=== PATIENT | male | born 1945 | race Caucasian/White ===

== ENCOUNTER 2016-11-10 06:39 | Inpatient (IN) | payer OTHER, MEDICARE ==
[~2016-11-10] VITALS: Ht 171.4 cm; Wt 60.2 kg
[2016-11-10] VITALS (27 sets, daily range): BP systolic 121–148; BP diastolic 72–89; PULSE 54–111; RESP 13–26; TEMP 97.8–98.3; O2SAT 88–99
[2016-11-10] MEDS ORDERED: methylPREDNISolone SOD SUCC 125 MG/2 ML VIAL IVP ONE (07:00)
[2016-11-10] MEDS ORDERED: SODIUM CHLORIDE 0.9% FLUSH 10 ML FLUSH IVF PRN ×2 (07:00→08:15)
--- NOTE | 2016-11-10 07:10 | PD ---
HPI Chief Complaint: Respiratory Distress Time Seen by Provider: 06:46 Travel History International Travel<30 days: No Contact w/Intl Traveler<30days: No Traveled to known affect area: No History of Present Illness HPI 71-year-old male came to the emergency room with history of shortness of breath that started yesterday. [facility] He has history of severe COPD and had a tracheostomy placed 2 weeks ago. Patient is unable to give significant history given his voice issue as well as respiratory distress and the history is mostly obtained from the paramedics. When they listened to his lungs upon arrival he sounded very diminished air entry. The give him 1 albuterol and IV Lasix. His oxygen saturation is in the 80s. He was attached to the EMS ventilator. Oxygen saturation upon arrival was 79%. Patient appeared to be in significant distress and pale in color. PFSH Past Medical History Narrative Medical List of his past medical, surgical, social and family history as reviewed from the nursing note. Social History Tobacco Use: No Allergies-Medications (Allergen,Severity, Reaction): Coded Allergies: No Known Allergies (Unverified , 11/10/16) Comments Unobtainable currently Reported Meds & Prescriptions Reported Meds & Active Scripts Active Reported Aplisol (Tuberculin Ppd) 5 Unit/0.1 Ml Inj Xanax (Alprazolam) 0.25 Mg Tab 0.25 Mg G-TUBE Q8H PRN Vancomycin HCl 500 Mg Vial.port IV DAILY Thera M Plus (Multivitamins/Minerals Therapeutic) 1 Tab 1 Tab G-TUBE DAILY Sodium Chloride Inj (Sodium Chloride) 0.9 % Inj 100 Ml IV Q12HR Probiotic (Lactobacillus Combo No.10) 1 Each Capsule G-TUBE BID Omeprazole 20 Mg Cap G-TUBE BID Olanzapine 5 Mg Tab 5 Mg G-TUBE DAILY Nitro-Bid Topical (Nitroglycerin) 2 % Oint 1 Inch CHEST Q6H PRN Metronidazole 250 Mg Tab 250 Mg G-TUBE QID Metoprolol Tartrate 25 Mg Tab 25 Mg PO BID Loperamide (Loperamide HCl) 2 Mg Tablet 2 Mg G-TUBE Q4HR PRN Duoneb (Ipratropium-Albuterol Neb) 0.5-2.5 Mg/3 Ml Neb 1 Nebule INH Q4HR NEB Hyoscyamine (Hyoscyamine Sulfate) 0.125 Mg Tab 0.125 Mg G-TUBE Q4H Hydralazine Inj (Hydralazine HCl) 20 Mg/Ml Inj 10 Mg IV EVERY HOUR PRN Heparin Inj (Heparin Sodium (Porcine)) 10,000 Units/10 Ml Inj 5,000 Units SQ Q12HR Guaifenesin DM Liq (Guaifenesin-Dextromethorphan Liq) 10-100 Mg/5 Ml Liq 10 Ml G -TUBE Q4H PRN Dextrose 10%-NaCl 0.45% Inj (Dextrose-Sodium Chloride Inj) 10-0.45% 1,000 Ml Bagp Glucagen Hypokit Inj Kit (Glucagon (Rdna) Inj Kit) 1 Mg Kit 1 Mg IM ONCE PRN Doxazosin (Doxazosin Mesylate) 2 Mg Tab 2 Mg G-TUBE DAILY Dextrose 50% (Dextrose) 50 % Inj PRN Cholestyramine 4 Gm/Dose Powd 4 Gm PO BID 1 level scoopful of powder contains 4 grams of cholestyramine. Chlorhexidine Gluconate (Mouth) Liq (Chlorhexidine Gluconate) 0.12% Soln 15 Ml SWISH-SPIT BID Cefepime Inj (Cefepime HCl) 2 Gm/100 Ml Bagp 2 Gm IV Q12H Budesonide Neb 0.5 Mg/2 Ml Neb 0.5 Mg NEB Q12HR NEB Amiodarone (Amiodarone HCl) 200 Mg Tab 200 Mg G-TUBE DAILY Tylenol (Acetaminophen) 325 Mg Tab 325 Mg G-TUBE Q4H PRN Narrative Medication Awaiting for the new nurse to the mental consideration. Review of Systems Except as stated in HPI: all other systems reviewed are Neg Physical Exam Narrative GENERAL: Awake, alert, severe respiratory distress SKIN: Pale and diaphoretic HEAD: Atraumatic. Normocephalic. EYES: Pupils equal and round. No scleral icterus. No injection or drainage. ENT: No nasal bleeding or discharge. Mucous membranes pink and moist. NECK: Trachea midline. No JVD. CARDIOVASCULAR: Regular rate and rhythm. No murmur appreciated. RESPIRATORY: Accessory muscles use for respiration. Absent air entry on the right side. Diminished air entry with coarse breath sounds on the left side. GASTROINTESTINAL: Abdomen soft, non-tender, nondistended. Hepatic and splenic margins not palpable. MUSCULOSKELETAL: No obvious deformities. No clubbing. No cyanosis. No edema. NEUROLOGICAL: Awake and alert. No obvious cranial nerve deficits. Motor grossly within normal limits. Normal speech. PSYCHIATRIC: Appropriate mood and affect; insight and judgment normal. Data Data Last Documented VS Vital Signs Date Time Temp Pulse Resp B/P Pulse Ox O2 Delivery O2 Flow Rate FiO2 11/10/16 08:49 94 13 125/76 98 CPAP 50 11/10/16 07:07 98.3 Orders Complete Blood Count With Diff (11/10/16 06:46) Basic Metabolic Panel (Bmp) (11/10/16 06:46) B-Type Natriuretic Peptide (11/10/16 06:46) Magnesium (Mg) (11/10/16 06:46) Troponin I (11/10/16 06:46) Iv Access Insert/Monitor (11/10/16 06:46) Electrocardiogram (11/10/16 06:46) Ecg Monitoring (11/10/16 06:46) Oximetry (11/10/16 06:46) Oxygen Administration (11/10/16 06:46) Chest, Single Ap (11/10/16 06:46) Sodium Chloride 0.9% Flush (Ns Flush) (11/10/16 07:00) Methylprednisolone So Succ Inj (Solumedr (11/10/16 07:00) Albuterol-Ipratropium Neb (Duoneb Neb) (11/10/16 07:00) Sodium Chlorid 0.9% 500 Ml Inj (Ns 500 M (11/10/16 08:00) Blood Culture (11/10/16 08:09) Sputum Culture And Gram Stain (11/10/16 08:09) Sodium Chloride 0.9% Flush (Ns Flush) (11/10/16 08:15) Piperacil-Tazo 4.5 Gm Premix (Zosyn 4.5 (11/10/16 08:15) Admit Order (Ed Use Only) (11/10/16 08:44) Labs Laboratory Tests Test 11/10/16 06:50 White Blood Count 13.9 TH/MM3 Red Blood Count 3.51 MIL/MM3 Hemoglobin 11.1 GM/DL Hematocrit 32.6 % Mean Corpuscular Volume 92.9 FL Mean Corpuscular Hemoglobin 31.7 PG Mean Corpuscular Hemoglobin 34.1 % Concent Red Cell Distribution Width 16.4 % Platelet Count 267 TH/MM3 Mean Platelet Volume 9.0 FL Neutrophils (%) (Auto) 76.2 % Lymphocytes (%) (Auto) 14.1 % Monocytes (%) (Auto) 8.3 % Eosinophils (%) (Auto) 0.9 % Basophils (%) (Auto) 0.5 % Neutrophils # (Auto) 10.6 TH/MM3 Lymphocytes # (Auto) 2.0 TH/MM3 Monocytes # (Auto) 1.2 TH/MM3 Eosinophils # (Auto) 0.1 TH/MM3 Basophils # (Auto) 0.1 TH/MM3 CBC Comment AUTO DIFF Differential Total Cells 100 Counted Neutrophils % (Manual) 73 % Band Neutrophils % 1 % Lymphocytes % 17 % Monocytes % 7 % Eosinophils % 1 % Neutrophils # (Manual) 10.4 TH/MM3 Metamyelocytes 1 % Differential Comment FINAL DIFF MANUAL Platelet Estimate NORMAL Platelet Morphology Comment NORMAL Sodium Level 138 MEQ/L Potassium Level 3.7 MEQ/L Chloride Level 102 MEQ/L Carbon Dioxide Level 29.6 MEQ/L Anion Gap 6 MEQ/L Blood Urea Nitrogen 24 MG/DL Creatinine 0.52 MG/DL Estimat Glomerular Filtration 157 ML/MIN Rate Random Glucose 134 MG/DL Calcium Level 9.7 MG/DL Magnesium Level 1.8 MG/DL Troponin I LESS THAN 0.02 NG/ML B-Type Natriuretic Peptide 146 PG/ML MDM Medical Decision Making Medical Screen Exam Complete: Yes Emergency Medical Condition: Yes Medical Record Reviewed: Yes Differential Diagnosis Acute COPD exacerbation, pneumonia, pleural effusion, CHF exacerbation Narrative Course 7:09 AM the respiratory therapist suctioned copious amount of thick secretion from the trach. This improved the oxygen saturation. Patient is currently attached to the ventilator. I have ordered 3 duo nebs and IV Solu-Medrol for him as well. Case has been signed over to the oncoming ER physician. Critical Care Narrative Aggregate critical care time was 30 minutes. Time to perform other separately billable procedures was not included in the critical care time. My time did not include minutes spent treating any other patients simultaneously or on activities that did not directly contribute to the patient's treatment. The services I provided to this patient were to treat and/or prevent clinically significant deterioration that could result in: respiratory distress, trach, vent management. I provided critical care services requiring my management, as noted below: Chart data review, documentation time, medication orders and management, vital sign assessments/reviewing monitor data, ordering and reviewing lab tests, ordering and interpreting/reviewing x-rays and diagnostic studies, care of the patient and discussion of the patient with the admitting physicians. Procedures EKG Prior to Arrival: Yes Scripts Oxycodone 10 Mg Tab10 Mg G-TUBE Q6H PRN (PAIN) #10 TAB Ref 0 Prov:Cassy Arora MD 11/13/16 Jon Pryor MD November 10, 2016 07:10
[2016-11-10 07:16] LABS: AUTOMATED NEUTROPHIL # 10.6 TH/MM3 (1.8-7.7); BASOPHIL # 0.1 TH/MM3 (0-0.2); BASOPHIL % 0.5 % (0.0-2.0); EOSINOPHIL # 0.1 TH/MM3 (0-0.4); EOSINOPHIL % 0.9 % (0.0-4.0); HEMATOCRIT 32.6 % (39.0-51.0); HEMO FLAGS AUTO DIFF; LYMPH % 14.1 % (9.0-44.0); MEAN CELL VOLUME 92.9 FL (80.0-100.0); MEAN CORPUSCULAR HEMOGLOBIN 31.7 PG (27.0-34.0); MEAN CORPUSCULAR HGB CONC 34.1 % (32.0-36.0); MONO % 8.3 % (0.0-8.0); NEUT % 76.2 % (16.0-70.0); PLATELET COUNT 267 TH/MM3 (150-450); RED BLOOD COUNT 3.51 MIL/MM3 (4.50-5.90); RED CELL DISTRIBUTION WIDTH 16.4 % (11.6-17.2); WHITE BLOOD COUNT 13.9 TH/MM3 (4.0-11.0)
--- NOTE | 2016-11-10 07:26 | PD ---
Physical Exam Date Seen by Provider: November 10, 2016 Time Seen by Provider: 07:00 Narrative The patient was signed out to me by Dr. Pryor. This is a 71-year-old gentleman who presents from the subsequent and nursing facility with shortness of breath. The patient has a fairly recent trach placed. He apparently had shortness of breath and decreased oxygen saturations. When he arrived he he had diminished breath sounds on the right which was concerning for a mucous plug. He was suctioned multiple times and bagged through his tracheostomy site. His saturations did improve. There was no reported fevers, chills. There are no other reported complaints. He has a sacral decubitus that is the size of a "dessert plate". Per Dr. Urbano Quinteros, it looks much improved from previous. Data Data Last Documented VS Vital Signs Date Time Temp Pulse Resp B/P Pulse Ox O2 Delivery O2 Flow Rate FiO2 11/10/16 08:49 94 13 125/76 98 CPAP 50 11/10/16 07:07 98.3 11/10/16 06:40 15.00 Orders Complete Blood Count With Diff (11/10/16 06:46) Basic Metabolic Panel (Bmp) (11/10/16 06:46) B-Type Natriuretic Peptide (11/10/16 06:46) Magnesium (Mg) (11/10/16 06:46) Troponin I (11/10/16 06:46) Iv Access Insert/Monitor (11/10/16 06:46) Electrocardiogram (11/10/16 06:46) Ecg Monitoring (11/10/16 06:46) Oximetry (11/10/16 06:46) Oxygen Administration (11/10/16 06:46) Chest, Single Ap (11/10/16 06:46) Sodium Chloride 0.9% Flush (Ns Flush) (11/10/16 07:00) Methylprednisolone So Succ Inj (Solumedr (11/10/16 07:00) Albuterol-Ipratropium Neb (Duoneb Neb) (11/10/16 07:00) Sodium Chlorid 0.9% 500 Ml Inj (Ns 500 M (11/10/16 08:00) Blood Culture (11/10/16 08:09) Sputum Culture And Gram Stain (11/10/16 08:09) Sodium Chloride 0.9% Flush (Ns Flush) (11/10/16 08:15) Piperacil-Tazo 4.5 Gm Premix (Zosyn 4.5 (11/10/16 08:15) Admit Order (Ed Use Only) (11/10/16 08:44) Labs Laboratory Tests Test 11/10/16 06:50 White Blood Count 13.9 TH/MM3 Red Blood Count 3.51 MIL/MM3 Hemoglobin 11.1 GM/DL Hematocrit 32.6 % Mean Corpuscular Volume 92.9 FL Mean Corpuscular Hemoglobin 31.7 PG Mean Corpuscular Hemoglobin 34.1 % Concent Red Cell Distribution Width 16.4 % Platelet Count 267 TH/MM3 Mean Platelet Volume 9.0 FL Neutrophils (%) (Auto) 76.2 % Lymphocytes (%) (Auto) 14.1 % Monocytes (%) (Auto) 8.3 % Eosinophils (%) (Auto) 0.9 % Basophils (%) (Auto) 0.5 % Neutrophils # (Auto) 10.6 TH/MM3 Lymphocytes # (Auto) 2.0 TH/MM3 Monocytes # (Auto) 1.2 TH/MM3 Eosinophils # (Auto) 0.1 TH/MM3 Basophils # (Auto) 0.1 TH/MM3 CBC Comment AUTO DIFF Differential Total Cells 100 Counted Neutrophils % (Manual) 73 % Band Neutrophils % 1 % Lymphocytes % 17 % Monocytes % 7 % Eosinophils % 1 % Neutrophils # (Manual) 10.4 TH/MM3 Metamyelocytes 1 % Differential Comment FINAL DIFF MANUAL Platelet Estimate NORMAL Platelet Morphology Comment NORMAL Sodium Level 138 MEQ/L Potassium Level 3.7 MEQ/L Chloride Level 102 MEQ/L Carbon Dioxide Level 29.6 MEQ/L Anion Gap 6 MEQ/L Blood Urea Nitrogen 24 MG/DL Creatinine 0.52 MG/DL Estimat Glomerular Filtration 157 ML/MIN Rate Random Glucose 134 MG/DL Calcium Level 9.7 MG/DL Magnesium Level 1.8 MG/DL Troponin I LESS THAN 0.02 NG/ML B-Type Natriuretic Peptide 146 PG/ML [facility] Medical Record Reviewed: Yes Supervised Visit with MELCHOR: No Interpretation(s) Last 24 hours Impressions Chest X-Ray 11/10/16 0646 Signed Impressions: Service Date/Time: Thursday, November 10, 2016 07:44 - CONCLUSION: Bibasilar airspace opacity, right greater than left, likely representing some combination of atelectasis/volume loss with possible effusion and consolidation at the right lung base. Asif Dawson MD Differential Diagnosis Mucous plug versus pneumonia versus reactive airway disease Narrative Course This is a 71-year-old male who was sent from [facility] with respiratory distress. The patient had low oxygen saturations when paramedics arrived. He has a reported 2-week-old trach in place. When he arrived here there was aggressive suctioning done which increase his oxygen saturations. The patient appears to have a lower lobe pneumonia. We have no old x-rays to compare with. The patient does have an elevated white blood cell count of 13,900. She'll be started on Zosyn. Cultures have been obtained. Case was discussed with Dr. Urbano Quinteros, call or contact centre operator, who well.The patient is off the ventilator and satting well. Given his condition, we'll admit him under observation. He's been started on Zosyn. He'll be admitted to the medicine floor under Dr. Cassy Arora' s service. Diagnosis Primary Impression: Right lower lobe pneumonia Additional Impressions: Respiratory distress tracheostomy patient Admitting Information Admitting Physician Requests: Observation Gilles Forte MD November 10, 2016 07:26
[2016-11-10] MEDS: RESP: ALBUTEROL 2.5 MG/IPRATROPIUM 0.5 MG NEB (SCH) INH ×2 (07:28→07:29)
[2016-11-10 07:34] LABS: ANION GAP 6 MEQ/L (5-15); BICARBONATE 29.6 MEQ/L (21.0-32.0); CHLORIDE 102 MEQ/L (98-107); GLOMERULAR FILTRATION RATE 157 ML/MIN (>89); MAGNESIUM 1.8 MG/DL (1.5-2.5); POTASSIUM 3.7 MEQ/L (3.5-5.1); SODIUM (NA) 138 MEQ/L (136-145)
[2016-11-10 07:38] LABS: BLOOD UREA NITROGEN 24 MG/DL (7-18)
[2016-11-10 07:43] LABS: BANDS 1 % (0-6); EOSINOPHILS 1 % (0-4); METAMYELOCYTES 1 % (0-1); NEUTROPHIL # MANUAL DIFF 10.4 TH/MM3 (1.8-7.7); PLATELET ESTIMATE SMEAR NORMAL (NORMAL); PLATELET MORPHOLOGY NORMAL (NORMAL); POLYS (SEG NEUTROPHILS) 73 % (16-70); SCAN/DIFF FINAL DIFF MANUAL; WBC DIFF SAMPLE 100
--- NOTE | 2016-11-10 07:59 | RADRPT ---
EXAM DATE/TIME: 11/10/2016 07:44 [facility] COMPARISON: No previous studies available for comparison. INDICATIONS : Short of Breath MEDICAL HISTORY : Congestive heart failure. Chronic obstructive pulmonary disease. Anxiety SURGICAL HISTORY : Tracheostomy ENCOUNTER: Initial ACUITY: 1 day PAIN SCORE: 0/10 LOCATION: Bilateral chest FINDINGS: Portable AP view of the chest demonstrates a normal-sized cardiac silhouette. Tracheostomy overlies t he tracheal air shadow. Left upper extremity PICC distal tip is in the SVC. Lungs are underinflated a nd and there is bibasilar airspace opacity, right greater than left. No pneumothorax is visualized. B ones and soft tissues demonstrate no acute finding. CONCLUSION: Bibasilar airspace opacity, right greater than left, likely representing some combination of atelecta sis/volume loss with possible effusion and consolidation at the right lung base. Asif Dawson MD on November 10, 2016 at 7:56 Board Certified Radiologist. This report was verified electronically.
[2016-11-10] MEDS ORDERED: SODIUM CHLORID 0.9% 500 ML INJ 500 ML IV ONE (08:00)
[2016-11-10] MEDS ORDERED: PIPERACIL-TAZO 4.5 GM PREMIX 100 ML IV ONE (08:15)
[2016-11-10] MEDS ORDERED: SODIUM CHLORIDE 0.9% FLUSH 10 ML FLUSH IV FLUSH PRN (10:00)
[2016-11-10] MEDS ORDERED: SENNOSIDES 8.6 MG TAB PO PRN (10:00)
[2016-11-10] MEDS ORDERED: NALOXONE HCL 0.4 MG/ML AMP IV PRN (10:00)
[2016-11-10] MEDS ORDERED: MAGNESIUM HYDROXIDE SUSP 30 ML CUP PO PRN (10:00)
[2016-11-10] MEDS ORDERED: LACTULOSE SYRUP 20 GM/30 ML CUP PO PRN (10:00)
[2016-11-10] MEDS ORDERED: BISACODYL 10 MG SUPP RECTAL PRN (10:00)
[2016-11-10] MEDS ORDERED: OLAN5TAB G-TUBE (10:16)
[2016-11-10] MEDS ORDERED: HEPAR10KP SQ (10:16)
[2016-11-10] MEDS ORDERED: OXYC-395 G-TUBE (10:16)
[2016-11-10] MEDS ORDERED: IPRASOL INH (10:16)
[2016-11-10] MEDS ORDERED: METO25TA3 PO (10:16)
[2016-11-10] MEDS ORDERED: CHOL4POW3 PO (10:16)
[2016-11-10] MEDS ORDERED: DEXTR50%P (10:16)
[2016-11-10] MEDS ORDERED: CHLO.12%30 SWISH-SPIT (10:16)
[2016-11-10] MEDS ORDERED: AMIO200T G-TUBE (10:16)
[2016-11-10] MEDS ORDERED: SODI0.9I IV (10:16)
[2016-11-10] MEDS ORDERED: OMEP20CA2 G-TUBE (10:16)
[2016-11-10] MEDS ORDERED: GUAISYP7 G-TUBE (10:16)
[2016-11-10] MEDS ORDERED: NITR2OIN CHEST (10:16)
[2016-11-10] MEDS ORDERED: LOPE2TAB21 G-TUBE (10:16)
[2016-11-10] MEDS ORDERED: HYDR20IN4 IV (10:16)
[2016-11-10] MEDS ORDERED: [UNRECOGNIZED DRUG - CODE] (10:16)
[2016-11-10] MEDS ORDERED: TYLE325T G-TUBE (10:16)
[2016-11-10] MEDS ORDERED: ALPR.25 G-TUBE (10:16)
[2016-11-10] MEDS ORDERED: [UNRECOGNIZED DRUG - CODE] IV (10:16)
[2016-11-10] MEDS ORDERED: THERM G-TUBE (10:16)
[2016-11-10] MEDS ORDERED: APLI5INJ2 (10:16)
[2016-11-10] MEDS ORDERED: DOXA1TAB35 G-TUBE (10:16)
[2016-11-10] MEDS ORDERED: METR250T15 G-TUBE (10:16)
[2016-11-10] MEDS ORDERED: LACT1CAP18 G-TUBE (10:16)
[2016-11-10] MEDS ORDERED: GLUCINJ IM (10:16)
[2016-11-10] MEDS ORDERED: BUDE0.5S NEB (10:16)
[2016-11-10] MEDS ORDERED: HYOS0.128 G-TUBE (10:16)
[2016-11-10] MEDS ORDERED: CEFE2INJ2 IV (10:16)
[2016-11-10] MEDS: HYOSCYAMINE 0.125 MG TAB G-TUBE SCH ×4 (10:30→21:46)
[2016-11-10] MEDS ORDERED: ACETAMINOPHEN 325 MG TAB G-TUBE PRN (10:30)
[2016-11-10] MEDS ORDERED: guaiFENesin/DEXTROMETHORPHAN 200 MG/20 MG/10 ML CUP G-TUBE PRN (10:30)
[2016-11-10] MEDS ORDERED: LOPERAMIDE HCL SOLN 2 MG/10 ML UDC G-TUBE PRN (10:30)
[2016-11-10] MEDS ORDERED: NITROGLYCERIN 2% OINT 1 GM PACKET TOPICAL SCH (10:30)
[2016-11-10] MEDS ORDERED: GLUCAGON 1 MG/ML VIAL IM PRN (11:00)
--- NOTE | 2016-11-10 11:57 | HHI.HP ---
HPI Service [facility] Hospitalists Primary Care Physician No Primary Care Physician Admission Diagnosis pneumonia, respiratory distress, trach dependent Diagnoses: Chief Complaint: Shortness of breathing Travel History International Travel<30 Days: No Contact w/Intl Traveler <30 Da: No Traveled to Known Affected Are: No History of Present Illness This is a 71-year-old male with past medical history of recent hospitalization secondary to cardiac arrest in which require patient to have chronic tracheostomy who presented with shortness of breathing. Patient was at [facility] and had increased shortness of breathing so was transferred to [place]. Patient was examined by building performance specialist Dr. Cabrera in which his symptoms improved quickly. Symptoms thought to be due to a mucous plug. Patient is fully alert and is able to follow commands. He shook his head when I ask him if breathing has improved. Patient remains afebrile. Denied any pain. I called [facility] regards to his medication in terms of his vancomycin and cefepime. Nurse stated that he was on medication for Pseudomonas infection but she could not give me further details. She stated that she would call me back to give further information, but she never called back. Review of Systems Constitutional: DENIES: Diaphoretic episodes, Fatigue, Fever, Weight gain, Weight loss, Chills, Dizziness, Change in appetite, Night Sweats Endocrine: DENIES: Heat/cold intolerance, Polydipsia, Polyuria, Polyphagia Eyes: DENIES: Blurred vision, Diplopia, Eye inflammation, Eye pain, Vision loss , Photosensitivity, Double Vision Ears, nose, mouth, throat: DENIES: Tinnitus, Hearing loss, Vertigo, Nasal discharge, Oral lesions, Throat pain, Hoarseness, Ear Pain, Running Nose, Epistaxis, Sinus Pain, Toothache, Odynophagia Respiratory: COMPLAINS OF: Shortness of breath, DENIES: Apneas, Cough, Snoring , Wheezing, Hemoptysis, Sputum production Cardiovascular: DENIES: Chest pain, Palpitations, Syncope, Dyspnea on Exertion , PND, Lower Extremity Edema, Orthopnea, Claudication Gastrointestinal: DENIES: Abdominal pain, Black stools, Bloody stools, Constipation, Diarrhea, Nausea, Vomiting, Difficulty Swallowing, Anorexia Genitourinary: DENIES: Sexual dysfunction, Urinary frequency, Urinary incontinence, Urgency, Hematuria, Dysuria, Nocturia, Penile Discharge, Testicular Pain, Testicular Swelling Musculoskeletal: DENIES: Joint pain, Muscle aches, Stiffness, Joint Swelling, Back pain, Neck pain Hematologic/lymphatic: DENIES: Bruising, Lymphadenopathy Immunologic/allergic: DENIES: Eczema, Urticaria Psychiatric: DENIES: Anxiety, Confusion, Mood changes, Depression, Hallucinations, Agitation, Suicidal Ideation, Homicidal Ideation, Delusions + sacral wound Past Family Social History Past Medical History cardiac arrest CAD Hypertension COPD O2 dependent prostate cancer Bladder outlet obstruction Hyperlipidemia trach dependent chronic respiratory failure Past Surgical History Tracheostomy Appendectomy perforated gastric ulcer surgery Cataract PEG placement Reported Medications Reported Meds & Active Scripts Active Reported Aplisol (Tuberculin Ppd) 5 Unit/0.1 Ml Inj Xanax (Alprazolam) 0.25 Mg Tab 0.25 Mg G-TUBE Q8H PRN Vancomycin HCl 500 Mg Vial.port IV DAILY Thera M Plus (Multivitamins/Minerals Therapeutic) 1 Tab 1 Tab G-TUBE DAILY Sodium Chloride Inj (Sodium Chloride) 0.9 % Inj 100 Ml IV Q12HR Probiotic (Lactobacillus Combo No.10) 1 Each Capsule G-TUBE BID Oxycodone (Oxycodone HCl) 10 Mg Tab 10 Mg G-TUBE Q6H PRN Omeprazole 20 Mg Cap G-TUBE BID Olanzapine 5 Mg Tab 5 Mg G-TUBE DAILY Nitro-Bid Topical (Nitroglycerin) 2 % Oint 1 Inch CHEST Q6H PRN Metronidazole 250 Mg Tab 250 Mg G-TUBE QID Metoprolol Tartrate 25 Mg Tab 25 Mg PO BID Loperamide (Loperamide HCl) 2 Mg Tablet 2 Mg G-TUBE Q4HR PRN Duoneb (Ipratropium-Albuterol Neb) 0.5-2.5 Mg/3 Ml Neb 1 Nebule INH Q4HR NEB Hyoscyamine (Hyoscyamine Sulfate) 0.125 Mg Tab 0.125 Mg G-TUBE Q4H Hydralazine Inj (Hydralazine HCl) 20 Mg/Ml Inj 10 Mg IV EVERY HOUR PRN Heparin Inj (Heparin Sodium (Porcine)) 10,000 Units/10 Ml Inj 5,000 Units SQ Q12HR Guaifenesin DM Liq (Guaifenesin-Dextromethorphan Liq) 10-100 Mg/5 Ml Liq 10 Ml G -TUBE Q4H PRN Dextrose 10%-NaCl 0.45% Inj (Dextrose-Sodium Chloride Inj) 10-0.45% 1,000 Ml Bagp Glucagen Hypokit Inj Kit (Glucagon (Rdna) Inj Kit) 1 Mg Kit 1 Mg IM ONCE PRN Doxazosin (Doxazosin Mesylate) 2 Mg Tab 2 Mg G-TUBE DAILY Dextrose 50% (Dextrose) 50 % Inj PRN Cholestyramine 4 Gm/Dose Powd 4 Gm PO BID 1 level scoopful of powder contains 4 grams of cholestyramine. Chlorhexidine Gluconate (Mouth) Liq (Chlorhexidine Gluconate) 0.12% Soln 15 Ml SWISH-SPIT BID Cefepime Inj (Cefepime HCl) 2 Gm/100 Ml Bagp 2 Gm IV Q12H Budesonide Neb 0.5 Mg/2 Ml Neb 0.5 Mg NEB Q12HR NEB Amiodarone (Amiodarone HCl) 200 Mg Tab 200 Mg G-TUBE DAILY Tylenol (Acetaminophen) 325 Mg Tab 325 Mg G-TUBE Q4H PRN Allergies: Coded Allergies: No Known Allergies (Unverified , 11/10/16) Active Ordered Medications Current Medications Sodium Chloride (NS Flush) 2 ml UNSCH PRN IVF FLUSH AFTER USING IV ACCESS; Start 11/10/16 at 07:00; Stop 11/10/16 at 10:00; Status DC Methylprednisolone Sodium Succinate (SoluMEDROL INJ) 125 mg ONCE ONCE IVP Last administered on 11/10/16 08:47; Start 11/10/16 at 07:00; Stop 11/10/16 at 07:01; Status DC Albuterol/ Ipratropium 1 ampule 1 ampule Q15M INH Last administered on 07:29; Start 11/10/16 at 07:00; Stop 11/10/16 at 07:31; Status DC Sodium Chloride (NS 500 ml Inj) 500 ml @ 500 mls/hr BOLUS ONCE IV Last administered on 11/10/16 08:48; Start 11/10/16 at 08:00; Stop 11/10/16 at 08:59 ; Status DC Sodium Chloride 2 ml 2 ml UNSCH PRN IVF FLUSH AFTER USING IV ACCESS; Start at 08:15; Stop 11/10/16 at 10:00; Status DC Piperacillin Sod/ Tazobactam Sod (Zosyn 4.5 Gm Premix) 100 ml @ 200 mls/hr ONCE ONCE IV Last administered on 11/10/16t 08:49; Start 11/10/16 at 08:15; Stop 11/10/16 at 08:44; Status DC Sodium Chloride (NS Flush) 2 ml UNSCH PRN IV FLUSH FLUSH AFTER USING IV ACCESS ; Start 11/10/16 at 10:00 Sodium Chloride (NS Flush) 2 ml BID IV FLUSH ; Start 11/10/16 at 21:00 Naloxone HCl (Narcan Inj) 0.4 mg UNSCH PRN IV SEE LABEL COMMENTS; Start at 10:00 Senna/Docusate Sodium (Sharita-Colace) 1 tab BID PO ; Start 11/10/16 at 21:00 Magnesium Hydroxide (Milk Of Magnesia Liq) 30 ml Q12H PRN PO MILD - MODERATE CONSTIPATION; Start 11/10/16 at 10:00 Sennosides (Senokot) 17.2 mg Q12H PRN PO MODERATE - SEVERE CONSTIPATION; Start 11/10/16 at 10:00 Bisacodyl (Dulcolax Supp) 10 mg DAILY PRN RECTAL SEVERE CONSITIPATION; Start at 10:00 Lactulose (Lactulose Liq) 30 ml DAILY PRN PO SEVERE CONSITIPATION; Start at 10:00 Acetaminophen (Tylenol) 325 mg Q4H PRN G-TUBE PAIN SCALE 1 TO 10; Start at 10:30 Alprazolam (Xanax) 0.25 mg Q8H PRN G-TUBE ANXIETY; Start 11/10/16 at 10:30 Amiodarone HCl (Cordarone) 200 mg DAILY G-TUBE ; Start 11/11/16 at 09:00 Chlorhexidine Gluconate (Peridex 0.12% Liq) 15 ml BID SWISH-SPIT ; Start at 21:00 Cholestyramine Resin (Questran 4 Gm Pkt) 4 gm BID PO ; Start 11/10/16 at 21:00 Doxazosin Mesylate (Cardura) 2 mg DAILY G-TUBE ; Start 11/11/16 at 09:00 Guaifenesin/ Dextromethorphan (Robitussin Dm 200-20 Mg/10 ml Liq) 10 ml Q4H PRN G-TUBE COUGH; Start 11/10/16 at 10:30 Hyoscyamine Sulfate (Levsin) 0.125 mg Q4H G-TUBE ; Start 11/10/16 at 10:30 Metoprolol Tartrate (Lopressor) 25 mg BID PO ; Start 11/10/16 at 21:00 Metronidazole (Flagyl) 250 mg QID G-TUBE Last administered on 11/10/16t 14:00; Start 11/10/16 at 13:00 Multivitamins/ Minerals Therapeutic (Theragran M Tab) 1 tab DAILY G-TUBE ; Start 11/11/16 at 09:00 Nitroglycerin (Nitroglycerin 2% Oint) 1 inch Q6H TOPICAL ; Start 11/10/16 at 10: 30; Stop 11/10/16 at 11:54; Status DC Olanzapine (ZyPREXA) 5 mg DAILY G-TUBE ; Start 11/11/16 at 09:00 Oxycodone HCl (Roxicodone) 10 mg Q6H PRN G-TUBE PAIN; Start 11/10/16 at 10:30 Glucagon (Glucagon Inj) 1 mg ONCE PRN IM BLOOD SUGAR MANAGEMENT; Start at 11:00; Stop 11/13/16 at 10:59 Loperamide HCl (Imodium Liq) 2 mg Q4HR PRN G-TUBE DIARRHEA; Start 11/10/16 at 10:30 Heparin Sodium (Porcine) (Heparin Inj) 5,000 units Q12HR SQ ; Start 11/10/16 at 21:00 Famotidine 20 mg 20 mg BID PO ; Start 11/10/16 at 21:00 Cefepime HCl 2000 mg/Sodium Chloride 100 ml @ 200 mls/hr Q12H IV ; Start at 16:15; Status UNV Vancomycin HCl 500 mg/Sodium Chloride 100 ml @ 200 mls/hr DAILY IV ; Start at 16:15; Status UNV Pharmacy Profile Note (Vancomycin Consult Pharmacy) 0 ml @ 0 mls/hr UNSCH OTHER ; Start 11/10/16 at 16:15; Status UNV Family History father history of dementia and alcohol abuse. Social History patient is at [facility] Physical Exam Vital Signs Vital Signs Date Time Temp Pulse Resp B/P Pulse Ox O2 Delivery O2 Flow Rate FiO2 11/10/16 09:15 95 T-piece 50 11/10/16 08:50 50 11/10/16 08:49 94 13 125/76 98 CPAP 50 11/10/16 08:21 60 11/10/16 08:21 99 60 11/10/16 08:03 94 18 131/81 99 Ventilator 100 11/10/16 07:10 92 100 11/10/16 07:07 96 Ventilator 100 11/10/16 07:07 98.3 109 21 121/82 96 Ventilator 100 11/10/16 07:00 100 11/10/16 06:55 111 26 122/83 88 11/10/16 06:40 95 15.00 100 Physical Exam GENERAL: This is a well-nourished, well-developed patient, in no apparent distress. SKIN: posterior sacral wound + musculature tissue expose no drainage noted HEAD: Atraumatic. Normocephalic. No temporal or scalp tenderness. EYES: Pupils equal round and reactive. Extraocular motions intact. No scleral icterus. No injection or drainage. ENT: Nose without bleeding, purulent drainage or septal hematoma. Throat without erythema, tonsillar hypertrophy or exudate. Uvula midline. Airway patent. Trach is in place NECK: Trachea midline. No JVD or lymphadenopathy. Supple, nontender, no meningeal signs. CARDIOVASCULAR: Regular rate and rhythm without murmurs, gallops, or rubs. RESPIRATORY: Clear to auscultation. Breath sounds equal bilaterally. No wheezes , rales, or rhonchi. GASTROINTESTINAL: Abdomen soft, non-tender, nondistended. No hepato-splenomegaly , or palpable masses. No guarding. MUSCULOSKELETAL: Extremities without clubbing, cyanosis, or edema. No joint tenderness, effusion, or edema noted. No calf tenderness. Negative Homans sign bilaterally. NEUROLOGICAL: Awake and alert. Cranial nerves II through XII intact. Laboratory Laboratory Tests Test 11/10/16 06:50 White Blood Count 13.9 Red Blood Count 3.51 Hemoglobin 11.1 Hematocrit 32.6 Mean Corpuscular Volume 92.9 Mean Corpuscular Hemoglobin 31.7 Mean Corpuscular Hemoglobin 34.1 Concent Red Cell Distribution Width 16.4 Platelet Count 267 Mean Platelet Volume 9.0 Neutrophils (%) (Auto) 76.2 Lymphocytes (%) (Auto) 14.1 Monocytes (%) (Auto) 8.3 Eosinophils (%) (Auto) 0.9 Basophils (%) (Auto) 0.5 Neutrophils # (Auto) 10.6 Lymphocytes # (Auto) 2.0 Monocytes # (Auto) 1.2 Eosinophils # (Auto) 0.1 Basophils # (Auto) 0.1 CBC Comment AUTO DIFF Differential Total Cells 100 Counted Neutrophils % (Manual) 73 Band Neutrophils % 1 Lymphocytes % 17 Monocytes % 7 Eosinophils % 1 Neutrophils # (Manual) 10.4 Metamyelocytes 1 Differential Comment FINAL DIFF MANUAL Platelet Estimate NORMAL Platelet Morphology Comment NORMAL Sodium Level 138 Potassium Level 3.7 Chloride Level 102 Carbon Dioxide Level 29.6 Anion Gap 6 Blood Urea Nitrogen 24 Creatinine 0.52 Estimat Glomerular Filtration 157 Rate Random Glucose 134 Calcium Level 9.7 Magnesium Level 1.8 Troponin I LESS THAN 0.02 B-Type Natriuretic Peptide 146 Date/Time Procedure Status Source Growth 11/10/16 08:45 Aerobic Blood Culture Received Blood Peripheral Pending 11/10/16 08:45 Anaerobic Blood Culture Received Blood Peripheral Pending 11/10/16 08:40 Gram Stain Received Sputum Endotracheal Pending 11/10/16 08:40 Sputum Culture Received Sputum Endotracheal Pending Result Diagram: 11/10/16 0650 11/10/16 0650 Imaging Last Impressions Chest X-Ray 11/10/16 0646 Signed Impressions: Service Date/Time: Thursday, November 10, 2016 07:44 - CONCLUSION: Bibasilar airspace opacity, right greater than left, likely representing some combination of atelectasis/volume loss with possible effusion and consolidation at the right lung base. Asif Dawson MD Assessment and Plan Assessment and Plan 71-year-old male with recent discharge due to long hospitalization from cardiac arrest who presented with shortness of breathing Acute on chronic respiratory failure s/p trach on 09/04 -Director Of Technology Dr. Cabrera evaluated patient stated most likely mucous plug since patient is improving quickly. -Patient stated that he is almost back to baseline. -cxr Bibasilar airspace opacity, right greater than left, likely representing some combination of atelectasis/volume loss with possible effusion and consolidation at the right lung base. -We'll continue to monitor closely. Will get sputum cultures as recommended. -patient already on cefepime and vancomycin. ? Infection -Patient is on vancomycin and cefepime. I spoke to the nurse at [facility] and they stated that he was on for a Pseudomonas infection. I asked for more information and they stated they will call me back. I have not received a phone call back yet. We will restart medication and try to call again. Unsure why he is on vancomycin if treatment is against Pseudomonas. hx Cardiac arrest status post CPR 15 minutes -stable History of hypertension/PVD -Resume home medication End-stage COPD/history of tension pneumothorax/history of aspiration pneumonia -Continue with home medication. History of bladder outlet obstruction/urinary retention -Robison in place. 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 -No signs of infection. Per Dr. Cabrera wound had improved actually has improved. History of prostate cancer -stable -f/u as outpatient DVT prophylaxis -heparin Code Status full Discussed Condition With Dr. Cabrera and patient Physician Certification 2 Midnight Certification Type: Admission for Inpatient Services Order for Inpatient Services The services are ordered in accordance with Medicare regulations or non- Medicare payer requirements, as applicable. In the case of services not specified as inpatient-only, they are appropriately provided as inpatient services in accordance with the 2-midnight benchmark. Estimated LOS (days): 2 2 days is the estimated time the patient will need to remain in the hospital, assuming treatment plan goals are met and no additional complications. Post-Hospital Plan: Other acute care hospital Cassy Arora MD November 10, 2016 11:57
[2016-11-10] MEDS: metroNIDAZOLE 250 MG TAB G-TUBE SCH ×3 (14:00→21:49)
--- NOTE | 2016-11-10 15:35 | EKG ---
Date Performed: 11/10/2016 Time Performed: 06:55:51 PTAGE: 71 years EKG: Sinus tachycardia Right Bundle Branch Block NO PREVIOUS TRACING DOCTOR: Bert Rowland Interpretating Date/Time 11/10/2016 15:34:09
--- NOTE | 2016-11-10 15:59 | HHI.PR ---
Subjective Remarks Called to evaluate patient by Dr. Forte in the emergency department. Mr. 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 He has a history of end-stage o2 dependent COPD and most recently has spent a [facility], requiring tracheostomy for chronic respiratory failure. He presented to the emergency department with acute dyspnea from his SNF. the emergency department suctioned a large amount of mucous out of his airways and placed him on a ventilator. I went and evaluated the patient, and he was comfortable. I took him off the ventilator and replaced his [place] valve so we could have a conversation. The patient's spo2 was 91 % on room air. He states he has had an increase in his secretions over the last few days. He reports that these are think and clear secretions, non-foul- smelling. denies shortness of breath, fever, chills. Says he feels he is having more trouble coughing them up. When asked whether or not he wants to go back to his SNF or be admitted, he states "Can I just stay here a while to make sure everything is okay?" In the emergency department, he had a leukocytosis of 13 which is stable from his prior admission. He has a chest xray which is also essentially unchanged from prior. Objective Vital Signs Date Time Temp Pulse Resp B/P Pulse Ox O2 Delivery O2 Flow Rate FiO2 11/10/16 13:30 81 18 148/81 98 T-piece 6 11/10/16 12:00 81 16 127/78 97 Trach Collar 7 11/10/16 11:00 81 15 138/76 96 Trach Collar 7 11/10/16 10:00 88 16 127/72 94 Trach Collar 7 11/10/16 09:15 95 T-piece 50 11/10/16 08:50 50 11/10/16 08:49 94 13 125/76 98 CPAP 50 11/10/16 08:21 60 11/10/16 08:21 99 60 11/10/16 08:03 94 18 131/81 99 Ventilator 100 11/10/16 07:10 92 100 11/10/16 07:07 96 Ventilator 100 11/10/16 07:07 98.3 109 21 121/82 96 Ventilator 100 11/10/16 07:00 100 11/10/16 06:55 111 26 122/83 88 11/10/16 06:40 95 15.00 100 I/O 11/09/16 11/09/16 11/09/16 11/10/16 11/10/16 11/10/16 07:00 15:00 23:00 07:00 15:00 23:00 Intake Total 600 ml Output Total 750 ml Balance -150 ml Intake IV Total 600 ml Output Urine Total 750 ml Result Diagram: 11/10/16 0650 11/10/16 0650 Imaging Last Impressions Chest X-Ray 11/10/16 0646 Signed Impressions: Service Date/Time: Thursday, November 10, 2016 07:44 - CONCLUSION: Bibasilar airspace opacity, right greater than left, likely representing some combination of atelectasis/volume loss with possible effusion and consolidation at the right lung base. Asif Dawson MD Objective Remarks briefly, elderly male, no acute distress. alert, oriented. clear lungs, mildly tachypneic when coughing, but otherwise calm. mild amount of clear secretions. no peripheral edema. distal pulses 2+. The patient has a unstageable decubitus ulcer on his sacrum that I have seen previously. Compared to prior, it has significantly improved. to my exam today , there is healthy granulation tissue and no evidence of infection or purulent drainage. I am very happy with his wound compared to my last evaluation of it. Assessment and Plan Assessment and Plan Assessment: 71yM with chronic respiratory failure and what appears to be acute hypoxemia secondary to mucous plugging. I discussed his case with Dr. Arora as well as Dr. Forte and the patient. I think it is reasonable to admit him in an observation status to watch his pulmonary toileting and respiratory mechanics. I do not think he requires ICU level care. His pulmonary complaints do not sound infectious, given a lack of purulent sputum, increasing shortness of breath or oxygen requirement, fever,chills. however, I don't think it is unreasonable to cover him with antibiotics until culture data can be resulted. Active Problems: Mucous plugging Poor pulmonary toilet Acute hypoxemia- resolved. Recommendations: -- admit under obs status to floor for close observation -- sputum cultures -- if remains stable overnight, would send back to SNF. The critical care medicine team will remain peripherally aware of the patient, and will be happy to make ongoing recommendations at the request of the primary hospitalist service. Saurav Cabrera MD November 10, 2016 15:58
[2016-11-10] MEDS ORDERED: VANCOMYCIN INJ 500 MG in SODIUM CHLORIDE 0.9% INJ 100 ML IV SCH (16:15)
[2016-11-10] MEDS ORDERED: Vancomycin Consult Pharmacy 1 EA OTHER SCH (16:15)
[2016-11-10] MEDS: CEFEPIME INJ 2,000 MG in SODIUM CHLORIDE 0.9% INJ 100 ML IV SCH (18:28)
[2016-11-10] MEDS: SODIUM CHLOR 0.9% 1000 ML INJ 1,000 ML IV SCH (20:15)
[2016-11-10] MEDS: CHOLESTYRAMINE 4 GM PACKET PO SCH (21:00)
[2016-11-10] MEDS: CHLORHEXIDINE 0.12% (ORAL KIT) 15 ML CUP SWISH-SPIT SCH (21:00)
[2016-11-10] MEDS: SODIUM CHLORIDE 0.9% FLUSH 10 ML FLUSH IV FLUSH SCH (21:00)
[2016-11-10] MEDS: RESP: ALBUTEROL 2.5 MG/IPRATROPIUM 0.5 MG NEB (PRN) NEB (21:02)
[2016-11-10] MEDS: DOCUSATE SODIUM 50 MG/SENNA 8.6 MG TAB PO SCH (21:46)
[2016-11-10] MEDS: METOPROLOL TARTRATE 25 MG TAB PO SCH (21:47)
[2016-11-10] MEDS: HEPARIN SODIUM - SQ 10,000 UNITS/ML VIAL SQ SCH (21:49)
[2016-11-10] MEDS: FAMOTIDINE 20 MG TAB PO SCH (21:49)
[2016-11-10] MEDS: ALPRAZolam 0.25 MG TAB G-TUBE PRN (21:49)
[2016-11-10] MEDS: VANCOMYCIN INJ 1,200 MG in SODIUM CHLOR 0.9% 250 ML INJ 250 ML IV SCH (22:39)
[2016-11-11] VITALS (19 sets, daily range): BP systolic 119–138; BP diastolic 66–80; PULSE 46–72; RESP 16–18; TEMP 97.4–98; O2SAT 92–98
[2016-11-11] MEDS: HYOSCYAMINE 0.125 MG TAB G-TUBE SCH ×6 (02:22→21:14)
[2016-11-11] MEDS: CEFEPIME INJ 2,000 MG in SODIUM CHLORIDE 0.9% INJ 100 ML IV SCH ×2 (07:09→18:29)
[2016-11-11] MEDS: VANCOMYCIN INJ 1,200 MG in SODIUM CHLOR 0.9% 250 ML INJ 250 ML IV SCH ×3 (07:09→23:30)
[2016-11-11] MEDS: CHLORHEXIDINE 0.12% (ORAL KIT) 15 ML CUP SWISH-SPIT SCH (09:00)
[2016-11-11] MEDS: FAMOTIDINE 20 MG TAB PO SCH ×2 (09:42→21:14)
[2016-11-11] MEDS: DOXAZOSIN MESYLATE 2 MG TAB G-TUBE SCH (09:42)
[2016-11-11] MEDS: metroNIDAZOLE 250 MG TAB G-TUBE SCH ×4 (09:42→21:14)
[2016-11-11] MEDS: OLANZapine 5 MG TAB G-TUBE SCH (09:42)
[2016-11-11] MEDS: METOPROLOL TARTRATE 25 MG TAB PO SCH ×2 (09:42→21:14)
[2016-11-11] MEDS: HEPARIN SODIUM - SQ 10,000 UNITS/ML VIAL SQ SCH ×2 (09:43→21:14)
[2016-11-11] MEDS: AMIODARONE 200 MG TAB G-TUBE SCH (09:43)
[2016-11-11] MEDS: DOCUSATE SODIUM 50 MG/SENNA 8.6 MG TAB PO SCH ×2 (09:43→21:14)
[2016-11-11] MEDS: MULTIVITAMINS/MINERALS THERAPEUTIC TAB G-TUBE SCH (09:43)
[2016-11-11] MEDS: CHOLESTYRAMINE 4 GM PACKET PO SCH ×2 (09:43→21:14)
[2016-11-11] MEDS: SODIUM CHLORIDE 0.9% FLUSH 10 ML FLUSH IV FLUSH SCH ×2 (09:44→21:00)
--- NOTE | 2016-11-11 11:27 | HHI.PR ---
Subjective Remarks Follow-up for SOB secondary to mucous plug Patient stated that his breathing has improved drastically. He is back to her baseline. Denies any cough. Patient remains afebrile. Patient has no complaints. Patient stated that he will not go back to [facility]. Objective Vitals Vital Signs Date Time Temp Pulse Resp B/P Pulse Ox O2 Delivery O2 Flow Rate FiO2 11/11/16 05:00 46 11/11/16 05:00 97.8 63 18 137/70 97 11/11/16 04:00 46 11/11/16 03:00 48 11/11/16 02:00 50 11/11/16 01:20 95 Trach Collar 50 11/11/16 01:00 52 11/11/16 00:11 97 40 11/11/16 00:00 66 11/10/16 23:13 97.8 57 18 134/82 98 11/10/16 23:00 54 11/10/16 22:12 91 40 11/10/16 22:00 70 11/10/16 21:00 76 11/10/16 20:35 18 11/10/16 20:00 62 11/10/16 19:05 97.8 80 18 146/89 94 11/10/16 19:00 58 11/10/16 18:00 66 11/10/16 17:43 98 Trach Collar 6.00 50 11/10/16 17:00 78 11/10/16 16:00 74 11/10/16 15:13 77 11/10/16 15:00 98.3 85 18 136/89 97 11/10/16 14:30 98.3 85 20 136/89 97 11/10/16 13:30 81 18 148/81 98 T-piece 6 11/10/16 12:00 81 16 127/78 97 Trach Collar 7 I/O 11/10/16 11/10/16 11/10/16 11/11/16 11/11/16 11/11/16 07:00 15:00 23:00 07:00 15:00 23:00 Intake Total 600 ml Output Total 750 ml 450 ml Balance -150 ml -450 ml Intake IV Total 600 ml Output Urine Total 750 ml 450 ml Result Diagram: 11/10/16 0650 11/10/16 0650 Objective Remarks GENERAL: In no acute distress. NECK: Supple, trachea midline. No JVD or lymphadenopathy. Trach in place CARDIOVASCULAR: Regular rate and rhythm without murmurs, gallops, or rubs. RESPIRATORY: Breath sounds equal bilaterally. No accessory muscle use. Transmitted upper respiratory sounds. GASTROINTESTINAL: Abdomen soft, non-tender, nondistended. MUSCULOSKELETAL: No cyanosis, or edema. BACK: Nontender without obvious deformity. No CVA tenderness. Medications and IVs Current Medications Sodium Chloride (NS Flush) 2 ml UNSCH PRN IVF FLUSH AFTER USING IV ACCESS; Start 11/10/16 at 07:00; Stop 11/10/16 at 10:00; Status DC Methylprednisolone Sodium Succinate (SoluMEDROL INJ) 125 mg ONCE ONCE IVP Last administered on 11/10/16 08:47; Start 11/10/16 at 07:00; Stop 11/10/16 at 07:01; Status DC Albuterol/ Ipratropium 1 ampule 1 ampule Q15M INH Last administered on 07:29; Start 11/10/16 at 07:00; Stop 11/10/16 at 07:31; Status DC Sodium Chloride (NS 500 ml Inj) 500 ml @ 500 mls/hr BOLUS ONCE IV Last administered on 11/10/16 08:48; Start 11/10/16 at 08:00; Stop 11/10/16 at 08:59 ; Status DC Sodium Chloride 2 ml 2 ml UNSCH PRN IVF FLUSH AFTER USING IV ACCESS; Start at 08:15; Stop 11/10/16 at 10:00; Status DC Piperacillin Sod/ Tazobactam Sod (Zosyn 4.5 Gm Premix) 100 ml @ 200 mls/hr ONCE ONCE IV Last administered on 11/10/16 08:49; Start 11/10/16 at 08:15; Stop 11/10/16 at 08:44; Status DC Sodium Chloride (NS Flush) 2 ml UNSCH PRN IV FLUSH FLUSH AFTER USING IV ACCESS ; Start 11/10/16 at 10:00 Sodium Chloride (NS Flush) 2 ml BID IV FLUSH Last administered on 11/11/16 09: 44; Start 11/10/16 at 21:00 Naloxone HCl (Narcan Inj) 0.4 mg UNSCH PRN IV SEE LABEL COMMENTS; Start at 10:00 Senna/Docusate Sodium (Sharita-Colace) 1 tab BID PO Last administered on 09:43; Start 11/10/16 at 21:00 Magnesium Hydroxide (Milk Of Magnesia Liq) 30 ml Q12H PRN PO MILD - MODERATE CONSTIPATION; Start 11/10/16 at 10:00 Sennosides (Senokot) 17.2 mg Q12H PRN PO MODERATE - SEVERE CONSTIPATION; Start 11/10/16 at 10:00 Bisacodyl (Dulcolax Supp) 10 mg DAILY PRN RECTAL SEVERE CONSITIPATION; Start at 10:00 Lactulose (Lactulose Liq) 30 ml DAILY PRN PO SEVERE CONSITIPATION; Start at 10:00 Acetaminophen (Tylenol) 325 mg Q4H PRN G-TUBE PAIN SCALE 1 TO 10; Start at 10:30 Alprazolam (Xanax) 0.25 mg Q8H PRN G-TUBE ANXIETY Last administered on 21:49; Start 11/10/16 at 10:30 Amiodarone HCl (Cordarone) 200 mg DAILY G-TUBE Last administered on 11/11/16 09:43; Start 11/11/16 at 09:00 Chlorhexidine Gluconate (Peridex 0.12% Liq) 15 ml BID SWISH-SPIT ; Start at 21:00 Cholestyramine Resin (Questran 4 Gm Pkt) 4 gm BID PO Last administered on 09:43; Start 11/10/16 at 21:00 Doxazosin Mesylate (Cardura) 2 mg DAILY G-TUBE Last administered on 11/11/16 09:42; Start 11/11/16 at 09:00 Guaifenesin/ Dextromethorphan (Robitussin Dm 200-20 Mg/10 ml Liq) 10 ml Q4H PRN G-TUBE COUGH; Start 11/10/16 at 10:30 Hyoscyamine Sulfate (Levsin) 0.125 mg Q4H G-TUBE Last administered on 09:44; Start 11/10/16 at 10:30 Metoprolol Tartrate (Lopressor) 25 mg BID PO Last administered on 11/11/16 09: 42; Start 11/10/16 at 21:00 Metronidazole (Flagyl) 250 mg QID G-TUBE Last administered on 11/11/16 09:42; Start 11/10/16 at 13:00 Multivitamins/ Minerals Therapeutic (Theragran M Tab) 1 tab DAILY G-TUBE Last administered on 11/11/16 09:43; Start 11/11/16 at 09:00 Nitroglycerin (Nitroglycerin 2% Oint) 1 inch Q6H TOPICAL ; Start 11/10/16 at 10: 30; Stop 11/10/16 at 11:54; Status DC Olanzapine (ZyPREXA) 5 mg DAILY G-TUBE Last administered on 11/11/16 09:42; Start 11/11/16 at 09:00 Oxycodone HCl (Roxicodone) 10 mg Q6H PRN G-TUBE PAIN Last administered on 19:32; Start 11/10/16 at 10:30 Glucagon (Glucagon Inj) 1 mg ONCE PRN IM BLOOD SUGAR MANAGEMENT; Start at 11:00; Stop 11/13/16 at 10:59 Loperamide HCl (Imodium Liq) 2 mg Q4HR PRN G-TUBE DIARRHEA; Start 11/10/16 at 10:30 Heparin Sodium (Porcine) (Heparin Inj) 5,000 units Q12HR SQ Last administered on 11/11/16 09:43; Start 11/10/16 at 21:00 Famotidine 20 mg 20 mg BID PO Last administered on 11/11/16 09:42; Start 11/10 at 21:00 Cefepime HCl 2000 mg/Sodium Chloride 100 ml @ 200 mls/hr Q12H IV Last administered on 11/11/16 07:09; Start 11/10/16 at 18:00 Vancomycin HCl 500 mg/Sodium Chloride 100 ml @ 200 mls/hr DAILY IV ; Start at 16:15; Status UNV Pharmacy Profile Note 0 ml @ 0 mls/hr UNSCH OTHER ; Start 11/10/16 at 16:15 Vancomycin HCl/ Sodium Chloride (Vancomycin Inj/ NS 250 ml Inj) 262 ml @ 250 mls/hr Q8HR IV Last administered on 11/11/16 07:09; Start 11/10/16 at 22:00 Miscellaneous Information SPECIFIC LAB TO BE . ONCE ONCE .XX ; Start 11/11 at 21:45; Stop 11/11/16 at 21:46 Albuterol/ Ipratropium 1 ampule 1 ampule Q2HR NEB PRN NEB SOB/WHEEZING Last administered on 11/10/16 21:02; Start 11/10/16 at 20:15 Sodium Chloride (NS 1000 ml Inj) 1,000 ml @ 42 mls/hr [id number] IV Last administered on 11/10/16 20:15; Start 11/10/16 at 20:15 A/P Assessment and Plan 71-year-old male with recent discharge due to long hospitalization from cardiac arrest who presented with shortness of breathing Acute on chronic respiratory failure s/p trach on 09/04 -Most likely secondary to mucous plug. Symptomatically patient was back to baseline. -cxr Bibasilar airspace opacity, right greater than left, likely representing some combination of atelectasis/volume loss with possible effusion and consolidation at the right lung base. -We'll continue to monitor closely. Pending sputum cultures. -patient already on cefepime and vancomycin. ? Infection -Patient is on vancomycin and cefepime. Per nurse from [facility] patient is on due to Pseudomonas infection. Unsure why he is on vancomycin. Have not received a call back from nurse. Will need to obtain medical records. Will place order for nurse obtain medical records. hx Cardiac arrest status post CPR 15 minutes -stable History of hypertension/PVD -Continue home medication End-stage COPD/history of tension pneumothorax/history of aspiration pneumonia -Continue with home medication. History of bladder outlet obstruction/urinary retention -Robison in place. 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 -No signs of infection. Per Dr. Cabrera wound had improved actually has improved. History of prostate cancer -stable -f/u as outpatient DVT prophylaxis -heparin Discharge Planning Patient refused to back to [facility]. Will have case management address this. Cassy Arora MD November 11, 2016 11:27
[2016-11-11 11:50] LABS: AUTOMATED NEUTROPHIL # 8.1 TH/MM3 (1.8-7.7); BASOPHIL % 0.1 % (0.0-2.0); EOSINOPHIL % 0.1 % (0.0-4.0); HEMATOCRIT 27.3 % (39.0-51.0); HEMO FLAGS DIFF FINAL; LYMPH % 10.4 % (9.0-44.0); MEAN CELL VOLUME 94.5 FL (80.0-100.0); MEAN CORPUSCULAR HEMOGLOBIN 32.1 PG (27.0-34.0); MONO % 7.2 % (0.0-8.0); NEUT % 82.2 % (16.0-70.0); PLATELET COUNT 203 TH/MM3 (150-450); RED BLOOD COUNT 2.89 MIL/MM3 (4.50-5.90); RED CELL DISTRIBUTION WIDTH 16.8 % (11.6-17.2); WHITE BLOOD COUNT 9.9 TH/MM3 (4.0-11.0)
[2016-11-11] MEDS: RESP: ALBUTEROL 2.5 MG/IPRATROPIUM 0.5 MG NEB (PRN) NEB ×2 (11:50→22:19)
[2016-11-11 12:14] LABS: BICARBONATE 31.1 MEQ/L (21.0-32.0); POTASSIUM 3.8 MEQ/L (3.5-5.1)
[2016-11-11] MEDS: ALPRAZolam 0.25 MG TAB G-TUBE PRN (15:22)
[2016-11-11] MEDS: SODIUM CHLOR 0.9% 1000 ML INJ 1,000 ML IV SCH (21:15)
[2016-11-11] MEDS ORDERED: PHARMACY ORDERED LAB ONE (21:45)
[2016-11-12] VITALS (25 sets, daily range): BP systolic 122–135; BP diastolic 67–86; PULSE 46–92; RESP 18–20; TEMP 97.7–98.7; O2SAT 94–98
[2016-11-12] MEDS: HYOSCYAMINE 0.125 MG TAB G-TUBE SCH ×6 (02:56→20:04)
[2016-11-12 05:03] LABS: HEMATOCRIT 27.6 % (39.0-51.0); MEAN CELL VOLUME 94.4 FL (80.0-100.0); MEAN CORPUSCULAR HEMOGLOBIN 32.6 PG (27.0-34.0); MEAN CORPUSCULAR HGB CONC 34.5 % (32.0-36.0); PLATELET COUNT 227 TH/MM3 (150-450); RED BLOOD COUNT 2.93 MIL/MM3 (4.50-5.90); RED CELL DISTRIBUTION WIDTH 16.8 % (11.6-17.2); REVIEW FLAG FINAL; WHITE BLOOD COUNT 9.1 TH/MM3 (4.0-11.0)
[2016-11-12 05:25] LABS: BICARBONATE 31.7 MEQ/L (21.0-32.0); POTASSIUM 3.3 MEQ/L (3.5-5.1)
[2016-11-12] MEDS: CEFEPIME INJ 2,000 MG in SODIUM CHLORIDE 0.9% INJ 100 ML IV SCH ×2 (06:04→18:23)
[2016-11-12] MEDS: DOCUSATE SODIUM 50 MG/SENNA 8.6 MG TAB PO SCH ×2 (09:00→19:56)
[2016-11-12] MEDS: CHLORHEXIDINE 0.12% (ORAL KIT) 15 ML CUP SWISH-SPIT SCH ×2 (09:00→20:02)
--- NOTE | 2016-11-12 09:32 | HHI.PR ---
Subjective Remarks f/u respiratory failure Patient stated breathing has improved drastically. Denies any cough. Denies shortness of breathing. Patient asking for physical therapy. Patient's nurse at the bedside. Patient remains afebrile. Toe which case management in which she said the patient was at [facility]. Objective Vitals Vital Signs Date Time Temp Pulse Resp B/P Pulse Ox O2 Delivery O2 Flow Rate FiO2 11/12/16 08:31 95 Trach Collar 40 11/12/16 07:00 69 11/12/16 06:00 66 11/12/16 05:00 72 11/12/16 04:00 64 11/12/16 04:00 97.7 72 18 132/83 98 11/12/16 04:00 94 Blow By 40 Trach Collar 11/12/16 03:00 72 11/12/16 02:00 70 11/12/16 01:00 60 11/12/16 00:00 63 11/12/16 00:00 98 Blow By 40 Trach Collar 11/12/16 00:00 97.7 63 18 127/70 98 11/11/16 23:00 62 11/11/16 22:00 66 11/11/16 21:42 11/11/16 21:00 70 11/11/16 20:00 72 11/11/16 20:00 96 Blow By 40 Trach Collar 11/11/16 20:00 97.4 69 18 119/68 98 11/11/16 19:00 69 11/11/16 17:43 94 Trach Collar 6.00 40 11/11/16 16:00 98.0 53 16 120/70 96 11/11/16 13:20 16 11/11/16 11:54 94 Trach Collar 28.00 11/11/16 11:37 98.0 60 18 128/72 94 I/O 11/11/16 11/11/16 11/11/16 11/12/16 11/12/16 11/12/16 07:00 15:00 23:00 07:00 15:00 23:00 Intake Total 1136 ml Output Total 450 ml 975 ml Balance -450 ml 161 ml Intake Oral 0 ml IV Total 954 ml Tube Feeding 62 ml Tube Irrigant 120 ml Output Urine Total 450 ml 975 ml Gastric Drainage Total 0 ml # Bowel Movements 0 Result Diagram: 11/12/16 0445 11/12/16 0445 Objective Remarks GENERAL: In no acute distress. NECK: Supple, trachea midline. No JVD or lymphadenopathy. Trach in place CARDIOVASCULAR: Regular rate and rhythm without murmurs, gallops, or rubs. RESPIRATORY: Breath sounds equal bilaterally. No accessory muscle use. Transmitted upper respiratory sounds. GASTROINTESTINAL: Abdomen soft, non-tender, nondistended. MUSCULOSKELETAL: No cyanosis, or edema. BACK: Nontender without obvious deformity. No CVA tenderness. Medications and IVs Current Medications Sodium Chloride (NS Flush) 2 ml UNSCH PRN IVF FLUSH AFTER USING IV ACCESS; Start 11/10/16 at 07:00; Stop 11/10/16 at 10:00; Status DC Methylprednisolone Sodium Succinate (SoluMEDROL INJ) 125 mg ONCE ONCE IVP Last administered on 11/10/16 08:47; Start 11/10/16 at 07:00; Stop 11/10/16 at 07:01; Status DC Albuterol/ Ipratropium 1 ampule 1 ampule Q15M INH Last administered on 07:29; Start 11/10/16 at 07:00; Stop 11/10/16 at 07:31; Status DC Sodium Chloride (NS 500 ml Inj) 500 ml @ 500 mls/hr BOLUS ONCE IV Last administered on 11/10/16 08:48; Start 11/10/16 at 08:00; Stop 11/10/16 at 08:59 ; Status DC Sodium Chloride 2 ml 2 ml UNSCH PRN IVF FLUSH AFTER USING IV ACCESS; Start at 08:15; Stop 11/10/16 at 10:00; Status DC Piperacillin Sod/ Tazobactam Sod (Zosyn 4.5 Gm Premix) 100 ml @ 200 mls/hr ONCE ONCE IV Last administered on 11/10/16 08:49; Start 11/10/16 at 08:15; Stop 11/10/16 at 08:44; Status DC Sodium Chloride (NS Flush) 2 ml UNSCH PRN IV FLUSH FLUSH AFTER USING IV ACCESS ; Start 11/10/16 at 10:00 Sodium Chloride (NS Flush) 2 ml BID IV FLUSH Last administered on 11/12/16 09: 50; Start 11/10/16 at 21:00 Naloxone HCl (Narcan Inj) 0.4 mg UNSCH PRN IV SEE LABEL COMMENTS; Start at 10:00 Senna/Docusate Sodium (Sharita-Colace) 1 tab BID PO Last administered on 21:14; Start 11/10/16 at 21:00 Magnesium Hydroxide (Milk Of Magnesia Liq) 30 ml Q12H PRN PO MILD - MODERATE CONSTIPATION; Start 11/10/16 at 10:00 Sennosides (Senokot) 17.2 mg Q12H PRN PO MODERATE - SEVERE CONSTIPATION; Start 11/10/16 at 10:00 Bisacodyl (Dulcolax Supp) 10 mg DAILY PRN RECTAL SEVERE CONSITIPATION; Start at 10:00 Lactulose (Lactulose Liq) 30 ml DAILY PRN PO SEVERE CONSITIPATION; Start at 10:00 Acetaminophen (Tylenol) 325 mg Q4H PRN G-TUBE PAIN SCALE 1 TO 10; Start at 10:30 Alprazolam (Xanax) 0.25 mg Q8H PRN G-TUBE ANXIETY Last administered on 15:22; Start 11/10/16 at 10:30 Amiodarone HCl (Cordarone) 200 mg DAILY G-TUBE Last administered on 11/12/16 09:48; Start 11/11/16 at 09:00 Chlorhexidine Gluconate (Peridex 0.12% Liq) 15 ml BID SWISH-SPIT ; Start at 21:00 Cholestyramine Resin (Questran 4 Gm Pkt) 4 gm BID PO Last administered on 09:48; Start 11/10/16 at 21:00 Doxazosin Mesylate (Cardura) 2 mg DAILY G-TUBE Last administered on 11/12/16 09:49; Start 11/11/16 at 09:00 Guaifenesin/ Dextromethorphan (Robitussin Dm 200-20 Mg/10 ml Liq) 10 ml Q4H PRN G-TUBE COUGH; Start 11/10/16 at 10:30 Hyoscyamine Sulfate (Levsin) 0.125 mg Q4H G-TUBE Last administered on 09:53; Start 11/10/16 at 10:30 Metoprolol Tartrate (Lopressor) 25 mg BID PO Last administered on 11/12/16 09: 50; Start 11/10/16 at 21:00 Metronidazole (Flagyl) 250 mg QID G-TUBE Last administered on 11/12/16 09:50; Start 11/10/16 at 13:00 Multivitamins/ Minerals Therapeutic (Theragran M Tab) 1 tab DAILY G-TUBE Last administered on 11/12/16 09:48; Start 11/11/16 at 09:00 Nitroglycerin (Nitroglycerin 2% Oint) 1 inch Q6H TOPICAL ; Start 11/10/16 at 10: 30; Stop 11/10/16 at 11:54; Status DC Olanzapine (ZyPREXA) 5 mg DAILY G-TUBE Last administered on 11/12/16 09:49; Start 11/11/16 at 09:00 Oxycodone HCl (Roxicodone) 10 mg Q6H PRN G-TUBE PAIN Last administered on 09:53; Start 11/10/16 at 10:30 Glucagon (Glucagon Inj) 1 mg ONCE PRN IM BLOOD SUGAR MANAGEMENT; Start at 11:00; Stop 11/13/16 at 10:59 Loperamide HCl (Imodium Liq) 2 mg Q4HR PRN G-TUBE DIARRHEA; Start 11/10/16 at 10:30 Heparin Sodium (Porcine) (Heparin Inj) 5,000 units Q12HR SQ Last administered on 11/12/16 09:50; Start 11/10/16 at 21:00 Famotidine 20 mg 20 mg BID PO Last administered on 11/12/16 09:49; Start 11/10 at 21:00 Cefepime HCl 2000 mg/Sodium Chloride 100 ml @ 200 mls/hr Q12H IV Last administered on 11/12/16 06:04; Start 11/10/16 at 18:00 Vancomycin HCl 500 mg/Sodium Chloride 100 ml @ 200 mls/hr DAILY IV ; Start at 16:15; Status UNV Pharmacy Profile Note 0 ml @ 0 mls/hr UNSCH OTHER ; Start 11/10/16 at 16:15 Vancomycin HCl/ Sodium Chloride (Vancomycin Inj/ NS 250 ml Inj) 262 ml @ 250 mls/hr Q8HR IV Last administered on 11/11/16 23:30; Start 11/10/16 at 22:00; Stop 11/12/16 at 09:59; Status DC Miscellaneous Information SPECIFIC LAB TO BE [place]... ONCE ONCE .XX ; Start 11/11 at 21:45; Stop 11/11/16 at 21:46; Status DC Albuterol/ Ipratropium 1 ampule 1 ampule Q2HR NEB PRN NEB SOB/WHEEZING Last administered on 11/11/16 22:19; Start 11/10/16 at 20:15 Sodium Chloride 1,000 ml @ 42 mls/hr [id number] IV Last administered on 21:15; Start 11/10/16 at 20:15 Vancomycin HCl/ Sodium Chloride (Vancomycin Inj/ NS 250 ml Inj) 262.5 ml @ 250 mls/hr Q12H IV ; Start 11/12/16 at 15:00 Miscellaneous Information SPECIFIC LAB TO BE DRAWN:VANCOMYCIN TROUGH DATE TO... ONCE ONCE .XX ; Start 11/14/16 at 02:45; Stop 11/14/16 at 02:46 A/P Assessment and Plan 71-year-old male with recent discharge due to long hospitalization from cardiac arrest who presented with shortness of breathing Acute on chronic respiratory failure s/p trach on 09/04 -Most likely secondary to mucous plug. Symptomatically patient was back to baseline. -cxr Bibasilar airspace opacity, right greater than left, likely representing some combination of atelectasis/volume loss with possible effusion and consolidation at the right lung base. -Sputum culture is growing gram negative rods. We'll continue with cefepime pending results. Will discontinue vancomycin. ? Infection -Patient was actually at [facility]. Per order she was on vancomycin due to decubitus ulcer and cefepime due to pneumonia. -Decubitus ulcer shows no sign of infection is actually feeling well we'll discontinue vancomycin. hx Cardiac arrest status post CPR 15 minutes -stable History of hypertension/PVD -Continue home medication End-stage COPD/history of tension pneumothorax/history of aspiration pneumonia -Continue with home medication. History of bladder outlet obstruction/urinary retention -Robison in place. 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 -No signs of infection. Per Dr. Cabrera wound had improved actually has improved. History of prostate cancer -stable -f/u as outpatient DVT prophylaxis -heparin Discharge Planning Pending sputum cultures for discharge to [facility]. Cassy Arora MD November 12, 2016 09:32
[2016-11-12] MEDS: CHOLESTYRAMINE 4 GM PACKET PO SCH ×2 (09:48→19:56)
[2016-11-12] MEDS: MULTIVITAMINS/MINERALS THERAPEUTIC TAB G-TUBE SCH (09:48)
[2016-11-12] MEDS: AMIODARONE 200 MG TAB G-TUBE SCH (09:48)
[2016-11-12] MEDS: FAMOTIDINE 20 MG TAB PO SCH ×2 (09:49→19:57)
[2016-11-12] MEDS: DOXAZOSIN MESYLATE 2 MG TAB G-TUBE SCH (09:49)
[2016-11-12] MEDS: OLANZapine 5 MG TAB G-TUBE SCH (09:49)
[2016-11-12] MEDS: METOPROLOL TARTRATE 25 MG TAB PO SCH ×2 (09:50→19:57)
[2016-11-12] MEDS: SODIUM CHLORIDE 0.9% FLUSH 10 ML FLUSH IV FLUSH SCH ×2 (09:50→20:00)
[2016-11-12] MEDS: HEPARIN SODIUM - SQ 10,000 UNITS/ML VIAL SQ SCH ×2 (09:50→19:57)
[2016-11-12] MEDS: metroNIDAZOLE 250 MG TAB G-TUBE SCH ×4 (09:50→20:01)
[2016-11-12] MEDS ORDERED: VANCOMYCIN INJ 1,250 MG in SODIUM CHLOR 0.9% 250 ML INJ 250 ML IV SCH (15:00)
[2016-11-12] MEDS: RESP: ALBUTEROL 2.5 MG/IPRATROPIUM 0.5 MG NEB (PRN) NEB ×2 (18:07→21:23)
[2016-11-12] MEDS: ALPRAZolam 0.25 MG TAB G-TUBE PRN (18:23)
[2016-11-12] MEDS: SODIUM CHLOR 0.9% 1000 ML INJ 1,000 ML IV SCH (20:01)
[2016-11-13] VITALS (23 sets, daily range): BP systolic 109–168; BP diastolic 68–84; PULSE 57–80; RESP 16–22; TEMP 97.4–98.1; O2SAT 91–99
[2016-11-13] MEDS: HYOSCYAMINE 0.125 MG TAB G-TUBE SCH ×6 (02:45→22:32)
[2016-11-13] MEDS: ALPRAZolam 0.25 MG TAB G-TUBE PRN ×2 (03:32→22:28)
[2016-11-13] MEDS: CEFEPIME INJ 2,000 MG in SODIUM CHLORIDE 0.9% INJ 100 ML IV SCH (05:50)
[2016-11-13] MEDS: CHOLESTYRAMINE 4 GM PACKET PO SCH ×2 (09:51→22:26)
[2016-11-13] MEDS: DOXAZOSIN MESYLATE 2 MG TAB G-TUBE SCH (09:52)
[2016-11-13] MEDS: FAMOTIDINE 20 MG TAB PO SCH ×2 (09:52→22:28)
[2016-11-13] MEDS: OLANZapine 5 MG TAB G-TUBE SCH (09:53)
[2016-11-13] MEDS: AMIODARONE 200 MG TAB G-TUBE SCH (09:53)
[2016-11-13] MEDS: metroNIDAZOLE 250 MG TAB G-TUBE SCH ×4 (09:53→22:28)
[2016-11-13] MEDS: METOPROLOL TARTRATE 25 MG TAB PO SCH ×2 (09:53→21:00)
[2016-11-13] MEDS: DOCUSATE SODIUM 50 MG/SENNA 8.6 MG TAB PO SCH ×2 (09:53→21:00)
[2016-11-13] MEDS: MULTIVITAMINS/MINERALS THERAPEUTIC TAB G-TUBE SCH (09:53)
[2016-11-13] MEDS: HEPARIN SODIUM - SQ 10,000 UNITS/ML VIAL SQ SCH ×2 (09:54→22:27)
[2016-11-13] MEDS: SODIUM CHLORIDE 0.9% FLUSH 10 ML FLUSH IV FLUSH SCH ×2 (09:54→21:00)
[2016-11-13] MEDS: CHLORHEXIDINE 0.12% (ORAL KIT) 15 ML CUP SWISH-SPIT SCH ×2 (09:55→21:00)
[2016-11-13] MEDS ORDERED: LEVO750T3 PO (11:54)
[2016-11-13] MEDS ORDERED: OXYC-395 G-TUBE (11:54)
--- NOTE | 2016-11-13 11:57 | HHI.DS ---
Discharge Summary Admission Date November 13, 2016 at 08:46 Admitting Diagnosis pneumonia, respiratory distress, trach dependent Brief History - From Admission This is a 71-year-old male with past medical history of recent hospitalization secondary to cardiac arrest in which require patient to have chronic tracheostomy who presented with shortness of breathing. Patient was at [facility] and had increased shortness of breathing so was transferred to [facility]. Patient was examined by retail product demo specialist Dr. Cabrera in which his symptoms improved quickly. Symptoms thought to be due to a mucous plug. Patient is fully alert and is able to follow commands. He shook his head when I ask him if breathing has improved. Patient remains afebrile. Denied any pain. I called [facility] regards to his medication in terms of his vancomycin and cefepime. Nurse stated that he was on medication for Pseudomonas infection but she could not give me further details. She stated that she would call me back to give further information, but she never called back. CBC/BMP: 11/12/16 0445 11/12/16 0445 Significant Findings Laboratory Tests Test 11/11/16 11/11/16 11/12/16 11:34 23:10 04:45 Red Blood Count 2.89 MIL/MM3 2.93 MIL/MM3 (4.50-5.90) (4.50-5.90) Hemoglobin 9.3 GM/DL 9.5 GM/DL (13.0-17.0) (13.0-17.0) Hematocrit 27.3 % 27.6 % (39.0-51.0) (39.0-51.0) Neutrophils (%) (Auto) 82.2 % (16.0-70.0) Neutrophils # (Auto) 8.1 TH/MM3 (1.8-7.7) Blood Urea Nitrogen 28 MG/DL (7-18) 29 MG/DL (7-18) Creatinine 0.50 MG/DL 0.50 MG/DL (0.60-1.30) (0.60-1.30) Vancomycin Level Trough 27.9 MCG/ML (5.0-10.0) Potassium Level 3.3 MEQ/L (3.5-5.1) Anion Gap 4 MEQ/L (5-15) PE at Discharge GENERAL: In no acute distress. NECK: Supple, trachea midline. No JVD or lymphadenopathy. Trach in place CARDIOVASCULAR: Regular rate and rhythm without murmurs, gallops, or rubs. RESPIRATORY: Breath sounds equal bilaterally. No accessory muscle use. Transmitted upper respiratory sounds. GASTROINTESTINAL: Abdomen soft, non-tender, nondistended. MUSCULOSKELETAL: No cyanosis, or edema. BACK: Nontender without obvious deformity. No CVA tenderness. Pt Condition on Discharge: Good Discharge Disposition: Discharge to SNF Discharge Instructions DIET: Follow Instructions for: On Tube Feeding Additional Diet Instructions: nepho at 55 cc/hr Activities you can perform: Regular-No Restrictions Cassy Arora MD November 13, 2016 11:57
[2016-11-13] MEDS ORDERED: POTASSIUM CHLORIDE 10 MEQ CONTROLLED RELEASE TAB PO ONE (12:00)
[2016-11-13] MEDS ORDERED: POTASSIUM CHLORIDE 25 MEQ EFFERVESCENT TAB PO ONE (13:00)
[2016-11-13] MEDS: LEVOFLOXACIN 750 MG TAB PO SCH (13:14)
--- NOTE | 2016-11-13 14:29 | HHI.PR ---
Subjective Remarks shortness of breathing and pneumonia. Patient stated that Shwetha of breathing has resolved and patient feeling a lot better. He denies any cough. Patient is very anxious to do rehabilitation. He stated that he just needs to get stronger. Objective Vitals Vital Signs Date Time Temp Pulse Resp B/P Pulse Ox O2 Delivery O2 Flow Rate FiO2 11/13/16 13:00 62 11/13/16 12:00 74 11/13/16 11:30 97.8 67 16 134/84 99 11/13/16 11:00 64 11/13/16 10:00 70 11/13/16 09:00 74 11/13/16 09:00 91 Nasal Cannula 4.00 11/13/16 08:00 70 11/13/16 08:00 79 16 109/68 91 11/13/16 07:42 99 Trach Collar 5.00 35 11/13/16 07:00 80 11/13/16 06:00 69 11/13/16 05:00 65 11/13/16 04:00 98.0 66 20 135/77 99 11/13/16 04:00 66 11/13/16 04:00 Blow By 40 Trach Collar 11/13/16 03:00 62 11/13/16 02:00 70 11/13/16 01:00 74 11/13/16 00:00 98.1 68 22 136/77 99 11/13/16 00:00 Blow By 40 Trach Collar 11/13/16 00:00 68 11/12/16 23:00 68 11/12/16 22:00 85 11/12/16 21:00 82 11/12/16 20:38 96 Trach Collar 6.00 40 11/12/16 20:00 88 11/12/16 20:00 Blow By 40 Trach Collar 11/12/16 20:00 98.4 88 20 122/70 95 11/12/16 18:00 82 11/12/16 17:39 18 11/12/16 17:00 68 11/12/16 16:00 98.2 64 20 135/72 94 11/12/16 16:00 70 11/12/16 15:00 63 I/O 11/12/16 11/12/16 11/12/16 11/13/16 11/13/16 11/13/16 07:00 15:00 23:00 07:00 15:00 23:00 Intake Total 1136 ml 1428 ml 920 ml Output Total 975 ml 850 ml 1000 ml Balance 161 ml 578 ml -80 ml Intake Oral 0 ml 0 ml IV Total 954 ml 634 ml 420 ml Tube Feeding 62 ml 794 ml 500 ml Tube Irrigant 120 ml Output Urine Total 975 ml 850 ml 1000 ml Gastric Drainage Total 0 ml # Bowel Movements 0 5 2 Result Diagram: 11/12/1644411/12/16444 Objective Remarks GENERAL: In no acute distress. NECK: Supple, trachea midline. No JVD or lymphadenopathy. Trach in place CARDIOVASCULAR: Regular rate and rhythm without murmurs, gallops, or rubs. RESPIRATORY: Breath sounds equal bilaterally. No accessory muscle use. Transmitted upper respiratory sounds. GASTROINTESTINAL: Abdomen soft, non-tender, nondistended. MUSCULOSKELETAL: No cyanosis, or edema. BACK: Nontender without obvious deformity. No CVA tenderness. Medications and IVs Current Medications Sodium Chloride (NS Flush) 2 ml UNSCH PRN IVF FLUSH AFTER USING IV ACCESS; Start 11/10/16 at 07:00; Stop 11/10/16 at 10:00; Status DC Methylprednisolone Sodium Succinate (SoluMEDROL INJ) 125 mg ONCE ONCE IVP Last administered on 11/10/16 08:47; Start 11/10/16 at 07:00; Stop 11/10/16 at 07:01; Status DC Albuterol/ Ipratropium 1 ampule 1 ampule Q15M INH Last administered on 07:29; Start 11/10/16 at 07:00; Stop 11/10/16 at 07:31; Status DC Sodium Chloride (NS 500 ml Inj) 500 ml @ 500 mls/hr BOLUS ONCE IV Last administered on 11/10/16 08:48; Start 11/10/16 at 08:00; Stop 11/10/16 at 08:59 ; Status DC Sodium Chloride 2 ml 2 ml UNSCH PRN IVF FLUSH AFTER USING IV ACCESS; Start at 08:15; Stop 11/10/16 at 10:00; Status DC Piperacillin Sod/ Tazobactam Sod (Zosyn 4.5 Gm Premix) 100 ml @ 200 mls/hr ONCE ONCE IV Last administered on 11/10/16 08:49; Start 11/10/16 at 08:15; Stop 11/10/16 at 08:44; Status DC Sodium Chloride (NS Flush) 2 ml UNSCH PRN IV FLUSH FLUSH AFTER USING IV ACCESS ; Start 11/10/16 at 10:00 Sodium Chloride (NS Flush) 2 ml BID IV FLUSH Last administered on 11/13/16 09: 54; Start 11/10/16 at 21:00 Naloxone HCl (Narcan Inj) 0.4 mg UNSCH PRN IV SEE LABEL COMMENTS; Start at 10:00 Senna/Docusate Sodium (Sharita-Colace) 1 tab BID PO Last administered on 21:14; Start 11/10/16 at 21:00 Magnesium Hydroxide (Milk Of Magnesia Liq) 30 ml Q12H PRN PO MILD - MODERATE CONSTIPATION; Start 11/10/16 at 10:00 Sennosides (Senokot) 17.2 mg Q12H PRN PO MODERATE - SEVERE CONSTIPATION; Start 11/10/16 at 10:00 Bisacodyl (Dulcolax Supp) 10 mg DAILY PRN RECTAL SEVERE CONSITIPATION; Start at 10:00 Lactulose (Lactulose Liq) 30 ml DAILY PRN PO SEVERE CONSITIPATION; Start at 10:00 Acetaminophen (Tylenol) 325 mg Q4H PRN G-TUBE PAIN SCALE 1 TO 10; Start at 10:30 Alprazolam (Xanax) 0.25 mg Q8H PRN G-TUBE ANXIETY Last administered on 03:32; Start 11/10/16 at 10:30 Amiodarone HCl (Cordarone) 200 mg DAILY G-TUBE Last administered on 11/13/16 09:53; Start 11/11/16 at 09:00 Chlorhexidine Gluconate (Peridex 0.12% Liq) 15 ml BID SWISH-SPIT Last administered on 11/12/16 20:02; Start 11/10/16 at 21:00 Cholestyramine Resin (Questran 4 Gm Pkt) 4 gm BID PO Last administered on 09:51; Start 11/10/16 at 21:00 Doxazosin Mesylate (Cardura) 2 mg DAILY G-TUBE Last administered on 11/13/16 09:52; Start 11/11/16 at 09:00 Guaifenesin/ Dextromethorphan (Robitussin Dm 200-20 Mg/10 ml Liq) 10 ml Q4H PRN G-TUBE COUGH; Start 11/10/16 at 10:30 Hyoscyamine Sulfate (Levsin) 0.125 mg Q4H G-TUBE Last administered on 13:14; Start 11/10/16 at 10:30 Metoprolol Tartrate (Lopressor) 25 mg BID PO Last administered on 11/13/16 09: 53; Start 11/10/16 at 21:00 Metronidazole (Flagyl) 250 mg QID G-TUBE Last administered on 11/13/16 13:14; Start 11/10/16 at 13:00 Multivitamins/ Minerals Therapeutic (Theragran M Tab) 1 tab DAILY G-TUBE Last administered on 11/13/16 09:53; Start 11/11/16 at 09:00 Nitroglycerin (Nitroglycerin 2% Oint) 1 inch Q6H TOPICAL ; Start 11/10/16 at 10: 30; Stop 11/10/16 at 11:54; Status DC Olanzapine (ZyPREXA) 5 mg DAILY G-TUBE Last administered on 11/13/16 09:53; Start 11/11/16 at 09:00 Oxycodone HCl (Roxicodone) 10 mg Q6H PRN G-TUBE PAIN Last administered on 09:52; Start 11/10/16 at 10:30 Glucagon (Glucagon Inj) 1 mg ONCE PRN IM BLOOD SUGAR MANAGEMENT; Start at 11:00; Stop 11/13/16 at 10:59; Status DC Loperamide HCl (Imodium Liq) 2 mg Q4HR PRN G-TUBE DIARRHEA; Start 11/10/16 at 10:30 Heparin Sodium (Porcine) (Heparin Inj) 5,000 units Q12HR SQ Last administered on 11/13/16 09:54; Start 11/10/16 at 21:00 Famotidine 20 mg 20 mg BID PO Last administered on 11/13/16 09:52; Start 11/10 at 21:00 Cefepime HCl 2000 mg/Sodium Chloride 100 ml @ 200 mls/hr Q12H IV Last administered on 11/13/16 05:50; Start 11/10/16 at 18:00; Stop 11/13/16 at 14:13 ; Status DC Vancomycin HCl 500 mg/Sodium Chloride 100 ml @ 200 mls/hr DAILY IV ; Start at 16:15; Status UNV Pharmacy Profile Note 0 ml @ 0 mls/hr UNSCH OTHER ; Start 11/10/16 at 16:15; Stop 11/12/16 at 10:55; Status DC Vancomycin HCl/ Sodium Chloride (Vancomycin Inj/ NS 250 ml Inj) 262 ml @ 250 mls/hr Q8HR IV Last administered on 11/11/16 23:30; Start 11/10/16 at 22:00; Stop 11/12/16 at 09:59; Status DC Miscellaneous Information SPECIFIC LAB TO BE [place]... ONCE ONCE .XX ; Start 11/11 at 21:45; Stop 11/11/16 at 21:46; Status DC Albuterol/ Ipratropium 1 ampule 1 ampule Q2HR NEB PRN NEB SOB/WHEEZING Last administered on 11/12/16 21:23; Start 11/10/16 at 20:15 Sodium Chloride 1,000 ml @ 42 mls/hr [id number] IV Last administered on 20:01; Start 11/10/16 at 20:15 Vancomycin HCl/ Sodium Chloride (Vancomycin Inj/ NS 250 ml Inj) 262.5 ml @ 250 mls/hr Q12H IV ; Start 11/12/16 at 15:00; Stop 11/12/16 at 15:00; Status DC Miscellaneous Information SPECIFIC LAB TO BE DRAWN:VANCOMYCIN TROUGH DATE TO... ONCE ONCE .XX ; Start 11/14/16 at 02:45; Stop 11/14/16 at 02:45; Status DC Potassium Chloride (KCl) 30 meq ONCE ONCE PO ; Start 11/13/16 at 12:00; Stop at 12:05; Status DC Levofloxacin (Levaquin) 750 mg DAILY PO Last administered on 11/13/16 13:14; Start 11/13/16 at 12:00 Potassium Bicarb/ Potassium Chloride (K-Lyte Cl Eff) 25 meq ONCE ONCE PO Last administered on 11/13/16t 13:14; Start 11/13/16 at 13:00; Stop 11/13/16 at 13:01; Status DC A/P Assessment and Plan 71-year-old male with recent discharge due to long hospitalization from cardiac arrest who presented with shortness of breathing Acute on chronic respiratory failure s/p trach on 09/04 -Most likely secondary to mucous plug. Symptomatically patient was back to baseline. -cxr Bibasilar airspace opacity, right greater than left, likely representing some combination of atelectasis/volume loss with possible effusion and consolidation at the right lung base. -Sputum culture grew STENOTROPHOMONAS MALTOPHILIA . DC cefepime and start Levaquin by mouth. Clinically patient is doing well. Pneumonia -See treatment as above. hx Cardiac arrest status post CPR 15 minutes -stable History of hypertension/PVD -Continue home medication End-stage COPD/history of tension pneumothorax/history of aspiration pneumonia -Continue with home medication. History of bladder outlet obstruction/urinary retention -Robison in place. 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 -No signs of infection. Per Dr. Cabrera wound had improved actually has improved. -Appreciate wound care consult. History of prostate cancer -stable -f/u as outpatient DVT prophylaxis -heparin Discharge Planning Patient is stable for discharge to SNF. Orders placed. Cassy Arora MD November 13, 2016 14:29
[2016-11-13] MEDS: SODIUM CHLOR 0.9% 1000 ML INJ 1,000 ML IV SCH (19:42)
[2016-11-14] VITALS (10 sets, daily range): BP systolic 146–169; BP diastolic 73–84; PULSE 63–79; RESP 18–20; TEMP 96.7–98.1; O2SAT 86–97
[2016-11-14] MEDS ORDERED: PHARMACY ORDERED LAB ONE (02:45)
[2016-11-14] MEDS: HYOSCYAMINE 0.125 MG TAB G-TUBE SCH ×6 (03:17→22:22)
[2016-11-14] MEDS: RESP: ALBUTEROL 2.5 MG/IPRATROPIUM 0.5 MG NEB (PRN) NEB ×2 (08:43→17:00)
[2016-11-14] MEDS: CHLORHEXIDINE 0.12% (ORAL KIT) 15 ML CUP SWISH-SPIT SCH ×2 (09:00→21:00)
[2016-11-14] MEDS: METOPROLOL TARTRATE 25 MG TAB PO SCH ×2 (10:21→21:11)
[2016-11-14] MEDS: MULTIVITAMINS/MINERALS THERAPEUTIC TAB G-TUBE SCH (10:22)
[2016-11-14] MEDS: FAMOTIDINE 20 MG TAB PO SCH ×2 (10:22→21:11)
[2016-11-14] MEDS: OLANZapine 5 MG TAB G-TUBE SCH (10:22)
[2016-11-14] MEDS: CHOLESTYRAMINE 4 GM PACKET PO SCH ×2 (10:22→21:11)
[2016-11-14] MEDS: DOCUSATE SODIUM 50 MG/SENNA 8.6 MG TAB PO SCH ×2 (10:22→21:10)
[2016-11-14] MEDS: AMIODARONE 200 MG TAB G-TUBE SCH (10:22)
[2016-11-14] MEDS: metroNIDAZOLE 250 MG TAB G-TUBE SCH ×4 (10:22→21:11)
[2016-11-14] MEDS: DOXAZOSIN MESYLATE 2 MG TAB G-TUBE SCH (10:23)
[2016-11-14] MEDS: LEVOFLOXACIN 750 MG TAB PO SCH (10:23)
[2016-11-14] MEDS: SODIUM CHLORIDE 0.9% FLUSH 10 ML FLUSH IV FLUSH SCH ×2 (10:23→21:11)
[2016-11-14] MEDS: HEPARIN SODIUM - SQ 10,000 UNITS/ML VIAL SQ SCH ×2 (10:23→21:12)
--- NOTE | 2016-11-14 12:54 | HHI.PR ---
Subjective Remarks Follow-up first respiratory failure most likely secondary to mucous plug Patient denied any shortness of breathing or cough. Patient's very anxious to go to a rehabilitation facility. He stated that he just needs to get stronger in order to get better. He stated that he wants to eat real food. Objective Vitals Vital Signs Date Time Temp Pulse Resp B/P Pulse Ox O2 Delivery O2 Flow Rate FiO2 11/14/16 12:00 98.1 68 20 146/78 96 11/14/16 08:52 92 Trach Collar 31 11/14/16 08:48 86 21 11/14/16 08:00 97.4 77 20 150/73 97 11/14/16 06:11 97.7 79 18 162/80 96 11/14/16 00:00 96.7 67 18 153/74 97 11/13/16 21:40 Nasal Cannula 6.00 Trach Collar 11/13/16 20:17 63 11/13/16 20:00 97.4 65 20 168/81 98 11/13/16 17:09 60 11/13/16 16:00 57 11/13/16 15:35 97.4 70 20 136/83 97 11/13/16 15:00 70 11/13/16 14:00 60 11/13/16 13:00 62 I/O 11/13/16 11/13/16 11/13/16 11/14/16 11/14/16 11/14/16 07:00 15:00 23:00 07:00 15:00 23:00 Intake Total 920 ml 2140 ml 820 ml Output Total 1000 ml 875 ml 800 ml Balance -80 ml 1265 ml 20 ml Intake Oral 0 ml IV Total 420 ml 888 ml 359 ml Tube Feeding 500 ml 992 ml 401 ml Tube Irrigant 260 ml 60 ml Output Urine Total 1000 ml 875 ml 800 ml # Bowel Movements 2 3 Result Diagram: 11/12/16 0445 11/14/16 0435 Objective Remarks GENERAL: In no acute distress. NECK: Supple, trachea midline. No JVD or lymphadenopathy. Trach in place CARDIOVASCULAR: Regular rate and rhythm without murmurs, gallops, or rubs. RESPIRATORY: Breath sounds equal bilaterally. No accessory muscle use. Transmitted upper respiratory sounds. GASTROINTESTINAL: Abdomen soft, non-tender, nondistended. MUSCULOSKELETAL: No cyanosis, or edema. BACK: Nontender without obvious deformity. No CVA tenderness. Medications and IVs Current Medications Sodium Chloride (NS Flush) 2 ml UNSCH PRN IVF FLUSH AFTER USING IV ACCESS; Start 11/10/16 at 07:00; Stop 11/10/16 at 10:00; Status DC Methylprednisolone Sodium Succinate (SoluMEDROL INJ) 125 mg ONCE ONCE IVP Last administered on 11/10/16 08:47; Start 11/10/16 at 07:00; Stop 11/10/16 at 07:01; Status DC Albuterol/ Ipratropium 1 ampule 1 ampule Q15M INH Last administered on 07:29; Start 11/10/16 at 07:00; Stop 11/10/16 at 07:31; Status DC Sodium Chloride (NS 500 ml Inj) 500 ml @ 500 mls/hr BOLUS ONCE IV Last administered on 11/10/16 08:48; Start 11/10/16 at 08:00; Stop 11/10/16 at 08:59 ; Status DC Sodium Chloride 2 ml 2 ml UNSCH PRN IVF FLUSH AFTER USING IV ACCESS; Start at 08:15; Stop 11/10/16 at 10:00; Status DC Piperacillin Sod/ Tazobactam Sod (Zosyn 4.5 Gm Premix) 100 ml @ 200 mls/hr ONCE ONCE IV Last administered on 11/10/16 08:49; Start 11/10/16 at 08:15; Stop 11/10/16 at 08:44; Status DC Sodium Chloride (NS Flush) 2 ml UNSCH PRN IV FLUSH FLUSH AFTER USING IV ACCESS ; Start 11/10/16 at 10:00 Sodium Chloride (NS Flush) 2 ml BID IV FLUSH Last administered on 11/14/16 10: 23; Start 11/10/16 at 21:00 Naloxone HCl (Narcan Inj) 0.4 mg UNSCH PRN IV SEE LABEL COMMENTS; Start at 10:00 Senna/Docusate Sodium (Sharita-Colace) 1 tab BID PO Last administered on 10:22; Start 11/10/16 at 21:00 Magnesium Hydroxide (Milk Of Magnesia Liq) 30 ml Q12H PRN PO MILD - MODERATE CONSTIPATION; Start 11/10/16 at 10:00 Sennosides (Senokot) 17.2 mg Q12H PRN PO MODERATE - SEVERE CONSTIPATION; Start 11/10/16 at 10:00 Bisacodyl (Dulcolax Supp) 10 mg DAILY PRN RECTAL SEVERE CONSITIPATION; Start at 10:00 Lactulose (Lactulose Liq) 30 ml DAILY PRN PO SEVERE CONSITIPATION; Start at 10:00 Acetaminophen (Tylenol) 325 mg Q4H PRN G-TUBE PAIN SCALE 1 TO 10; Start at 10:30 Alprazolam (Xanax) 0.25 mg Q8H PRN G-TUBE ANXIETY Last administered on 22:28; Start 11/10/16 at 10:30 Amiodarone HCl (Cordarone) 200 mg DAILY G-TUBE Last administered on 11/14/16 10:22; Start 11/11/16 at 09:00 Chlorhexidine Gluconate (Peridex 0.12% Liq) 15 ml BID SWISH-SPIT Last administered on 11/14/16 09:00; Start 11/10/16 at 21:00 Cholestyramine Resin (Questran 4 Gm Pkt) 4 gm BID PO Last administered on 10:22; Start 11/10/16 at 21:00 Doxazosin Mesylate (Cardura) 2 mg DAILY G-TUBE Last administered on 11/14/16 10:23; Start 11/11/16 at 09:00 Guaifenesin/ Dextromethorphan (Robitussin Dm 200-20 Mg/10 ml Liq) 10 ml Q4H PRN G-TUBE COUGH; Start 11/10/16 at 10:30 Hyoscyamine Sulfate (Levsin) 0.125 mg Q4H G-TUBE Last administered on 05:34; Start 11/10/16 at 10:30 Metoprolol Tartrate (Lopressor) 25 mg BID PO Last administered on 11/14/16 10: 21; Start 11/10/16 at 21:00 Metronidazole (Flagyl) 250 mg QID G-TUBE Last administered on 11/14/16 10:22; Start 11/10/16 at 13:00 Multivitamins/ Minerals Therapeutic (Theragran M Tab) 1 tab DAILY G-TUBE Last administered on 11/14/16 10:22; Start 11/11/16 at 09:00 Nitroglycerin (Nitroglycerin 2% Oint) 1 inch Q6H TOPICAL ; Start 11/10/16 at 10: 30; Stop 11/10/16 at 11:54; Status DC Olanzapine (ZyPREXA) 5 mg DAILY G-TUBE Last administered on 11/14/16 10:22; Start 11/11/16 at 09:00 Oxycodone HCl (Roxicodone) 10 mg Q6H PRN G-TUBE PAIN Last administered on 10:22; Start 11/10/16 at 10:30 Glucagon (Glucagon Inj) 1 mg ONCE PRN IM BLOOD SUGAR MANAGEMENT; Start at 11:00; Stop 11/13/16 at 10:59; Status DC Loperamide HCl (Imodium Liq) 2 mg Q4HR PRN G-TUBE DIARRHEA; Start 11/10/16 at 10:30 Heparin Sodium (Porcine) (Heparin Inj) 5,000 units Q12HR SQ Last administered on 11/14/16 10:23; Start 11/10/16 at 21:00 Famotidine 20 mg 20 mg BID PO Last administered on 11/14/16 10:22; Start 11/10 at 21:00 Cefepime HCl 2000 mg/Sodium Chloride 100 ml @ 200 mls/hr Q12H IV Last administered on 11/13/16 05:50; Start 11/10/16 at 18:00; Stop 11/13/16 at 14:13 ; Status DC Vancomycin HCl 500 mg/Sodium Chloride 100 ml @ 200 mls/hr DAILY IV ; Start at 16:15; Status UNV Pharmacy Profile Note 0 ml @ 0 mls/hr UNSCH OTHER ; Start 11/10/16 at 16:15; Stop 11/12/16 at 10:55; Status DC Vancomycin HCl/ Sodium Chloride (Vancomycin Inj/ NS 250 ml Inj) 262 ml @ 250 mls/hr Q8HR IV Last administered on 11/11/16 23:30; Start 11/10/16 at 22:00; Stop 11/12/16 at 09:59; Status DC Miscellaneous Information SPECIFIC LAB TO BE [place]... ONCE ONCE .XX ; Start 11/11 at 21:45; Stop 11/11/16 at 21:46; Status DC Albuterol/ Ipratropium 1 ampule 1 ampule Q2HR NEB PRN NEB SOB/WHEEZING Last administered on 11/14/16 08:43; Start 11/10/16 at 20:15 Sodium Chloride 1,000 ml @ 42 mls/hr [id number] IV Last administered on 19:42; Start 11/10/16 at 20:15 Vancomycin HCl/ Sodium Chloride (Vancomycin Inj/ NS 250 ml Inj) 262.5 ml @ 250 mls/hr Q12H IV ; Start 11/12/16 at 15:00; Stop 11/12/16 at 15:00; Status DC Miscellaneous Information SPECIFIC LAB TO BE DRAWN:VANCOMYCIN TROUGH DATE TO... ONCE ONCE .XX ; Start 11/14/16 at 02:45; Stop 11/14/16 at 02:45; Status DC Potassium Chloride (KCl) 30 meq ONCE ONCE PO ; Start 11/13/16 at 12:00; Stop at 12:05; Status DC Levofloxacin (Levaquin) 750 mg DAILY PO Last administered on 11/14/16 10:23; Start 11/13/16 at 12:00 Potassium Bicarb/ Potassium Chloride (K-Lyte Cl Eff) 25 meq ONCE ONCE PO Last administered on 11/13/16 13:14; Start 11/13/16 at 13:00; Stop 11/13/16 at 13:01; Status DC A/P Assessment and Plan 71-year-old male with recent discharge due to long hospitalization from cardiac arrest who presented with shortness of breathing Acute on chronic respiratory failure s/p trach on 09/04 -Most likely secondary to mucous plug. Symptomatically patient was back to baseline. -cxr Bibasilar airspace opacity, right greater than left, likely representing some combination of atelectasis/volume loss with possible effusion and consolidation at the right lung base. -Sputum culture grew STENOTROPHOMONAS MALTOPHILIA . Cefepime discontinued and he was started on Levaquin. Clinically patient is doing well. Pneumonia -See treatment as above. hx Cardiac arrest status post CPR 15 minutes -stable History of hypertension/PVD -Continue home medication End-stage COPD/history of tension pneumothorax/history of aspiration pneumonia -Continue with home medication. History of bladder outlet obstruction/urinary retention -Robison in place. 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 -No signs of infection so vancomycin was discontinued. Per Dr. Cabrera wound had improved. -Appreciate wound care consult. History of prostate cancer -stable -f/u as outpatient DVT prophylaxis -heparin Discharge Planning Patient medically stable pending placement to SNF. Cassy Arora MD November 14, 2016 12:54
[2016-11-14] MEDS: ALPRAZolam 0.25 MG TAB G-TUBE PRN (21:10)
[2016-11-14] MEDS: SODIUM CHLOR 0.9% 1000 ML INJ 1,000 ML IV SCH (21:10)
[2016-11-15] VITALS (11 sets, daily range): BP systolic 111–158; BP diastolic 56–86; PULSE 66–88; RESP 18–20; TEMP 97.8–98.6; O2SAT 88–94
[2016-11-15] MEDS: HYOSCYAMINE 0.125 MG TAB G-TUBE SCH ×6 (02:32→21:06)
[2016-11-15 05:17] LABS: BICARBONATE 29.7 MEQ/L (21.0-32.0); POTASSIUM 3.2 MEQ/L (3.5-5.1)
[2016-11-15] MEDS: RESP: ALBUTEROL 2.5 MG/IPRATROPIUM 0.5 MG NEB (PRN) NEB ×3 (06:31→21:00)
[2016-11-15] MEDS: CHLORHEXIDINE 0.12% (ORAL KIT) 15 ML CUP SWISH-SPIT SCH ×2 (09:00→20:59)
[2016-11-15] MEDS: SODIUM CHLORIDE 0.9% FLUSH 10 ML FLUSH IV FLUSH SCH ×2 (09:00→21:15)
[2016-11-15] MEDS: HEPARIN SODIUM - SQ 10,000 UNITS/ML VIAL SQ SCH ×2 (09:32→20:59)
[2016-11-15] MEDS: DOCUSATE SODIUM 50 MG/SENNA 8.6 MG TAB PO SCH ×2 (09:32→20:58)
[2016-11-15] MEDS: LEVOFLOXACIN 750 MG TAB PO SCH (09:32)
[2016-11-15] MEDS: CHOLESTYRAMINE 4 GM PACKET PO SCH ×2 (09:32→20:56)
[2016-11-15] MEDS: DOXAZOSIN MESYLATE 2 MG TAB G-TUBE SCH (09:32)
[2016-11-15] MEDS: metroNIDAZOLE 250 MG TAB G-TUBE SCH ×4 (09:32→20:58)
[2016-11-15] MEDS: OLANZapine 5 MG TAB G-TUBE SCH (09:32)
[2016-11-15] MEDS: AMIODARONE 200 MG TAB G-TUBE SCH (09:32)
[2016-11-15] MEDS: MULTIVITAMINS/MINERALS THERAPEUTIC TAB G-TUBE SCH (09:32)
[2016-11-15] MEDS: FAMOTIDINE 20 MG TAB PO SCH ×2 (09:32→20:58)
[2016-11-15] MEDS: METOPROLOL TARTRATE 25 MG TAB PO SCH ×2 (09:33→20:57)
--- NOTE | 2016-11-15 16:08 | HHI.PR ---
Subjective Remarks Follow-up for respiratory failure PMV in place, patient is on room air, denies shortness of breath, no nausea or vomiting. Soft stools but no diarrhea, denies any abdominal pain. Objective Vitals Vital Signs Date Time Temp Pulse Resp B/P Pulse Ox O2 Delivery O2 Flow Rate FiO2 11/15/16 12:00 97.8 72 20 132/78 94 11/15/16 09:00 77 11/15/16 08:25 90 21 11/15/16 08:00 Room Air 11/15/16 08:00 97.9 86 18 129/75 92 11/15/16 06:33 90 Trach Collar 21 11/15/16 06:28 Room Air 21 Venturi Mask 11/15/16 04:00 97.9 74 20 153/71 92 11/15/16 01:58 Room Air Venturi Mask T-Piece 11/15/16 00:00 98.6 88 20 111/56 94 11/14/16 22:05 97.8 64 18 159/84 93 11/14/16 21:55 Room Air 28 Venturi Mask Trach Collar 11/14/16 20:00 72 11/14/16 17:00 92 Trach Collar 3.00 31 I/O 11/14/16 11/14/16 11/14/16 11/15/16 11/15/16 11/15/16 07:00 15:00 23:00 07:00 15:00 23:00 Intake Total 820 ml 0 ml 999 ml 818 ml Output Total 800 ml 800 ml 500 ml 300 ml 500 ml Balance 20 ml -800 ml 499 ml 518 ml -500 ml Intake Oral 0 ml 0 ml IV Total 359 ml 359 ml 358 ml Tube Feeding 401 ml 400 ml 400 ml Tube Irrigant 60 ml 240 ml 60 ml Output Urine Total 800 ml 800 ml 500 ml 300 ml 500 ml # Bowel Movements 2 0 1 1 Result Diagram: 11/12/16 0445 11/15/16 0420 Objective Remarks GENERAL: In no acute distress. NECK: Supple, trachea midline. No JVD or lymphadenopathy. Trach and PMV in place. On room air. CARDIOVASCULAR: Regular rate and rhythm without murmurs, gallops, or rubs. RESPIRATORY: Breath sounds equal bilaterally. No accessory muscle use. Transmitted upper respiratory sounds. GASTROINTESTINAL: Abdomen soft, non-tender, nondistended. MUSCULOSKELETAL: No cyanosis, or edema. BACK: Nontender without obvious deformity. No CVA tenderness Alert awake and oriented 3, no focal deficits.. A/P Assessment and Plan 71-year-old male with recent discharge due to long hospitalization from cardiac arrest who presented with shortness of breathing Acute on chronic respiratory failure s/p trach on 09/04 secondary to pneumonia -Most likely secondary to mucous plug. Symptomatically patient was back to baseline. -cxr Bibasilar airspace opacity, right greater than left, likely representing some combination of atelectasis/volume loss with possible effusion and consolidation at the right lung base. -Sputum culture grew STENOTROPHOMONAS MALTOPHILIA . Cefepime discontinued and he was started on Levaquin, continue oral Levaquin. hx Cardiac arrest status post CPR 15 minutes -stable, continue amiodarone History of hypertension/PVD -Continue home medication, continue metoprolol End-stage COPD/history of tension pneumothorax/history of aspiration pneumonia -Continue with home medication. History of bladder outlet obstruction/urinary retention -Robison in place. 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 -No signs of infection so vancomycin was discontinued. -Appreciate wound care consult. History of prostate cancer -stable -f/u as outpatient Hypokalemia-replaced DVT prophylaxis -heparin Consult physical therapy Discharge Planning Discharge to rehabilitation when ready Mary Beckford MD Nov 15, 2016 16:08
[2016-11-15] MEDS ORDERED: POTASSIUM CHLORIDE 25 MEQ EFFERVESCENT TAB PO ONE (16:15)
[2016-11-15] MEDS: SODIUM CHLOR 0.9% 1000 ML INJ 1,000 ML IV SCH (16:50)
[2016-11-16] VITALS (17 sets, daily range): BP systolic 123–152; BP diastolic 66–81; PULSE 58–95; RESP 18–20; TEMP 97.2–98.4; O2SAT 94–98
[2016-11-16] MEDS: HYOSCYAMINE 0.125 MG TAB G-TUBE SCH ×6 (02:29→21:23)
[2016-11-16] MEDS: FAMOTIDINE 20 MG TAB PO SCH ×2 (09:00→21:23)
[2016-11-16] MEDS: CHOLESTYRAMINE 4 GM PACKET PO SCH ×2 (09:00→21:24)
[2016-11-16] MEDS: SODIUM CHLORIDE 0.9% FLUSH 10 ML FLUSH IV FLUSH SCH ×2 (09:00→21:00)
[2016-11-16] MEDS: CHLORHEXIDINE 0.12% (ORAL KIT) 15 ML CUP SWISH-SPIT SCH ×2 (09:00→21:00)
[2016-11-16] MEDS: metroNIDAZOLE 250 MG TAB G-TUBE SCH ×4 (09:55→21:24)
[2016-11-16] MEDS: MULTIVITAMINS/MINERALS THERAPEUTIC TAB G-TUBE SCH (09:55)
[2016-11-16] MEDS: METOPROLOL TARTRATE 25 MG TAB PO SCH ×2 (09:55→21:23)
[2016-11-16] MEDS: LEVOFLOXACIN 750 MG TAB PO SCH (09:55)
[2016-11-16] MEDS: DOXAZOSIN MESYLATE 2 MG TAB G-TUBE SCH (09:55)
[2016-11-16] MEDS: DOCUSATE SODIUM 50 MG/SENNA 8.6 MG TAB PO SCH ×2 (09:55→21:00)
[2016-11-16] MEDS: AMIODARONE 200 MG TAB G-TUBE SCH (09:56)
[2016-11-16] MEDS: OLANZapine 5 MG TAB G-TUBE SCH (09:56)
[2016-11-16] MEDS: HEPARIN SODIUM - SQ 10,000 UNITS/ML VIAL SQ SCH ×2 (09:56→21:24)
[2016-11-16] MEDS: RESP: ALBUTEROL 2.5 MG/IPRATROPIUM 0.5 MG NEB (PRN) NEB ×3 (10:57→20:12)
--- NOTE | 2016-11-16 11:35 | HHI.DS ---
Discharge Summary Admission Date November 13, 2016 at 08:46 Discharge Date: Nov 20, 2016 Admitting Diagnosis pneumonia, respiratory distress, trach dependent (1) Right lower lobe pneumonia ICD Code: J18.1 Diagnosis: Principal Procedures None Brief History - From Admission This is a 71-year-old male with past medical history of recent hospitalization secondary to cardiac arrest in which require patient to have chronic tracheostomy who presented with shortness of breathing. Patient was at [facility] and had increased shortness of breathing so was transferred to [place]. Patient was examined by condenser operator Dr. Cabrera in which his symptoms improved quickly. Symptoms thought to be due to a mucous plug. Patient is fully alert and is able to follow commands. He shook his head when I ask him if breathing has improved. Patient remains afebrile. Denied any pain. I called [facility] regards to his medication in terms of his vancomycin and cefepime. Nurse stated that he was on medication for Pseudomonas infection but she could not give me further details. She stated that she would call me back to give further information, but she never called back. CBC/BMP: 11/12/16 0445 11/16/16 0545 Significant Findings Laboratory Tests Test 11/14/16 11/15/16 11/16/16 04:35 04:20 05:45 Creatinine 0.42 MG/DL 0.40 MG/DL 0.40 MG/DL (0.60-1.30) (0.60-1.30) (0.60-1.30) Sodium Level 146 MEQ/L (136-145) Potassium Level 3.2 MEQ/L (3.5-5.1) Chloride Level 108 MEQ/L (98-107) Random Glucose 108 MG/DL (74-106) PE at Discharge GENERAL: In no acute distress. NECK: Supple, trachea midline. No JVD or lymphadenopathy. Trach and PMV in place. On room air. CARDIOVASCULAR: Regular rate and rhythm without murmurs, gallops, or rubs. RESPIRATORY: Breath sounds equal bilaterally. No accessory muscle use. Transmitted upper respiratory sounds. GASTROINTESTINAL: Abdomen soft, non-tender, nondistended. MUSCULOSKELETAL: No cyanosis, or edema. BACK: Nontender without obvious deformity. No CVA tenderness Alert awake and oriented 3, no focal deficits.. Hospital Course This is a 71-year-old male with past medical history of recent hospitalization secondary to cardiac arrest in which require patient to have chronic tracheostomy who presented with shortness of breathing. Patient was at [facility] and had increased shortness of breathing so was transferred to [place]. Patient was found to have hospital-acquired pneumonia. Patient was started on empiric antibiotics. Sputum culture was collected and grew Stenotrophomonas maltophilia. Patient was present cefepime which was switched to Levaquin. He will finish his course of Levaquin. Patient currently improving, patient would need to be transferred to rehabilitation. Patient's other medications were continued and all other issues are stable including hypertension, COPD, peripheral vascular disease. H had urinary retention and will continue to have Robison catheter in place. Patient also has decubitus stage III ulcer and will need continued wound care management. This discharge summary reflects patient's hospital stay from November 10 to November 18. Please refer to subsequent progress notes for details regarding the rest of patient's stay until discharge on 11/20/16. Pt Condition on Discharge: Good Discharge Disposition: Discharge to SNF Discharge Time: > 30 minutes Discharge Instructions DIET: Follow Instructions for: On Tube Feeding Additional Diet Instructions: nepho at 55 cc/hr Activities you can perform: Regular-No Restrictions Follow up Referrals: SNF/[facility]/ - Next Day New Medications: Levofloxacin (Levofloxacin) 750 Mg Tablet 750 MG PO DAILY Infection #7 Ref 0 TAB Continued Medications: Acetaminophen (Tylenol) 325 Mg Tab 325 MG G-TUBE Q4H PRN PAIN SCALE 1 TO 10 Ref 0 TAB Alprazolam (Xanax) 0.25 Mg Tab 0.25 MG G-TUBE Q8H PRN ANXIETY Ref 0 TAB Amiodarone (Amiodarone) 200 Mg Tab 200 MG G-TUBE DAILY Regulate Heart Beat #30 Ref 0 TAB Budesonide Neb (Budesonide Neb) 0.5 Mg/2 Ml Neb 0.5 MG NEB Q12HR NEB Breathing Treatment #60 Ref 0 NEBULE Chlorhexidine Gluconate (Mouth) Liq (Chlorhexidine Gluconate (Mouth) Liq) 0.12% Soln 15 ML SWISH-SPIT BID #473 Ref 0 ML Cholestyramine (Cholestyramine) 4 Gm/Dose Powd 4 GM PO BID 1 level scoopful of powder contains 4 grams of cholestyramine. Dyslipidemia #1 Ref 0 CAN Dextrose (Dextrose 50%) 50 % Inj PRN Per Hypoglycemic Protocol Dextrose-Sodium Chloride Inj (Dextrose 10%-NaCl 0.45% Inj) 10-0.45% 1,000 Ml Bagp Doxazosin (Doxazosin) 2 Mg Tab 2 MG G-TUBE DAILY #30 Ref 0 TAB Glucagon (Rdna) Inj Kit (Glucagen Hypokit Inj Kit) 1 Mg Kit 1 MG IM ONCE PRN Blood Sugar Management #1 Ref 0 KIT Guaifenesin-Dextromethorphan Liq (Guaifenesin DM Liq) 10-100 Mg/5 Ml Liq 10 ML G-TUBE Q4H PRN COUGH #1 Ref 0 BOTTLE Heparin Inj (Heparin Inj) 10,000 Units/10 Ml Inj 5000 UNITS SQ Q12HR #1 VIAL Hyoscyamine (Hyoscyamine) 0.125 Mg Tab 0.125 MG G-TUBE Q4H Gastrointestinal disorders Ref 0 TAB Ipratropium-Albuterol Neb (Duoneb) 0.5-2.5 Mg/3 Ml Neb 1 NEBULE INH Q4HR NEB SHORTNESS OF BREATH #120 Ref 0 NEBULE Lactobacillus Combo No.10 (Probiotic) 1 Each Capsule G-TUBE BID Loperamide HCl (Loperamide) 2 Mg Tablet 2 MG G-TUBE Q4HR PRN DIARRHEA Metoprolol Tartrate (Metoprolol Tartrate) 25 Mg Tab 25 MG PO BID #60 Ref 0 TAB Multiple Vitamins W/ Minerals (Thera M Plus) 1 Tab 1 TAB G-TUBE DAILY Nutritional Supplement Ref 0 TAB Nitroglycerin Topical (Nitro-Bid Topical) 2 % Oint 1 INCH CHEST Q6H PRN CHEST PAIN #1 Ref 0 TUBE Olanzapine (Olanzapine) 5 Mg Tab 5 MG G-TUBE DAILY #30 Ref 0 TAB Omeprazole (Omeprazole) 20 Mg Cap G-TUBE BID Oxycodone (Oxycodone) 10 Mg Tab 10 MG G-TUBE Q6H PRN PAIN #10 Ref 0 TAB (This prescription has been renewed) Sodium Chloride Inj (Sodium Chloride Inj) 0.9 % Inj 100 ML IV Q12HR Discontinued Medications: Cefepime Inj (Cefepime Inj) 2 Gm/100 Ml Bagp 2 GM IV Q12H Infection Ref 0 BAG Hydralazine Inj (Hydralazine Inj) 20 Mg/Ml Inj 10 MG IV every hour PRN INCREASE IN BLOOD PRESSURE Metronidazole (Metronidazole) 250 Mg Tab 250 MG G-TUBE QID Infection Ref 0 TAB Tuberculin Ppd (Aplisol) 5 Unit/0.1 Ml Inj Vancomycin HCl (Vancomycin HCl) 500 Mg Vial.port IV DAILY Mary Beckford MD Nov 16, 2016 11:35 Oxycodone (Oxycodone) 10 Mg Tab 10 MG G-TUBE Q6H PRN PAIN #10 Ref 0 TAB (This prescription has been renewed) Sodium Chloride Inj (Sodium Chloride Inj) 0.9 % Inj 100 ML IV Q12HR Discontinued Medications: Cefepime Inj (Cefepime Inj) 2 Gm/100 Ml Bagp 2 GM IV Q12H Infection Ref 0 BAG Hydralazine Inj (Hydralazine Inj) 20 Mg/Ml Inj 10 MG IV every hour PRN INCREASE IN BLOOD PRESSURE Metronidazole (Metronidazole) 250 Mg Tab 250 MG G-TUBE QID Infection Ref 0 TAB Tuberculin Ppd (Aplisol) 5 Unit/0.1 Ml Inj Vancomycin HCl (Vancomycin HCl) 500 Mg Vial.port IV DAILY Mary Beckford MD Nov 16, 2016 11:35
[2016-11-16] MEDS: SODIUM CHLOR 0.9% 1000 ML INJ 1,000 ML IV SCH (19:09)
[2016-11-16] MEDS: ALPRAZolam 0.25 MG TAB G-TUBE PRN (23:07)
[2016-11-17] VITALS (18 sets, daily range): BP systolic 108–155; BP diastolic 69–81; PULSE 64–88; RESP 16–20; TEMP 97.2–98; O2SAT 94–98
[2016-11-17] MEDS: HYOSCYAMINE 0.125 MG TAB G-TUBE SCH ×6 (01:46→21:14)
[2016-11-17] MEDS: DOCUSATE SODIUM 50 MG/SENNA 8.6 MG TAB PO SCH ×2 (08:43→21:14)
[2016-11-17] MEDS: METOPROLOL TARTRATE 25 MG TAB PO SCH ×2 (08:43→21:14)
[2016-11-17] MEDS: MULTIVITAMINS/MINERALS THERAPEUTIC TAB G-TUBE SCH (08:43)
[2016-11-17] MEDS: FAMOTIDINE 20 MG TAB PO SCH ×2 (08:43→21:14)
[2016-11-17] MEDS: CHOLESTYRAMINE 4 GM PACKET PO SCH ×2 (08:43→21:14)
[2016-11-17] MEDS: DOXAZOSIN MESYLATE 2 MG TAB G-TUBE SCH (08:44)
[2016-11-17] MEDS: LEVOFLOXACIN 750 MG TAB PO SCH (08:44)
[2016-11-17] MEDS: AMIODARONE 200 MG TAB G-TUBE SCH (08:44)
[2016-11-17] MEDS: OLANZapine 5 MG TAB G-TUBE SCH (08:45)
[2016-11-17] MEDS: HEPARIN SODIUM - SQ 10,000 UNITS/ML VIAL SQ SCH ×2 (08:45→21:15)
[2016-11-17] MEDS: SODIUM CHLORIDE 0.9% FLUSH 10 ML FLUSH IV FLUSH SCH ×2 (08:45→21:00)
[2016-11-17] MEDS: metroNIDAZOLE 250 MG TAB G-TUBE SCH ×4 (08:46→21:14)
[2016-11-17] MEDS: CHLORHEXIDINE 0.12% (ORAL KIT) 15 ML CUP SWISH-SPIT SCH ×2 (08:57→21:00)
--- NOTE | 2016-11-17 13:09 | HHI.PR ---
Subjective Remarks SNF not ready yesterday, follow-up for shortness of breath Shortness of breath is stable, however patient is complaining of left ankle pain after hit yesterday, also more swollen. Afebrile. Objective Vitals Vital Signs Date Time Temp Pulse Resp B/P Pulse Ox O2 Delivery O2 Flow Rate FiO2 11/17/16 13:05 72 11/17/16 12:20 82 11/17/16 12:00 97.7 71 19 108/77 95 11/17/16 11:08 78 11/17/16 10:32 88 11/17/16 08:00 97.2 84 19 155/81 95 11/17/16 07:39 Trach Collar 5.00 28 11/17/16 04:00 97.9 70 20 138/69 96 11/17/16 03:29 73 11/17/16 00:50 18 11/17/16 00:00 97.5 64 20 146/69 98 11/16/16 21:30 Trach Collar 5.00 28 11/16/16 20:23 5.00 28 11/16/16 20:12 97 Trach Collar 5.00 28 11/16/16 20:00 97.9 87 20 94 11/16/16 18:12 78 11/16/16 17:26 82 11/16/16 16:45 62 11/16/16 16:00 98.4 81 20 123/71 95 11/16/16 15:11 68 11/16/16 14:13 68 11/16/16 13:46 62 I/O 11/16/16 11/16/16 11/16/16 11/17/16 11/17/16 11/17/16 07:00 15:00 23:00 07:00 15:00 23:00 Intake Total 0 ml 868 ml 940 ml Output Total 400 ml 590 ml 350 ml 800 ml Balance -400 ml -590 ml 518 ml 140 ml Intake Oral 0 ml 0 ml 0 ml IV Total 168 ml 420 ml Tube Feeding 500 ml 520 ml Other 200 ml Output Urine Total 400 ml 590 ml 350 ml 800 ml # Bowel Movements 1 2 0 0 Result Diagram: 11/16/16 0545 Objective Remarks GENERAL: In no acute distress. NECK: Supple, trachea midline. No JVD or lymphadenopathy. Trach and PMV in place. On room air. CARDIOVASCULAR: Regular rate and rhythm without murmurs, gallops, or rubs. RESPIRATORY: Breath sounds equal bilaterally. No accessory muscle use. Transmitted upper respiratory sounds. GASTROINTESTINAL: Abdomen soft, non-tender, nondistended. MUSCULOSKELETAL: No cyanosis, or edema. BACK: Nontender without obvious deformity. No CVA tenderness Mild left ankle tenderness and swelling lateral aspect Alert awake and oriented 3, no focal deficits.. A/P Assessment and Plan 71-year-old male with recent discharge due to long hospitalization from cardiac arrest who presented with shortness of breathing Acute on chronic respiratory failure s/p trach on 09/04 secondary to pneumonia -Most likely secondary to mucous plug. Symptomatically patient was back to baseline. -cxr Bibasilar airspace opacity, right greater than left, likely representing some combination of atelectasis/volume loss with possible effusion and consolidation at the right lung base. -Sputum culture grew STENOTROPHOMONAS MALTOPHILIA . Cefepime discontinued and he was started on Levaquin, continue oral Levaquin and finished course. hx Cardiac arrest status post CPR 15 minutes -stable, continue amiodarone History of hypertension/PVD -Continue home medication, continue metoprolol End-stage COPD/history of tension pneumothorax/history of aspiration pneumonia -Continue with home medication. History of bladder outlet obstruction/urinary retention -Robison in place. 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 -No signs of infection so vancomycin was discontinued. -Appreciate wound care consult. History of prostate cancer -stable -f/u as outpatient Hypokalemia-replaced Left ankle pain-minor trauma, swollen, check left ankle x-ray. Pain control. DVT prophylaxis -heparin Discharge Planning Discharge to rehabilitation when ready Mary Beckford MD Nov 17, 2016 13:09
--- NOTE | 2016-11-17 13:22 | RADRPT ---
EXAM DATE/TIME: 11/17/2016 12:12 [facility] COMPARISON: No previous studies available for comparison. INDICATIONS : Pain. MEDICAL HISTORY : None. SURGICAL HISTORY : None. ENCOUNTER: Initial ACUITY: 2 days PAIN SCORE: 4/10 LOCATION: Left ankle. FINDINGS: 3 views left ankle. Bone alignment within normal limits. No evidence of fracture. Ankle mortise inta ct. No focal bone erosion. CONCLUSION: No evidence of fracture. Rene Garzon MD on November 17, 2016 at 13:17 Board Certified Radiologist. This report was verified electronically.
[2016-11-17] MEDS ORDERED: LEVO750T3 PO (14:08)
[2016-11-17] MEDS: SODIUM CHLOR 0.9% 1000 ML INJ 1,000 ML IV SCH (16:42)
[2016-11-17] MEDS: RESP: ALBUTEROL 2.5 MG/IPRATROPIUM 0.5 MG NEB (PRN) NEB (18:42)
[2016-11-18] VITALS (10 sets, daily range): BP systolic 117–157; BP diastolic 65–87; PULSE 68–88; RESP 14–20; TEMP 97.3–98.5; O2SAT 90–96
[2016-11-18] MEDS: HYOSCYAMINE 0.125 MG TAB G-TUBE SCH ×6 (02:30→23:03)
[2016-11-18] MEDS: CHLORHEXIDINE 0.12% (ORAL KIT) 15 ML CUP SWISH-SPIT SCH ×2 (09:00→21:00)
[2016-11-18] MEDS: METOPROLOL TARTRATE 25 MG TAB PO SCH ×2 (09:51→23:03)
[2016-11-18] MEDS: metroNIDAZOLE 250 MG TAB G-TUBE SCH ×4 (09:51→23:03)
[2016-11-18] MEDS: DOXAZOSIN MESYLATE 2 MG TAB G-TUBE SCH (09:52)
[2016-11-18] MEDS: MULTIVITAMINS/MINERALS THERAPEUTIC TAB G-TUBE SCH (09:52)
[2016-11-18] MEDS: LEVOFLOXACIN 750 MG TAB PO SCH (09:52)
[2016-11-18] MEDS: HEPARIN SODIUM - SQ 10,000 UNITS/ML VIAL SQ SCH ×2 (09:52→23:03)
[2016-11-18] MEDS: CHOLESTYRAMINE 4 GM PACKET PO SCH ×2 (09:52→21:00)
[2016-11-18] MEDS: FAMOTIDINE 20 MG TAB PO SCH ×2 (09:52→23:03)
[2016-11-18] MEDS: OLANZapine 5 MG TAB G-TUBE SCH (09:52)
[2016-11-18] MEDS: AMIODARONE 200 MG TAB G-TUBE SCH (09:52)
[2016-11-18] MEDS: SODIUM CHLORIDE 0.9% FLUSH 10 ML FLUSH IV FLUSH SCH ×2 (09:53→21:00)
[2016-11-18] MEDS: DOCUSATE SODIUM 50 MG/SENNA 8.6 MG TAB PO SCH ×2 (09:53→21:00)
[2016-11-18] MEDS: RESP: ALBUTEROL 2.5 MG/IPRATROPIUM 0.5 MG NEB (PRN) NEB ×2 (11:37→16:40)
--- NOTE | 2016-11-18 13:57 | HHI.PR ---
Subjective Remarks Follow-up for left ankle pain Left ankle pain better, still swollen, x-ray is unremarkable. Awaiting placement. Denies any chest pain, shortness of breath or fever. Objective Vitals Vital Signs Date Time Temp Pulse Resp B/P Pulse Ox O2 Delivery O2 Flow Rate FiO2 11/18/16 12:00 97.3 74 20 133/65 94 11/18/16 08:57 92 Trach Collar 6.00 28 11/18/16 08:57 6.00 28 11/18/16 08:00 98.5 77 20 157/73 95 11/18/16 07:00 Trach Collar 5.00 28 11/18/16 05:20 87 11/18/16 04:00 97.6 72 20 117/72 90 11/18/16 00:00 98.0 68 20 135/67 93 11/17/16 21:27 94 Trach Collar 28 11/17/16 20:00 98.0 80 16 145/78 94 11/17/16 19:33 Trach Collar 5.00 28 11/17/16 18:07 76 11/17/16 17:17 76 11/17/16 16:36 78 11/17/16 16:00 97.6 78 18 139/78 96 11/17/16 15:05 80 11/17/16 14:52 80 I/O 11/17/16 11/17/16 11/17/16 11/18/16 11/18/16 11/18/16 07:00 15:00 23:00 07:00 15:00 23:00 Intake Total 940 ml 550 ml 0 ml Output Total 800 ml 700 ml 800 ml 450 ml Balance 140 ml -700 ml -250 ml -450 ml Intake Oral 0 ml 0 ml IV Total 420 ml 0 ml Tube Feeding 520 ml 350 ml Other 200 ml Output Urine Total 800 ml 700 ml 800 ml 450 ml # Bowel Movements 0 1 0 1 Result Diagram: 11/18/16 0929 Objective Remarks GENERAL: In no acute distress. NECK: Supple, trachea midline. No JVD or lymphadenopathy. Trach and PMV in place. On room air. CARDIOVASCULAR: Regular rate and rhythm without murmurs, gallops, or rubs. RESPIRATORY: Breath sounds equal bilaterally. No accessory muscle use. Transmitted upper respiratory sounds. GASTROINTESTINAL: Abdomen soft, non-tender, nondistended. MUSCULOSKELETAL: No cyanosis, or edema. BACK: Nontender without obvious deformity. No CVA tenderness Mild left ankle tenderness and swelling lateral aspect Alert awake and oriented 3, no focal deficits.. A/P Assessment and Plan 71-year-old male with recent discharge due to long hospitalization from cardiac arrest who presented with shortness of breathing Acute on chronic respiratory failure s/p trach on 09/04 secondary to pneumonia -Most likely secondary to mucous plug. Symptomatically patient was back to baseline. -cxr Bibasilar airspace opacity, right greater than left, likely representing some combination of atelectasis/volume loss with possible effusion and consolidation at the right lung base. -Sputum culture grew STENOTROPHOMONAS MALTOPHILIA . Cefepime discontinued and he was started on Levaquin, continue oral Levaquin and finished course. hx Cardiac arrest status post CPR 15 minutes -stable, continue amiodarone History of hypertension/PVD -Continue home medication, continue metoprolol End-stage COPD/history of tension pneumothorax/history of aspiration pneumonia -Continue with home medication. History of bladder outlet obstruction/urinary retention -Robison in place. 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 -No signs of infection so vancomycin was discontinued. -Appreciate wound care consult. History of prostate cancer -stable -f/u as outpatient Hypokalemia-replaced Left ankle pain-minor trauma, swollen, x-ray negative, continue pain control. DVT prophylaxis -heparin Consult dietary, might need to change to feed formula if this is limiting transfer to rehabilitation. Discharge Planning Discharge to rehabilitation when ready Mary Beckford MD Nov 18, 2016 13:57
[2016-11-18] MEDS: RESP: ALBUTEROL 2.5 MG/IPRATROPIUM 0.5 MG NEB (SCH) NEB ×2 (17:12→20:31)
--- NOTE | 2016-11-18 17:32 | RADRPT ---
EXAM DATE/TIME: 11/18/2016 17:11 [facility] COMPARISON: CHEST SINGLE AP, November 10, 2016, 7:44. INDICATIONS : Shortness of breath. MEDICAL HISTORY : Congestive heart failure. Chronic obstructive pulmonary disease. SURGICAL HISTORY : Tracheostomy ENCOUNTER: Subsequent ACUITY: 3 days PAIN SCORE: 0/10 LOCATION: Bilateral chest FINDINGS: A single view of the chest demonstrates worsening bibasilar densities. Heart normal in size. Tracheos camila tube unchanged. PICC line removed. The cardiomediastinal contours are unremarkable. Osseous st ructures are intact. CONCLUSION: Worsening bibasilar pneumonia. Vernon Rodriguez MD on November 18, 2016 at 17:29 Board Certified Radiologist. This report was verified electronically.
[2016-11-18] MEDS: SODIUM CHLOR 0.9% 1000 ML INJ 1,000 ML IV SCH (18:47)
[2016-11-19] VITALS (8 sets, daily range): BP systolic 116–131; BP diastolic 59–83; PULSE 56–74; RESP 18–20; TEMP 96.9–98.2; O2SAT 90–98
[2016-11-19] MEDS: HYOSCYAMINE 0.125 MG TAB G-TUBE SCH ×6 (02:30→20:09)
[2016-11-19] MEDS: RESP: ALBUTEROL 2.5 MG/IPRATROPIUM 0.5 MG NEB (SCH) NEB ×4 (03:54→20:22)
[2016-11-19] MEDS: MULTIVITAMINS/MINERALS THERAPEUTIC TAB G-TUBE SCH (08:56)
[2016-11-19] MEDS: LEVOFLOXACIN 750 MG TAB PO SCH (08:56)
[2016-11-19] MEDS: DOCUSATE SODIUM 50 MG/SENNA 8.6 MG TAB PO SCH ×2 (08:56→20:09)
[2016-11-19] MEDS: METOPROLOL TARTRATE 25 MG TAB PO SCH ×2 (08:56→20:09)
[2016-11-19] MEDS: OLANZapine 5 MG TAB G-TUBE SCH (08:56)
[2016-11-19] MEDS: DOXAZOSIN MESYLATE 2 MG TAB G-TUBE SCH (08:56)
[2016-11-19] MEDS: AMIODARONE 200 MG TAB G-TUBE SCH (08:56)
[2016-11-19] MEDS: metroNIDAZOLE 250 MG TAB G-TUBE SCH ×4 (08:56→20:09)
[2016-11-19] MEDS: HEPARIN SODIUM - SQ 10,000 UNITS/ML VIAL SQ SCH ×2 (08:56→20:10)
[2016-11-19] MEDS: FAMOTIDINE 20 MG TAB PO SCH ×2 (08:56→20:09)
[2016-11-19] MEDS: CHOLESTYRAMINE 4 GM PACKET PO SCH ×2 (08:56→20:10)
[2016-11-19] MEDS: SODIUM CHLORIDE 0.9% FLUSH 10 ML FLUSH IV FLUSH SCH ×2 (08:57→20:10)
[2016-11-19] MEDS: CHLORHEXIDINE 0.12% (ORAL KIT) 15 ML CUP SWISH-SPIT SCH ×2 (08:57→20:10)
--- NOTE | 2016-11-19 15:54 | HHI.PR ---
Subjective Remarks Patient is requiring more oxygen. retirement facility cannot except with higher oxygen requirement. Needs to be weaned down. Patient seen and respiratory therapist at bedside. He is having a lot of secretions requiring suctioning. Patient is requesting repeat swallow evaluation so he can try to eat. Objective Vitals Vital Signs Date Time Temp Pulse Resp B/P Pulse Ox O2 Delivery O2 Flow Rate FiO2 11/19/16 12:37 98.2 62 20 125/83 95 11/19/16 10:21 98 T-piece 28 11/19/16 08:30 Trach Collar 5.00 28 11/19/16 08:30 70 11/19/16 08:07 98.2 74 18 131/74 95 11/19/16 04:00 96.9 56 18 131/59 93 11/19/16 00:00 97.4 68 20 116/67 97 11/18/16 22:50 Trach Collar 5.00 28 11/18/16 20:35 96 Trach Collar 28 11/18/16 20:00 97.8 88 14 138/75 96 11/18/16 16:00 97.5 81 20 152/87 90 I/O 11/18/16 11/18/16 11/18/16 11/19/16 11/19/16 11/19/16 07:00 15:00 23:00 07:00 15:00 23:00 Intake Total 0 ml 0 ml 0 ml 0 ml Output Total 450 ml 500 ml 500 ml 100 ml Balance -450 ml -500 ml -500 ml -100 ml Intake Oral 0 ml 0 ml 0 ml 0 ml Output Urine Total 450 ml 500 ml 500 ml 100 ml # Bowel Movements 1 1 1 0 Result Diagram: 11/18/16 0929 Imaging Last Impressions Chest X-Ray 11/18/16 1707 Signed Impressions: Service Date/Time: Friday, November 18, 2016 17:11 - CONCLUSION: Worsening bibasilar pneumonia. Vernon Rodriguez MD Ankle X-Ray 11/17/16 0000 Signed Impressions: Service Date/Time: Thursday, November 17, 2016 12:12 - CONCLUSION: No evidence of fracture. Rene Garzon MD Objective Remarks GENERAL: This is a well-nourished, well-developed patient, in no acute distress. CARDIOVASCULAR: Normal rate and regular rhythm without murmurs, gallops, or rubs. RESPIRATORY: Copious amount of clear secretions through the trach. Good respiratory efforts. Some coarse upper airway sounds. Otherwise clear to auscultation. GASTROINTESTINAL: Abdomen soft, non-tender, non-distended. Normal active bowel sounds MUSCULOSKELETAL: Extremities without cyanosis, or edema. NEURO: Alert & Oriented x4 to person, place, time, situation. Moves all ext x4 but generally weak. PSYCH: Appropriate mood and affect. A/P Assessment and Plan 71-year-old male with recent discharge due to long hospitalization from cardiac arrest who presented with dyspnea. Acute on chronic respiratory failure s/p trach on 09/04 secondary to pneumonia -Most likely secondary to mucous plug. Symptomatically patient getting back to baseline but still having significant amount of secretions.. -cxr Bibasilar airspace opacity, right greater than left, likely representing some combination of atelectasis/volume loss with possible effusion and consolidation at the right lung base. -Sputum culture grew STENOTROPHOMONAS MALTOPHILIA . Cefepime discontinued and he was started on Levaquin, continue oral Levaquin and finished course. - Discussed with respiratory therapist to teach patient how to suction. RN to suction frequently. Weaned down oxygen as tolerated. hx Cardiac arrest status post CPR 15 minutes -stable, continue amiodarone History of hypertension/PVD -Continue home medication, continue metoprolol End-stage COPD/history of tension pneumothorax/history of aspiration pneumonia -Continue with home medication. History of bladder outlet obstruction/urinary retention -Robison in place. 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 -No signs of infection so vancomycin was discontinued. -Appreciate wound care consult. History of prostate cancer -stable -f/u as outpatient Hypokalemia-replaced Left ankle pain-minor trauma, swollen, x-ray negative, continue pain control. DVT prophylaxis -heparin Nutrition: Patient is on tube feeding. Previously failed swallow study. Reconsult speech to evaluate swallowing. Discharge Planning Continue to wean down oxygen. Once acceptable level to the nursing facility is reached, patient can be discharged. Sanjay Gutiérrez MD Nov 19, 2016 3:54 pm
[2016-11-19] MEDS: SODIUM CHLOR 0.9% 1000 ML INJ 1,000 ML IV SCH (17:34)
[2016-11-19] MEDS: ALPRAZolam 0.25 MG TAB G-TUBE PRN (20:09)
[2016-11-20] VITALS (9 sets, daily range): BP systolic 111–140; BP diastolic 67–73; PULSE 68–88; RESP 20–21; TEMP 97.4–98.6; O2SAT 90–98
[2016-11-20] MEDS: HYOSCYAMINE 0.125 MG TAB G-TUBE SCH ×5 (02:15→17:34)
[2016-11-20] MEDS: RESP: ALBUTEROL 2.5 MG/IPRATROPIUM 0.5 MG NEB (SCH) NEB ×3 (03:58→15:11)
--- NOTE | 2016-11-20 06:53 | RADRPT ---
EXAM DATE/TIME: 11/20/2016 06:06 [facility] COMPARISON: CHEST SINGLE AP, November 18, 2016, 17:11. INDICATIONS : Short of breath MEDICAL HISTORY : Congestive heart failure. Chronic obstructive pulmonary disease. SURGICAL HISTORY : tracheostomy ENCOUNTER: Subsequent ACUITY: 1 week PAIN SCORE: 0/10 LOCATION: Bilateral chest FINDINGS: A single view of the chest demonstrates persistent blunting of both costophrenic angles left greater than right suspicious for pleural effusions. Tracheostomy tube is in good position. No evidence of a pneumothorax. The cardiomediastinal contours are unremarkable. Osseous structures are intact. CONCLUSION: Stable bilateral pleural effusions. Upper lungs are clear. Healed left humeral fracture. Peter Lopez MD on November 20, 2016 at 6:51 Board Certified Radiologist. This report was verified electronically.
[2016-11-20 07:57] LABS: HEMATOCRIT 30.6 % (39.0-51.0); MEAN CELL VOLUME 95.1 FL (80.0-100.0); MEAN CORPUSCULAR HEMOGLOBIN 32.4 PG (27.0-34.0); MEAN CORPUSCULAR HGB CONC 34.1 % (32.0-36.0); PLATELET COUNT 225 TH/MM3 (150-450); RED BLOOD COUNT 3.22 MIL/MM3 (4.50-5.90); RED CELL DISTRIBUTION WIDTH 16.9 % (11.6-17.2); REVIEW FLAG FINAL; WHITE BLOOD COUNT 8.3 TH/MM3 (4.0-11.0)
[2016-11-20 08:26] LABS: BICARBONATE 38.4 MEQ/L (21.0-32.0); POTASSIUM 3.9 MEQ/L (3.5-5.1)
[2016-11-20] MEDS: MULTIVITAMINS/MINERALS THERAPEUTIC TAB G-TUBE SCH (08:48)
[2016-11-20] MEDS: FAMOTIDINE 20 MG TAB PO SCH (08:49)
[2016-11-20] MEDS: OLANZapine 5 MG TAB G-TUBE SCH (08:49)
[2016-11-20] MEDS: AMIODARONE 200 MG TAB G-TUBE SCH (08:50)
[2016-11-20] MEDS: DOXAZOSIN MESYLATE 2 MG TAB G-TUBE SCH (08:50)
[2016-11-20] MEDS: METOPROLOL TARTRATE 25 MG TAB PO SCH (08:51)
[2016-11-20] MEDS: DOCUSATE SODIUM 50 MG/SENNA 8.6 MG TAB PO SCH (08:51)
[2016-11-20] MEDS: metroNIDAZOLE 250 MG TAB G-TUBE SCH ×3 (08:51→17:35)
[2016-11-20] MEDS: HEPARIN SODIUM - SQ 10,000 UNITS/ML VIAL SQ SCH (08:52)
[2016-11-20] MEDS: SODIUM CHLORIDE 0.9% FLUSH 10 ML FLUSH IV FLUSH SCH (08:52)
[2016-11-20] MEDS: CHOLESTYRAMINE 4 GM PACKET PO SCH (08:52)
[2016-11-20] MEDS: CHLORHEXIDINE 0.12% (ORAL KIT) 15 ML CUP SWISH-SPIT SCH (08:53)
[2016-11-20] MEDS: LEVOFLOXACIN 750 MG TAB PO SCH (11:43)
--- NOTE | 2016-11-20 13:32 | HHI.PR ---
Subjective Remarks Pt feels well today. family member at bedside. states she is frustrated why father is still here discussed w RN, pt currently off oxygen and sats were 92%, she is going to try to keep him at 2L. Pt has mucus plugs and needs deep suctioning Objective Vitals Vital Signs Date Time Temp Pulse Resp B/P Pulse Ox O2 Delivery O2 Flow Rate FiO2 11/20/16 12:07 98.6 71 20 140/70 92 11/20/16 08:32 96 T-piece 6.00 28 11/20/16 08:07 98.1 73 21 123/70 97 11/20/16 06:05 97.8 88 20 111/73 90 11/20/16 05:49 18 11/20/16 04:02 92 T-piece 28 11/20/16 01:11 77 11/20/16 00:00 97.4 68 20 117/67 92 11/19/16 20:28 90 T-piece 6.00 28 11/19/16 20:10 Trach Collar 5.00 28 11/19/16 16:07 98.1 72 18 125/66 93 I/O 11/19/16 11/19/16 11/19/16 11/20/16 11/20/16 11/20/16 07:00 15:00 23:00 07:00 15:00 23:00 Intake Total 0 ml 212 ml 580 ml Output Total 100 ml 200 ml 475 ml Balance -100 ml 12 ml 105 ml Intake Oral 0 ml 0 ml 120 ml IV Total 2 ml Tube Feeding 210 ml 460 ml Output Urine Total 100 ml 200 ml 475 ml # Bowel Movements 0 1 0 0 Result Diagram: 11/20/16 0642 11/20/16 0642 Imaging Last Impressions Chest X-Ray 11/20/16 0600 Signed Impressions: Service Date/Time: Sunday, November 20, 2016 06:06 - CONCLUSION: Stable bilateral pleural effusions. Upper lungs are clear. Healed left humeral fracture. Peter Lopez MD Ankle X-Ray 11/17/16 0000 Signed Impressions: Service Date/Time: Thursday, November 17, 2016 12:12 - CONCLUSION: No evidence of fracture. Rene Garzon MD Objective Remarks GENERAL: This is a well-nourished, well-developed patient, in no acute distress. CARDIOVASCULAR: Normal rate and regular rhythm without murmurs RESPIRATORY: Copious amount of clear secretions through the trach. Good respiratory efforts. Some coarse upper airway sounds. Otherwise clear to auscultation. GASTROINTESTINAL: Abdomen soft, non-tender, non-distended. Normal active bowel sounds MUSCULOSKELETAL: Extremities without cyanosis, or edema. NEURO: Alert & Oriented x4 to person, place, time, situation. Moves all ext x4 but generally weak. PSYCH: Appropriate mood and affect. A/P Assessment and Plan 71-year-old male with recent discharge due to long hospitalization from cardiac arrest who presented with dyspnea. Acute on chronic respiratory failure s/p trach on 09/04 secondary to pneumonia -Most likely secondary to mucous plug. Symptomatically patient getting back to baseline but still having significant amount of secretions. on levsin. -cxr Bibasilar airspace opacity, right greater than left, likely representing some combination of atelectasis/volume loss with possible effusion and consolidation at the right lung base. -Sputum culture grew STENOTROPHOMONAS MALTOPHILIA . Cefepime discontinued and he was started on Levaquin, continue oral Levaquin (11/13-) and finish course. -respiratory therapist teaching patient how to suction. RN to suction frequently. Weaned down oxygen as tolerated. Apparently today has been off oxygen x 15 mins and tolerating well. plan to go down to 2L hx Cardiac arrest status post CPR 15 minutes -stable, continue amiodarone History of hypertension/PVD -Continue home medication, continue metoprolol End-stage COPD/history of tension pneumothorax/history of aspiration pneumonia -Continue with home medication. History of bladder outlet obstruction/urinary retention -Robison in place. 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 -No signs of infection so vancomycin was discontinued. -Appreciate wound care consult. History of prostate cancer -stable -f/u as outpatient Hypokalemia-replaced Left ankle pain-minor trauma, swollen, x-ray negative, continue pain control. DVT prophylaxis -heparin Nutrition: Patient is on tube feeding. Previously failed swallow study. Speech evaluated pt and recommends keeping him NPO. will need speech therapy upon discharge. Discharge Planning placement difficult due to pt's high oxygen requirement, continue to wean. pt did well while I was there off oxygen x 15 mins, recs for 2L NC and see how he does throughout the day and overnight, if pt is able to suction himself properly , we may be able to lower oxygen level to 2-3L via NC. added acapella q4hrs and encouraged pt to use it. Yvonne Jj MD Nov 20, 2016 13:32
[2016-11-20] MEDS ORDERED: LEVO750T3 PO (16:49)
[2016-11-20] MEDS: SODIUM CHLOR 0.9% 1000 ML INJ 1,000 ML IV SCH (17:35)
--- NOTE | 2016-12-06 17:37 | HHI.DS ---
Discharge Summary Admission Date November 13, 2016 at 08:46 Discharge Date: Nov 20, 2016 Admitting Diagnosis pneumonia, respiratory distress, trach dependent (1) Right lower lobe pneumonia ICD Code: J18.1 Diagnosis: Principal Procedures None Brief History - From Admission This is a 71-year-old male with past medical history of recent hospitalization secondary to cardiac arrest in which require patient to have chronic tracheostomy who presented with shortness of breathing. Patient was at [facility] and had increased shortness of breathing so was transferred to [facility]. Patient was examined by dental nurse Dr. Cabrera in which his symptoms improved quickly. Symptoms thought to be due to a mucous plug. Patient is fully alert and is able to follow commands. He shook his head when I ask him if breathing has improved. Patient remains afebrile. Denied any pain. I called [facility] regards to his medication in terms of his vancomycin and cefepime. Nurse stated that he was on medication for Pseudomonas infection but she could not give me further details. She stated that she would call me back to give further information, but she never called back. Imaging Last Impressions Chest X-Ray 11/20/16 0600 Signed Impressions: Service Date/Time: Sunday, November 20, 2016 06:06 - CONCLUSION: Stable bilateral pleural effusions. Upper lungs are clear. Healed left humeral fracture. Peter Lopez MD Ankle X-Ray 11/17/16 0000 Signed Impressions: Service Date/Time: Thursday, November 17, 2016 12:12 - CONCLUSION: No evidence of fracture. Rene Garzon MD PE at Discharge GENERAL: This is a well-nourished, well-developed patient, in no acute distress. CARDIOVASCULAR: Normal rate and regular rhythm without murmurs RESPIRATORY: Copious amount of clear secretions through the trach. Good respiratory efforts. Some coarse upper airway sounds. Otherwise clear to auscultation. GASTROINTESTINAL: Abdomen soft, non-tender, non-distended. Normal active bowel sounds MUSCULOSKELETAL: Extremities without cyanosis, or edema. NEURO: Alert & Oriented x4 to person, place, time, situation. Moves all ext x4 but generally weak. PSYCH: Appropriate mood and affect. Hospital Course Acute on chronic respiratory failure s/p trach on 09/04 secondary to pneumonia -Most likely secondary to mucous plug. Symptomatically patient getting back to baseline but still having significant amount of secretions. on levsin. -cxr Bibasilar airspace opacity, right greater than left, likely representing some combination of atelectasis/volume loss with possible effusion and consolidation at the right lung base. -Sputum culture grew STENOTROPHOMONAS MALTOPHILIA . Cefepime discontinued and started on Levaquin. Pt discharged w script for levaquin to complete course at rehab. - RT did teach pt how to suction himself. - Pt was initially discharged on 11/16/16 however due to high oxygen requirement placement was difficult. On 11/20/16 day of discharge [facility] (staff comfortable w O2 requirements) hx Cardiac arrest status post CPR 15 minutes -stable, continue amiodarone History of hypertension/PVD -Continue home medication, continue metoprolol End-stage COPD/history of tension pneumothorax/history of aspiration pneumonia -Continue with home medication. History of bladder outlet obstruction/urinary retention -Robison in place. 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 -No signs of infection so vancomycin was discontinued. -Appreciate wound care consult. Left ankle pain-minor trauma, swollen, x-ray negative, continue pain control. Nutrition: Patient is on tube feeding. Previously failed swallow study. Speech evaluated pt and recommends keeping him NPO. will need speech therapy upon discharge. Pt Condition on Discharge: Good Discharge Disposition: Discharge to SNF Discharge Time: <= 30 minutes Discharge Instructions DIET: Follow Instructions for: On Tube Feeding Additional Diet Instructions: nepho at 55 cc/hr Activities you can perform: Regular-No Restrictions Follow up Referrals: SNF/[facility]/ - Next Day New Medications: Levofloxacin (Levofloxacin) 750 Mg Tablet 750 MG PO DAILY PNA #2 TAB Continued Medications: Acetaminophen (Tylenol) 325 Mg Tab 325 MG G-TUBE Q4H PRN PAIN SCALE 1 TO 10 Ref 0 TAB Alprazolam (Xanax) 0.25 Mg Tab 0.25 MG G-TUBE Q8H PRN ANXIETY Ref 0 TAB Amiodarone (Amiodarone) 200 Mg Tab 200 MG G-TUBE DAILY Regulate Heart Beat #30 Ref 0 TAB Budesonide Neb (Budesonide Neb) 0.5 Mg/2 Ml Neb 0.5 MG NEB Q12HR NEB Breathing Treatment #60 Ref 0 NEBULE Chlorhexidine Gluconate (Mouth) Liq (Chlorhexidine Gluconate (Mouth) Liq) 0.12% Soln 15 ML SWISH-SPIT BID #473 Ref 0 ML Cholestyramine (Cholestyramine) 4 Gm/Dose Powd 4 GM PO BID 1 level scoopful of powder contains 4 grams of cholestyramine. Dyslipidemia #1 Ref 0 CAN Dextrose (Dextrose 50%) 50 % Inj PRN Per Hypoglycemic Protocol Dextrose-Sodium Chloride Inj (Dextrose 10%-NaCl 0.45% Inj) 10-0.45% 1,000 Ml Bagp Doxazosin (Doxazosin) 2 Mg Tab 2 MG G-TUBE DAILY #30 Ref 0 TAB Glucagon (Rdna) Inj Kit (Glucagen Hypokit Inj Kit) 1 Mg Kit 1 MG IM ONCE PRN Blood Sugar Management #1 Ref 0 KIT Guaifenesin-Dextromethorphan Liq (Guaifenesin DM Liq) 10-100 Mg/5 Ml Liq 10 ML G-TUBE Q4H PRN COUGH #1 Ref 0 BOTTLE Heparin Inj (Heparin Inj) 10,000 Units/10 Ml Inj 5000 UNITS SQ Q12HR #1 VIAL Hyoscyamine (Hyoscyamine) 0.125 Mg Tab 0.125 MG G-TUBE Q4H Gastrointestinal disorders Ref 0 TAB Ipratropium-Albuterol Neb (Duoneb) 0.5-2.5 Mg/3 Ml Neb 1 NEBULE INH Q4HR NEB SHORTNESS OF BREATH #120 Ref 0 NEBULE Lactobacillus Combo No.10 (Probiotic) 1 Each Capsule G-TUBE BID Loperamide HCl (Loperamide) 2 Mg Tablet 2 MG G-TUBE Q4HR PRN DIARRHEA Metoprolol Tartrate (Metoprolol Tartrate) 25 Mg Tab 25 MG PO BID #60 Ref 0 TAB Multiple Vitamins W/ Minerals (Thera M Plus) 1 Tab 1 TAB G-TUBE DAILY Nutritional Supplement Ref 0 TAB Nitroglycerin Topical (Nitro-Bid Topical) 2 % Oint 1 INCH CHEST Q6H PRN CHEST PAIN #1 Ref 0 TUBE Olanzapine (Olanzapine) 5 Mg Tab 5 MG G-TUBE DAILY #30 Ref 0 TAB Omeprazole (Omeprazole) 20 Mg Cap G-TUBE BID Oxycodone (Oxycodone) 10 Mg Tab 10 MG G-TUBE Q6H PRN PAIN #10 Ref 0 TAB (This prescription has been renewed) Sodium Chloride Inj (Sodium Chloride Inj) 0.9 % Inj 100 ML IV Q12HR Discontinued Medications: Cefepime Inj (Cefepime Inj) 2 Gm/100 Ml Bagp 2 GM IV Q12H Infection Ref 0 BAG Hydralazine Inj (Hydralazine Inj) 20 Mg/Ml Inj 10 MG IV every hour PRN INCREASE IN BLOOD PRESSURE Metronidazole (Metronidazole) 250 Mg Tab 250 MG G-TUBE QID Infection Ref 0 TAB Tuberculin Ppd (Aplisol) 5 Unit/0.1 Ml Inj Vancomycin HCl (Vancomycin HCl) 500 Mg Vial.port IV DAILY Yvonne Jj MD Dec 06, 2016 17:36
== END 2016-11-20 19:22 | DRG 208 ==
LOC: NEPE 06:39 → NEDA 08:49 → INTOOBSV 08:49 → HCIN 14:09 → HCIS 11-12 21:48 → OBSVTOIN 11-13 08:46 → N04A 11-13 18:15
PROVIDERS: ADMIT Hospitalist; ATTEND Hospitalist
PROC: 5A1935Z Respiratory Ventilation, Less than 24 Consecutive Hours (ICD-10-PCS; principal; 2016-11-10)
DX: J18.9 Pneumonia, unspecified organism (principal); J96.21 Acute and chronic respiratory failure with hypoxia; L89.153 Pressure ulcer of sacral region, stage 3; J44.1 Chronic obstructive pulmonary disease with (acute) exacerbation; J98.11 Atelectasis; T17.990A Other foreign object in respiratory tract, part unspecified in causing asphyxiation, initial encounter; Z93.0 Tracheostomy status; Z99.81 Dependence on supplemental oxygen; Z86.74 Personal history of sudden cardiac arrest; Z93.1 Gastrostomy status; I25.10 Atherosclerotic heart disease of native coronary artery without angina pectoris; Z85.46 Personal history of malignant neoplasm of prostate; E78.5 Hyperlipidemia, unspecified; Z87.11 Personal history of peptic ulcer disease; I10 Essential (primary) hypertension; I73.9 Peripheral vascular disease, unspecified; Y95 Nosocomial condition; E87.6 Hypokalemia
CPT/HCPCS: 71010; 73610; 80048; 80202; 82565; 83735; 83880; 84484; 85007; 85025; 85027; 87040; 87070; 87077; 87186; 87205; 93005; 94002; 94003; 94640; 94664; 94667; 96374; J0692; J1644; J2543; J2930; J3370; J7030; J7040; J7050

== ENCOUNTER 2017-01-26 10:50 | Inpatient (IN) | payer MEDICARE, OTHER ==
[~2017-01-26] VITALS: Ht 165.1 cm; Wt 67.4 kg
[2017-01-26] VITALS (11 sets, daily range): BP systolic 99–141; BP diastolic 58–73; PULSE 102–125; RESP 16–20; TEMP 97.4–103.5; O2SAT 92–99
[~2017-01-26 10:50] MED LIST: ALPR.25 G-TUBE; AMIO200T G-TUBE; BUDE0.5S NEB; CHLO.12%30 SWISH-SPIT; CHOL4POW3 PO; DEXTR50%P; DOXA1TAB35 G-TUBE; GLUCINJ IM; GUAISYP7 G-TUBE; HEPAR10KP SQ; HYOS0.128 G-TUBE; IPRASOL INH; LACT1CAP18 G-TUBE; LEVO750T3 PO; LOPE2TAB21 G-TUBE; METO25TA3 PO; NITR2OIN CHEST; OLAN5TAB G-TUBE; OMEP20CA2 G-TUBE; OXYC-395 G-TUBE; SODI0.9I IV; THERM G-TUBE; TYLE325T G-TUBE; [UNRECOGNIZED DRUG - CODE]
[2017-01-26] MEDS ORDERED: IODOGEL TOPICAL (11:20)
[2017-01-26] MEDS ORDERED: PERC10TA27 PO (11:20)
[2017-01-26] MEDS ORDERED: MELO7.5T4 PO (11:20)
[2017-01-26] MEDS ORDERED: SODIUM CHLOR 0.9% 1000 ML INJ 100 ML IV ONE (11:22)
[2017-01-26] MEDS ORDERED: SODIUM CHLOR 0.9% 1000 ML INJ 1,000 ML IV ONE ×2 (11:22)
[2017-01-26] MEDS ORDERED: ACETAMINOPHEN 650 MG SUPP RECTAL ONE (11:30)
[2017-01-26 11:55] LABS: AUTOMATED NEUTROPHIL # 8.1 TH/MM3 (1.8-7.7); BASOPHIL % 0.2 % (0.0-2.0); HEMATOCRIT 31.2 % (39.0-51.0); LYMPHOCYTE # 0.2 TH/MM3 (1.0-4.8); MEAN CELL VOLUME 94.4 FL (80.0-100.0); MEAN CORPUSCULAR HEMOGLOBIN 31.5 PG (27.0-34.0); MEAN CORPUSCULAR HGB CONC 33.4 % (32.0-36.0); MONO % 9.4 % (0.0-8.0); NEUT % 88.4 % (16.0-70.0); PLATELET COUNT 175 TH/MM3 (150-450); RED BLOOD COUNT 3.31 MIL/MM3 (4.50-5.90); RED CELL DISTRIBUTION WIDTH 14.2 % (11.6-17.2); WHITE BLOOD COUNT 9.1 TH/MM3 (4.0-11.0)
[2017-01-26 11:56] LABS: HEMO FLAGS AUTO DIFF
--- NOTE | 2017-01-26 11:58 | PD ---
HPI Chief Complaint: Altered Mental Status Time Seen by Provider: 11:17 Travel History International Travel<30 days: No Contact w/Intl Traveler<30days: No Traveled to known affect area: No History of Present Illness HPI This is a 71-year-old male who presents from a skilled nursing with altered mentation and abrasions and a laceration to the head. The patient reportedly was trying to get out of bed when he fell. He has abrasions to his left shoulder and left elbow. He is unable to give any history. He is confused. He has a temperature of 101.3. Report was that he also could've had a urinary tract infection. There is no further history elicited secondary to the patient' s altered sensorium. PFSH Past Medical History Arthritis: Yes Anxiety: Yes Cancer: Yes (prostate cancer ) Cardiovascular Problems: Yes High Cholesterol: No Chemotherapy: No Chest Pain: No Congestive Heart Failure: Yes COPD: Yes Diabetes: No Diminished Hearing: No Endocrine: No Gastrointestinal Disorders: Yes Genitourinary: No Hiatal Hernia: Yes Hypertension: Yes Musculoskeletal: Yes Neurologic: No Respiratory: Yes Radiation Therapy: Yes Thyroid Disease: No Past Surgical History Abdominal Surgery: Yes (PEG Tube, Hernia repair ) Pacemaker: No Other Surgery: Yes (trach) Social History Alcohol Use: No Tobacco Use: No Substance Use: No Allergies-Medications (Allergen,Severity, Reaction): Coded Allergies: No Known Allergies (Unverified , 11/10/16) Reported Meds & Prescriptions Reported Meds & Active Scripts Active Oxycodone (Oxycodone HCl) 10 Mg Tab 10 Mg G-TUBE Q6H PRN Reported Meloxicam 7.5 Mg Tab 7.5 Mg PO DAILY Iodosorb Topical (Cadexomer Iodine) 0.9% Gel 1 Applic TOPICAL 3XWEEK Percocet (Oxycodone-Acetaminophen) 10-325 mg Tab 1 Tab PO Q4H PRN Xanax (Alprazolam) 0.25 Mg Tab 0.25 Mg G-TUBE Q8H PRN Thera M Plus (Multivitamins/Minerals Therapeutic) 1 Tab 1 Tab G-TUBE DAILY Sodium Chloride Inj (Sodium Chloride) 0.9 % Inj 100 Ml IV Q12HR Probiotic (Lactobacillus Combo No.10) 1 Each Capsule G-TUBE BID Omeprazole 20 Mg Cap G-TUBE BID Olanzapine 5 Mg Tab 5 Mg G-TUBE DAILY Nitro-Bid Topical (Nitroglycerin) 2 % Oint 1 Inch CHEST Q6H PRN Metoprolol Tartrate 25 Mg Tab 25 Mg PO BID Loperamide (Loperamide HCl) 2 Mg Tablet 2 Mg G-TUBE Q4HR PRN Duoneb (Ipratropium-Albuterol Neb) 0.5-2.5 Mg/3 Ml Neb 1 Nebule INH Q4HR NEB Hyoscyamine (Hyoscyamine Sulfate) 0.125 Mg Tab 0.125 Mg G-TUBE Q4H Heparin Inj (Heparin Sodium (Porcine)) 10,000 Units/10 Ml Inj 5,000 Units SQ Q12HR Guaifenesin DM Liq (Guaifenesin-Dextromethorphan Liq) 10-100 Mg/5 Ml Liq 10 Ml G -TUBE Q4H PRN Dextrose 10%-NaCl 0.45% Inj (Dextrose-Sodium Chloride Inj) 10-0.45% 1,000 Ml Bagp Glucagen Hypokit Inj Kit (Glucagon (Rdna) Inj Kit) 1 Mg Kit 1 Mg IM ONCE PRN Doxazosin (Doxazosin Mesylate) 2 Mg Tab 2 Mg G-TUBE DAILY Dextrose 50% (Dextrose) 50 % Inj PRN Cholestyramine 4 Gm/Dose Powd 4 Gm PO BID 1 level scoopful of powder contains 4 grams of cholestyramine. Chlorhexidine Gluconate (Mouth) Liq (Chlorhexidine Gluconate) 0.12% Soln 15 Ml SWISH-SPIT BID Budesonide Neb 0.5 Mg/2 Ml Neb 0.5 Mg NEB Q12HR NEB Amiodarone (Amiodarone HCl) 200 Mg Tab 200 Mg G-TUBE DAILY Tylenol (Acetaminophen) 325 Mg Tab 325 Mg G-TUBE Q4H PRN Review of Systems ROS Limitations: Clinical Condition, Altered Mental Status Except as stated in HPI: all other systems reviewed are Neg General / Constitutional: Positive: Fever Genitourinary: Positive: Other (reported urinary tract infection) Skin: Positive Other (stage II decubitus to the coccyx) Physical Exam Narrative GENERAL: Ill appearing male who is obviously confused. SKIN: Focused skin assessment warm/dry. Mucous membranes of the mouth are dry. There is a abrasion to his left shoulder and a skin tear to the left elbow. There is also an abrasion to his left knee. HEAD: One half centimeter laceration to the left lateral eyebrow. It appears to be through the dermis.. Normocephalic. EYES: No scleral icterus. No injection or drainage. ENT: No nasal bleeding or discharge. Mucous membranes pink and moist. NECK: Trachea midline. No JVD. Supple. CARDIOVASCULAR: Tachycardic with normal rhythm No murmur appreciated. RESPIRATORY: No accessory muscle use. Clear to auscultation. Breath sounds equal bilaterally. Decreased respiratory effort. GASTROINTESTINAL: Abdomen soft, non-tender, nondistended. Hepatic and splenic margins not palpable. There is a PEG tube in place. There is a stage II decubitus ulcer to his left buttock area. MUSCULOSKELETAL: No obvious deformities. No clubbing. No cyanosis. No edema. Abrasion to the left knee, left shoulder. Skin tear to the left elbow. NEUROLOGICAL: Awake and confused. No obvious cranial nerve deficits. Motor grossly within normal limits. Normal speech. Data Data Last Documented VS Vital Signs Date Time Temp Pulse Resp B/P Pulse Ox O2 Delivery O2 Flow Rate FiO2 01/26/17 13:09 97 01/26/17 13:08 98.0 01/26/17 12:06 Room Air 01/26/17 11:00 18 2 01/26/17 11:00 107 126/70 Orders Complete Blood Count With Diff (01/26/17 11:22) Comprehensive Metabolic Panel (01/26/17 11:22) Prothrombin Time / Inr (Pt) (01/26/17 11:22) Act Partial Throm Time (Ptt) (01/26/17 11:22) Lactic Acid Sepsis Protocol (01/26/17 11:22) Ckmb (Isoenzyme) Profile (01/26/17 11:22) Troponin I (01/26/17 11:22) Urinalysis - C+S If Indicated (01/26/17 11:22) Blood Culture (01/26/17 11:22) Chest, Single Ap (01/26/17 11:22) Blood Glucose (01/26/17 11:22) Ecg Monitoring (01/26/17 11:22) Iv Access Insert/Monitor (01/26/17 11:22) Oximetry (01/26/17 11:22) Oxygen Administration (01/26/17 11:22) Acetaminophen Supp (Tylenol Supp) (01/26/17 11:30) Ct Brain W/O Iv Contrast(Rout) (01/26/17 11:22) Sodium Chlor 0.9% 1000 Ml Inj (Ns 1000 M (01/26/17 11:22) Sodium Chlor 0.9% 1000 Ml Inj (Ns 1000 M (01/26/17 11:22) Sodium Chlor 0.9% 1000 Ml Inj (Ns 1000 M (01/26/17 11:22) Knee, Ltd (1 Or 2vws) (01/26/17 11:22) Shoulder, Limited(2vws) (01/26/17 11:22) Ct Cerv Spine W/O Contrast (01/26/17 11:22) Urine Culture (01/26/17 11:30) Piperacil-Tazo 4.5 Gm Premix (Zosyn 4.5 (01/26/17 13:14) Urinary Catheter Insert/Apply (01/26/17 13:14) Us Kidney/Renal/Bladder (01/26/17 ) Piperacil-Tazo 3.375 Gm Premix (Zosyn 3. (01/26/17 13:45) ^ Medication Reconciliation (01/26/17 13:38) Admit To Inpatient (01/26/17 ) Vital Signs (Adult) Q4H (01/26/17 13:36) Activity Oob With Assistance (01/26/17 13:36) Intake + Output TAHIRA.QSHIFT (01/26/17 13:36) Sodium Chlor 0.9% 1000 Ml Inj (Ns 1000 M (01/26/17 14:00) Sodium Chloride 0.9% Flush (Ns Flush) (01/26/17 13:45) Sodium Chloride 0.9% Flush (Ns Flush) (01/26/17 21:00) Ondansetron Inj (Zofran Inj) (01/26/17 13:45) Basic Metabolic Panel (Bmp) (01/27/17 06:00) Complete Blood Count With Diff (01/27/17 06:00) Pt Request For Service (01/26/17 13:36) Case Management Consult (01/26/17 13:36) Scd Bilateral/Knee High TAHIRA.BID (01/26/17 13:36) Naloxone Inj (Narcan Inj) (01/26/17 13:45) Docusate Sodium-Senna (Sharita-Colace) (01/26/17 21:00) Magnesium Hydroxide Liq (Milk Of Magnesi (01/26/17 13:45) Sennosides (Senokot) (01/26/17 13:45) Bisacodyl Supp (Dulcolax Supp) (01/26/17 13:45) Lactulose Liq (Lactulose Liq) (01/26/17 13:45) Inpatient Certification (01/26/17 ) Budesonide Neb (Pulmicort Respule Neb) (01/26/17 20:00) Metoprolol Tartrate (Lopressor) (01/26/17 21:00) Morphine Inj (Morphine Inj) (01/26/17 14:15) Admit Order (Ed Use Only) (01/26/17 14:14) Labs Laboratory Tests Test 01/26/17 11:30 White Blood Count 9.1 TH/MM3 Red Blood Count 3.31 MIL/MM3 Hemoglobin 10.4 GM/DL Hematocrit 31.2 % Mean Corpuscular Volume 94.4 FL Mean Corpuscular Hemoglobin 31.5 PG Mean Corpuscular Hemoglobin 33.4 % Concent Red Cell Distribution Width 14.2 % Platelet Count 175 TH/MM3 Mean Platelet Volume 8.5 FL Neutrophils (%) (Auto) 88.4 % Lymphocytes (%) (Auto) 2.0 % Monocytes (%) (Auto) 9.4 % Eosinophils (%) (Auto) 0.0 % Basophils (%) (Auto) 0.2 % Neutrophils # (Auto) 8.1 TH/MM3 Lymphocytes # (Auto) 0.2 TH/MM3 Monocytes # (Auto) 0.9 TH/MM3 Eosinophils # (Auto) 0.0 TH/MM3 Basophils # (Auto) 0.0 TH/MM3 CBC Comment AUTO DIFF Differential Total Cells 100 Counted Neutrophils % (Manual) 84 % Band Neutrophils % 8 % Lymphocytes % 2 % Monocytes % 5 % Neutrophils # (Manual) 8.5 TH/MM3 Metamyelocytes 1 % Differential Comment FINAL DIFF MANUAL Platelet Estimate NORMAL Platelet Morphology Comment NORMAL Red Cell Morphology Comment NORMAL Prothrombin Time 12.0 SEC Prothromb Time International 1.1 RATIO Ratio Activated Partial 35.2 SEC Thromboplast Time Urine Color YELLOW Urine Turbidity CLOUDY Urine pH 8.0 Urine Specific [place] 1.014 Urine Protein 300 mg/dL Urine Glucose (UA) NEG mg/dL Urine Ketones NEG mg/dL Urine Occult Blood MOD Urine Nitrite NEG Urine Bilirubin NEG Urine Urobilinogen LESS THAN 2.0 MG/DL Urine Leukocyte Esterase LARGE Urine RBC 120 /hpf Urine WBC 181 /hpf Urine WBC Clumps MOD Urine Bacteria MANY /hpf Microscopic Urinalysis Comment CULTURE INDICATED Sodium Level 134 MEQ/L Potassium Level 5.3 MEQ/L Chloride Level 98 MEQ/L Carbon Dioxide Level 28.7 MEQ/L Anion Gap 7 MEQ/L Blood Urea Nitrogen 57 MG/DL Creatinine 1.80 MG/DL Estimat Glomerular Filtration 37 ML/MIN Rate Random Glucose 153 MG/DL Lactic Acid Level 1.5 mmol/L Calcium Level 9.7 MG/DL Total Bilirubin 0.4 MG/DL Aspartate Amino Transf 28 U/L (AST/SGOT) Alanine Aminotransferase 21 U/L (ALT/SGPT) Alkaline Phosphatase 110 U/L Total Creatine Kinase 63 U/L Troponin I LESS THAN 0.02 NG/ML Total Protein 7.3 GM/DL Albumin 2.8 GM/DL [facility] Medical Decision Making Medical Screen Exam Complete: Yes Emergency Medical Condition: Yes Differential Diagnosis Sepsis versus metabolic drainage when versus pneumonia versus UTI Narrative Course This is a 71-year-old male who presents today with complaints of weakness per patient also had a mechanical fall. He was at the [facility] when he tried to get out of bed and fell. He struck his head and shoulder and left elbow and left knee. The patient has no acute intracranial injury. The patient has sepsis. His urine is infected. He's been given 2 L of IVD fluid. He's been started on Zosyn. Case was discussed with Dr. Hayes with [facility] hospitalist, who agrees for full admission. Sepsis Criteria SIRS Criteria (2 or more): Temp > 100.9 or < 96.8, Heart rate over 90 Severe Sepsis (+one): Acute Oliguria/Renal Failure Diagnosis Primary Impression: Sepsis Additional Impressions: Urinary tract infection Acute kidney injury Admitting Information Admitting Physician Requests: Admit Gilles Forte MD Jan 26, 2017 11:58
--- NOTE | 2017-01-26 12:06 | RADRPT ---
EXAM DATE/TIME: 01/26/2017 11:42 [facility] COMPARISON: CHEST SINGLE AP, November 20, 2016, 6:06. INDICATIONS : Fall. MEDICAL HISTORY : Chronic obstructive pulmonary disease. SURGICAL HISTORY : None. ENCOUNTER: Initial ACUITY: 1 day PAIN SCORE: 9/10 LOCATION: Bilateral chest FINDINGS: A single view of the chest demonstrates increased density in the right infrahilar region suspicious f or airspace disease. Left lung is clear. Heart and mediastinal structures are stable. Post traumatic deformity of the left humeral head is noted. CONCLUSION: Right infrahilar airspace disease Old fracture left humeral head. Fidel Barrett MD on January 26, 2017 at 12:03 Board Certified Radiologist. This report was verified electronically.
--- NOTE | 2017-01-26 12:07 | RADRPT ---
EXAM DATE/TIME: 01/26/2017 11:48 [facility] COMPARISON: No previous studies available for comparison. INDICATIONS : Fall, complains of pain and swelling of left knee. MEDICAL HISTORY : Chronic obstructive pulmonary disease. SURGICAL HISTORY : None. ENCOUNTER: Initial ACUITY: 1 day PAIN SCORE: 9/10 LOCATION: Left knee FINDINGS: Limited two-view examination of the left knee was obtained and not a standard 4 view trauma series li miting the sensitivity. This demonstrate diffuse osteopenia with no acute fracture or malalignment. D egenerative changes are noted greatest in the medial compartment with joint space loss, sclerosis and mild spurring. Chondrocalcinosis is noted. There is evidence of small joint effusion. Vascular calci fications are present. CONCLUSION: 1. Osteoarthritic change greatest in the medial compartment. 2. No acute fracture or malalignment. 3. Small joint effusion. Behzad Dos Santos MD on January 26, 2017 at 12:02 Board Certified Radiologist. This report was verified electronically.
--- NOTE | 2017-01-26 12:08 | RADRPT ---
EXAM DATE/TIME: 01/26/2017 11:43 [facility] COMPARISON: CHEST SINGLE AP, November 20, 2016, 6:06. INDICATIONS : Fall, complains of left shoulder pain. MEDICAL HISTORY : Chronic obstructive pulmonary disease. SURGICAL HISTORY : None. ENCOUNTER: Initial ACUITY: 1 day PAIN SCORE: 10/10 LOCATION: Left shoulder FINDINGS: Two view examination of the left shoulder demonstrates deformity of the left humeral head consistent with an old healed fracture. There is no evidence of acute fracture or dislocation. CONCLUSION: Post traumatic deformity of the left humeral head characteristic of an old fracture. No findings suggestive of acute fracture or dislocation. Fidel Barrett MD on January 26, 2017 at 12:05 Board Certified Radiologist. This report was verified electronically.
[2017-01-26 12:10] LABS: BACTERIA, URINE MANY /hpf; BLOOD, URINE MOD (NEG); COMMENT (UR) CULTURE INDICATED; CULTURE IF INDICATED CULTURE INDICATED; GLUCOSE,URINE NEG (NEG); KETONE, URINE NEG (NEG); NITRITE,URINE NEG (NEG); URINE COLOR YELLOW (YELLW/STRAW)
[2017-01-26 12:11] LABS: ALT (GPT) 21 U/L (12-78); ANION GAP 7 MEQ/L (5-15); APTT (PATIENT) 35.2 SEC (24.3-30.1); AST (GOT) 28 U/L (15-37); BICARBONATE 28.7 MEQ/L (21.0-32.0); BLOOD UREA NITROGEN 57 MG/DL (7-18); CHLORIDE 98 MEQ/L (98-107); GLOMERULAR FILTRATION RATE 37 ML/MIN (>89); INTERNATIONAL NORMALIZED RATIO 1.1 RATIO; SODIUM (NA) 134 MEQ/L (136-145)
[2017-01-26 12:19] LABS: ALKALINE PHOSPHATASE 110 U/L (45-117); CREATINE KINASE 63 U/L (39-308); POTASSIUM 5.3 MEQ/L (3.5-5.1); TOTAL BILIRUBIN ADULT 0.4 MG/DL (0.2-1.0)
--- NOTE | 2017-01-26 12:20 | RADRPT ---
EXAM DATE/TIME: 01/26/2017 11:54 [facility] COMPARISON: No previous studies available for comparison. INDICATIONS : Fall, altered mental status. Laceration to left frontal area. RADIATION DOSE: 52.13 CTDIvol (mGy) MEDICAL HISTORY : Cardiovascular disease. Hypertension. Carcinoma, prostate. SURGICAL HISTORY : Tracheostomy. ENCOUNTER: Initial ACUITY: 1 day PAIN SCALE: 5/10 LOCATION: Left frontal TECHNIQUE: Multiple contiguous axial images were obtained of the head. Using automated exposure control and adjustment of the mA and/or kV according to patient size, radiation dose was kept as low as reasonably achievable to obtain optimal diagnostic quality images. DICOM format image data is av ailable electronically for review and comparison. FINDINGS: CEREBRUM: The ventricles are normal for age. No evidence of midline shift, mass lesion, hemorrha ge or acute infarction. No extra-axial fluid collections are seen. POSTERIOR FOSSA: The cerebellum and brainstem are intact. The 4th ventricle is midline. The cer ebellopontine angle is unremarkable. EXTRACRANIAL: Mild left supraorbital soft tissue swelling is noted. The visualized portion of the orbits are otherwise intact. SKULL: The calvaria is intact. No evidence of skull fracture. CONCLUSION: Left supraorbital soft tissue swelling. No evidence of acute infarct, hemorrhage, mass, edema or fracture. Fidel Barrett MD on January 26, 2017 at 12:16 Board Certified Radiologist. This report was verified electronically.
--- NOTE | 2017-01-26 12:29 | RADRPT ---
EXAM DATE/TIME: 01/26/2017 11:56 [facility] COMPARISON: No previous studies available for comparison. INDICATIONS : Fall, altered mental status. RADIATION DOSE: 28.59 CTDIvol (mGy) MEDICAL HISTORY : Carcinoma, prostate. Cardiovascular disease Hypertension. SURGICAL HISTORY : Tracheostomy. ENCOUNTER: Initial ACUITY: 1 day PAIN SCALE: 0/10 LOCATION: neck TECHNIQUE: Volumetric scanning of the cervical spine was performed. Multiplanar reconstructions in the sagittal, coronal and oblique axial planes were performed. Using automated exposure control and adjustment o f the mA and/or kV according to patient size, radiation dose was kept as low as reasonably achievable to obtain optimal diagnostic quality images. DICOM format image data is available electronically f or review and comparison. FINDINGS: Alignment: Slight anterolisthesis is noted of C3 on C4, C4 and C5 and C7 on T1. Craniocervical alignment is well -preserved. Osseous structures and facet joints: Osseous structures are intact without evidence of acute fracture. Vertebral body height is well-maint ained. Significant facet arthropathy is noted. There is joint space narrowing, subchondral sclerosis and bony hypertrophy. Intervertebral disc spaces: Degenerative disc disease ranging from mild to moderate in severity is noted. There is significant di splaced with marginal spondylosis C5-6 and C6-7. There no findings indicative of Q. disc herniation. Neurologic structures: No evidence of spinal stenosis. CONCLUSION: 1. Mild degenerative anterolisthesis secondary to facet arthropathy as described. 2. No evidence of acute fracture or traumatic listhesis. 3. Advanced facet arthropathy. 4. Moderate severe degenerative disease with spondylosis at C5-6 and C6-7. 5. No acute soft tissue abnormality. Fidel Barrett MD on January 26, 2017 at 12:23 Board Certified Radiologist. This report was verified electronically.
[2017-01-26 12:36] LABS: BANDS 8 % (0-6); METAMYELOCYTES 1 % (0-1); NEUTROPHIL # MANUAL DIFF 8.5 TH/MM3 (1.8-7.7); PLATELET ESTIMATE SMEAR NORMAL (NORMAL); PLATELET MORPHOLOGY NORMAL (NORMAL); POLYS (SEG NEUTROPHILS) 84 % (16-70); SCAN/DIFF FINAL DIFF MANUAL; WBC DIFF SAMPLE 100
--- NOTE | 2017-01-26 12:37 | PD ---
Physical Exam Date Seen by Provider: Jan 26, 2017 Time Seen by Provider: 12:36 Data Data Last Documented VS Vital Signs Date Time Temp Pulse Resp B/P Pulse Ox O2 Delivery O2 Flow Rate FiO2 01/26/17 12:06 98 Room Air 01/26/17 11:00 18 2 01/26/17 11:00 107 126/70 01/26/17 10:55 101.3 Orders Complete Blood Count With Diff (01/26/17:) Comprehensive Metabolic Panel (01/26/17:) Prothrombin Time / Inr (Pt) (01/26/17:) Act Partial Throm Time (Ptt) (01/26/17:) Lactic Acid Sepsis Protocol (01/26/17:) Ckmb (Isoenzyme) Profile (01/26/17) Troponin I (01/26/17:) Urinalysis - C+S If Indicated (01/26/17:) Blood Culture (01/26/17:) Chest, Single Ap (01/26/17:) Blood Glucose (01/26/17:22) Ecg Monitoring (01/26/17:22) Iv Access Insert/Monitor (01/26/17:) Oximetry (01/26/17:) Oxygen Administration (01/26/17:) Acetaminophen Supp (Tylenol Supp) (01/26/17 11:30) Ct Brain W/O Iv Contrast(Rout) (01/26/17 11:22) Sodium Chlor 0.9% 1000 Ml Inj (Ns 1000 M (01/26/17 11:22) Sodium Chlor 0.9% 1000 Ml Inj (Ns 1000 M (01/26/17 11:22) Sodium Chlor 0.9% 1000 Ml Inj (Ns 1000 M (01/26/17 11:22) Knee, Ltd (1 Or 2vws) (01/26/17:) Shoulder, Limited(2vws) (01/26/17 11:22) Ct Cerv Spine W/O Contrast (01/26/17 11:22) Urine Culture (01/26/17 11:30) Labs Laboratory Tests Test 01/26/17 11:30 White Blood Count 9.1 TH/MM3 Red Blood Count 3.31 MIL/MM3 Hemoglobin 10.4 GM/DL Hematocrit 31.2 % Mean Corpuscular Volume 94.4 FL Mean Corpuscular Hemoglobin 31.5 PG Mean Corpuscular Hemoglobin 33.4 % Concent Red Cell Distribution Width 14.2 % Platelet Count 175 TH/MM3 Mean Platelet Volume 8.5 FL Neutrophils (%) (Auto) 88.4 % Lymphocytes (%) (Auto) 2.0 % Monocytes (%) (Auto) 9.4 % Eosinophils (%) (Auto) 0.0 % Basophils (%) (Auto) 0.2 % Neutrophils # (Auto) 8.1 TH/MM3 Lymphocytes # (Auto) 0.2 TH/MM3 Monocytes # (Auto) 0.9 TH/MM3 Eosinophils # (Auto) 0.0 TH/MM3 Basophils # (Auto) 0.0 TH/MM3 CBC Comment AUTO DIFF Differential Total Cells 100 Counted Neutrophils % (Manual) 84 % Band Neutrophils % 8 % Lymphocytes % 2 % Monocytes % 5 % Neutrophils # (Manual) 8.5 TH/MM3 Metamyelocytes 1 % Differential Comment FINAL DIFF MANUAL Platelet Estimate NORMAL Platelet Morphology Comment NORMAL Red Cell Morphology Comment NORMAL Prothrombin Time 12.0 SEC Prothromb Time International 1.1 RATIO Ratio Activated Partial 35.2 SEC Thromboplast Time Urine Color YELLOW Urine Turbidity CLOUDY Urine pH 8.0 Urine Specific [place] 1.014 Urine Protein 300 mg/dL Urine Glucose (UA) NEG mg/dL Urine Ketones NEG mg/dL Urine Occult Blood MOD Urine Nitrite NEG Urine Bilirubin NEG Urine Urobilinogen LESS THAN 2.0 MG/DL Urine Leukocyte Esterase LARGE Urine RBC 120 /hpf Urine WBC 181 /hpf Urine WBC Clumps MOD Urine Bacteria MANY /hpf Microscopic Urinalysis Comment CULTURE INDICATED Sodium Level 134 MEQ/L Potassium Level 5.3 MEQ/L Chloride Level 98 MEQ/L Carbon Dioxide Level 28.7 MEQ/L Anion Gap 7 MEQ/L Blood Urea Nitrogen 57 MG/DL Creatinine 1.80 MG/DL Estimat Glomerular Filtration 37 ML/MIN Rate Random Glucose 153 MG/DL Lactic Acid Level 1.5 mmol/L Calcium Level 9.7 MG/DL Total Bilirubin 0.4 MG/DL Aspartate Amino Transf 28 U/L (AST/SGOT) Alanine Aminotransferase 21 U/L (ALT/SGPT) Alkaline Phosphatase 110 U/L Total Creatine Kinase 63 U/L Troponin I LESS THAN 0.02 NG/ML Total Protein 7.3 GM/DL Albumin 2.8 GM/DL [facility] Supervised Visit with MELCHOR: No Narrative Course I was asked to evaluate this patient's forehead laceration. The patient was initially seen by Dr. Forte. Please see his note for full H& P. On my exam there is a 1.5 cm stellate laceration on the left forehead. No active bleeding.. Laceration repair was performed. Please see my procedure note for details. Dr. Forte retains care of this patient. Please see his note for disposition. Procedures Procedure Narrative LACERATION LOCATION: Left forehead LENGTH: 1.5 cm stellate NUMBER OF STITCHES/GILMER: 0 REPAIR: The area of the laceration was prepped with Betadine and sterilely draped. The wound was copiously irrigated and explored without evidence of foreign body, tendon injury or neurovascular injury. The wound was closed using Dermabond. This was a single layer repair. A sterile dressing was applied. The patient was advised to keep the dressing clean and dry. Patient tolerated the procedure well. Kristan De La Torre Jan 26, 2017 12:37
[2017-01-26] MEDS ORDERED: PIPERACIL-TAZO 4.5 GM PREMIX 100 ML IV STA (13:14)
[2017-01-26] MEDS ORDERED: ONDANSETRON HCL 4 MG/2 ML VIAL IVP PRN (13:45)
[2017-01-26] MEDS ORDERED: NALOXONE HCL 0.4 MG/ML AMP IV PRN (13:45)
[2017-01-26] MEDS ORDERED: SODIUM CHLORIDE 0.9% FLUSH 10 ML FLUSH IV FLUSH PRN (13:45)
[2017-01-26] MEDS ORDERED: SENNOSIDES 8.6 MG TAB PO PRN (13:45)
[2017-01-26] MEDS ORDERED: LACTULOSE SYRUP 20 GM/30 ML CUP PO PRN (13:45)
[2017-01-26] MEDS ORDERED: BISACODYL 10 MG SUPP RECTAL PRN (13:45)
[2017-01-26] MEDS ORDERED: MAGNESIUM HYDROXIDE SUSP 30 ML CUP PO PRN (13:45)
--- NOTE | 2017-01-26 14:13 | HHI.HP ---
[facility] Unknown Admission Diagnosis Diagnoses: Chief Complaint: Confusion, fall Travel History International Travel<30 Days: No Contact w/Intl Traveler <30 Da: No Traveled to Known Affected Are: No Sepsis Criteria SIRS Criteria (2 or more): Temp > 100.9 or < 96.8, Heart rate over 90 Sepsis Criteria (SIRS+source): Infect source susp/known Criteria Outcome: Meets sepsis criteria History of Present Illness Written by Jordan Moss, acting as scribe for Dr. Hayes on 01/26/17 at 14:02. 71-year-old male with past medical history of obstructive uropathy status post prostate cancer, HTN, history of cardiac arrest, mood disorder, only/chronic pain, GERD, COPD, CAD, mild dementia who was sent from SNF for confusion and fall. The patient's daughters at bedside who helps provide history. History is also obtained from the medical record. Apparently the patient has some mild dementia and forgetfulness. The patient is oriented to year, but not to date. Apparently the patient tried to get up today, slipped, fell, and hit his head. He denies any loss of consciousness. He denies any other trauma other than his head at this time. His daughter reports that he appears more confused today. The patient does have a history of prostate cancer 10 years ago and has been dealing with urinary retention and recent years. He had an indwelling Robison catheter until last Saturday, when the patient requested a void trial and the Robison was removed. He is in the process of going to see a urologist. No fever or chills are noted prior to today. The patient reports normal bowel movements. Review of Systems ROS Limitations: Poor Historian Except as stated in HPI: all other systems reviewed are Neg Review of symptoms is limited secondary to confusion and dementia. Past Family Social History Past Medical History History of prostate cancer with urinary obstruction Hypertension Anxiety GERD History of dysphagia requiring PEG tube placement History of cardiac arrest s/p trach placement and removal COPD Osteoarthritis with chronic pain Coronary artery disease Past Surgical History PEG tube placement Status post trach placement and removal Appendectomy Hernia surgery Surgery for perforated gastric ulcer Cataract surgery Reported Medications Medication list from SNF reviewed Allergies: Coded Allergies: No Known Allergies (Unverified , 11/10/16) Active Ordered Medications Current Medications Medications (Trade) Dose Ordered Sig/Jeferson Route Start Time Stop Time Status Last Admin Piperacillin Sod/ Tazobactam Sod 50 ml @ 100 mls/hr Q8H IV 01/26/17 13:45 UNV (NS 1000 ml Inj) 1,000 ml @ 100 mls/hr Q10H IV 01/26/17 14:00 (NS Flush) 2 ml UNSCH PRN IV FLUSH 01/26/17 13:45 (NS Flush) 2 ml BID IV FLUSH 01/26/17 21:00 (Zofran Inj) 4 mg Q6H PRN IVP 01/26/17 13:45 (Narcan Inj) 0.4 mg UNSCH PRN IV 01/26/17 13:45 (Milk Of Magnesia Liq) 30 ml Q12H PRN PO 01/26/17 13:45 (Senokot) 17.2 mg Q12H PRN PO 01/26/17 13:45 (Dulcolax Supp) 10 mg DAILY PRN RECTAL 01/26/17 13:45 (Lactulose Liq) 30 ml DAILY PRN PO 01/26/17 13:45 (Lopressor) 25 mg BID PO 01/26/17 21:00 (Prevacid Odt) 15 mg DAILY NG 01/27/17 09:00 UNV (Lactinex) 1 tab Q12HR PO 01/26/17 21:00 UNV (Xanax) 0.25 mg Q8H PRN G-TUBE 01/26/17 14:15 UNV (Cordarone) 200 mg DAILY G-TUBE 01/27/17 09:00 UNV (Cardura) 2 mg DAILY G-TUBE 01/27/17 09:00 UNV (Levsin) 0.125 mg Q4H G-TUBE 01/26/17 14:15 UNV (Percocet 10-325 Mg) 1 tab Q4H PRN PO 01/26/17 14:15 UNV Family History Father had dementia Social History [facility] resident No alcohol or tobacco use since July Physical Exam Vital Signs Vital Signs Date Time Temp Pulse Resp B/P Pulse Ox O2 Delivery O2 Flow Rate FiO2 01/26/17 13:09 97 01/26/17 13:08 98.0 01/26/17 12:06 98 Room Air 01/26/17 11:00 18 96 Nasal Cannula 2 01/26/17 11:00 107 126/70 96 Nasal Cannula 2 01/26/17 10:55 101.3 111 18 126/70 97 Physical Exam GENERAL: Awake and alert. Answers questions appropriately. Mild confusion noted. Well-developed well-nourished. Chronically ill-appearing. In no acute distress. SKIN: Warm and dry. Sacral ulcer noted with no signs of infection. HEENT: Normocephalic. Pupils equal and round. Mucous membranes pink and moist. CARDIOVASCULAR: Regular rate and rhythm. No murmur appreciated. RESPIRATORY: No accessory muscle use. Clear to auscultation. Breath sounds equal bilaterally. GASTROINTESTINAL: Abdomen soft, non-tender, nondistended. Bowel sounds x4. PEG tube in place, site appears clean. MUSCULOSKELETAL: No obvious deformities. No clubbing or cyanosis. No edema. NEUROLOGICAL: No focal neurological deficits. Moves upper and lower extremities spontaneously. Normal speech. No pronator drift. PSYCHIATRIC: Appropriate mood and affect; insight and judgment fair. Laboratory Laboratory Tests Test 01/26/17 11:30 White Blood Count 9.1 Red Blood Count 3.31 Hemoglobin 10.4 Hematocrit 31.2 Mean Corpuscular Volume 94.4 Mean Corpuscular Hemoglobin 31.5 Mean Corpuscular Hemoglobin 33.4 Concent Red Cell Distribution Width 14.2 Platelet Count 175 Mean Platelet Volume 8.5 Neutrophils (%) (Auto) 88.4 Lymphocytes (%) (Auto) 2.0 Monocytes (%) (Auto) 9.4 Eosinophils (%) (Auto) 0.0 Basophils (%) (Auto) 0.2 Neutrophils # (Auto) 8.1 Lymphocytes # (Auto) 0.2 Monocytes # (Auto) 0.9 Eosinophils # (Auto) 0.0 Basophils # (Auto) 0.0 CBC Comment AUTO DIFF Differential Total Cells 100 Counted Neutrophils % (Manual) 84 Band Neutrophils % 8 Lymphocytes % 2 Monocytes % 5 Neutrophils # (Manual) 8.5 Metamyelocytes 1 Differential Comment FINAL DIFF MANUAL Platelet Estimate NORMAL Platelet Morphology Comment NORMAL Red Cell Morphology Comment NORMAL Prothrombin Time 12.0 Prothromb Time International 1.1 Ratio Activated Partial 35.2 Thromboplast Time Urine Color YELLOW Urine Turbidity CLOUDY Urine pH 8.0 Urine Specific [place] 1.014 Urine Protein 300 Urine Glucose (UA) NEG Urine Ketones NEG Urine Occult Blood MOD Urine Nitrite NEG Urine Bilirubin NEG Urine Urobilinogen LESS THAN 2.0 Urine Leukocyte Esterase LARGE Urine RBC 120 Urine WBC 181 Urine WBC Clumps MOD Urine Bacteria MANY Microscopic Urinalysis Comment CULTURE INDICATED Sodium Level 134 Potassium Level 5.3 Chloride Level 98 Carbon Dioxide Level 28.7 Anion Gap 7 Blood Urea Nitrogen 57 Creatinine 1.80 Estimat Glomerular Filtration 37 Rate Random Glucose 153 Lactic Acid Level 1.5 Calcium Level 9.7 Total Bilirubin 0.4 Aspartate Amino Transf 28 (AST/SGOT) Alanine Aminotransferase 21 (ALT/SGPT) Alkaline Phosphatase 110 Total Creatine Kinase 63 Troponin I LESS THAN 0.02 Total Protein 7.3 Albumin 2.8 Date/Time Procedure Status Source Growth 01/26/17 11:30 Urine Culture Received Urine Clean Catch Pending 01/26/17 11:30 Aerobic Blood Culture Received Blood Peripheral Pending 01/26/17 11:30 Anaerobic Blood Culture Received Blood Peripheral Pending Result Diagram: 01/26/17 1130 01/26/17 1130 Imaging Last Impressions Shoulder X-Ray 01/26/171121 Signed Impressions: Service Date/Time: Thursday, January 26, 2017 11:43 - CONCLUSION: Post traumatic deformity of the left humeral head characteristic of an old fracture. No findings suggestive of acute fracture or dislocation. Fidel Barrett MD Knee X-Ray 01/26/171121 Signed Impressions: Service Date/Time: Thursday, January 26, 2017 11:48 - CONCLUSION: 1. Osteoarthritic change greatest in the medial compartment. 2. No acute fracture or malalignment. 3. Small joint effusion. Behzad Dos Santos MD Head CT 01/26/171121 Signed Impressions: Service Date/Time: Thursday, January 26, 2017 11:54 - CONCLUSION: Left supraorbital soft tissue swelling. No evidence of acute infarct, hemorrhage, mass, edema or fracture. Fidel Barrett MD Chest X-Ray 01/26/171121 Signed Impressions: Service Date/Time: Thursday, January 26, 2017 11:42 - CONCLUSION: Right infrahilar airspace disease Old fracture left humeral head. Fidel Barrett MD Cervical Spine CT 8/12/17 1122 Signed Impressions: Service Date/Time: Thursday, January 26, 2017 11:56 - CONCLUSION: 1. Mild degenerative anterolisthesis secondary to facet arthropathy as described. 2. No evidence of acute fracture or traumatic listhesis. 3. Advanced facet arthropathy. 4. Moderate severe degenerative disease with spondylosis at C5-6 and C6-7. 5. No acute soft tissue abnormality. Fidel Barrett MD Assessment and Plan Assessment and Plan 71-year-old male with past medical history of obstructive uropathy status post prostate cancer, HTN, history of cardiac arrest, mood disorder, only/chronic pain, GERD, COPD, CAD, mild dementia who was sent from SNF for confusion and fall Fall: Sounds mechanical by history, but could definitely be from confusion as below. Supply Crib Attendant imaging with head CT, C-spine CT, chest x-ray, knee x-ray, shoulder x-ray performed and were remarkable for left supraorbital soft tissue swelling, old fractures involving the left humeral head, and chronic degenerative changes of the neck; no acute processes noted. For her last inpatient and repaired with Dermabond in the ED. -Continue PT -Fall precautions UTI with sepsis: UA with evidence of UTI. Tmax 101.3, persistent tachycardia. No leukocytosis, but 8 bands. Lactic acid within normal limits. No other obvious sources of infection. The pressure stable.. -Continue antibiotics with IV Zosyn -IVF -Follow up urine and blood cultures Acute metabolic encephalopathy: Likely secondary to infection as above on top of chronic dementia. -Treat infection as above and monitor Urinary obstruction: Patient requested Robison be removed for void trial 3 days ago. Likely contributing to infection as above. -Place Robison -Chek renal bladder ultrasound -Consult urology -Continue doxazosin GUI: Secondary to the above. Creatinine 1.8, previously 0.54 on 11/20/16. -IVF and follow-up BMP Hyperkalemia: Potassium 5.3, but hemolysis noted. No peaked waves on EKG. -Follow BMP History of dysphagia: Continue tube feedings and diet per SNF recommendations. -ST eval Sacral ulcer: Chronic. -Consult lamp shades supervisor Other chronic medical conditions include GERD, anxiety, COPD, chronic pain, HTN : Currently stable and will continue home medications as indicated. DVT prophylaxis: SCDs Code Status Full code Discussed Condition With Patient with daughter at bedside, Dr. Forte, ED RN Attending Statement This note was transcribed by scribe [Jordan Moss]. I, Dr. Armand Hayes personally performed the history, physical exam, and medical decision making; and confirmed the accuracy of the information in the transcribed note. Authenticated by Dr. Armand Hayes on 01/28/17 at 00:52. Jordan Moss Jan 26, 2017 14:12 Armand Hayes MD Jan 28, 2017 00:52
[2017-01-26] MEDS ORDERED: MORPHINE SULFATE 8 MG/ML INJ IV PUSH ONE (14:15)
[2017-01-26] MEDS: SODIUM CHLOR 0.9% 1000 ML INJ 1,000 ML IV SCH ×2 (14:29→23:05)
--- NOTE | 2017-01-26 15:00 | RADRPT ---
EXAM DATE/TIME: 01/26/2017 14:22 [place] COMPARISON: No previous studies available for comparison. INDICATIONS : Obstruction. MEDICAL HISTORY : Hypertension. Chronic obstructive pulmonary disease. Congestive heart failure . Hernia, hiatal. Arthritis. Anxiety. Carcinoma, prostate. SURGICAL HISTORY : PEG tube. Hiatal hernia repair. ENCOUNTER: Initial ACUITY: 1 week PAIN SCORE: 6/10 LOCATION: Bilateral flank MEASUREMENTS: RIGHT KIDNEY: 13.9 x 6.3 x 5.8 cm LEFT KIDNEY: 13.5 x 6.7 x 6.4 cm FINDINGS: RIGHT KIDNEY: Renal cortex is normal in thickness and echotexture. No hydronephrosis, stone, or mass. LEFT KIDNEY: Renal cortex is normal in thickness and echotexture. No hydronephrosis, stone, or m ass. BLADDER: Within normal limits given the degree of distension. CONCLUSION: Bilateral extrarenal pelvis No evidence of hydronephrosis, suspicious masses or nephrolithiasis. Fidel Barrett MD on January 26, 2017 at 14:56 Board Certified Radiologist. This report was verified electronically.
[2017-01-26] MEDS: RESP: ALBUTEROL 2.5 MG/IPRATROPIUM 0.5 MG NEB (SCH) INH ×2 (15:50→20:25)
[2017-01-26] MEDS: HYOSCYAMINE 0.125 MG TAB G-TUBE SCH ×2 (16:44→23:04)
[2017-01-26] MEDS ORDERED: ACETAMINOPHEN 650 MG/20.3 ML UDC G-TUBE ONE (17:15)
[2017-01-26] MEDS: RESP: BUDESONIDE 0.5 MG/2 ML NEB NEB SCH (20:25)
[2017-01-26] MEDS: METOPROLOL TARTRATE 25 MG TAB PO SCH (21:00)
[2017-01-26] MEDS ORDERED: DOCUSATE SODIUM 50 MG/SENNA 8.6 MG TAB PO SCH (21:00)
[2017-01-26] MEDS: LACTOBACILLUS ACIDOPHILUS TAB PO SCH (23:04)
[2017-01-26] MEDS: SODIUM CHLORIDE 0.9% FLUSH 10 ML FLUSH IV FLUSH SCH (23:04)
[2017-01-26] MEDS: PIPERACIL-TAZO 3.375 GM PREMIX 50 ML IV SCH (23:04)
[2017-01-27] VITALS (8 sets, daily range): BP systolic 80–143; BP diastolic 52–80; PULSE 64–100; RESP 17–22; TEMP 96.4–100.7; O2SAT 92–100
[2017-01-27] MEDS ORDERED: SODIUM CHLOR 0.9% 1000 ML INJ 1,000 ML IV ONE (00:15)
[2017-01-27] MEDS: HYOSCYAMINE 0.125 MG TAB G-TUBE SCH ×7 (02:01→23:37)
[2017-01-27] MEDS: PIPERACIL-TAZO 3.375 GM PREMIX 50 ML IV SCH ×3 (05:42→20:41)
[2017-01-27 06:40] LABS: AUTOMATED NEUTROPHIL # 6.7 TH/MM3 (1.8-7.7); BASOPHIL % 0.1 % (0.0-2.0); EOSINOPHIL % 0.1 % (0.0-4.0); HEMATOCRIT 30.1 % (39.0-51.0); HEMO FLAGS DIFF FINAL; LYMPH % 10.4 % (9.0-44.0); LYMPHOCYTE # 0.9 TH/MM3 (1.0-4.8); MEAN CELL VOLUME 95.9 FL (80.0-100.0); MEAN CORPUSCULAR HEMOGLOBIN 32.4 PG (27.0-34.0); MEAN CORPUSCULAR HGB CONC 33.8 % (32.0-36.0); MONO % 15.7 % (0.0-8.0); NEUT % 73.7 % (16.0-70.0); PLATELET COUNT 141 TH/MM3 (150-450); RED BLOOD COUNT 3.14 MIL/MM3 (4.50-5.90); RED CELL DISTRIBUTION WIDTH 14.4 % (11.6-17.2); WHITE BLOOD COUNT 9.1 TH/MM3 (4.0-11.0)
[2017-01-27 07:11] LABS: BICARBONATE 21.1 MEQ/L (21.0-32.0)
[2017-01-27] MEDS: RESP: BUDESONIDE 0.5 MG/2 ML NEB NEB SCH ×2 (07:56→21:17)
[2017-01-27] MEDS: RESP: ALBUTEROL 2.5 MG/IPRATROPIUM 0.5 MG NEB (SCH) INH ×4 (08:00→21:17)
[2017-01-27] MEDS: DOXAZOSIN MESYLATE 2 MG TAB G-TUBE SCH (08:56)
[2017-01-27] MEDS: SODIUM CHLOR 0.9% 1000 ML INJ 1,000 ML IV SCH ×2 (08:56→20:41)
[2017-01-27] MEDS: METOPROLOL TARTRATE 25 MG TAB PO SCH ×2 (08:56→20:40)
[2017-01-27] MEDS: LANSOPRAZOLE SOLUTAB 15 MG TAB NG SCH (08:56)
[2017-01-27] MEDS: LACTOBACILLUS ACIDOPHILUS TAB PO SCH ×2 (08:56→20:41)
[2017-01-27] MEDS: AMIODARONE 200 MG TAB G-TUBE SCH (08:56)
[2017-01-27] MEDS: SODIUM CHLORIDE 0.9% FLUSH 10 ML FLUSH IV FLUSH SCH ×2 (08:57→20:41)
--- NOTE | 2017-01-27 10:22 | MB ---
cc: JOSE DANIEL ERVIN DATE OF CONSULTATION: 01/27/2017 HISTORY OF PRESENT ILLNESS Mr. Soriano is a pleasant 71-year-old male who [facility] a fall at his [facility] facility and was brought to the hospital. He had an abrasion above his right eye and was slightly confused. He does have a history of dementia and his history will be taken from the chart. He has a history of prostate cancer which was diagnosed approximately 10 years ago for which he was treated with radiation therapy. He did not receive any hormonal therapy and he is unaware of what his PSA has been in the past. Apparently, he had indwelling Robison catheter since July and was recently removed last week. At the time of placement he was in retention voiding small amounts at night, getting up approximately five to six times. He is not currently seeing an active urologist. He is a patient under the care of the [facility]. PAST MEDICAL HISTORY His medical history includes: 1. Hypertension. 2. Anxiety. 3. Gastroesophageal reflux disease. 4. Dysphagia. 5. Cardiac arrest. 6. COPD. 7. Osteoarthritis. 8. Prostate cancer. PAST SURGICAL HISTORY 1. PEG tube placement. 2. Tracheostomy. 3. Appendectomy. 4. Double hernia surgery by Dr. Estrada. 5. Gastric ulcer surgery. 6. Cataract surgery. MEDICATION For medications, please refer to the chart. ALLERGIES He has NO KNOWN DRUG ALLERGIES. FAMILY HISTORY Family history is noted for dementia. SOCIAL HISTORY Currently lives in a SNF. Denies any alcohol or drug use recently. REVIEW OF SYSTEMS He denies chest pain or shortness of breath. Denies abdominal pain at present. Denies diarrhea or constipation. Does note some gait disturbances with recent fall and some confusion. The remaining review of systems were reviewed and were negative. PHYSICAL EXAMINATION VITAL SIGNS: Temperature is 97.9, heart rate 64, respiratory rate 18, 109/59 is his blood pressure, 92% on room air. GENERAL: He is a well-developed, well-nourished 71-year-old male in no acute distress. HEENT: Shows an abrasion above the left eye, status post fall. Pupils are equal, round, reactive to light. Extraocular movements intact. NECK: Neck is supple. HEART: Rate is regular rate and rhythm. LUNGS: Clear. ABDOMEN: Soft, nontender, nondistended. : Shows normal phallus with testes descended. Robison catheter in place draining clear urine. EXTREMITIES: Show no cyanosis, clubbing or edema. LABORATORY DATA His white count is 9.1, hemoglobin 10.2, hematocrit 30.1, platelet count 141. Sodium is 140, potassium 4.0, chloride 109, CO2 21, BUN of 47, creatinine 1.5, glucose of 117. PT is 12, INR is 121, PTT is 35.2. Urinalysis shows large leuko-esterase with nitrite negative, moderate clumps of white cells are noted with a 181 white cells, 120 red cells. His cultures apparently show blood culture growing out gram-negative rods and his urine culture is currently pending. IMAGING STUDIES Renal ultrasound shows bilateral extrarenal pelvis with no evidence of any hydronephrosis, suspicious masses or nephrolithiasis noted. ASSESSMENT A 71-year-old male with history of prostate cancer and urinary retention, recently with chronically indwelling Robison. The Robison presently in and draining clear urine. Will restart Flomax 0.4 mg p.o. q.h.s. Recommend aggressive rehab therapy and once ambulating will consider a void trial. As an outpatient he will need his PSA checked and follow his voiding pattern at that time. Check urine culture and continue IV antibiotics. Thank you for the consult and allowing me to participate in the care of this patient. Jose Daniel MARQUEZ/RAJENDRA /9:42 AM /9:57 AM
[2017-01-27] MEDS: TAMSULOSIN HCL 0.4 MG CAP PO SCH (11:14)
--- NOTE | 2017-01-27 12:27 | EKG ---
Date Performed: 01/26/2017 Time Performed: 11:15:20 PTAGE: 71 years EKG: SINUS TACHYCARDIA RIGHT BUNDLE BRANCH BLOCK ABNORMAL ECG PREVIOUS TRACING : 11/10/2016 06.55 Compared to prior tracing no significant change DOCTOR: Jose Johnson Interpretating Date/Time 01/27/2017 12:24:36
[2017-01-27] MEDS: oxyCODONE/ACETAMINOPHEN 10 MG/325 MG TAB PO PRN ×2 (14:20→23:41)
--- NOTE | 2017-01-27 23:58 | HHI.PR ---
Subjective Remarks Patient seen this morning around 10 AM. Much more awake than yesterday. In good mood. Denies any chest pain or shortness of breath. Eating breakfast. Objective Vital Signs Date Time Temp Pulse Resp B/P Pulse Ox O2 Delivery O2 Flow Rate FiO2 01/27/17 20:00 100.7 87 20 143/68 99 01/27/17 16:00 99.9 89 17 125/65 95 01/27/17 12:00 97.7 88 17 108/66 95 01/27/17 08:03 98 Nasal Cannula 4.00 01/27/17 08:00 97.7 86 18 121/80 96 01/27/17 08:00 97.9 64 17 109/59 92 01/27/17 04:00 96.8 70 20 107/65 98 01/27/17 02:08 96.4 100 20 105/59 100 01/27/17 00:00 97.0 82 22 80/52 96 I/O 01/26/17 01/26/17 01/26/17 01/27/17 01/27/17 01/27/17 06:59 14:59 22:59 06:59 14:59 22:59 Intake Total 2600 ml 1959 ml 1189 ml Output Total 650 ml 350 ml 1200 ml Balance -650 ml 2250 ml 759 ml 1189 ml Intake Oral 0 ml 480 ml IV Total 1900 ml 921 ml 648 ml Tube Feeding 460 ml 318 ml 421 ml Other 240 ml 240 ml 120 ml Output Urine Total 650 ml 350 ml 1200 ml # Bowel Movements 2 Result Diagram: 01/27/1730 01/27/1730 Objective Remarks GENERAL: sitting up in chair.eating. Appears comfortable. SKIN: Warm and dry. HEAD: Normocephalic. EYES: No scleral icterus. No injection or drainage. NECK: Supple, trachea midline. No JVD or lymphadenopathy. CARDIOVASCULAR: Regular rate and rhythm without murmurs, gallops, or rubs. RESPIRATORY: Breath sounds equal bilaterally. No accessory muscle use. GASTROINTESTINAL: Abdomen soft, non-tender, nondistended. MUSCULOSKELETAL: No cyanosis, or edema. BACK: Nontender without obvious deformity. No CVA tenderness. A/P Assessment and Plan 01/27/17 //Sepsis. //UTI. //Gram-negative bacteremia. Likely secondary to UTI. Still with fevers, however less than 24 hours from starting antibiotics. Repeat blood cultures ordered. Continue on antibiotics. Follow-up repeat cultures. 71-year-old male with past medical history of obstructive uropathy status post prostate cancer, HTN, history of cardiac arrest, mood disorder, only/chronic pain, GERD, COPD, CAD, mild dementia who was sent from SNF for confusion and fall //Fall: Sounds mechanical by history, but could definitely be from confusion as below. Oncology Social Worker imaging with head CT, C-spine CT, chest x-ray, knee x-ray, shoulder x-ray performed and were remarkable for left supraorbital soft tissue swelling, old fractures involving the left humeral head, and chronic degenerative changes of the neck; no acute processes noted. For her last inpatient and repaired with Dermabond in the ED. -Continue PT -Fall precautions //UTI //sepsis: UA with evidence of UTI. Tmax 101.3, persistent tachycardia. No leukocytosis, but 8 bands. Lactic acid within normal limits. No other obvious sources of infection. The pressure stable.. -Continue antibiotics with IV Zosyn -IVF -Follow up urine and blood cultures. //Acute metabolic encephalopathy: Likely secondary to infection as above on top of chronic dementia. -Treat infection as above and monitor //Urinary obstruction: Patient requested Robison be removed for void trial 3 days ago. Likely contributing to infection as above. -Place Robison -Chek renal bladder ultrasound -Neurology following. Appreciate assistance. -Continue doxazosin GUI: Secondary to the above. Creatinine 1.8, previously 0.54 on 11/20/16. -IVF and follow-up BMP Hyperkalemia: Potassium 5.3, but hemolysis noted. No peaked waves on EKG. -Follow BMP History of dysphagia: Continue tube feedings and diet per SNF recommendations. -ST eval Sacral ulcer: Chronic. -Consult director clinical data Other chronic medical conditions include GERD, anxiety, COPD, chronic pain, HTN : Currently stable and will continue home medications as indicated. DVT prophylaxis: SCDs Armand Hayes MD Jan 27, 2017 23:58
[2017-01-28] VITALS (9 sets, daily range): BP systolic 119–155; BP diastolic 67–78; PULSE 82–100; RESP 16–20; TEMP 98.8–101.1; O2SAT 92–98
[2017-01-28] MEDS: HYOSCYAMINE 0.125 MG TAB G-TUBE SCH ×6 (04:16→23:28)
[2017-01-28] MEDS: PIPERACIL-TAZO 3.375 GM PREMIX 50 ML IV SCH ×3 (04:16→21:26)
[2017-01-28] MEDS: SODIUM CHLOR 0.9% 1000 ML INJ 1,000 ML IV SCH ×2 (04:16→15:50)
[2017-01-28] MEDS: ACETAMINOPHEN 325 MG TAB PO PRN ×2 (05:47→23:29)
--- NOTE | 2017-01-28 06:43 | RADRPT ---
EXAM DATE/TIME: 01/28/2017 06:13 [facility] COMPARISON: CHEST SINGLE AP, January 26, 2017, 11:42. INDICATIONS : Shortness of breath. MEDICAL HISTORY : Chronic obstructive pulmonary disease. SURGICAL HISTORY : None. ENCOUNTER: Subsequent ACUITY: 2 days PAIN SCORE: 0/10 LOCATION: Bilateral chest FINDINGS: Interval development of mild interstitial infiltrates in the infrahilar region bilaterally. Both hem idiaphragms remain well delineated. Faint hazy opacity in the right mid and lower chest suggest poss ible pleural effusion. The heart is normal size. CONCLUSION: Interval development of lower lung interstitial infiltrates. Possible right pleural effusion. Jaime Chamberlain MD on January 28, 2017 at 6:41 Board Certified Radiologist. This report was verified electronically.
--- NOTE | 2017-01-28 06:45 | RADRPT ---
EXAM DATE/TIME: 01/28/2017 06:16 [facility] COMPARISON: No previous studies available for comparison. INDICATIONS : Abdominal distention. MEDICAL HISTORY : None. SURGICAL HISTORY : None. ENCOUNTER: Subsequent ACUITY: 2 days PAIN SCORE: 0/10 LOCATION: Bilateral abdominal FINDINGS: No dilated loops of small or large bowel. Moderate degenerative changes and lumbar spine with mild l evoscoliosis. Asymmetric sclerosis of the left SI joint. Visualized lower lungs are clear. Percuta neous tube right upper abdomen. Catheter midline pelvis. CONCLUSION: No dilated loops of small or large bowel. Jaime Chamberlain MD on January 28, 2017 at 6:42 Board Certified Radiologist. This report was verified electronically.
[2017-01-28 07:58] LABS: BACTERIA, URINE OCC /hpf; COMMENT (UR) CATH-CULTURE IND; CULTURE IF INDICATED CATH CULTURE IND; MUCUS URINE FEW /lpf (OCC)
[2017-01-28 08:30] LABS: BLOOD, URINE MOD (NEG); GLUCOSE,URINE NEG (NEG); KETONE, URINE NEG (NEG); NITRITE,URINE NEG (NEG); PH, URINE 5.5 (5.0-8.5); URINE COLOR Light (YELLW/STRAW)
[2017-01-28] MEDS: RESP: ALBUTEROL 2.5 MG/IPRATROPIUM 0.5 MG NEB (SCH) INH ×4 (08:52→20:00)
[2017-01-28] MEDS: RESP: BUDESONIDE 0.5 MG/2 ML NEB NEB SCH ×2 (08:52→20:00)
[2017-01-28] MEDS: SODIUM CHLORIDE 0.9% FLUSH 10 ML FLUSH IV FLUSH SCH ×2 (09:00→19:59)
[2017-01-28] MEDS: oxyCODONE/ACETAMINOPHEN 10 MG/325 MG TAB PO PRN ×2 (09:19→21:26)
[2017-01-28] MEDS: TAMSULOSIN HCL 0.4 MG CAP PO SCH (09:20)
[2017-01-28] MEDS: LACTOBACILLUS ACIDOPHILUS TAB PO SCH ×2 (09:20→19:59)
[2017-01-28] MEDS: AMIODARONE 200 MG TAB G-TUBE SCH (09:21)
[2017-01-28] MEDS: LANSOPRAZOLE SOLUTAB 15 MG TAB NG SCH (09:21)
[2017-01-28] MEDS: METOPROLOL TARTRATE 25 MG TAB PO SCH ×2 (09:21→19:59)
[2017-01-28] MEDS: DOXAZOSIN MESYLATE 2 MG TAB G-TUBE SCH (09:22)
--- NOTE | 2017-01-28 09:44 | RADRPT ---
EXAM DATE/TIME: 01/28/2017 08:27 [facility] COMPARISON: ABDOMEN KUB ONLY, January 28, 2017, 6:16. INDICATIONS : Peg tube placement check. MEDICAL HISTORY : Carcinoma, prostatic. Cardiovascular disease. Hypertension. SURGICAL HISTORY : Tracheostomy. ENCOUNTER: Subsequent ACUITY: 2 days PAIN SCORE: 0/10 LOCATION: Bilateral abdomen FINDINGS: Supine frontal view the abdomen demonstrates contrast material within the duodenum and proximal jejun um following injection of the gastric tube. There is severe atherosclerotic disease of the right comm on iliac artery. Catheter overlies the urinary bladder. There are degenerative changes of the lumbar spine. CONCLUSION: The oral contrast material injected through the G-tube is present within the duodenum and proximal je junum. No abnormal extravasation is identified. Asif Dawson MD on January 28, 2017 at 9:41 Board Certified Radiologist. This report was verified electronically.
--- NOTE | 2017-01-28 09:48 | HHI.PR ---
Subjective Remarks Follow up for UTI with sepsis, fall, confusion. Patient is resting in bed. However, I was informed by the nurse this morning that patient's PEG tube site appears to be swollen. RN informed that she could flush without any difficulty and no significant residuals. Patient does have a history of hernia repair. I went to evaluate patient immediately. GI AIRFREIGHT LOADING SUPERVISOR accompanied me as well. We felt that PEG tube was operating properly and patient's abdominal bulge was likely due to hernia. We decided to obtain a Gastrografin directed KUB. Objective Vitals Vital Signs Date Time Temp Pulse Resp B/P Pulse Ox O2 Delivery O2 Flow Rate FiO2 01/28/17 08:57 98 Nasal Cannula 3.00 01/28/17 08:00 98.8 83 16 119/69 98 01/28/17 04:00 101.1 100 20 136/76 97 01/28/17 00:08 95 Nasal Cannula 3.00 01/28/17 00:00 99.8 87 20 125/69 95 01/27/17 20:00 100.7 87 20 143/68 99 01/27/17 16:00 99.9 89 17 125/65 95 01/27/17 12:00 97.7 88 17 108/66 95 I/O 01/27/17 01/27/17 01/27/17 01/28/17 01/28/17 01/28/17 06:59 14:59 22:59 06:59 14:59 22:59 Intake Total 2600 ml 1959 ml 1189 ml 1578 ml Output Total 350 ml 1200 ml 950 ml 600 ml Balance 2250 ml 759 ml 239 ml 978 ml Intake Oral 0 ml 480 ml 120 ml IV Total 1900 ml 921 ml 648 ml 853 ml Tube Feeding 460 ml 318 ml 421 ml 365 ml Other 240 ml 240 ml 120 ml 240 ml Output Urine Total 350 ml 1200 ml 950 ml 600 ml # Bowel Movements 2 1 Result Diagram: 01/27/17 0530 01/27/17 0530 Imaging Last Impressions Chest X-Ray 01/28/17 0000 Signed Impressions: Service Date/Time: Saturday, January 28, 2017 06:13 - CONCLUSION: Interval development of lower lung interstitial infiltrates. Possible right pleural effusion. Jaime Chamberlain MD Abdomen X-Ray 01/28/17 0000 Signed Impressions: Service Date/Time: Saturday, January 28, 2017 08:27 - CONCLUSION: The oral contrast material injected through the G-tube is present within the duodenum and proximal jejunum. No abnormal extravasation is identified. Asif Dawson MD Shoulder X-Ray 01/26/17 1122 Signed Impressions: Service Date/Time: Thursday, January 26, 2017 11:43 - CONCLUSION: Post traumatic deformity of the left humeral head characteristic of an old fracture. No findings suggestive of acute fracture or dislocation. Fidel Barrett MD Knee X-Ray 01/26/17 112 Signed Impressions: Service Date/Time: Thursday, January 26, 2017 11:48 - CONCLUSION: 1. Osteoarthritic change greatest in the medial compartment. 2. No acute fracture or malalignment. 3. Small joint effusion. Behzad Dos Santos MD Head CT 01/26/171121 Signed Impressions: Service Date/Time: Thursday, January 26, 2017 11:54 - CONCLUSION: Left supraorbital soft tissue swelling. No evidence of acute infarct, hemorrhage, mass, edema or fracture. Fidel Barrett MD Cervical Spine CT 01/26/17 112 Signed Impressions: Service Date/Time: Thursday, January 26, 2017 11:56 - CONCLUSION: 1. Mild degenerative anterolisthesis secondary to facet arthropathy as described. 2. No evidence of acute fracture or traumatic listhesis. 3. Advanced facet arthropathy. 4. Moderate severe degenerative disease with spondylosis at C5-6 and C6-7. 5. No acute soft tissue abnormality. Fidel Barrett MD Renal Ultrasound 01/26/17 0000 Signed Impressions: Service Date/Time: Thursday, January 26, 2017 14:22 - CONCLUSION: Bilateral extrarenal pelvis No evidence of hydronephrosis, suspicious masses or nephrolithiasis. Fidel Barrett MD Objective Remarks GENERAL: Alert, NAD SKIN: Warm and dry. HEAD: Normocephalic. EYES: No scleral icterus. No injection or drainage. NECK: Supple, trachea midline. No JVD or lymphadenopathy. CARDIOVASCULAR: Regular rate and rhythm without murmurs, gallops, or rubs. RESPIRATORY: Breath sounds equal bilaterally. No accessory muscle use. GASTROINTESTINAL: Abdomen soft, non-tender, nondistended. There is a focal bulge right near the PEG Tube insertion. PEG tube insertion site itself looks unremarkable. MUSCULOSKELETAL: No cyanosis, or edema. BACK: Nontender without obvious deformity. No CVA tenderness. A/P Assessment and Plan 71-year-old male with past medical history of obstructive uropathy status post prostate cancer, HTN, history of cardiac arrest, mood disorder, only/chronic pain, GERD, COPD, CAD, mild dementia who was sent from SNF for confusion and fall - Fall - possibly mechanical or related to acute encephalopathy. - Welder Fitter Helper imaging with head CT, C-spine CT, chest x-ray, knee x-ray, shoulder x -ray performed and were remarkable for left supraorbital soft tissue swelling, old fractures involving the left humeral head, and chronic degenerative changes of the neck; no acute processes noted. -Continue PT - recommends rehab placement. -Fall precautions - Urinary tract infection - Sepsis likely due to UTI - Bacteremia - likely the same organism responsible for UTI. Urine cx growing P. Mirabilis. - On admission, Tmax 101.3, persistent tachycardia. No leukocytosis, but 8 bands. Lactic acid within normal limits. - No other obvious sources of infection. - Urine cx shows Proteus Mirabilis, sensitive to Ceftriaxone. We will Switch Zosyn to Ceftriaxone. - Blood culture growing GNR. - Acute metabolic encephalopathy: Likely secondary to infection as above on top of chronic dementia. - resolving with treatment for UTI, bacteremia. - Urinary obstruction: Patient requested Robison be removed for void trial 3 days ago. Likely contributing to infection as above. -Placed Robison -Chek renal bladder ultrasound -Urology following. Appreciate assistance. -Currently on doxazosin, tamsulosin GUI: Secondary to the above. Creatinine 1.8, previously 0.54 on 11/20/16. - Improved to 1.54. Hyperkalemia: Potassium 5.3, but hemolysis noted. Resolved. Repeat BMP shows K+ 4.0. History of dysphagia - Patient is recommended mechanical soft, chopped meat with gravy and nectar thick liquid. - Will consult Legal Analyst. IF patient can maintain caloric requirements by PO intake, we will consider stopping tube feed. - If PEG tube is not used for sometime (a few weeks), Patient can consider having the PEG tube discontinued. Sacral ulcer: Chronic. -Consulted devulcanizer tender, discussed with her. A new bed was arranged. Other chronic medical conditions include GERD, anxiety, COPD, chronic pain, HTN : Currently stable and will continue home medications as indicated. DVT prophylaxis: Isiah Freeman DO Jan 28, 2017 09:48
--- NOTE | 2017-01-28 14:47 | PD.WCN.NOT ---
Wound Consult Description: Sacral stage 4 pressure injury Communicated with: EDSON Bustillos [address] [place] [address] and Doctor Isiah Gonsalves Recommendation: Please cleanse wound to sacral area with wound cleanser or normal saline and apply Maxorb II (Calcium alginate dressing) packed in wound bed. Cover wound with adhesive foam dressing please change dressing every 2 days or PRN if saturated or dislodged. Additional Information: Patient seen on for evaluation of pressure injury to sacral area. Patient is known to wound care on previous admission for stage 4 pressure injury to sacral area.Transferred patient to [facility] specialty bed with the assistance of Malaika SANDHU 7, remote mortgage underwriter, and ASSISTANT ASSOCIATE PROFESSOR.Patient positioned on R side for wound assessment with minimal assist. Removed adhesive foam dressing in place to reveal sacral wound. Wound presents with ~80% red granulation tissue, ~10% visible bone and ~10% facia. Wound measurements are as follows: 5 cm x 3 cm x 0.7cm. Undermining is noted between 8 and 1 o'clock deepest at 9 o'clock 2.6cm. Maceration is noted to periwound between 12 and 7 o'clock, but is otherwise unremarkable. Cleansed wound with wound cleanser. Applied Maxorb II ( calcium alginate dressing) to wound bed loosely packed. Sprayed periwound with skin prep before applying adhesive foam dressing. Wound care will follow patient weekly until discharge. Hortensia Seymour [facility] Jan 28, 2017 14:47
[2017-01-29] VITALS (7 sets, daily range): BP systolic 116–146; BP diastolic 65–78; PULSE 84–112; RESP 18–19; TEMP 97.1–99; O2SAT 94–100
[2017-01-29] MEDS: SODIUM CHLOR 0.9% 1000 ML INJ 1,000 ML IV SCH ×3 (02:00→21:39)
[2017-01-29] MEDS: HYOSCYAMINE 0.125 MG TAB G-TUBE SCH ×6 (04:04→23:47)
[2017-01-29 06:01] LABS: AUTOMATED NEUTROPHIL # 10.4 TH/MM3 (1.8-7.7); BASOPHIL % 0.1 % (0.0-2.0); EOSINOPHIL % 0.3 % (0.0-4.0); HEMATOCRIT 26.9 % (39.0-51.0); HEMO FLAGS DIFF FINAL; LYMPH % 4.5 % (9.0-44.0); LYMPHOCYTE # 0.6 TH/MM3 (1.0-4.8); MEAN CELL VOLUME 93.2 FL (80.0-100.0); MEAN CORPUSCULAR HEMOGLOBIN 31.7 PG (27.0-34.0); MEAN CORPUSCULAR HGB CONC 34.1 % (32.0-36.0); MONO % 11.5 % (0.0-8.0); NEUT % 83.6 % (16.0-70.0); PLATELET COUNT 133 TH/MM3 (150-450); RED BLOOD COUNT 2.88 MIL/MM3 (4.50-5.90); RED CELL DISTRIBUTION WIDTH 14.5 % (11.6-17.2); WHITE BLOOD COUNT 12.4 TH/MM3 (4.0-11.0)
[2017-01-29 06:29] LABS: ALKALINE PHOSPHATASE 253 U/L (45-117); ALT (GPT) 34 U/L (12-78); ANION GAP 8 MEQ/L (5-15); AST (GOT) 32 U/L (15-37); BICARBONATE 25.8 MEQ/L (21.0-32.0); BLOOD UREA NITROGEN 25 MG/DL (7-18); CHLORIDE 106 MEQ/L (98-107); GLOMERULAR FILTRATION RATE 62 ML/MIN (>89); POTASSIUM 3.2 MEQ/L (3.5-5.1); SODIUM (NA) 140 MEQ/L (136-145); TOTAL BILIRUBIN ADULT 0.3 MG/DL (0.2-1.0)
[2017-01-29] MEDS: RESP: BUDESONIDE 0.5 MG/2 ML NEB NEB SCH ×2 (08:27→19:31)
[2017-01-29] MEDS: RESP: ALBUTEROL 2.5 MG/IPRATROPIUM 0.5 MG NEB (SCH) INH ×3 (08:27→19:31)
[2017-01-29] MEDS: DOXAZOSIN MESYLATE 2 MG TAB G-TUBE SCH (09:09)
[2017-01-29] MEDS: LACTOBACILLUS ACIDOPHILUS TAB PO SCH ×2 (09:09→19:30)
[2017-01-29] MEDS: LANSOPRAZOLE SOLUTAB 15 MG TAB NG SCH (09:09)
[2017-01-29] MEDS: AMIODARONE 200 MG TAB G-TUBE SCH (09:10)
[2017-01-29] MEDS: SODIUM CHLORIDE 0.9% FLUSH 10 ML FLUSH IV FLUSH SCH ×2 (09:10→19:30)
[2017-01-29] MEDS: METOPROLOL TARTRATE 25 MG TAB PO SCH ×2 (09:10→19:30)
[2017-01-29] MEDS: TAMSULOSIN HCL 0.4 MG CAP PO SCH (09:10)
[2017-01-29] MEDS: cefTRIAXone INJ 2,000 MG in SODIUM CHLORIDE 0.9% INJ 100 ML IV SCH (09:11)
--- NOTE | 2017-01-29 10:34 | HHI.PR ---
Subjective Remarks Follow up for UTI with sepsis, fall, confusion. Currently doing well, sitting in the chair. No fever, chills. Later in the day, patient underwent modified barium swallow. Objective Vitals Vital Signs Date Time Temp Pulse Resp B/P Pulse Ox O2 Delivery O2 Flow Rate FiO2 01/29/17 08:29 94 Nasal Cannula 3.50 01/29/17 08:00 99.0 112 18 146/77 97 01/29/17 00:29 18 01/29/17 00:00 98.0 84 18 116/65 97 01/28/17 22:26 18 01/28/17 21:30 Nasal Cannula 4.00 01/28/17 20:00 99.3 99 18 155/78 98 01/28/17 16:36 92 Nasal Cannula 3.00 01/28/17 16:00 99.4 90 16 121/67 96 01/28/17 12:00 99.0 82 16 145/78 94 I/O 01/28/17 01/28/17 01/28/17 01/29/17 01/29/17 01/29/17 06:59 14:59 22:59 06:59 14:59 22:59 Intake Total 1578 ml 1376 ml 933 ml 1332 ml Output Total 600 ml 950 ml 850 ml 250 ml Balance 978 ml 426 ml 83 ml 1082 ml Intake Oral 120 ml 120 ml IV Total 853 ml 869 ml 557 ml 751 ml Tube Feeding 365 ml 147 ml 356 ml 521 ml Tube Irrigant 20 ml 60 ml Other 240 ml 240 ml Output Urine Total 600 ml 950 ml 850 ml 250 ml # Bowel Movements 1 Result Diagram: 01/29/17 0506 01/29/17 0506 Imaging Last Impressions Modified Barium Swallow 01/29/17 0000 Signed Impressions: Service Date/Time: Sunday, January 29, 2017 00:00 - CONCLUSION: Penetration and aspiration are seen. Asif Bradley MD Chest X-Ray 01/28/17 0000 Signed Impressions: Service Date/Time: Saturday, January 28, 2017 06:13 - CONCLUSION: Interval development of lower lung interstitial infiltrates. Possible right pleural effusion. Jaime Chamberlain MD Abdomen X-Ray 01/28/17 0000 Signed Impressions: Service Date/Time: Saturday, January 28, 2017 08:27 - CONCLUSION: The oral contrast material injected through the G-tube is present within the duodenum and proximal jejunum. No abnormal extravasation is identified. Asif Dawson MD Shoulder X-Ray 01/26/171121 Signed Impressions: Service Date/Time: Thursday, January 26, 2017 11:43 - CONCLUSION: Post traumatic deformity of the left humeral head characteristic of an old fracture. No findings suggestive of acute fracture or dislocation. Fidel Barrett MD Knee X-Ray 01/26/171121 Signed Impressions: Service Date/Time: Thursday, January 26, 2017 11:48 - CONCLUSION: 1. Osteoarthritic change greatest in the medial compartment. 2. No acute fracture or malalignment. 3. Small joint effusion. Behzad Dos Santos MD Head CT 01/26/171121 Signed Impressions: Service Date/Time: Thursday, January 26, 2017 11:54 - CONCLUSION: Left supraorbital soft tissue swelling. No evidence of acute infarct, hemorrhage, mass, edema or fracture. Fidel Barrett MD Cervical Spine CT 01/26/171121 Signed Impressions: Service Date/Time: Thursday, January 26, 2017 11:56 - CONCLUSION: 1. Mild degenerative anterolisthesis secondary to facet arthropathy as described. 2. No evidence of acute fracture or traumatic listhesis. 3. Advanced facet arthropathy. 4. Moderate severe degenerative disease with spondylosis at C5-6 and C6-7. 5. No acute soft tissue abnormality. Fidel Barrett MD Renal Ultrasound 01/26/17 0000 Signed Impressions: Service Date/Time: Thursday, January 26, 2017 14:22 - CONCLUSION: Bilateral extrarenal pelvis No evidence of hydronephrosis, suspicious masses or nephrolithiasis. Fidel Barrett MD Objective Remarks GENERAL: Alert, NAD SKIN: Warm and dry. HEAD: Normocephalic. EYES: No scleral icterus. No injection or drainage. NECK: Supple, trachea midline. No JVD or lymphadenopathy. CARDIOVASCULAR: Regular rate and rhythm without murmurs, gallops, or rubs. RESPIRATORY: Breath sounds equal bilaterally. No accessory muscle use. GASTROINTESTINAL: Abdomen soft, non-tender, nondistended. There is a focal bulge right near the PEG Tube insertion. PEG tube insertion site itself looks unremarkable. MUSCULOSKELETAL: No cyanosis, or edema. BACK: Nontender without obvious deformity. No CVA tenderness. Procedures None. A/P Assessment and Plan 71-year-old male with past medical history of obstructive uropathy status post prostate cancer, HTN, history of cardiac arrest, mood disorder, only/chronic pain, GERD, COPD, CAD, mild dementia who was sent from SNF for confusion and fall - Fall - possibly mechanical or related to acute encephalopathy. - Pushcart Peddler imaging with head CT, C-spine CT, chest x-ray, knee x-ray, shoulder x -ray performed and were remarkable for left supraorbital soft tissue swelling, old fractures involving the left humeral head, and chronic degenerative changes of the neck; no acute processes noted. -Continue PT - recommends rehab placement. -Fall precautions - Dysphagia - MBS shows aspiration. Speech therapy recommends NPO at this point. - Patient has PEG tube. Will likely need to continue tube feed as he was doing previously. - Urinary tract infection - Sepsis likely due to UTI - Bacteremia - likely the same organism responsible for UTI. Urine cx growing P. Mirabilis. - On admission, Tmax 101.3, persistent tachycardia. No leukocytosis, but 8 bands. Lactic acid within normal limits. - No other obvious sources of infection. - Urine cx shows Proteus Mirabilis, sensitive to Ceftriaxone. We will Switch Zosyn to Ceftriaxone. - Blood culture growing Proteus Mirabilis as well. - Potentially we can discharge patient on PO Augmentin for 7 - 10 days. - Acute metabolic encephalopathy: Likely secondary to infection as above on top of chronic dementia. - resolving with treatment for UTI, bacteremia. - Urinary obstruction: Patient requested Robison be removed for void trial 3 days ago. Likely contributing to infection as above. -Placed Robison -Chek renal bladder ultrasound -Urology following. Appreciate assistance. -Currently on doxazosin, tamsulosin GUI: Secondary to the above. Creatinine 1.8, previously 0.54 on 11/20/16. - Improved to 1.54. Hyperkalemia: Potassium 5.3, but hemolysis noted. Resolved. Repeat BMP shows K+ 4.0. History of dysphagia - Patient is recommended mechanical soft, chopped meat with gravy and nectar thick liquid. - Will consult Level Glass Forming Machine Operator. IF patient can maintain caloric requirements by PO intake, we will consider stopping tube feed. - If PEG tube is not used for sometime (a few weeks), Patient can consider having the PEG tube discontinued. Sacral ulcer: Chronic. -Consulted yoke setter. A new bed was arranged. Other chronic medical conditions include GERD, anxiety, COPD, chronic pain, HTN : Currently stable and will continue home medications as indicated. DVT prophylaxis: Isiah Freeman DO Jan 29, 2017 10:34
[2017-01-29] MEDS: oxyCODONE/ACETAMINOPHEN 10 MG/325 MG TAB PO PRN ×3 (11:08→19:34)
--- NOTE | 2017-01-29 12:02 | HHI.PR ---
Subjective Patient symptoms today Pt seen and examined. Objective Vital Signs Vital Signs Date Time Temp Pulse Resp B/P Pulse Ox O2 Delivery O2 Flow Rate FiO2 01/29/17 08:29 94 Nasal Cannula 3.50 01/29/17 08:00 99.0 112 18 146/77 97 01/29/17 00:29 18 01/29/17 00:00 98.0 84 18 116/65 97 01/28/17 22:26 18 01/28/17 21:30 Nasal Cannula 4.00 01/28/17 20:00 99.3 99 18 155/78 98 01/28/17 16:36 92 Nasal Cannula 3.00 01/28/17 16:00 99.4 90 16 121/67 96 Result Diagram: 01/29/17 0506 01/29/17 0506 Objective Remarks Abd:soft,nt,nd Robison: urine clear Medications and IVs Current Medications Medications (Trade) Dose Ordered Sig/Jeferson Route Start Time Stop Time Status Last Admin (NS 1000 ml Inj) 1,000 ml @ 100 mls/hr Q10H IV 01/26/17 14:00 01/29/17 02:00 (NS Flush) 2 ml UNSCH PRN IV FLUSH 01/26/17 13:45 (NS Flush) 2 ml BID IV FLUSH 01/26/17 21:00 01/29/17 09:10 (Zofran Inj) 4 mg Q6H PRN IVP 01/26/17 13:45 (Narcan Inj) 0.4 mg UNSCH PRN IV 01/26/17 13:45 (Milk Of Magnesia Liq) 30 ml Q12H PRN PO 01/26/17 13:45 (Senokot) 17.2 mg Q12H PRN PO 01/26/17 13:45 (Dulcolax Supp) 10 mg DAILY PRN RECTAL 01/26/17 13:45 (Lactulose Liq) 30 ml DAILY PRN PO 01/26/17 13:45 (Lopressor) 25 mg BID PO 01/26/17 21:00 01/29/17 09:10 (Prevacid Odt) 15 mg DAILY NG 01/27/17 09:00 01/29/17 09:09 (Lactinex) 1 tab Q12HR PO 01/26/17 21:00 01/29/17 09:09 (Xanax) 0.25 mg Q8H PRN G-TUBE 01/26/17 14:15 (Cordarone) 200 mg DAILY G-TUBE 01/27/17 09:00 01/29/17 09:10 (Cardura) 2 mg DAILY G-TUBE 01/27/17 09:00 01/29/17 09:09 (Levsin) 0.125 mg Q4H G-TUBE 01/26/17 16:00 01/29/17 11:34 (Percocet 10-325 Mg) 1 tab Q4H PRN PO 01/26/17 14:15 01/29/17 11:08 (Tylenol) 650 mg Q4H PRN PO 01/26/17 18:45 01/28/17 23:29 Tamsulosin HCl 0.4 mg 0.4 mg DAILY PO 01/27/17 10:00 01/29/17 09:10 (Rocephin Inj/NS Inj) 100 ml @ 200 mls/hr Q24H IV 01/29/17 08:00 01/29/17 09:11 Assessment and Plan Assessment and Plan 71 y.o male with CaP and symptoms of outlet obstruction. Continue on Flomax and rehabilitation. Void trial prior to discharge. Kavon Sandoval DO Jan 29, 2017 12:02
--- NOTE | 2017-01-29 12:34 | RADRPT ---
EXAM DATE/TIME: 01/29/2017 00:00 [facility] COMPARISON: No previous studies available for comparison. INDICATIONS : Dysphagia. FLUORO TIME: 1.6 minutes IMAGE COUNT: 0 CONTRAST: Dose as prescribed by speech pathologist. MEDICAL HISTORY : Carcinoma, prostatic. Cardiovascular disease. Hypertension. SURGICAL HISTORY : tracheostomy ENCOUNTER: Subsequent ACUITY: 4 - 6 months PAIN SCORE: 0/10 LOCATION: esophagus FINDINGS: A modified barium swallow was performed with speech pathology. Patient was given a variety of liquids to swallow. There was penetration and aspiration seen. For a full detailed report, see report by the speech pathologist. CONCLUSION: Penetration and aspiration are seen. Asif Bradley MD on January 29, 2017 at 12:32 Board Certified Radiologist. This report was verified electronically.
[2017-01-29] MEDS: ALPRAZolam 0.25 MG TAB G-TUBE PRN (19:33)
[2017-01-30] VITALS (7 sets, daily range): BP systolic 120–134; BP diastolic 65–85; PULSE 85–113; RESP 16–20; TEMP 96–98; O2SAT 94–99
[2017-01-30] MEDS: HYOSCYAMINE 0.125 MG TAB G-TUBE SCH ×5 (03:52→21:52)
[2017-01-30] MEDS: oxyCODONE/ACETAMINOPHEN 10 MG/325 MG TAB PO PRN ×5 (03:53→21:52)
[2017-01-30] MEDS: cefTRIAXone INJ 2,000 MG in SODIUM CHLORIDE 0.9% INJ 100 ML IV SCH (07:52)
[2017-01-30] MEDS: LACTOBACILLUS ACIDOPHILUS TAB PO SCH ×2 (07:54→21:53)
[2017-01-30] MEDS: AMIODARONE 200 MG TAB G-TUBE SCH (07:54)
[2017-01-30] MEDS: DOXAZOSIN MESYLATE 2 MG TAB G-TUBE SCH (07:54)
[2017-01-30] MEDS: METOPROLOL TARTRATE 25 MG TAB PO SCH ×2 (07:54→21:53)
[2017-01-30] MEDS: LANSOPRAZOLE SOLUTAB 15 MG TAB NG SCH (07:55)
[2017-01-30] MEDS: SODIUM CHLOR 0.9% 1000 ML INJ 1,000 ML IV SCH ×2 (07:55→17:41)
[2017-01-30] MEDS: SODIUM CHLORIDE 0.9% FLUSH 10 ML FLUSH IV FLUSH SCH ×2 (07:55→21:00)
[2017-01-30] MEDS: TAMSULOSIN HCL 0.4 MG CAP PO SCH (07:55)
[2017-01-30] MEDS: RESP: BUDESONIDE 0.5 MG/2 ML NEB NEB SCH ×2 (09:34→20:10)
--- NOTE | 2017-01-30 10:27 | HHI.PR ---
Subjective Patient symptoms today Pt seen and examined. Failed swallowing study yesterday. Objective Vital Signs Vital Signs Date Time Temp Pulse Resp B/P Pulse Ox O2 Delivery O2 Flow Rate FiO2 01/30/17 09:36 98 Nasal Cannula 4.00 01/30/17 09:05 18 01/30/17 08:00 97.1 98 16 134/78 97 01/30/17 08:00 97 Nasal Cannula 4.00 01/30/17 00:00 96.8 86 17 120/70 99 01/29/17 20:00 97.2 91 19 132/76 99 01/29/17 19:31 98 Nasal Cannula 3.50 01/29/17 19:27 Nasal Cannula 4.00 01/29/17 16:00 97.1 85 18 133/76 100 01/29/17 12:00 98.1 88 18 127/78 99 Intake & Output 01/30/17 01/30/17 07:00 19:00 Intake Total 2720 ml Output Total 1250 ml Balance 1470 ml Intake Oral 240 ml IV Total 1334 ml Tube Feeding 1066 ml Tube Irrigant 80 ml Output Urine Total 1250 ml # Bowel Movements 1 Result Diagram: 01/29/17 0506 01/29/17 0506 Objective Remarks Abd:soft,nt,nd Robison: urine clear 01/30 Abd:soft,nt,nd Robison: urine clear Medications and IVs Current Medications Medications (Trade) Dose Ordered Sig/Jeferson Route Start Time Stop Time Status Last Admin (NS 1000 ml Inj) 1,000 ml @ 100 mls/hr Q10H IV 01/26/17 14:00 01/30/17 07:55 (NS Flush) 2 ml UNSCH PRN IV FLUSH 01/26/17 13:45 (NS Flush) 2 ml BID IV FLUSH 01/26/17 21:00 01/29/17 09:10 (Zofran Inj) 4 mg Q6H PRN IVP 01/26/17 13:45 (Narcan Inj) 0.4 mg UNSCH PRN IV 01/26/17 13:45 (Milk Of Magnesia Liq) 30 ml Q12H PRN PO 01/26/17 13:45 (Senokot) 17.2 mg Q12H PRN PO 01/26/17 13:45 (Dulcolax Supp) 10 mg DAILY PRN RECTAL 8/12/17 13:45 (Lactulose Liq) 30 ml DAILY PRN PO 01/26/17 13:45 (Lopressor) 25 mg BID PO 01/26/17 21:00 01/30/17 07:54 (Prevacid Odt) 15 mg DAILY NG 01/27/17 09:00 01/30/17 07:55 (Lactinex) 1 tab Q12HR PO 01/26/17 21:00 01/30/17 07:54 (Xanax) 0.25 mg Q8H PRN G-TUBE 01/26/17 14:15 01/29/17 19:33 (Cordarone) 200 mg DAILY G-TUBE 01/27/17 09:00 01/30/17 07:54 (Cardura) 2 mg DAILY G-TUBE 01/27/17 09:00 01/30/17 07:54 (Levsin) 0.125 mg Q4H G-TUBE 01/26/17 16:00 01/30/17 07:54 (Percocet 10-325 Mg) 1 tab Q4H PRN PO 01/26/17 14:15 01/30/17 08:05 (Tylenol) 650 mg Q4H PRN PO 01/26/17 18:45 01/28/17 23:29 Tamsulosin HCl 0.4 mg 0.4 mg DAILY PO 01/27/17 10:00 01/30/17 07:55 (Rocephin Inj/NS Inj) 100 ml @ 200 mls/hr Q24H IV 01/29/17 08:00 01/30/17 07:52 Assessment and Plan Assessment and Plan 71 y.o male with CaP and symptoms of outlet obstruction. Continue on Flomax and rehabilitation. Void trial prior to discharge. 01/30 71 y.o male with CaP and symptoms of outlet obstruction. Continue on Flomax and rehabilitation. Void trial in Kavon Navarro DO Jan 30, 2017 10:27
--- NOTE | 2017-01-30 10:59 | HHI.PR ---
Subjective Remarks Follow up for UTI with sepsis, fall, confusion. Patient is doing well. No acute concerns. He failed modified barium swallow study today. Currently on tube feed. He wants to go to a different rehab. Objective Vitals Vital Signs Date Time Temp Pulse Resp B/P Pulse Ox O2 Delivery O2 Flow Rate FiO2 01/30/17 09:36 98 Nasal Cannula 4.00 01/30/17 09:05 18 01/30/17 08:00 97.1 98 16 134/78 97 01/30/17 08:00 97 Nasal Cannula 4.00 01/30/17 00:00 96.8 86 17 120/70 99 01/29/17 20:00 97.2 91 19 132/76 99 01/29/17 19:31 98 Nasal Cannula 3.50 01/29/17 19:27 Nasal Cannula 4.00 01/29/17 16:00 97.1 85 18 133/76 100 01/29/17 12:00 98.1 88 18 127/78 99 I/O 01/29/17 01/29/17 01/29/17 01/30/17 01/30/17 01/30/17 07:00 15:00 23:00 07:00 15:00 23:00 Intake Total 1332 ml 50 ml 1207 ml 1513 ml Output Total 250 ml 1375 ml 250 ml 1000 ml Balance 1082 ml -1325 ml 957 ml 513 ml Intake Oral 50 ml 240 ml 0 ml IV Total 751 ml 529 ml 805 ml Tube Feeding 521 ml 418 ml 648 ml Tube Irrigant 60 ml 20 ml 60 ml Output Urine Total 250 ml 1375 ml 250 ml 1000 ml # Bowel Movements 1 1 Result Diagram: 01/29/17 0506 01/29/17 0506 Imaging Last Impressions Modified Barium Swallow 01/29/17 0000 Signed Impressions: Service Date/Time: Sunday, January 29, 2017 00:00 - CONCLUSION: Penetration and aspiration are seen. Asif Bradley MD Chest X-Ray 01/28/17 0000 Signed Impressions: Service Date/Time: Saturday, January 28, 2017 06:13 - CONCLUSION: Interval development of lower lung interstitial infiltrates. Possible right pleural effusion. Jaime Chamberlain MD Abdomen X-Ray 01/28/17 0000 Signed Impressions: Service Date/Time: Saturday, January 28, 2017 08:27 - CONCLUSION: The oral contrast material injected through the G-tube is present within the duodenum and proximal jejunum. No abnormal extravasation is identified. Asif Dawson MD Shoulder X-Ray 01/26/17 1122 Signed Impressions: Service Date/Time: Thursday, January 26, 2017 11:43 - CONCLUSION: Post traumatic deformity of the left humeral head characteristic of an old fracture. No findings suggestive of acute fracture or dislocation. Fidel Barrett MD Knee X-Ray 01/26/171121 Signed Impressions: Service Date/Time: Thursday, January 26, 2017 11:48 - CONCLUSION: 1. Osteoarthritic change greatest in the medial compartment. 2. No acute fracture or malalignment. 3. Small joint effusion. Behzad Dos Santos MD Head CT 01/26/171121 Signed Impressions: Service Date/Time: Thursday, January 26, 2017 11:54 - CONCLUSION: Left supraorbital soft tissue swelling. No evidence of acute infarct, hemorrhage, mass, edema or fracture. Fidel Barrett MD Cervical Spine CT 01/26/17 112 Signed Impressions: Service Date/Time: Thursday, January 26, 2017 11:56 - CONCLUSION: 1. Mild degenerative anterolisthesis secondary to facet arthropathy as described. 2. No evidence of acute fracture or traumatic listhesis. 3. Advanced facet arthropathy. 4. Moderate severe degenerative disease with spondylosis at C5-6 and C6-7. 5. No acute soft tissue abnormality. Fidel Barrett MD Renal Ultrasound 01/26/17 0000 Signed Impressions: Service Date/Time: Thursday, January 26, 2017 14:22 - CONCLUSION: Bilateral extrarenal pelvis No evidence of hydronephrosis, suspicious masses or nephrolithiasis. Fidel Barrett MD Objective Remarks GENERAL: Alert, NAD SKIN: Warm and dry. HEAD: Normocephalic. EYES: No scleral icterus. No injection or drainage. NECK: Supple, trachea midline. No JVD or lymphadenopathy. CARDIOVASCULAR: Regular rate and rhythm without murmurs, gallops, or rubs. RESPIRATORY: Breath sounds equal bilaterally. No accessory muscle use. GASTROINTESTINAL: Abdomen soft, non-tender, nondistended. There is a focal bulge right near the PEG Tube insertion. PEG tube insertion site itself looks unremarkable. MUSCULOSKELETAL: No cyanosis, or edema. BACK: Nontender without obvious deformity. No CVA tenderness. Procedures None. A/P Assessment and Plan 71-year-old male with past medical history of obstructive uropathy status post prostate cancer, HTN, history of cardiac arrest, mood disorder, only/chronic pain, GERD, COPD, CAD, mild dementia who was sent from SNF for confusion and fall - Fall - possibly mechanical or related to acute encephalopathy. - [employer] Clerk imaging with head CT, C-spine CT, chest x-ray, knee x-ray, shoulder x -ray performed and were remarkable for left supraorbital soft tissue swelling, old fractures involving the left humeral head, and chronic degenerative changes of the neck; no acute processes noted. -Continue PT - recommends rehab placement. Patient came from [place] but wants to go to a different one. -Fall precautions - Dysphagia - MBS shows aspiration. Speech therapy recommends NPO at this point. - Patient has PEG tube. Continue tube feed. - Urinary tract infection - Sepsis likely due to UTI - Bacteremia - likely the same organism responsible for UTI. Urine cx growing P. Mirabilis. - On admission, Tmax 101.3, persistent tachycardia. No leukocytosis, but 8 bands. Lactic acid within normal limits. - No other obvious sources of infection. - Urine cx shows Proteus Mirabilis, sensitive to Ceftriaxone. We will Switch Zosyn to Ceftriaxone. - Blood culture growing Proteus Mirabilis as well. - Potentially we can discharge patient on PO Augmentin for 7 - 10 days. - Acute metabolic encephalopathy: Likely secondary to infection as above on top of chronic dementia. - resolving with treatment for UTI, bacteremia. - Urinary obstruction: Patient requested Crane be removed for void trial 3 days ago. Likely contributing to infection as above. -Chek renal bladder ultrasound -Urology following. Appreciate assistance. -Currently on doxazosin, tamsulosin - Void trial tomorrow AM. If fails, Patient may have to go with chronic crane cath. GUI: Secondary to the above. Creatinine 1.8, previously 0.54 on 11/20/16. - Improved to 1.54. Hyperkalemia: resolved. Hypokalemia - K+ 3.2. Will provide KCL via PEG tube. Sacral ulcer: Chronic. -Consulted supervisor screen printing. A new bed was arranged. Other chronic medical conditions include GERD, anxiety, COPD, chronic pain, HTN : Currently stable and will continue home medications as indicated. DVT prophylaxis: Isiah Freeman DO Jan 30, 2017 10:59 am
[2017-01-30] MEDS: RESP: ALBUTEROL 2.5 MG/IPRATROPIUM 0.5 MG NEB (SCH) INH (15:49)
[2017-01-30] MEDS: POTASSIUM CHLORIDE 20 MEQ PWD PACKET PEG SCH (21:00)
[2017-01-30] MEDS: ALPRAZolam 0.25 MG TAB G-TUBE PRN (21:53)
[2017-01-30] MEDS ORDERED: PILL SPLITTER OTHER PRN (22:00)
[2017-01-31] VITALS (8 sets, daily range): BP systolic 134–170; BP diastolic 78–87; PULSE 81–100; RESP 17–20; TEMP 95.5–97.7; O2SAT 92–100
[2017-01-31] MEDS: HYOSCYAMINE 0.125 MG TAB G-TUBE SCH ×7 (00:11→23:48)
[2017-01-31] MEDS: SODIUM CHLOR 0.9% 1000 ML INJ 1,000 ML IV SCH ×3 (03:54→21:06)
[2017-01-31] MEDS: oxyCODONE/ACETAMINOPHEN 10 MG/325 MG TAB PO PRN ×4 (04:00→21:20)
[2017-01-31] MEDS: RESP: BUDESONIDE 0.5 MG/2 ML NEB NEB SCH ×2 (08:35→20:00)
[2017-01-31] MEDS: LACTOBACILLUS ACIDOPHILUS TAB PO SCH ×2 (08:53→21:06)
[2017-01-31] MEDS: METOPROLOL TARTRATE 25 MG TAB PO SCH ×2 (08:53→21:06)
[2017-01-31] MEDS: TAMSULOSIN HCL 0.4 MG CAP PO SCH (08:54)
[2017-01-31] MEDS: ALPRAZolam 0.25 MG TAB G-TUBE PRN ×2 (08:54→21:20)
[2017-01-31] MEDS: AMIODARONE 200 MG TAB G-TUBE SCH (08:54)
[2017-01-31] MEDS: DOXAZOSIN MESYLATE 2 MG TAB G-TUBE SCH (08:54)
[2017-01-31] MEDS: LANSOPRAZOLE SOLUTAB 15 MG TAB NG SCH (08:54)
[2017-01-31] MEDS: cefTRIAXone INJ 2,000 MG in SODIUM CHLORIDE 0.9% INJ 100 ML IV SCH (08:55)
[2017-01-31] MEDS: SODIUM CHLORIDE 0.9% FLUSH 10 ML FLUSH IV FLUSH SCH ×2 (08:55→21:00)
[2017-01-31] MEDS: POTASSIUM CHLORIDE 20 MEQ PWD PACKET PEG SCH (09:00)
--- NOTE | 2017-01-31 09:02 | HHI.PR ---
Subjective Patient symptoms today Robison removed at bedside at 9AM. Pt refused earlier today. Objective Vital Signs Vital Signs Date Time Temp Pulse Resp B/P Pulse Ox O2 Delivery O2 Flow Rate FiO2 01/31/17 08:40 92 01/31/17 08:36 96 Nasal Cannula 4.00 01/31/17 08:00 96.8 96 17 139/79 98 01/31/17 00:00 97.7 86 18 134/79 99 01/30/17 20:11 94 Nasal Cannula 4.00 01/30/17 20:00 98.0 113 20 130/85 95 01/30/17 18:16 18 01/30/17 16:00 97.5 85 17 125/65 99 01/30/17 12:00 96.0 98 18 120/73 98 01/30/17 09:36 98 Nasal Cannula 4.00 Result Diagram: 01/29/17 0506 01/29/17 0506 Objective Remarks Abd:soft,nt,nd Robison: urine clear 01/30 Abd:soft,nt,nd Robison: urine clear 01/31 01/30 Abd:soft,nt,nd Robison removed at bedside Medications and IVs Current Medications Medications (Trade) Dose Ordered Sig/Jeferson Route Start Time Stop Time Status Last Admin (NS 1000 ml Inj) 1,000 ml @ 100 mls/hr Q10H IV 01/26/17 14:00 01/31/17 03:54 (NS Flush) 2 ml UNSCH PRN IV FLUSH 01/26/17 13:45 (NS Flush) 2 ml BID IV FLUSH 01/26/17 21:00 01/31/17 08:55 (Zofran Inj) 4 mg Q6H PRN IVP 01/26/17 13:45 (Narcan Inj) 0.4 mg UNSCH PRN IV 01/26/17 13:45 (Milk Of Magnesia Liq) 30 ml Q12H PRN PO 01/26/17 13:45 (Senokot) 17.2 mg Q12H PRN PO 01/26/17 13:45 (Dulcolax Supp) 10 mg DAILY PRN RECTAL 01/26/17 13:45 (Lactulose Liq) 30 ml DAILY PRN PO 01/26/17 13:45 (Lopressor) 25 mg BID PO 01/26/17 21:00 01/31/17 08:53 (Prevacid Odt) 15 mg DAILY NG 01/27/17 09:00 01/31/17 08:54 (Lactinex) 1 tab Q12HR PO 01/26/17 21:00 01/31/17 08:53 (Xanax) 0.25 mg Q8H PRN G-TUBE 01/26/17 14:15 01/31/17 08:54 (Cordarone) 200 mg DAILY G-TUBE 01/27/17 09:00 01/31/17 08:54 (Cardura) 2 mg DAILY G-TUBE 01/27/17 09:00 01/31/17 08:54 (Levsin) 0.125 mg Q4H G-TUBE 01/26/17 16:00 01/31/17 08:54 (Percocet 10-325 Mg) 1 tab Q4H PRN PO 01/26/17 14:15 01/31/17 08:54 (Tylenol) 650 mg Q4H PRN PO 01/26/17 18:45 01/28/17 23:29 Tamsulosin HCl 0.4 mg 0.4 mg DAILY PO 01/27/17 10:00 01/31/17 08:54 (Rocephin Inj/NS Inj) 100 ml @ 200 mls/hr Q24H IV 01/29/17 08:00 01/31/17 08:55 (KCl Powder) 20 meq Q12HR PEG 01/30/17 21:00 01/31/17 09:01 01/30/17 21:00 (Pill Splitter) 1 ea UNSCH PRN OTHER 01/30/17 22:00 Assessment and Plan Assessment and Plan 71 y.o male with CaP and symptoms of outlet obstruction. Continue on Flomax and rehabilitation. Void trial prior to discharge. 01/30 71 y.o male with CaP and symptoms of outlet obstruction. Continue on Flomax and rehabilitation. Void trial in AM 01/31 71 y.o male with CaP and symptoms of outlet obstruction. Continue on Flomax and rehabilitation. Void trial today Kavon Sandoval DO Jan 31, 2017 09:02
[2017-01-31] MEDS: RESP: ALBUTEROL 2.5 MG/IPRATROPIUM 0.5 MG NEB (SCH) NEB ×2 (17:03→21:27)
--- NOTE | 2017-01-31 19:34 | RADRPT ---
EXAM DATE/TIME: 01/31/2017 18:29 [facility] COMPARISON: CHEST SINGLE AP, January 28, 2017, 6:13. INDICATIONS : Dyspnea MEDICAL HISTORY : Chronic obstructive pulmonary disease. SURGICAL HISTORY : None. ENCOUNTER: Subsequent ACUITY: 4 - 6 days PAIN SCORE: 0/10 LOCATION: chest FINDINGS: A single view of the chest demonstrates mild basilar airspace disease. Small effusions. No pneumothor ax. Heart size within normal limits. CONCLUSION: Mild basilar airspace disease with small pleural effusions. Mark Wright MD on January 31, 2017 at 19:30 Board Certified Radiologist. This report was verified electronically.
--- NOTE | 2017-01-31 23:30 | HHI.PR ---
Subjective Remarks Patient was seen in the early afternoon. Follow up for UTI, bacteremia, fall. Patient reported no acute concerns. However, later in the day, RN reported increased shortness of breath. No fever, chills. Objective Vitals Vital Signs Date Time Temp Pulse Resp B/P Pulse Ox O2 Delivery O2 Flow Rate FiO2 01/31/17 21:30 96 Nasal Cannula 4.00 01/31/17 21:26 96 Nasal Cannula 4.00 01/31/17 20:00 97.4 100 20 164/86 100 01/31/17 16:00 95.5 96 19 170/87 97 01/31/17 12:00 96.6 81 17 135/78 98 01/31/17 10:00 24 01/31/17 08:40 92 01/31/17 08:36 96 Nasal Cannula 4.00 01/31/17 08:00 96.8 96 17 139/79 98 01/31/17 00:00 97.7 86 18 134/79 99 I/O 01/30/17 01/30/17 01/30/17 01/31/17 01/31/17 01/31/17 06:59 14:59 22:59 06:59 14:59 22:59 Intake Total 1513 ml 1625 ml 1234 ml 1189 ml 0 ml 50213 ml Output Total 1000 ml 600 ml 1050 ml 725 ml Balance 513 ml 1025 ml 1234 ml 139 ml -725 ml 19022 ml Intake Oral 0 ml 0 ml 0 ml IV Total 805 ml 1015 ml 767 ml 796 ml 35581 ml Tube Feeding 648 ml 610 ml 467 ml 393 ml 1142 ml Tube Irrigant 60 ml 60 ml Other 60 ml Output Urine Total 1000 ml 600 ml 1050 ml 725 ml # Bowel Movements 1 1 1 Result Diagram: 01/29/17 0506 01/29/17 0506 Imaging Last Impressions Chest X-Ray 01/31/17 0000 Signed Impressions: Service Date/Time: January 18:29 - CONCLUSION: Mild basilar airspace disease with small pleural effusions. Mark Wright MD Modified Barium Swallow 01/29/17 0000 Signed Impressions: Service Date/Time: Sunday, January 29, 2017 00:00 - CONCLUSION: Penetration and aspiration are seen. Asif Braldey MD Abdomen X-Ray 01/28/17 0000 Signed Impressions: Service Date/Time: Saturday, January 28, 2017 08:27 - CONCLUSION: The oral contrast material injected through the G-tube is present within the duodenum and proximal jejunum. No abnormal extravasation is identified. Asif Dawson MD Shoulder X-Ray 01/26/17 1122 Signed Impressions: Service Date/Time: Thursday, January 26, 2017 11:43 - CONCLUSION: Post traumatic deformity of the left humeral head characteristic of an old fracture. No findings suggestive of acute fracture or dislocation. Fidel Barrett MD Knee X-Ray 01/26/172 Signed Impressions: Service Date/Time: Thursday, January 26, 2017 11:48 - CONCLUSION: 1. Osteoarthritic change greatest in the medial compartment. 2. No acute fracture or malalignment. 3. Small joint effusion. Behzad Dos Santos MD Head CT 01/26/17 1122 Signed Impressions: Service Date/Time: Thursday, January 26, 2017 11:54 - CONCLUSION: Left supraorbital soft tissue swelling. No evidence of acute infarct, hemorrhage, mass, edema or fracture. Fidel Barrett MD Cervical Spine CT 01/26/17 1122 Signed Impressions: Service Date/Time: Thursday, January 26, 2017 11:56 - CONCLUSION: 1. Mild degenerative anterolisthesis secondary to facet arthropathy as described. 2. No evidence of acute fracture or traumatic listhesis. 3. Advanced facet arthropathy. 4. Moderate severe degenerative disease with spondylosis at C5-6 and C6-7. 5. No acute soft tissue abnormality. Fidel Barrett MD Renal Ultrasound 01/26/17 0000 Signed Impressions: Service Date/Time: Thursday, January 26, 2017 14:22 - CONCLUSION: Bilateral extrarenal pelvis No evidence of hydronephrosis, suspicious masses or nephrolithiasis. Fidel Barrett MD Objective Remarks GENERAL: Alert, NAD SKIN: Warm and dry. HEAD: Normocephalic. EYES: No scleral icterus. No injection or drainage. NECK: Supple, trachea midline. No JVD or lymphadenopathy. CARDIOVASCULAR: Regular rate and rhythm without murmurs, gallops, or rubs. RESPIRATORY: Breath sounds equal bilaterally. No accessory muscle use. GASTROINTESTINAL: Abdomen soft, non-tender, nondistended. There is a focal bulge right near the PEG Tube insertion. PEG tube insertion site itself looks unremarkable. MUSCULOSKELETAL: No cyanosis, or edema. BACK: Nontender without obvious deformity. No CVA tenderness. Procedures None. A/P Assessment and Plan 71-year-old male with past medical history of obstructive uropathy status post prostate cancer, HTN, history of cardiac arrest, mood disorder, only/chronic pain, GERD, COPD, CAD, mild dementia who was sent from SNF for confusion and fall - Fall - possibly mechanical or related to acute encephalopathy. - [employer] Technician imaging with head CT, C-spine CT, chest x-ray, knee x-ray, shoulder x -ray performed and were remarkable for left supraorbital soft tissue swelling, old fractures involving the left humeral head, and chronic degenerative changes of the neck; no acute processes noted. -Continue PT - recommends rehab placement. Patient came from [place] but wants to go to a different one. -Fall precautions - Dysphagia - MBS shows aspiration. Speech therapy recommends NPO at this point. - Patient has PEG tube. Continue tube feed. - Urinary tract infection - Sepsis likely due to UTI - Bacteremia - likely the same organism responsible for UTI. Urine cx growing P. Mirabilis. - On admission, Tmax 101.3, persistent tachycardia. No leukocytosis, but 8 bands. Lactic acid within normal limits. - No other obvious sources of infection. - Urine cx shows Proteus Mirabilis, sensitive to Ceftriaxone. We will Switch Zosyn to Ceftriaxone. - Blood culture growing Proteus Mirabilis as well. - Potentially we can discharge patient on PO Augmentin for 7 - 10 days. - Probable pneumonia - Bilateral mild pleural effusion - Will add Azithromycin, patient is currently on Ceftriaxone. - Also will add Lasix for a few days. If no improvement, we will consider thoracentesis. - Acute metabolic encephalopathy: Likely secondary to infection as above on top of chronic dementia. - resolving with treatment for UTI, bacteremia. - Urinary obstruction: Patient requested Crane be removed for void trial 3 days ago. Likely contributing to infection as above. -Chek renal bladder ultrasound -Urology following. Appreciate assistance. -Currently on doxazosin, tamsulosin - Void trial tomorrow AM. If fails, Patient may have to go with chronic crane cath. GUI: Secondary to the above. Creatinine 1.8, previously 0.54 on 11/20/16. - Improved to 1.54. Hyperkalemia: resolved. Hypokalemia - K+ 3.2. Will provide KCL via PEG tube. - CBC, BMP in the AM. Sacral ulcer: Chronic. -Consulted distribution sales representative. A new bed was arranged. Other chronic medical conditions include GERD, anxiety, COPD, chronic pain, HTN : Currently stable and will continue home medications as indicated. DVT prophylaxis: Isiah Freeman DO Jan 31, 2017 23:30
[2017-02-01] VITALS (12 sets, daily range): BP systolic 96–158; BP diastolic 56–83; PULSE 92–136; RESP 20–35; TEMP 97.2–99.6; O2SAT 95–100
[2017-02-01] MEDS: RESP: ALBUTEROL 2.5 MG/IPRATROPIUM 0.5 MG NEB (SCH) NEB ×6 (00:24→19:34)
[2017-02-01] MEDS: oxyCODONE/ACETAMINOPHEN 10 MG/325 MG TAB PO PRN (02:55)
[2017-02-01] MEDS: HYOSCYAMINE 0.125 MG TAB G-TUBE SCH ×5 (02:55→20:00)
[2017-02-01] MEDS ORDERED: FUROSEMIDE 20 MG/2 ML VIAL IV PUSH ONE ×2 (04:00→08:30)
[2017-02-01 08:38] LABS: BLOOD GAS BASE EXCESS 3.4 mmol/L (-2-2); BLOOD GAS CARBOXYHEMOGLOBIN 1.6 % (0-4); BLOOD GAS HCO3 29 mmol/L (22-26); BLOOD GAS METHEMOGLOBIN 0.6 % (0-2); BLOOD GAS O2 HGB SATURATION 97 % (90-100); BLOOD GAS OXYGEN CONTENT 17.5 Vol % (12.0-20.0); BLOOD GAS PCO2 58 mmHg (38-42); BLOOD GAS PO2 129 mmHG (61-120); BLOOD GAS TOTAL HGB 12.7 G/DL (12.0-16.0); TEMP CORR TO 98.6
[2017-02-01 08:41] LABS: CRITICAL VALUE YES; DRAW SITE LT RADIAL; FIO2 100 %; NUMBER OF ARTERIAL PUNCTURES 1; ULNAR PULSE PRESENT
[2017-02-01 08:42] LABS: STAT YES
[2017-02-01] MEDS: AMIODARONE 200 MG TAB G-TUBE SCH (09:00)
[2017-02-01] MEDS: TAMSULOSIN HCL 0.4 MG CAP PO SCH (09:00)
[2017-02-01] MEDS: LACTOBACILLUS ACIDOPHILUS TAB PO SCH ×2 (09:00→21:00)
[2017-02-01] MEDS: METOPROLOL TARTRATE 25 MG TAB PO SCH ×2 (09:00→21:00)
[2017-02-01] MEDS ORDERED: FUROSEMIDE 20 MG/2 ML VIAL IV PUSH SCH (09:00)
[2017-02-01] MEDS: DOXAZOSIN MESYLATE 2 MG TAB G-TUBE SCH (09:00)
--- NOTE | 2017-02-01 09:11 | PD.CONS ---
HPI Service Critical Care Medicine Consult Requested By Dr. Gonsalves Reason for Consult Acute hypoxemic respiratory failure Health-care associated pneumonia Probable aspiration Acute COPD exacerbation Severe sepsis Sinus tachycardia Primary Care Physician Unknown History of Present Illness 71-year-old male with past medical history of obstructive uropathy, prostate cancer, hypertension, history of cardiac arrest, mood disorder, chronic pain, GERD, COPD, CAD, mild dementia who was sent from [facility] for confusion and fall. He was admitted to the hospitalist service on 01/26/17 with diagnosis of UTI. Urine culture grew Proteus and there was also 4/4 Proteus bacteremia. Patient was getting Rocephin treatment for the above. Noted to have increasing shortness of breath yesterday azithromycin added for bibasilar infiltrates by primary service. He has a history of prostate cancer 10 years ago, had urinary retention and had an indwelling Robison catheter until recently (removed at [facility]). Urology following here Dr. Sandoval. Neal Bella was called today 02/01/17 am for acute desaturation, oxygen saturation was 70%, and patient was placed on 100% nonrebreather. There was possibility of aspiration of tube feeds per bedside RN. Tube feed was held and patient was moved to the ICU. On my evaluation patient is tachypneic breathing 35-40/m and has bilateral wheezing. Was given 2 breathing treatments with DuoNeb without significant improvement. Patient is requiring frequent NT suctioning because of inability to clear secretions adequately. Also there is significant abdominal distention. I will proceed with endotracheal intubation and check CT scan of the abdomen pelvis and chest. I have also placed him on IV Solu-Medrol scheduled breathing treatments, and broaden antibiotics to Zosyn and single dose of vancomycin. Further recommendations based on imaging studies and workup Review of Systems ROS Limitations: Clinical Condition Past Family Social History Allergies: Coded Allergies: No Known Allergies (Unverified , 11/10/16) Past Medical History History of prostate cancer with urinary obstruction COPD Hypertension Anxiety GERD History of dysphagia requiring PEG tube placement History of cardiac arrest s/p trach placement and removal Osteoarthritis with chronic pain Coronary artery disease Past Surgical History PEG tube placement Status post trach placement and removal Appendectomy Hernia surgery Surgery for perforated gastric ulcer Cataract surgery Reported Medications Oxycodone (Oxycodone HCl) 10 Mg Tab 10 Mg G-TUBE Q6H PRN Meloxicam 7.5 Mg Tab 7.5 Mg PO DAILY Iodosorb Topical (Cadexomer Iodine) 0.9% Gel 1 Applic TOPICAL 3XWEEK Percocet (Oxycodone-Acetaminophen) 10-325 mg Tab 1 Tab PO Q4H PRN Xanax (Alprazolam) 0.25 Mg Tab 0.25 Mg G-TUBE Q8H PRN Thera M Plus (Multivitamins/Minerals Therapeutic) 1 Tab 1 Tab G-TUBE DAILY Sodium Chloride Inj (Sodium Chloride) 0.9 % Inj 100 Ml IV Q12HR Probiotic (Lactobacillus Combo No.10) 1 Each Capsule G-TUBE BID Omeprazole 20 Mg Cap G-TUBE BID Olanzapine 5 Mg Tab 5 Mg G-TUBE DAILY Nitro-Bid Topical (Nitroglycerin) 2 % Oint 1 Inch CHEST Q6H PRN Metoprolol Tartrate 25 Mg Tab 25 Mg PO BID Loperamide (Loperamide HCl) 2 Mg Tablet 2 Mg G-TUBE Q4HR PRN Duoneb (Ipratropium-Albuterol Neb) 0.5-2.5 Mg/3 Ml Neb 1 Nebule INH Q4HR NEB Hyoscyamine (Hyoscyamine Sulfate) 0.125 Mg Tab 0.125 Mg G-TUBE Q4H Heparin Inj (Heparin Sodium (Porcine)) 10,000 Units/10 Ml Inj 5,000 Units SQ Q12HR Guaifenesin DM Liq (Guaifenesin-Dextromethorphan Liq) 10-100 Mg/5 Ml Liq 10 Ml G -TUBE Q4H PRN Dextrose 10%-NaCl 0.45% Inj (Dextrose-Sodium Chloride Inj) 10-0.45% 1,000 Ml Bagp Glucagen Hypokit Inj Kit (Glucagon (Rdna) Inj Kit) 1 Mg Kit 1 Mg IM ONCE PRN Doxazosin (Doxazosin Mesylate) 2 Mg Tab 2 Mg G-TUBE DAILY Dextrose 50% (Dextrose) 50 % Inj PRN Cholestyramine 4 Gm/Dose Powd 4 Gm PO BID 1 level scoopful of powder contains 4 grams of cholestyramine. Chlorhexidine Gluconate (Mouth) Liq (Chlorhexidine Gluconate) 0.12% Soln 15 Ml SWISH-SPIT BID Budesonide Neb 0.5 Mg/2 Ml Neb 0.5 Mg NEB Q12HR NEB Amiodarone (Amiodarone HCl) 200 Mg Tab 200 Mg G-TUBE DAILY Tylenol (Acetaminophen) 325 Mg Tab 325 Mg G-TUBE Q4H PRN Active Ordered Medications reviewed Family History Unable to obtain due to respiratory distress Social History Quit smoking 1 year ago, denies alcohol [place] resident Physical Exam Vital Signs Vital Signs Date Time Temp Pulse Resp B/P Pulse Ox O2 Delivery O2 Flow Rate FiO2 02/01/17 08:41 99 15.00 100 02/01/17 00:00 97.2 112 20 158/83 95 01/31/17 21:30 96 Nasal Cannula 4.00 01/31/17 21:26 96 Nasal Cannula 4.00 01/31/17 20:00 97.4 100 20 164/86 100 01/31/17 16:00 95.5 96 19 170/87 97 01/31/17 12:00 96.6 81 17 135/78 98 01/31/17 10:00 24 Physical Exam GENERAL: Critically Ill appearing male who is in respiratory distress, tachypneic SKIN: Skin assessment warm/dry. Abrasion to his left shoulder and a skin tear to the left elbow, abrasion to his left knee. There is a stage II decubitus ulcer to his left buttock area. EYES: No scleral icterus. No injection or drainage. ENT: No nasal bleeding or discharge. Mucous membranes pink and moist. NECK: Trachea midline. + JVD. Supple. CARDIOVASCULAR: Sinus tachycardia in 140s. No murmur appreciated. RESPIRATORY: +ve accessory muscle use. Breath sounds are present bilaterally but diminished on the left side. Bilateral wheezing and rhonchi predominantly in the right chest. Basilar crackles GASTROINTESTINAL: Abdomen distended with large ventral hernia and PEG tube passing through ventral hernia. Hepatic and splenic margins not palpable. MUSCULOSKELETAL: No obvious deformities. No clubbing. No cyanosis. No edema. Abrasion to the left knee, left shoulder. Skin tear to the left elbow. NEUROLOGICAL: Awake alert, acute respiratory distress limits exam. Motor grossly within normal limits. Normal speech. Laboratory Laboratory Tests Test 02/01/17 08:20 Blood Gas Puncture Site LT RADIAL Blood Gas Patient Temperature 98.6 Blood Gas HCO3 29 Blood Gas Base Excess 3.4 Blood Gas Oxygen Saturation 97 Arterial Blood pH 7.32 Arterial Blood Partial 58 Pressure CO2 Arterial Blood Partial 129 Pressure O2 Arterial Blood Oxygen Content 17.5 Arterial Blood 1.6 Carboxyhemoglobin Arterial Blood Methemoglobin 0.6 Blood Gas Hemoglobin 12.7 Oxygen Delivery Device Non-Rebreathing Mask Blood Gas Inspired Oxygen 100 Date/Time Procedure Status Source Growth 01/28/17 17:34 Aerobic Blood Culture - Preliminary Resulted Blood Peripheral NO GROWTH IN 3 DAYS 01/28/17 17:34 Anaerobic Blood Culture - Preliminary Resulted Blood Peripheral NO GROWTH IN 3 DAYS 01/28/17 06:40 Urine Culture - Final Complete Urine Catheterized Urine <10,000 CFU/ML MIXED GRAM POSITIVE FL... Result Diagram: 01/29/17 0506 01/29/17 0506 Imaging CXR shows bibasilar infiltrates Septic Shock Reassessment Heart: Irregular Lungs: Course Skin: Warm Peripheral Pulses: Weak Right Radial Weak Left Radial Capillary Refill: <2 seconds Assessment and Plan Assessment and Plan NEURO: - Post intubation placed on propofol for sedation - Daily sedation vacation starting 24 hours RESP: Acute hypoxemic respiratory failure Healthcare associated pneumonia/aspiration Acute COPD exacerbation - Intubated and placed on mechanical ventilation, ACV - DuoNeb every 4 hours scheduled and when necessary - IV Solu-Medrol 125 mg 1 and 60 mg every 12 - Broad-spectrum antibiotics with Zosyn and azithromycin and one dose of vancomycin - CT chest to evaluate for infiltrate-extensive bibasilar consolidation indicating pneumonia secondary to aspiration CV: Sinus tachycardia secondary to source/sepsis TAA, ascending 4.3 cm History of coronary artery disease - Normal saline IV fluids 2L bolus and 125 ml per hour - Check lactic acid - Continue home meds metoprolol and amiodarone if blood pressure is stable - 2-D echo to evaluate for bicuspid aortic valve, - Target systolic blood pressure less than 120, target heart rate less than 70- 80 chronically GI: Probable aspiration Abdominal distention and large ventral hernia rule out obstruction - Nothing by mouth, IV Protonix - CT abdomen and pelvis stat rule out obstruction - Consult GI re possible aspiration with PEG feeding : History of prostate cancer, bladder outlet obstruction - Monitor renal function closely. Place Robison catheter. Dr. Sandoval following ID: Severe sepsis, Proteus bacteremia UTI with Proteus - Discontinue Rocephin, started Zosyn 4.5 g IV every 6 hours, continue azithromycin, 1 g IV vancomycin - Repeat blood urine and sputum culture - Blood culture 4 out of 4 bottles and urine culture from 01/26/17 growing Proteus HEME: - Monitor CBC, CMP, coags ENDO: Hypokalemia - Replace electrolytes per protocol PROPH: - Bilateral lower extremity SCDs. Lovenox, Protonix LINES: - Utilize peripheral IVs, central line if needed CC time 85 min excluding procedures Patient is critically ill now with acute hypoxemic respiratory failure and healthcare associated pneumonia severe sepsis in addition to urosepsis. He is critically ill and CT chest shows evidence of aspiration, and ascending aortic aneurysm 4.3 cm Code Status Full Discussed Condition With Dr. Jarvis, Dr. Sandoval, bedside RN Beth Gold MD Feb 01, 2017 09:11
[2017-02-01] MEDS ORDERED: POTASSIUM PHOSPHATE MONOBASIC 500 MG TAB PO PRN (09:15)
[2017-02-01] MEDS ORDERED: SODIUM PHOSPHATE INJ 30 MMOL in SODIUM CHLOR 0.9% 250 ML INJ 240 ML IV PRN (09:15)
[2017-02-01] MEDS ORDERED: POTASSIUM CHLOR 20 MEQ PREMIX 100 ML IV PRN (09:15)
[2017-02-01] MEDS ORDERED: MAGNESIUM SULFATE INJ 4 GM in SODIUM CHLORIDE 0.9% INJ 92 ML IV PRN (09:15)
[2017-02-01] MEDS ORDERED: POTASSIUM CHLORIDE 25 MEQ EFFERVESCENT TAB PO PRN (09:15)
[2017-02-01] MEDS ORDERED: MAGNESIUM OXIDE 400 MG TAB PO PRN (09:15)
[2017-02-01] MEDS ORDERED: POTASSIUM PHOSPHATE INJ 30 MMOL in SODIUM CHLOR 0.9% 250 ML INJ 250 ML IV PRN (09:15)
[2017-02-01] MEDS ORDERED: MAGNESIUM SULFATE INJ 2 GM in SODIUM CHLORIDE 0.9% INJ 96 ML IV PRN (09:15)
[2017-02-01] MEDS ORDERED: POTASSIUM PHOSPHATE MONOBASIC 500 MG TAB PO/TUBE PRN (09:15)
[2017-02-01] MEDS ORDERED: VANCOMYCIN INJ 1,000 MG in SODIUM CHLOR 0.9% 250 ML INJ 250 ML IV SCH (09:15)
[2017-02-01] MEDS ORDERED: POTASSIUM CHLOR 40 MEQ PREMIX 100 ML IV PRN ×2 (09:15)
[2017-02-01] MEDS ORDERED: SODIUM CHLOR 0.9% 1000 ML INJ 1,000 ML IV ONE ×2 (09:30→09:45)
--- NOTE | 2017-02-01 09:33 | RADRPT ---
EXAM DATE/TIME: 02/01/2017 08:33 [facility] COMPARISON: CHEST SINGLE AP, January 31, 2017, 18:29. INDICATIONS : Short of breath MEDICAL HISTORY : Chronic obstructive pulmonary disease. SURGICAL HISTORY : gastric tube ENCOUNTER: Subsequent ACUITY: 1 week PAIN SCORE: Non-responsive. LOCATION: Bilateral chest FINDINGS: 2 portable frontal views of the chest show bibasilar parenchymal opacities and tiny effusions. These are stable. Heart is normal in size. Bony structures are unremarkable. CONCLUSION: Stable bibasilar infiltrates and tiny effusions. Jaime Quinteros Jr., MD on February 01, 2017 at 9:31 Board Certified Radiologist. This report was verified electronically.
[2017-02-01] MEDS ORDERED: ETOMIDATE 20 MG/10 ML VIAL IV PUSH ONE (09:45)
[2017-02-01] MEDS ORDERED: methylPREDNISolone SOD SUCC 125 MG/2 ML VIAL IV PUSH ONE (10:00)
[2017-02-01] MEDS ORDERED: SUCCINYLCHOLINE CHLORIDE 200 MG/10 ML VIAL IV PUSH ONE (10:00)
[2017-02-01] MEDS ORDERED: PANTOPRAZOLE SODIUM 40 MG VIAL IV PUSH SCH (10:00)
--- NOTE | 2017-02-01 10:39 | PD.PROCEDR ---
Procedure Note Procedure INTUBATION: The patient was put in optimal position for the procedure. Rapid sequence intubation was initiated by me using 20 milligrams of etomidate IV and 50 milligrams of succinyl choline IV. The patient was intubated with a 8.0 cuffed endotracheal tube. Tube placement was confirmed by visualization of the tube and balloon passing through the cords, capnometry and subsequent chest x- ray. Breath sounds were equal and well aerated bilaterally postintubation. No breath sounds over stomach. Patient tolerated procedure well. Beth Gold MD Feb 01, 2017 10:39
--- NOTE | 2017-02-01 10:54 | RADRPT ---
EXAM DATE/TIME: 02/01/2017 10:16 [facility] COMPARISON: CT CERVICAL SPINE W/O CONTRAST, January 26, 2017, 11:56. INDICATIONS : Evaluate for aspiration. RADIATION DOSE: 15.19 CTDIvol (mGy) MEDICAL HISTORY : Congestive hearrt failure. Chronic obstructive pulmonary disease. Hypertension. SURGICAL HISTORY : None. ENCOUNTER: Initial ACUITY: 1 day PAIN SCALE: Non-responsive LOCATION: chest TECHNIQUE: Volumetric scanning of the chest was performed. Using automated exposure control and adjustment of t he mA and/or kV according to patient size, radiation dose was kept as low as reasonably achievable to obtain optimal diagnostic quality images. DICOM format image data is available electronically for r eview and comparison. Follow-up recommendations for detected pulmonary nodules are based at a minimum on nodule size and pa tient risk factors according to Fleischner Society Guidelines. FINDINGS: Imaging through the pulmonary parenchyma demonstrates advanced COPD changes. There are small bilatera l effusions and by basilar infiltrate concerning for bilateral pneumonia. In the appropriate clinical setting, this could suggest aspiration no suspicious masses identified. The heart is mildly enlarged. There is atherosclerotic plaquing of the coronary arteries. The aortic root and ascending aorta are dilated. Maximum dilation of the ascending aorta is 4.3 cm. There are scattered lymph nodes evident within the AP window in the mediastinum. These are nonspecifi c. The largest node identified measures 1.9 cm in maximum dimension. The limited portions of upper abdomen visualized are unremarkable. There are degenerative changes thr oughout the spine. CONCLUSION: 1. Extensive, consolidated, bilateral infiltrates in the lower lobes and effusions concerning for pne umonia. In the appropriate clinical setting, this would be concerning for aspiration. 2. ET tube in good position. 3. 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 4. Scattered adenopathy in the mediastinum and AP window nonspecific in appearance. Nahun Mills MD on February 01, 2017 at 10:49 Board Certified Radiologist. This report was verified electronically.
--- NOTE | 2017-02-01 11:06 | HHI.PR ---
Subjective Patient symptoms today Pt seen and examined. Events noted. Robison reinserted for 750cc. Objective Vital Signs Vital Signs Date Time Temp Pulse Resp B/P Pulse Ox O2 Delivery O2 Flow Rate FiO2 02/01/17 10:00 100 100 02/01/17 08:41 99 15.00 100 02/01/17 00:00 97.2 112 20 158/83 95 01/31/17 21:30 96 Nasal Cannula 4.00 01/31/17 21:26 96 Nasal Cannula 4.00 01/31/17 20:00 97.4 100 20 164/86 100 01/31/17 16:00 95.5 96 19 170/87 97 01/31/17 12:00 96.6 81 17 135/78 98 Result Diagram: 01/29/17 0506 01/29/17 0506 Imaging Last 24 hours Impressions Chest X-Ray 02/01/17 0000 Signed Impressions: Service Date/Time: Wednesday, February 01, 2017 08:33 - CONCLUSION: Stable bibasilar infiltrates and tiny effusions. Jaime Quinteros Jr., MD Chest CT 02/01/17 0000 Signed Impressions: Service Date/Time: Wednesday, February 01, 2017 10:16 - CONCLUSION: 1. Extensive, consolidated, bilateral infiltrates in the lower lobes and effusions concerning for pneumonia. In the appropriate clinical setting, this would be concerning for aspiration. 2. ET tube in good position. 3. 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 4. Scattered adenopathy in the mediastinum and AP window nonspecific in appearance. Nahun Mills MD Objective Remarks Abd:soft,nt,nd Robison: urine clear 01/30 Abd:soft,nt,nd Robison: urine clear 01/31 Abd:soft,nt,nd Robison removed at bedside 02/01 Abd:soft,nt,nd Robison reinserted for 750cc; urine clear Medications and IVs Current Medications Medications (Trade) Dose Ordered Sig/Jeferson Route Start Time Stop Time Status Last Admin (NS Flush) 2 ml UNSCH PRN IV FLUSH 01/26/17 13:45 (NS Flush) 2 ml BID IV FLUSH 01/26/17 21:00 01/31/17 08:55 (Zofran Inj) 4 mg Q6H PRN IVP 01/26/17 13:45 02/01/17 02:55 (Narcan Inj) 0.4 mg UNSCH PRN IV 01/26/17 13:45 (Milk Of Magnesia Liq) 30 ml Q12H PRN PO 01/26/17 13:45 (Senokot) 17.2 mg Q12H PRN PO 01/26/17 13:45 (Dulcolax Supp) 10 mg DAILY PRN RECTAL 01/26/17 13:45 (Lactulose Liq) 30 ml DAILY PRN PO 01/26/17 13:45 (Lopressor) 25 mg BID PO 01/26/17 21:00 01/31/17 21:06 (Prevacid Odt) 15 mg DAILY NG 01/27/17 09:00 Hold 01/31/17 08:54 (Lactinex) 1 tab Q12HR PO 01/26/17 21:00 01/31/17 21:06 (Xanax) 0.25 mg Q8H PRN G-TUBE 01/26/17 14:15 01/31/17 21:20 (Cordarone) 200 mg DAILY G-TUBE 01/27/17 09:00 01/31/17 08:54 (Cardura) 2 mg DAILY G-TUBE 01/27/17 09:00 01/31/17 08:54 (Levsin) 0.125 mg Q4H G-TUBE 01/26/17 16:00 02/01/17 02:55 (Percocet 10-325 Mg) 1 tab Q4H PRN PO 01/26/17 14:15 02/01/17 02:55 (Tylenol) 650 mg Q4H PRN PO 01/26/17 18:45 01/28/17 23:29 (Flomax) 0.4 mg DAILY PO 01/27/17 10:00 01/31/17 08:54 Miscellaneous 1 ea 1 ea UNSCH PRN OTHER 01/30/17 22:00 (Zithromax Inj/ NS 250 ml Inj) 250 ml @ 250 mls/hr Q24H IV 02/01/17 08:00 Methylprednisolone Sodium Succinate 40 mg 40 mg Q12HR IV PUSH 02/01/17 21:00 Potassium Chloride 100 ml @ 50 mls/hr Q2H PRN IV 02/01/17 09:15 (KCl 20 Meq Premix Inj) 100 ml @ 50 mls/hr Q2H PRN IV 02/01/17 09:15 Potassium Bicarb/ Potassium Chloride 50 meq 50 meq UNSCH PRN PO 02/01/17 09:15 Potassium Chloride 100 ml @ 25 mls/hr UNSCH PRN IV 02/01/17 09:15 Potassium Chloride 100 ml @ 50 mls/hr Q2H PRN IV 02/01/17 09:15 (Magnesium Sulfate Inj/NS Inj) 100 ml @ 50 mls/hr UNSCH PRN IV 02/01/17 09:15 Magnesium Oxide 800 mg 800 mg UNSCH PRN PO 02/01/17 09:15 (Magnesium Sulfate Inj/NS Inj) 100 ml @ 50 mls/hr UNSCH PRN IV 02/01/17 09:15 Potassium Phosphate 2000 mg 2,000 mg Q4H PRN PO 02/01/17 09:15 (Sodium Phosphate Inj/NS 250 ml Inj) 250 ml @ 42 mls/hr UNSCH PRN IV 02/01/17 09:15 Potassium Phosphate 2000 mg 2,000 mg UNSCH PRN PO/TUBE 02/01/17 09:15 Potassium Phosphate 30 mmol/ Sodium Chloride 260 ml @ 42 mls/hr UNSCH PRN IV 02/01/17 09:15 (Zosyn 4.5 Gm Premix) 100 ml @ 200 mls/hr Q6H IV 02/01/17 10:00 Chlorhexidine Gluconate 15 ml 15 ml BID@08,20 MT 02/01/17 20:00 Propofol 100 ml @ 0 mls/hr TITRATE IV 02/01/17 09:30 (NS 1000 ml Inj) 1,000 ml @ 125 mls/hr Q8H IV 02/01/17 09:45 (Protonix Inj) 40 mg Q24H IV PUSH 02/01/17 10:00 (Lovenox Inj) 40 mg Q24H SQ 02/01/17 10:00 Assessment and Plan Assessment and Plan 71 y.o male with CaP and symptoms of outlet obstruction. Continue on Flomax and rehabilitation. Void trial prior to discharge. 01/30 71 y.o male with CaP and symptoms of outlet obstruction. Continue on Flomax and rehabilitation. Void trial in AM 01/31 71 y.o male with CaP and symptoms of outlet obstruction. Continue on Flomax and rehabilitation. Void trial today 02/01 71 y.o male with CaP and symptoms of outlet obstruction with aspiration requiring intubation Continue Robison drainage for now May need to have SP tube placed in future Kavon Sandoval DO Feb 01, 2017 11:06
[2017-02-01] MEDS: SODIUM CHLOR 0.9% 1000 ML INJ 1,000 ML IV SCH ×2 (11:07→17:45)
[2017-02-01] MEDS: SODIUM CHLORIDE 0.9% FLUSH 10 ML FLUSH IV FLUSH SCH ×2 (11:07→21:07)
[2017-02-01 11:22] LABS: AUTOMATED NEUTROPHIL # 19.1 TH/MM3 (1.8-7.7); BASOPHIL % 0.1 % (0.0-2.0); EOSINOPHIL % 0.1 % (0.0-4.0); HEMATOCRIT 25.3 % (39.0-51.0); HEMO FLAGS DIFF FINAL; LYMPH % 0.8 % (9.0-44.0); LYMPHOCYTE # 0.2 TH/MM3 (1.0-4.8); MEAN CELL VOLUME 94.3 FL (80.0-100.0); MEAN CORPUSCULAR HEMOGLOBIN 31.4 PG (27.0-34.0); MEAN CORPUSCULAR HGB CONC 33.3 % (32.0-36.0); MONO % 5.1 % (0.0-8.0); NEUT % 93.9 % (16.0-70.0); PLATELET COUNT 294 TH/MM3 (150-450); RED BLOOD COUNT 2.68 MIL/MM3 (4.50-5.90); RED CELL DISTRIBUTION WIDTH 14.4 % (11.6-17.2); WHITE BLOOD COUNT 20.4 TH/MM3 (4.0-11.0)
[2017-02-01] MEDS: AZITHROMYCIN INJ 500 MG in SODIUM CHLOR 0.9% 250 ML INJ 250 ML IV SCH (11:27)
[2017-02-01] MEDS: PIPERACIL-TAZO 4.5 GM PREMIX 100 ML IV SCH ×3 (11:27→21:06)
[2017-02-01] MEDS: ENOXAPARIN SODIUM 40 MG/0.4 ML SYRINGE SQ SCH (11:27)
[2017-02-01 11:44] LABS: ALT (GPT) 19 U/L (12-78); ANION GAP 9 MEQ/L (5-15); AST (GOT) 13 U/L (15-37); BICARBONATE 30.5 MEQ/L (21.0-32.0); BLOOD UREA NITROGEN 20 MG/DL (7-18); CHLORIDE 111 MEQ/L (98-107); GLOMERULAR FILTRATION RATE 71 ML/MIN (>89); MAGNESIUM 1.2 MG/DL (1.5-2.5); POTASSIUM 3.1 MEQ/L (3.5-5.1); SODIUM (NA) 150 MEQ/L (136-145)
[2017-02-01 11:46] LABS: ALKALINE PHOSPHATASE 205 U/L (45-117); TOTAL BILIRUBIN ADULT 0.4 MG/DL (0.2-1.0)
[2017-02-01] MEDS ORDERED: MIDAZOLAM HCL 5 MG/ML VIAL (1 ML) IV ONE (12:15)
[2017-02-01] MEDS: RESP: BUDESONIDE 0.5 MG/2 ML NEB NEB SCH ×2 (12:31→19:34)
[2017-02-01 12:48] LABS: BLOOD GAS BASE EXCESS 4.2 mmol/L (-2-2); BLOOD GAS CARBOXYHEMOGLOBIN 1.5 % (0-4); BLOOD GAS HCO3 29 mmol/L (22-26); BLOOD GAS METHEMOGLOBIN 0.8 % (0-2); BLOOD GAS O2 HGB SATURATION 97 % (90-100); BLOOD GAS OXYGEN CONTENT 11.5 Vol % (12.0-20.0); BLOOD GAS PCO2 47 mmHg (38-42); BLOOD GAS PO2 208 mmHg (61-120); BLOOD GAS TOTAL HGB 8.1 G/DL (12.0-16.0); CRITICAL VALUE NO; OXYGEN DEVICE VENTILATOR; TEMP CORR TO 98.6
[2017-02-01 12:49] LABS: DRAW SITE RT RADIAL; FIO2 80 %; NUMBER OF ARTERIAL PUNCTURES 1; STAT NO; ULNAR PULSE PRESENT; VENT SETTINGS VT 600/RR14/PEEP7
--- NOTE | 2017-02-01 13:55 | RADRPT ---
EXAM DATE/TIME: 02/01/2017 10:16 [facility] COMPARISON: CT CERVICAL SPINE W/O CONTRAST, January 26, 2017, 11:56. INDICATIONS : Abdominal pain. ORAL CONTRAST: No oral contrast ingested. RADIATION DOSE: 15.19 CTDIvol (mGy) ; Combined studies - Thorax/Abdomen/Pelvis MEDICAL HISTORY : Chronic obstructive pulmonary disease. Congestive heart failure. Hypertension. SURGICAL HISTORY : None. ENCOUNTER: Initial ACUITY: 1 day PAIN SCALE: Non-responsive LOCATION: abdomen TECHNIQUE: Volumetric scanning of the abdomen and pelvis was performed. Using automated exposure control and ad justment of the mA and/or kV according to patient size, radiation dose was kept as low as reasonably achievable to obtain optimal diagnostic quality images. DICOM format image data is available electro nically for review and comparison. FINDINGS: The examination demonstrates diffuse infiltrates and small bilateral effusions. The appearance of the liver, spleen, pancreas, adrenal glands and kidneys is within normal limits. No te is made of a gastrostomy tube within the anterior stomach. No free air free fluid is seen. The loops of small large bowel demonstrate a moderate of fluid and gaseous distention. There is oral contrast which is passed through it and is present throughout most of the colon. There is a small amount of free fluid within the pelvis. No iliac or inguinal adenopathy is seen with in the pelvis. There is a Robison catheter within the bladder. There is advanced atherosclerotic calcification of the abdominal aorta and iliac vessels. The visualized bony structures demonstrate degenerative changes but are otherwise intact. CONCLUSION: 1. Bibasilar infiltrates concerning for pneumonia. 2. Diffuse distention of the small bowel with both fluid and gas suggesting ileus. There is oral cont rast which has passed through the small bowel and is present throughout the colon. 3. There is a Robison catheter within the bladder 4. There is a gastrostomy tube present. Nahun Mills MD on February 01, 2017 at 13:50 Board Certified Radiologist. This report was verified electronically.
[2017-02-01] MEDS: MIDAZOLAM 100 MG/NS 100 ML DRIP Premix IV SCH (14:04)
--- NOTE | 2017-02-01 14:53 | EKG ---
Date Performed: 02/01/2017 Time Performed: 09:33:40 PTAGE: 71 years EKG: Sinus tachycardia Possible left atrial abnormality Right bundle branch block Abnormal ECG PREVIOUS TRACING 01/26/2017 11.15.20 Since previous tracing, no significant change noted DOCTOR: Rashid Up Interpretating Date/Time 02/01/2017 14:52:58
[2017-02-01] MEDS: METOCLOPRAMIDE HCL 10 MG/2 ML VIAL IV PUSH SCH ×2 (15:00→21:06)
--- NOTE | 2017-02-01 15:11 | PD.CONS ---
HPI History of Present Illness This is a 71 year old male with multiple medical problems including HTN, COPD, Prostate Cancer, Hyperlipidemia. He had a prolonged hospitalization back in September of this year when he was hospitalized for CODE Blue, massive gastrointestinal bleeding, ileus, acute respiratory failure and required tracheostomy at that time. We evaluated him with EGD (08/22/16) which revealed proximal esophageal lesion possibly vascular in nature, incomplete evaluation of the stomach, deformed pylorus. We were consulted for PEG tube placement and he underwent a repeat EGD, Unsuccessful PEG tube placement (09/05/16)---> deformed pylorus/antrum, nodular mucosa-multiple biopsies taken, esophagitis distal esophagus, transillumination seen in the hernia sac, unable to place peg endoscopically, retroflexed views revealed a hiatal hernia. He was evaluated by general surgery at that time, but they did not feel that they could place J tube surgically. He was given nutrition via an NGT and was eventually transferred to [facility] on 09/23/16. While at [facility], he had an EGD with PEG tube placement by Dr. Bailey on 10/19/16. He was treated at [facility] and eventually weaned off the ventilator and his tracheostomy was removed. He was then sent to [facility] for further physical therapy. His daughter reports that he was followed by Speech Therapy and was receiving Vital Stem and was starting to tolerate puree diet with honey thickened liquids, but still had a poor po intake and therefore was requiring the tube feeding via the PEG tube. He was then sent to this facility on 01/26/17 after a fall and was admitted for UTI with sepsis, acute metabolic encephalopathy, and urinary obstruction with GUI. His daughter reports that he has been having increased coughing over the past two days and was transferred to the unit this morning for respiratory distress, where he was intubated and placed on mechanical ventilation. There was concern that he may have been aspirating secondary to reflux and therefore GI has been consulted for further evaluation. He is getting Protonix 40mg IV daily. He does nod "yes " when asked if he has heartburn/reflux. He has a very large ventral hernia that is tender, but reducible on exam. CT Scan is pending. (Elizabeth Mercado [facility]) PFS Past Medical History History of prostate cancer with urinary obstruction Hypertension Anxiety GERD Dysphagia requiring PEG tube placement History of cardiac arrest s/p trach placement and removal COPD Osteoarthritis with chronic pain Coronary artery disease Hx perforated ulcer Marce esophagitis Ileus Hx Pulmonary embolism Past Surgical History PEG tube placement S/P trach placement and removal Appendectomy Ventral Hernia repair x 5 Surgery for perforated gastric ulcer Cataract surgery Colonoscopy (Elizabeth Mercado) Coded Allergies: No Known Allergies (Unverified , 11/10/16) Medications Allergies Coded Allergies Type Severity Reaction Last Updated Verified No Known Allergies 11/10/16 No Active Scripts Medications Dose Route/Sig Days Date Category Dose Instructions Meloxicam 7.5 Mg Tab 7.5 Mg PO DAILY 01/26/17 Reported Iodosorb Topical (Cadexomer Iodine) 0.9% Gel 1 Applic TOPICAL 3XWEEK 01/26/17 Reported Percocet (Oxycodone-Acetaminophen) 10-325 mg Tab 1 Tab PO Q4H PRN 01/26/17 Reported Oxycodone (Oxycodone HCl) 10 Mg Tab 10 Mg G-TUBE Q6H PRN 11/13/16 Rx Xanax (Alprazolam) 0.25 Mg Tab 0.25 Mg G-TUBE Q8H PRN 11/10/16 Reported Thera M Plus (Multivitamins/Minerals Therapeutic) 1 Tab 1 Tab G-TUBE DAILY 11/10/16 Reported Sodium Chloride Inj (Sodium Chloride) 0.9 % Inj 100 Ml IV Q12HR 11/10/16 Reported Probiotic (Lactobacillus Combo No.10) 1 Each Capsule G-TUBE BID 11/10/16 Reported Omeprazole 20 Mg Cap G-TUBE BID 11/10/16 Reported Olanzapine 5 Mg Tab 5 Mg G-TUBE DAILY 11/10/16 Reported Nitro-Bid Topical (Nitroglycerin) 2 % Oint 1 Inch CHEST Q6H PRN 11/10/16 Reported Metoprolol Tartrate 25 Mg Tab 25 Mg PO BID 11/10/16 Reported Loperamide (Loperamide HCl) 2 Mg Tablet 2 Mg G-TUBE Q4HR PRN 11/10/16 Reported Duoneb (Ipratropium-Albuterol Neb) 0.5-2.5 Mg/3 Ml Neb 1 Nebule INH Q4HR NEB 11/10/16 Reported Hyoscyamine (Hyoscyamine Sulfate) 0.125 Mg Tab 0.125 Mg G-TUBE Q4H 11/10/16 Reported Heparin Inj (Heparin Sodium (Porcine)) 10,000 Units/10 Ml Inj 5,000 Units SQ Q12HR 11/10/16 Reported Guaifenesin DM Liq (Guaifenesin-Dextromethorphan Liq) 10-100 Mg/5 Ml Liq 10 Ml G-TUBE Q4H PRN 11/10/16 Reported Dextrose 10%-NaCl 0.45% Inj (Dextrose-Sodium Chloride Inj) 10-0.45% 1,000 Ml Bagp 11/10/16 Reported Glucagen Hypokit Inj Kit (Glucagon (Rdna) Inj Kit) 1 Mg Kit 1 Mg IM ONCE PRN 11/10/16 Reported Doxazosin (Doxazosin Mesylate) 2 Mg Tab 2 Mg G-TUBE DAILY 11/10/16 Reported Dextrose 50% (Dextrose) 50 % Inj PRN 11/10/16 Reported Cholestyramine 4 Gm/Dose Powd 4 Gm PO BID 11/10/16 Reported 1 level scoopful of powder contains 4 grams of cholestyramine. Chlorhexidine Gluconate (Mouth) Liq (Chlorhexidine Gluconate) 0.12% Soln 15 Ml SWISH-SPIT BID 11/10/16 Reported Budesonide Neb 0.5 Mg/2 Ml Neb 0.5 Mg NEB Q12HR NEB 11/10/16 Reported Amiodarone (Amiodarone HCl) 200 Mg Tab 200 Mg G-TUBE DAILY 11/10/16 Reported Tylenol (Acetaminophen) 325 Mg Tab 325 Mg G-TUBE Q4H PRN 11/10/16 Reported Family History Father had dementia Social History SNF resident No alcohol or tobacco use since July (Elizabeth Mercado) Review of Systems ROS Unable to obtain. (Elizabeth Mercado) GI Exam Vitals I&O Vital Signs Date Time Temp Pulse Resp B/P Pulse Ox O2 Delivery O2 Flow Rate FiO2 02/01/17 13:46 99 50 02/01/17 12:01 100 80 02/01/17 12:00 98.7 97 20 98/62 99 02/01/17 10:00 100 100 02/01/17 10:00 100 80 02/01/17 09:40 99 Mechanical Ventilator 80 02/01/17 09:00 98.5 100 35 137/72 99 02/01/17 08:41 99 15.00 100 02/01/17 00:00 97.2 112 20 158/83 95 01/31/17 21:30 96 Nasal Cannula 4.00 01/31/17 21:26 96 Nasal Cannula 4.00 01/31/17 20:00 97.4 100 20 164/86 100 01/31/17 16:00 95.5 96 19 170/87 97 I/O 01/31/17 01/31/17 01/31/17 02/01/17 02/01/17 02/01/17 07:00 15:00 23:00 07:00 15:00 23:00 Intake Total 1189 ml 0 ml 04705 ml 1010 ml Output Total 250 ml 725 ml 200 ml 350 ml Balance 939 ml -725 ml 85209 ml 660 ml Intake Oral 0 ml IV Total 796 ml 94341 ml 685 ml Tube Feeding 393 ml 1142 ml 325 ml Tube Irrigant 60 ml Other 60 ml Output Urine Total 250 ml 725 ml 200 ml 250 ml Emesis 100 ml # Bowel Movements 1 1 0 0 Imaging Last Impressions Chest X-Ray 02/01/17 0000 Signed Impressions: Service Date/Time: Wednesday, February 01, 2017 08:33 - CONCLUSION: Stable bibasilar infiltrates and tiny effusions. Jaime Quinteros Jr., MD Chest CT 02/01/17 0000 Signed Impressions: Service Date/Time: Wednesday, February 01, 2017 10:16 - CONCLUSION: 1. Extensive, consolidated, bilateral infiltrates in the lower lobes and effusions concerning for pneumonia. In the appropriate clinical setting, this would be concerning for aspiration. 2. ET tube in good position. 3. 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 4. Scattered adenopathy in the mediastinum and AP window nonspecific in appearance. Nahun Mills MD Abdomen/Pelvis CT 02/01/17 0000 Signed Impressions: Service Date/Time: Wednesday, February 01, 2017 10:16 - CONCLUSION: 1. Bibasilar infiltrates concerning for pneumonia. 2. Diffuse distention of the small bowel with both fluid and gas suggesting ileus. There is oral contrast which has passed through the small bowel and is present throughout the colon. 3. There is a Robison catheter within the bladder 4. There is a gastrostomy tube present. Nahun Mills MD Modified Barium Swallow 01/29/17 0000 Signed Impressions: Service Date/Time: Sunday, January 29, 2017 00:00 - CONCLUSION: Penetration and aspiration are seen. Asif Bradley MD Abdomen X-Ray 01/28/17 0000 Signed Impressions: Service Date/Time: Saturday, January 28, 2017 08:27 - CONCLUSION: The oral contrast material injected through the G-tube is present within the duodenum and proximal jejunum. No abnormal extravasation is identified. Asif Dawson MD Shoulder X-Ray 01/26/171121 Signed Impressions: Service Date/Time: Thursday, January 26, 2017 11:43 - CONCLUSION: Post traumatic deformity of the left humeral head characteristic of an old fracture. No findings suggestive of acute fracture or dislocation. Fidel Barrett MD Knee X-Ray 01/26/171121 Signed Impressions: Service Date/Time: Thursday, January 26, 2017 11:48 - CONCLUSION: 1. Osteoarthritic change greatest in the medial compartment. 2. No acute fracture or malalignment. 3. Small joint effusion. Behzad Dos Santos MD Head CT 01/26/171121 Signed Impressions: Service Date/Time: Thursday, January 26, 2017 11:54 - CONCLUSION: Left supraorbital soft tissue swelling. No evidence of acute infarct, hemorrhage, mass, edema or fracture. Fidel Barrett MD Cervical Spine CT 01/26/171121 Signed Impressions: Service Date/Time: Thursday, January 26, 2017 11:56 - CONCLUSION: 1. Mild degenerative anterolisthesis secondary to facet arthropathy as described. 2. No evidence of acute fracture or traumatic listhesis. 3. Advanced facet arthropathy. 4. Moderate severe degenerative disease with spondylosis at C5-6 and C6-7. 5. No acute soft tissue abnormality. Fidel Barrett MD Renal Ultrasound 01/26/17 0000 Signed Impressions: Service Date/Time: Thursday, January 26, 2017 14:22 - CONCLUSION: Bilateral extrarenal pelvis No evidence of hydronephrosis, suspicious masses or nephrolithiasis. Fidel Barrett MD CT abdomen and pelvis pending. Laboratory Test 02/01/17 02/01/17 02/01/17 08:20 11:00 12:39 Blood Gas Puncture Site LT RADIAL RT RADIAL Blood Gas Patient Temperature 98.6 98.6 Blood Gas HCO3 29 mmol/L 29 mmol/L Blood Gas Base Excess 3.4 mmol/L 4.2 mmol/L Blood Gas Oxygen Saturation 97 % 97 % Arterial Blood pH 7.32 7.41 Arterial Blood Partial 58 mmHg 47 mmHg Pressure CO2 Arterial Blood Partial 129 mmHG 208 mmHg Pressure O2 Arterial Blood Oxygen Content 17.5 Vol % 11.5 Vol % Arterial Blood 1.6 % 1.5 % Carboxyhemoglobin Arterial Blood Methemoglobin 0.6 % 0.8 % Blood Gas Hemoglobin 12.7 G/DL 8.1 G/DL Oxygen Delivery Device Non-Rebreathing VENTILATOR Mask Blood Gas Inspired Oxygen 100 % 80 % White Blood Count 20.4 TH/MM3 Red Blood Count 2.68 MIL/MM3 Hemoglobin 8.4 GM/DL Hematocrit 25.3 % Mean Corpuscular Volume 94.3 FL Mean Corpuscular Hemoglobin 31.4 PG Mean Corpuscular Hemoglobin 33.3 % Concent Red Cell Distribution Width 14.4 % Platelet Count 294 TH/MM3 Mean Platelet Volume 8.5 FL Neutrophils (%) (Auto) 93.9 % Lymphocytes (%) (Auto) 0.8 % Monocytes (%) (Auto) 5.1 % Eosinophils (%) (Auto) 0.1 % Basophils (%) (Auto) 0.1 % Neutrophils # (Auto) 19.1 TH/MM3 Lymphocytes # (Auto) 0.2 TH/MM3 Monocytes # (Auto) 1.0 TH/MM3 Eosinophils # (Auto) 0.0 TH/MM3 Basophils # (Auto) 0.0 TH/MM3 CBC Comment DIFF FINAL Differential Comment Sodium Level 150 MEQ/L Potassium Level 3.1 MEQ/L Chloride Level 111 MEQ/L Carbon Dioxide Level 30.5 MEQ/L Anion Gap 9 MEQ/L Blood Urea Nitrogen 20 MG/DL Creatinine 1.04 MG/DL Estimat Glomerular Filtration 71 ML/MIN Rate Random Glucose 176 MG/DL Lactic Acid Level 2.0 mmol/L Calcium Level 8.2 MG/DL Phosphorus Level 2.8 MG/DL Magnesium Level 1.2 MG/DL Total Bilirubin 0.4 MG/DL Aspartate Amino Transf 13 U/L (AST/SGOT) Alanine Aminotransferase 19 U/L (ALT/SGPT) Alkaline Phosphatase 205 U/L Total Protein 5.8 GM/DL Albumin 2.0 GM/DL Blood Gas Ventilator Setting VT 600/RR14/PEEP7 Date/Time Procedure Status Source Growth 02/01/17 11:35 Urine Culture Received Urine Catheterized Urine Pending 02/01/17 11:00 Aerobic Blood Culture Received Blood Peripheral Pending 02/01/17 11:00 Anaerobic Blood Culture Received Blood Peripheral Pending 02/01/17 09:15 Gram Stain - Final Resulted Sputum Expectorated Sputum 02/01/17 09:15 Sputum Culture Resulted Sputum Expectorated Sputum Pending 01/28/17 17:34 Aerobic Blood Culture - Preliminary Resulted Blood Peripheral NO GROWTH IN 4 DAYS 01/28/17 17:34 Anaerobic Blood Culture - Preliminary Resulted Blood Peripheral NO GROWTH IN 4 DAYS 01/28/17 06:40 Urine Culture - Final Complete Urine Catheterized Urine <10,000 CFU/ML MIXED GRAM POSITIVE FL... 01/27/17 21:57 Aerobic Blood Culture - Final Complete Blood Peripheral NO GROWTH IN 5 DAYS 01/27/17 21:57 Anaerobic Blood Culture - Final Complete Blood Peripheral NO GROWTH IN 5 DAYS Physical Examination HEENT: Normocephalic; atraumatic CHEST: Resp even/unlabored, diminished OETT CARDIAC: Tachycardic, mildly ABDOMEN: Soft, large ventral hernia, tender, but reducible, bowel sounds are present in all four quadrants. PEG tube clamped. EXTREMITIES: No clubbing, cyanosis, or edema. SKIN: Generalized pallor [employer]: Lightly sedated. (Elizabeth Mercado) Assessment and Plan Plan ASSESSMENT: - Dysphagia with Reflux, Aspiration. He had a prolonged hospitalization earlier this year, at which time we evaluated him for possible peg tube placement. EGD, Unsuccessful PEG tube placement (09/05/16)---> deformed pylorus/antrum, nodular mucosa-multiple biopsies taken, esophagitis distal esophagus, transillumination seen in the hernia sac, unable to place peg endoscopically , retroflexed views revealed a hiatal hernia. He was evaluated by general surgery at that time, but they did not feel that they could place J tube surgically. He was given nutrition via an NGT and was eventually transferred to [facility] on 09/23/16. While at [facility], he had an EGD with PEG tube placement by Dr. Bailey on 10/19/16. He was discharged to the SNF prior to this hospitalization, where ST is following and he was getting Vital Stem and tolerating a puree diet with honey thickened liquids, although he was still requiring TF for poor po intake. He was tx to [facility] for respiratory distress, intubated and on ventilator. GI consulted for suspected reflux aspiration. CT Scan abdomen and pelvis pending. Will increase protonix to BID dosing and ask IR to evaluate to see if they could possibly convert PEG tube to G/J tube. - Ileus. NPO. Reglan - Anemia. HH 8.4/25.3. - Mild elevation of LFT. 1.2, 13, 19, 205. - Respiratory failure, Aspiration pna, COPD. vent per CCM - Large ventral hernia, CT Scan pending to r/o obstruction - Sepsis, Proteus bacteremia/uti. Azithromycin, Vanco. - COPD, HTN, Hyperlipidemia, Hx Prostate Cancer. PLAN: - NPO - Consult IR to see if they can convert PEG tube to G/J tube - Increase Protonix to 40mg IV BID - Reglan - Supportive care - Further recommendations to follow based on results of above - Pt seen and examined by Dr. Ramachandran and myself and this note is written on his behalf (Elizabeth Mercado) Physician Comments Patient seen and examined agree with above Continue with current supportive care Monitor labs We will request IR to try and convert this tube into a GJ tube (Eb Ramachandran MD) Elizabeth Mercado Feb 01, 2017 15:10 Eb Ramachandran MD Feb 01, 2017 20:49
[2017-02-01] MEDS: methylPREDNISolone SOD SUCC 40 MG/1 ML VIAL IV PUSH SCH (21:06)
[2017-02-01] MEDS: PANTOPRAZOLE SODIUM 40 MG VIAL IV PUSH SCH (21:06)
[2017-02-01] MEDS: CHLORHEXIDINE 0.12% (ORAL KIT) 15 ML CUP MT SCH (21:07)
[2017-02-01] MEDS: PROPOFOL 1000 MG/100 ML INJ 100 ML IV SCH (21:29)
[2017-02-02] VITALS (19 sets, daily range): BP systolic 95–118; BP diastolic 55–63; PULSE 62–78; RESP 17–20; TEMP 98–99.6; O2SAT 95–100
[2017-02-02] MEDS: SODIUM CHLOR 0.9% 1000 ML INJ 1,000 ML IV SCH ×2 (00:10→09:45)
[2017-02-02] MEDS: RESP: ALBUTEROL 2.5 MG/IPRATROPIUM 0.5 MG NEB (SCH) NEB ×6 (00:30→20:51)
[2017-02-02] MEDS: PIPERACIL-TAZO 4.5 GM PREMIX 100 ML IV SCH ×4 (03:38→20:15)
[2017-02-02] MEDS: HYOSCYAMINE 0.125 MG TAB G-TUBE SCH ×7 (04:00→23:36)
[2017-02-02] MEDS: METOCLOPRAMIDE HCL 10 MG/2 ML VIAL IV PUSH SCH ×3 (04:31→20:14)
--- NOTE | 2017-02-02 05:51 | RADRPT ---
EXAM DATE/TIME: 02/02/2017 04:09 [place] COMPARISON: CHEST SINGLE AP, February 01, 2017, 8:33. INDICATIONS : Respiratory disease. MEDICAL HISTORY : Chronic obstructive pulmonary disease. SURGICAL HISTORY : gastric tube ENCOUNTER: Subsequent ACUITY: 1 week PAIN SCORE: Non-responsive. LOCATION: Bilateral chest FINDINGS: A single view of the chest demonstrates basilar airspace consolidation. Small effusions. Heart size n ormal. No pneumothorax. Endotracheal tube in satisfactory position. CONCLUSION: 1. Endotracheal tube tip in satisfactory position. Basilar airspace disease increased from February 01. Mark Wright MD on February 02, 2017 at 5:44 Board Certified Radiologist. This report was verified electronically.
--- NOTE | 2017-02-02 06:02 | HHI.CCPN ---
Subjective Remarks/Hospital Course 71-year-old male with past medical history of obstructive uropathy, prostate cancer, hypertension, history of cardiac arrest, mood disorder, chronic pain, GERD, COPD, CAD, mild dementia who was sent from SNF for confusion and fall. He was admitted to the hospitalist service on 01/26/17 with diagnosis of UTI. Urine culture grew Proteus and there was also 4/4 Proteus bacteremia. Patient was getting Rocephin treatment for the above. Noted to have increasing shortness of breath yesterday azithromycin added for bibasilar infiltrates by primary service. He has a history of prostate cancer 10 years ago, had urinary retention and had an indwelling Robison catheter until recently (removed at [facility]). Urology following here Dr. Sandoval. Neal Bella was called today 02/01/17 am for acute desaturation, oxygen saturation was 70%, and patient was placed on 100% nonrebreather. There was possibility of aspiration of tube feeds per bedside RN. Tube feed was held and patient was moved to the ICU. On my evaluation patient is tachypneic breathing 35-40/m and has bilateral wheezing. Was given 2 breathing treatments with DuoNeb without significant improvement. Patient is requiring frequent NT suctioning because of inability to clear secretions adequately. Also there is significant abdominal distention. I will proceed with endotracheal intubation and check CT scan of the abdomen pelvis and chest. I have also placed him on IV Solu-Medrol scheduled breathing treatments, and broaden antibiotics to Zosyn and single dose of vancomycin. Further recommendations based on imaging studies and workup Subjective 02/02: Tmax 99.6. CT chest revealed significant bilateral pneumonia likely aspiration induced. Plan for IR on Saturday to convert gastric tube to GJ tube. Robison reduced. Might need surgery catheter. Appears comfortable ventilator. Blood pressure is borderline. Objective Vital Signs Date Time Temp Pulse Resp B/P Pulse Ox O2 Delivery O2 Flow Rate FiO2 02/02/17 04:48 100 40 02/02/17 04:00 70 02/02/17 04:00 99.0 18 98/56 02/01/17 19:00 Mechanical Ventilator 02/01/17 08:41 15.00 Intake and Output 02/01/17 02/01/17 02/02/17 08:00 16:00 00:00 Intake Total 1010 ml 507 ml 995 ml Output Total 350 ml 2100 ml 325 ml Balance 660 ml -1593 ml 670 ml Result Diagram: 02/01/17 1100 02/01/17 1100 Other Results Microbiology Date/Time Procedure Status Source Growth 02/01/17 11:35 Urine Culture Received Urine Catheterized Urine Pending 02/01/17 11:00 Aerobic Blood Culture Received Blood Peripheral Pending 02/01/17 11:00 Anaerobic Blood Culture Received Blood Peripheral Pending 02/01/17 09:15 Gram Stain - Final Resulted Sputum Expectorated Sputum 02/01/17 09:15 Sputum Culture Resulted Sputum Expectorated Sputum Pending 01/28/17 17:34 Aerobic Blood Culture - Preliminary Resulted Blood Peripheral NO GROWTH IN 4 DAYS 01/28/17 17:34 Anaerobic Blood Culture - Preliminary Resulted Blood Peripheral NO GROWTH IN 4 DAYS 01/28/17 06:40 Urine Culture - Final Complete Urine Catheterized Urine <10,000 CFU/ML MIXED GRAM POSITIVE FL... Imaging Last Impressions Chest X-Ray 02/02/17 0000 Signed Impressions: Service Date/Time: Thursday, February 02, 2017 04:09 - CONCLUSION: 1. Endotracheal tube tip in satisfactory position. Basilar airspace disease increased from February 01. Mark Wright MD Chest CT 02/01/17 0000 Signed Impressions: Service Date/Time: Wednesday, February 01, 2017 10:16 - CONCLUSION: 1. Extensive, consolidated, bilateral infiltrates in the lower lobes and effusions concerning for pneumonia. In the appropriate clinical setting, this would be concerning for aspiration. 2. ET tube in good position. 3. 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 4. Scattered adenopathy in the mediastinum and AP window nonspecific in appearance. Nahun Mills MD Abdomen/Pelvis CT 02/01/17 0000 Signed Impressions: Service Date/Time: Wednesday, February 01, 2017 10:16 - CONCLUSION: 1. Bibasilar infiltrates concerning for pneumonia. 2. Diffuse distention of the small bowel with both fluid and gas suggesting ileus. There is oral contrast which has passed through the small bowel and is present throughout the colon. 3. There is a Robison catheter within the bladder 4. There is a gastrostomy tube present. Nahun Mills MD Modified Barium Swallow 01/29/17 0000 Signed Impressions: Service Date/Time: Sunday, January 29, 2017 00:00 - CONCLUSION: Penetration and aspiration are seen. Asif Bradley MD Abdomen X-Ray 01/28/17 0000 Signed Impressions: Service Date/Time: Saturday, January 28, 2017 08:27 - CONCLUSION: The oral contrast material injected through the G-tube is present within the duodenum and proximal jejunum. No abnormal extravasation is identified. Asif Dawson MD Shoulder X-Ray 01/26/17 1122 Signed Impressions: Service Date/Time: Thursday, January 26, 2017 11:43 - CONCLUSION: Post traumatic deformity of the left humeral head characteristic of an old fracture. No findings suggestive of acute fracture or dislocation. Fidel Barrett MD Knee X-Ray 01/26/17 1122 Signed Impressions: Service Date/Time: Thursday, January 26, 2017 11:48 - CONCLUSION: 1. Osteoarthritic change greatest in the medial compartment. 2. No acute fracture or malalignment. 3. Small joint effusion. Behzad Dos Santos MD Head CT 01/26/17 1122 Signed Impressions: Service Date/Time: Thursday, January 26, 2017 11:54 - CONCLUSION: Left supraorbital soft tissue swelling. No evidence of acute infarct, hemorrhage, mass, edema or fracture. Fidel Barrett MD Cervical Spine CT 01/26/17 1122 Signed Impressions: Service Date/Time: Thursday, January 26, 2017 11:56 - CONCLUSION: 1. Mild degenerative anterolisthesis secondary to facet arthropathy as described. 2. No evidence of acute fracture or traumatic listhesis. 3. Advanced facet arthropathy. 4. Moderate severe degenerative disease with spondylosis at C5-6 and C6-7. 5. No acute soft tissue abnormality. Fidel Barrett MD Renal Ultrasound 01/26/17 0000 Signed Impressions: Service Date/Time: Thursday, January 26, 2017 14:22 - CONCLUSION: Bilateral extrarenal pelvis No evidence of hydronephrosis, suspicious masses or nephrolithiasis. Fidel Barrett MD Objective Remarks GENERAL: 71-year-old male, critically ill currently orotracheally intubated SKIN: Skin assessment warm/dry. Abrasion to his left shoulder and a skin tear to the left elbow, abrasion to his left knee. There is a stage II decubitus ulcer to his left buttock area. EYES: No scleral icterus. No injection or drainage. ENT: No nasal bleeding or discharge. Mucous membranes pink and moist. NECK: Trachea midline. + JVD. Supple. CARDIOVASCULAR: RRR. S1, S2 no S4. No murmur RESPIRATORY: Bilateral rhonchi right greater than left.. Basilar crackles GASTROINTESTINAL: Abdomen distended with large ventral hernia and PEG tube passing through ventral hernia. Hepatic and splenic margins not palpable. MUSCULOSKELETAL: No obvious deformities. No significant peripheral edema. Abrasion to the left knee, left shoulder. Skin tear to the left elbow. NEUROLOGICAL: Currently sedated on the ventilator on propofol and midazolam drips Procedures None. A/P Assessment and Plan NEURO/Psych: Chronic alprazolam use - Post intubation placed on propofol at 10 mics grams per kilogram per minute/ mid as on 2 mg an hour for sedation while intubated --Goal of RA SS -2 - Daily sedation vacation --Alprazolam 0.25 mg every 8 hours when necessary RESP: Acute hypoxemic respiratory failure Healthcare associated pneumonia/aspiration Acute COPD exacerbation Mediastinal lymphadenopathy - Intubated and placed on mechanical ventilation, ACV 14/600/7/40 - Ventilator bundle -Albuterol/ipratropium aerosols every 4 hours scheduled - Pulmicort 0.5/2 twice a day - IV Solu-Medrol 60 mg every 12 - Broad-spectrum antibiotics with Zosyn and azithromycin and one dose of vancomycin - CT chest-extensive bibasilar consolidation indicating pneumonia secondary to aspiration and mediastinal adenopathy largest lymph node 1.9 cm nonspecific. CV: Sinus tachycardia resolved TAA, ascending 4.3 cm History of coronary artery disease - Normal saline IV 125 ml per hour - Continue home meds metoprolol and amiodarone if blood pressure is stable with holding parameters - 2-D echo to evaluate for bicuspid aortic valve, pending GI: Probable aspiration Abdominal distention and large ventral hernia rule out obstruction Small bowel ileus Jevity 1.5 goal 60 cc an hour pantoprazole 40 mg IV every 12 hours - CT abdomen and pelvis revealed small bowel ileus. - Consult GI re possible aspiration with PEG feeding. Recommend converting G- tube to GJ tube with IR. Plan for Saturday. : History of prostate cancer, bladder outlet obstruction - Monitor renal function closely. Place Robison catheter. Dr. Sandoval following. Might need SP catheter ID: Severe sepsis, Proteus bacteremia UTI with Proteus - Discontinue Rocephin, started Zosyn 4.5 g IV every 6 hours, continue azithromycin, 1 g IV vancomycin - Repeat blood urine and sputum culture - Blood culture 4 out of 4 bottles and urine culture from 01/26/17 growing Proteus blood cultures 02/01 no growth today. Sputum negative. Urine pending. HEME: Leukocytosis Normocytic anemia - Monitor CBC, CMP, coags ENDO: Hypokalemia/hypernatremia - Replace electrolytes per protocol. A.m. laboratories pending PROPH: - Bilateral lower extremity SCDs. Enoxaparin/pantoprazole LINES: - Utilize peripheral IVs, central line if needed Level III follow-up Alexandr Brian MD Feb 02, 2017 06:02
[2017-02-02] MEDS: RESP: BUDESONIDE 0.5 MG/2 ML NEB NEB SCH ×2 (08:06→20:51)
[2017-02-02] MEDS: LACTOBACILLUS ACIDOPHILUS TAB PO SCH ×2 (08:25→20:14)
[2017-02-02] MEDS: AMIODARONE 200 MG TAB G-TUBE SCH (08:25)
[2017-02-02] MEDS: methylPREDNISolone SOD SUCC 40 MG/1 ML VIAL IV PUSH SCH ×2 (08:25→20:14)
[2017-02-02] MEDS: SODIUM CHLORIDE 0.9% FLUSH 10 ML FLUSH IV FLUSH SCH ×2 (08:25→20:15)
[2017-02-02] MEDS: TAMSULOSIN HCL 0.4 MG CAP PO SCH (08:25)
[2017-02-02] MEDS: DOXAZOSIN MESYLATE 2 MG TAB G-TUBE SCH (08:26)
[2017-02-02] MEDS: CHLORHEXIDINE 0.12% (ORAL KIT) 15 ML CUP MT SCH ×2 (08:26→20:15)
[2017-02-02] MEDS: AZITHROMYCIN INJ 500 MG in SODIUM CHLOR 0.9% 250 ML INJ 250 ML IV SCH (08:30)
[2017-02-02] MEDS: METOPROLOL TARTRATE 25 MG TAB PO SCH ×2 (08:30→20:15)
[2017-02-02] MEDS: ENOXAPARIN SODIUM 40 MG/0.4 ML SYRINGE SQ SCH (09:27)
[2017-02-02] MEDS: PANTOPRAZOLE SODIUM 40 MG VIAL IV PUSH SCH ×2 (09:28→20:14)
[2017-02-02] MEDS: ARTIFICIAL TEARS OPTH SOLN 15 ML BTL EACH EYE SCH ×2 (14:00→20:15)
--- NOTE | 2017-02-02 14:40 | ECHRPT ---
Indication: EVAL- BICUSPID VALVE CONCLUSIONS Normal left ventricular size. Wall thickness is measured at the upper limits of normal. The left ventricular systolic function is low normal with an estimated ejection fraction in the rang e of 50- 55%. No regional wall motion abnormalities are present. Severe mitral annular calcification. Calcification of both mitral valve leaflets. The aortic valve is not well visualized. Cannot rule out a bicuspid aortic valve or trileaflet valve with partially fused commissure. Aortic valve sclerosis is present. Mild thickening of the aortic valve leaflets. Mild thickening of the tricuspid valve leaflets. There is trace tricuspid valve regurgitation. The estimated pulmonary arterial pressure is 37 mmHg. BP: 158 / 83 HR: 112 Rhythm: Sinus Technical Quality:Fair FINDINGS LEFT VENTRICLE Normal left ventricular size. Wall thickness is measured at the upper limits of normal. The left ventricular systolic function is low normal with an estimated ejection fraction in the rang e of 50- 55%. No regional wall motion abnormalities are present. RIGHT VENTRICLE Normal right ventricular size and systolic function. LEFT ATRIUM The left atrial size is normal. RIGHT ATRIUM The right atrial size is normal. ATRIAL SEPTUM Normal atrial septal thickness without atrial level shunting by limited color doppler interrogation. AORTA The aortic root and proximal ascending aorta are normal in size on limited imaging. MITRAL VALVE Severe mitral annular calcification. Calcification of both mitral valve leaflets. AORTIC VALVE The aortic valve is not well visualized. Cannot rule out a bicuspid aortic valve or trileaflet valve with partially fused commissure. Aortic valve sclerosis is present. Mild thickening of the aortic valve leaflets. TRICUSPID VALVE Mild thickening of the tricuspid valve leaflets. There is trace tricuspid valve regurgitation. The estimated pulmonary arterial pressure is 37 mmHg. PULMONARY VALVE The pulmonary valve is not well visualized. VESSELS The inferior vena cava is normal in size. PERICARDIUM No pericardial effusion. Chino Casarez MD (Electronically Signed) Final Date:02 February 2017 14:39
[2017-02-02 17:22] LABS: MEAN CELL VOLUME 94.2 FL (80.0-100.0); MEAN CORPUSCULAR HEMOGLOBIN 31.7 PG (27.0-34.0); MEAN CORPUSCULAR HGB CONC 33.7 % (32.0-36.0); PLATELET COUNT 265 TH/MM3 (150-450); RED BLOOD COUNT 2.22 MIL/MM3 (4.50-5.90); RED CELL DISTRIBUTION WIDTH 14.7 % (11.6-17.2); WHITE BLOOD COUNT 14.5 TH/MM3 (4.0-11.0)
[2017-02-02 17:24] LABS: REVIEW FLAG FINAL
--- NOTE | 2017-02-02 17:25 | HHI.GIFU ---
Subjective Remarks Resting in bed. Lightly sedated, arouses and follows commands. TF started today, so far tolerating. No BM today. (Elizabeth Mercado) Objective Vitals I&O Vital Signs Date Time Temp Pulse Resp B/P Pulse Ox O2 Delivery O2 Flow Rate FiO2 02/02/17 16:28 98 40 02/02/17 16:00 71 02/02/17 16:00 98.0 62 19 113/62 98 02/02/17 14:00 77 02/02/17 12:00 77 02/02/17 12:00 98.3 69 17 118/63 98 02/02/17 11:59 98 40 02/02/17 10:00 70 02/02/17 08:06 97 40 02/02/17 08:00 98.8 69 19 102/58 98 02/02/17 08:00 73 02/02/17 07:00 97 Mechanical Ventilator 40 02/02/17 06:00 76 02/02/17 04:48 100 40 02/02/17 04:00 70 02/02/17 04:00 99.0 70 18 98/56 97 02/02/17 02:00 74 02/02/17 00:31 96 40 02/02/17 00:00 99.6 78 20 95/55 95 02/02/17 00:00 78 02/01/17 20:00 99.6 92 22 100/59 97 02/01/17 19:36 96 40 02/01/17 19:00 97 Mechanical Ventilator 40 I/O 02/01/17 02/01/17 02/01/17 02/02/17 02/02/17 02/02/17 06:59 14:59 22:59 06:59 14:59 22:59 Intake Total 1010 ml 507 ml 995 ml 947 ml 1671 ml Output Total 550 ml 2100 ml 325 ml 300 ml 400 ml Balance 460 ml -1593 ml 670 ml 647 ml 1271 ml Intake Oral 0 ml 0 ml 0 ml 0 ml IV Total 685 ml 507 ml 995 ml 947 ml 1164 ml Tube Feeding 325 ml 420 ml Tube Irrigant 25 ml Other 62 ml Output Urine Total 450 ml 2100 ml 325 ml 300 ml 400 ml Emesis 100 ml # Bowel Movements 0 0 0 0 0 Laboratory Date/Time Procedure Status Source Growth 02/01/17 11:35 Urine Culture - Preliminary Resulted Urine Catheterized Urine NO GROWTH IN 24 HOURS. 02/01/17 11:00 Aerobic Blood Culture - Preliminary Resulted Blood Peripheral NO GROWTH IN 1 DAY 02/01/17 11:00 Anaerobic Blood Culture - Preliminary Resulted Blood Peripheral NO GROWTH IN 1 DAY 02/01/17 09:15 Gram Stain - Final Resulted Sputum Expectorated Sputum 02/01/17 09:15 Sputum Culture - Preliminary Resulted Gram Negative Artem 01/28/17 17:34 Aerobic Blood Culture - Final Complete Blood Peripheral NO GROWTH IN 5 DAYS 01/28/17 17:34 Anaerobic Blood Culture - Final Complete Blood Peripheral NO GROWTH IN 5 DAYS Imaging Last Impressions Chest X-Ray 02/02/17 0000 Signed Impressions: Service Date/Time: Thursday, February 02, 2017 04:09 - CONCLUSION: 1. Endotracheal tube tip in satisfactory position. Basilar airspace disease increased from February 01. Mark Wright MD Chest CT 02/01/17 0000 Signed Impressions: Service Date/Time: Wednesday, February 01, 2017 10:16 - CONCLUSION: 1. Extensive, consolidated, bilateral infiltrates in the lower lobes and effusions concerning for pneumonia. In the appropriate clinical setting, this would be concerning for aspiration. 2. ET tube in good position. 3. 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 4. Scattered adenopathy in the mediastinum and AP window nonspecific in appearance. Nahun Mills MD Abdomen/Pelvis CT 02/01/17 0000 Signed Impressions: Service Date/Time: Wednesday, February 01, 2017 10:16 - CONCLUSION: 1. Bibasilar infiltrates concerning for pneumonia. 2. Diffuse distention of the small bowel with both fluid and gas suggesting ileus. There is oral contrast which has passed through the small bowel and is present throughout the colon. 3. There is a Robison catheter within the bladder 4. There is a gastrostomy tube present. Nahun Mills MD Modified Barium Swallow 01/29/17 0000 Signed Impressions: Service Date/Time: Sunday, January 29, 2017 00:00 - CONCLUSION: Penetration and aspiration are seen. Asif Bradley MD Abdomen X-Ray 01/28/17 0000 Signed Impressions: Service Date/Time: Saturday, January 28, 2017 08:27 - CONCLUSION: The oral contrast material injected through the G-tube is present within the duodenum and proximal jejunum. No abnormal extravasation is identified. Asif Dawson MD Shoulder X-Ray 01/26/17 1122 Signed Impressions: Service Date/Time: Thursday, January 26, 2017 11:43 - CONCLUSION: Post traumatic deformity of the left humeral head characteristic of an old fracture. No findings suggestive of acute fracture or dislocation. Fidel Barrett MD Knee X-Ray 01/26/17 1122 Signed Impressions: Service Date/Time: Thursday, January 26, 2017 11:48 - CONCLUSION: 1. Osteoarthritic change greatest in the medial compartment. 2. No acute fracture or malalignment. 3. Small joint effusion. Behzad Dos Santos MD Head CT 01/26/17 112 Signed Impressions: Service Date/Time: Thursday, January 26, 2017 11:54 - CONCLUSION: Left supraorbital soft tissue swelling. No evidence of acute infarct, hemorrhage, mass, edema or fracture. Fidel Barrett MD Cervical Spine CT 01/26/17 112 Signed Impressions: Service Date/Time: Thursday, January 26, 2017 11:56 - CONCLUSION: 1. Mild degenerative anterolisthesis secondary to facet arthropathy as described. 2. No evidence of acute fracture or traumatic listhesis. 3. Advanced facet arthropathy. 4. Moderate severe degenerative disease with spondylosis at C5-6 and C6-7. 5. No acute soft tissue abnormality. Fidel Barrett MD Renal Ultrasound 01/26/17 0000 Signed Impressions: Service Date/Time: Thursday, January 26, 2017 14:22 - CONCLUSION: Bilateral extrarenal pelvis No evidence of hydronephrosis, suspicious masses or nephrolithiasis. Fidel Barrett MD Physical Exam HEENT: Normocephalic; atraumatic CHEST: Course breath sounds, crackles in bases. OETT to vent. CARDIAC: RRR ABDOMEN: Soft, mildly distended, nontender; large ventral hernia. PEG tube with TF EXTREMITIES: No edema. 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 Follows commands (Elizabeth Mercado) Assessment and Plan Plan ASSESSMENT: - Dysphagia with Reflux, Suspected aspiration. He had a prolonged hospitalization earlier this year, at which time we evaluated him for possible peg tube placement. EGD, Unsuccessful PEG tube placement (09/05/16)---> deformed pylorus/antrum, nodular mucosa-multiple biopsies taken, esophagitis distal esophagus, transillumination seen in the hernia sac, unable to place peg endoscopically , retroflexed views revealed a hiatal hernia. He was evaluated by general surgery at that time, but they did not feel that they could place J tube surgically. He was given nutrition via an NGT and was eventually transferred to [facility] on 09/23/16. While at [facility], he had an EGD with PEG tube placement by Dr. Bailey on 10/19/16. He was discharged to the SNF prior to this hospitalization, where ST is following and he was getting Vital Stem and tolerating a puree diet with honey thickened liquids, although he was still requiring TF for poor po intake. He was tx to [facility] for respiratory distress, intubated and on ventilator. TF started today. So far, seems to be tolerating. Plan is to have IR convert PEG to G/J tube on Saturday. PPI with BID dosing. - Ileus. Abdomen/Pelvis CT (02/01/17)-----> 1. Bibasilar infiltrates concerning for pneumonia. 2. Diffuse distention of the small bowel with both fluid and gas suggesting ileus. There is oral contrast which has passed through the small bowel and is present throughout the colon. 3. There is a Robison catheter within the bladder 4. There is a gastrostomy tube present. Abdomen not quite as distended today. Started on TF, seems to be tolerating so far. No bm yesterday or today, add Miralax. Cont. Reglan. - Anemia. HH 8.4/25.3 yesterday. Will recheck in am. - Mild elevation of LFT. S/P CT. - Respiratory failure, Aspiration pna, COPD. vent per CCM - Large ventral hernia. - Sepsis, Proteus bacteremia/uti. Azithromycin, Vanco. - COPD, HTN, Hyperlipidemia, Hx Prostate Cancer. PLAN: - Jevity 1.5 at 60cc/hr - Cont. PPI - Cont. Reglan - Add Miralax - CBC, BMP in am - Supportive care - Plan is for IR to convert PEG to G/J tube on Saturday - Further recommendations to follow based on results of above - Pt seen and examined by Dr. Ramachandran and myself and this note is written on his behalf (Elizabeth Mercado) Physician Comments Seen and examined, plan as above, further recommendations to follow. (Cele Desai MD) Elizabeth Mercado Feb 02, 2017 17:25 Cele Desai MD Feb 02, 2017 18:14
[2017-02-02 17:28] LABS: HEMATOCRIT 20.9 % (39.0-51.0)
[2017-02-02 17:34] LABS: BICARBONATE 28.8 MEQ/L (21.0-32.0); MAGNESIUM 1.5 MG/DL (1.5-2.5); POTASSIUM 3.3 MEQ/L (3.5-5.1)
[2017-02-02] MEDS: SODIUM CHLOR 0.45% 1000 ML INJ 1,000 ML IV SCH (18:17)
[2017-02-02] MEDS: POLYETHYLENE GLYCOL 17 GM PKG PO SCH (18:17)
[2017-02-02] MEDS: PROPOFOL 1000 MG/100 ML INJ 100 ML IV SCH (19:02)
[2017-02-03] VITALS (11 sets, daily range): BP systolic 108–157; BP diastolic 58–73; PULSE 56–81; RESP 18–22; TEMP 98–99.4; O2SAT 96–99
[2017-02-03] MEDS: RESP: ALBUTEROL 2.5 MG/IPRATROPIUM 0.5 MG NEB (SCH) NEB ×6 (00:15→23:54)
[2017-02-03] MEDS: MIDAZOLAM 100 MG/NS 100 ML DRIP Premix IV SCH (00:34)
[2017-02-03] MEDS: PROPOFOL 1000 MG/100 ML INJ 100 ML IV SCH ×4 (00:34→22:47)
[2017-02-03] MEDS: HYOSCYAMINE 0.125 MG TAB G-TUBE SCH ×5 (04:00→21:18)
[2017-02-03 04:45] LABS: AUTOMATED NEUTROPHIL # 12.1 TH/MM3 (1.8-7.7); HEMATOCRIT 25.4 % (39.0-51.0); HEMO FLAGS DIFF FINAL; LYMPH % 2.5 % (9.0-44.0); LYMPHOCYTE # 0.3 TH/MM3 (1.0-4.8); MEAN CELL VOLUME 91.2 FL (80.0-100.0); MONO % 1.9 % (0.0-8.0); NEUT % 95.6 % (16.0-70.0); PLATELET COUNT 272 TH/MM3 (150-450); RED BLOOD COUNT 2.78 MIL/MM3 (4.50-5.90); RED CELL DISTRIBUTION WIDTH 16.2 % (11.6-17.2); WHITE BLOOD COUNT 12.6 TH/MM3 (4.0-11.0)
[2017-02-03 04:52] LABS: ALT (GPT) 16 U/L (12-78); ANION GAP 8 MEQ/L (5-15); AST (GOT) 11 U/L (15-37); BICARBONATE 26.7 MEQ/L (21.0-32.0); BLOOD UREA NITROGEN 29 MG/DL (7-18); CHLORIDE 115 MEQ/L (98-107); GLOMERULAR FILTRATION RATE 67 ML/MIN (>89); MAGNESIUM 1.8 MG/DL (1.5-2.5); POTASSIUM 3.3 MEQ/L (3.5-5.1); SODIUM (NA) 150 MEQ/L (136-145)
[2017-02-03] MEDS: METOCLOPRAMIDE HCL 10 MG/2 ML VIAL IV PUSH SCH ×3 (04:52→21:19)
[2017-02-03] MEDS: PIPERACIL-TAZO 4.5 GM PREMIX 100 ML IV SCH ×4 (04:52→21:20)
[2017-02-03] MEDS: ARTIFICIAL TEARS OPTH SOLN 15 ML BTL EACH EYE SCH ×3 (04:54→21:19)
[2017-02-03] MEDS: SODIUM CHLOR 0.45% 1000 ML INJ 1,000 ML IV SCH ×2 (04:54→15:39)
[2017-02-03 04:56] LABS: ALKALINE PHOSPHATASE 131 U/L (45-117); TOTAL BILIRUBIN ADULT 0.2 MG/DL (0.2-1.0)
--- NOTE | 2017-02-03 06:05 | RADRPT ---
EXAM DATE/TIME: 02/03/2017 04:27 [place] COMPARISON: CHEST SINGLE AP, February 02, 2017, 4:09. INDICATIONS : Respiratory failure, Sepsis MEDICAL HISTORY : Chronic obstructive pulmonary disease. SURGICAL HISTORY : None. ENCOUNTER: Subsequent ACUITY: 1 week PAIN SCORE: Non-responsive. LOCATION: Bilateral chest FINDINGS: A single view of the chest demonstrates the lungs to be symmetrically aerated with bibasilar airspace disease and probable associated effusions. Heart size is normal. Endotracheal tube remains appropria tely positioned above the po. CONCLUSION: Stable appearance of the chest with bibasilar airspace disease and probable associated effusions , left greater than right. Rick Hancock MD on February 03, 2017 at 6:03 Board Certified Radiologist. This report was verified electronically.
[2017-02-03] MEDS: RESP: BUDESONIDE 0.5 MG/2 ML NEB NEB SCH ×2 (07:16→19:59)
--- NOTE | 2017-02-03 07:31 | HHI.CCPN ---
Subjective Remarks/Hospital Course 71-year-old male with past medical history of obstructive uropathy, prostate cancer, hypertension, history of cardiac arrest, mood disorder, chronic pain, GERD, COPD, CAD, mild dementia who was sent from SNF for confusion and fall. He was admitted to the hospitalist service on 01/26/17 with diagnosis of UTI. Urine culture grew Proteus and there was also 4/4 Proteus bacteremia. Patient was getting Rocephin treatment for the above. Noted to have increasing shortness of breath yesterday azithromycin added for bibasilar infiltrates by primary service. He has a history of prostate cancer 10 years ago, had urinary retention and had an indwelling Robison catheter until recently (removed at [facility]). Urology following here Dr. Sandoval. Neal Bella was called today 02/01/17 am for acute desaturation, oxygen saturation was 70%, and patient was placed on 100% nonrebreather. There was possibility of aspiration of tube feeds per bedside RN. Tube feed was held and patient was moved to the ICU. On my evaluation patient is tachypneic breathing 35-40/m and has bilateral wheezing. Was given 2 breathing treatments with DuoNeb without significant improvement. Patient is requiring frequent NT suctioning because of inability to clear secretions adequately. Also there is significant abdominal distention. I will proceed with endotracheal intubation and check CT scan of the abdomen pelvis and chest. I have also placed him on IV Solu-Medrol scheduled breathing treatments, and broaden antibiotics to Zosyn and single dose of vancomycin. Further recommendations based on imaging studies and workup Subjective 02/02: Tmax 99.6. CT chest revealed significant bilateral pneumonia likely aspiration induced. Plan for IR on Saturday to convert gastric tube to GJ tube. Robison reduced. Might need surgery catheter. Appears comfortable ventilator. Blood pressure is borderline. 02/03: Remains sedated, orally intubated on mechanical ventilation. Awaiting GJ tube by IR on Saturday. Had a large bowel movement last night. Objective Vital Signs Date Time Temp Pulse Resp B/P Pulse Ox O2 Delivery O2 Flow Rate FiO2 02/03/17 07:16 98 40 02/03/17 06:00 70 02/03/17 04:00 99.2 18 117/65 02/02/17 19:00 Mechanical Ventilator 02/01/17 08:41 15.00 Intake and Output 8/02/02/17 02/02/17 07:59 15:59 23:59 Intake Total 947 ml 1671 ml 1387 ml Output Total 300 ml 400 ml 325 ml Balance 647 ml 1271 ml 1062 ml Result Diagram: 02/03/1740902/03/17 0410 Imaging Last Impressions Chest X-Ray 02/02/17 0000 Signed Impressions: Service Date/Time: Thursday, February 02, 2017 04:09 - CONCLUSION: 1. Endotracheal tube tip in satisfactory position. Basilar airspace disease increased from February 01. Mark Wright MD Chest CT 02/01/17 0000 Signed Impressions: Service Date/Time: Wednesday, February 01, 2017 10:16 - CONCLUSION: 1. Extensive, consolidated, bilateral infiltrates in the lower lobes and effusions concerning for pneumonia. In the appropriate clinical setting, this would be concerning for aspiration. 2. ET tube in good position. 3. 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 4. Scattered adenopathy in the mediastinum and AP window nonspecific in appearance. Nahun Mills MD Abdomen/Pelvis CT 02/01/17 0000 Signed Impressions: Service Date/Time: Wednesday, February 01, 2017 10:16 - CONCLUSION: 1. Bibasilar infiltrates concerning for pneumonia. 2. Diffuse distention of the small bowel with both fluid and gas suggesting ileus. There is oral contrast which has passed through the small bowel and is present throughout the colon. 3. There is a Robison catheter within the bladder 4. There is a gastrostomy tube present. Nahun Mills MD Modified Barium Swallow 01/29/17 0000 Signed Impressions: Service Date/Time: Sunday, January 29, 2017 00:00 - CONCLUSION: Penetration and aspiration are seen. Asif Bradley MD Abdomen X-Ray 01/28/17 0000 Signed Impressions: Service Date/Time: Saturday, January 28, 2017 08:27 - CONCLUSION: The oral contrast material injected through the G-tube is present within the duodenum and proximal jejunum. No abnormal extravasation is identified. Asif Dawson MD Shoulder X-Ray 01/26/17 1122 Signed Impressions: Service Date/Time: Thursday, January 26, 2017 11:43 - CONCLUSION: Post traumatic deformity of the left humeral head characteristic of an old fracture. No findings suggestive of acute fracture or dislocation. Fidel Barrett MD Knee X-Ray 01/26/172 Signed Impressions: Service Date/Time: Thursday, January 26, 2017 11:48 - CONCLUSION: 1. Osteoarthritic change greatest in the medial compartment. 2. No acute fracture or malalignment. 3. Small joint effusion. Behzad Dos Santos MD Head CT 01/26/17 1122 Signed Impressions: Service Date/Time: Thursday, January 26, 2017 11:54 - CONCLUSION: Left supraorbital soft tissue swelling. No evidence of acute infarct, hemorrhage, mass, edema or fracture. Fidel Barrett MD Cervical Spine CT 01/26/17 1122 Signed Impressions: Service Date/Time: Thursday, January 26, 2017 11:56 - CONCLUSION: 1. Mild degenerative anterolisthesis secondary to facet arthropathy as described. 2. No evidence of acute fracture or traumatic listhesis. 3. Advanced facet arthropathy. 4. Moderate severe degenerative disease with spondylosis at C5-6 and C6-7. 5. No acute soft tissue abnormality. Fidel Barrett MD Renal Ultrasound 01/26/17 0000 Signed Impressions: Service Date/Time: Thursday, January 26, 2017 14:22 - CONCLUSION: Bilateral extrarenal pelvis No evidence of hydronephrosis, suspicious masses or nephrolithiasis. Fidel Barrett MD Objective Remarks GENERAL: 71-year-old male, critically ill currently orotracheally intubated SKIN: Skin assessment warm/dry. Abrasion to his left shoulder and a skin tear to the left elbow, abrasion to his left knee. There is a stage II decubitus ulcer to his left buttock area. EYES: No scleral icterus. No injection or drainage. ENT: No nasal bleeding or discharge. Mucous membranes pink and moist. NECK: Trachea midline. + JVD. Supple. CARDIOVASCULAR: RRR. S1, S2 no S4. No murmur RESPIRATORY: Bilateral rhonchi right greater than left.. Basilar crackles GASTROINTESTINAL: Abdomen distended with large ventral hernia and PEG tube passing through ventral hernia. Hepatic and splenic margins not palpable. MUSCULOSKELETAL: No obvious deformities. No significant peripheral edema. Abrasion to the left knee, left shoulder. Skin tear to the left elbow. NEUROLOGICAL: Currently sedated on the ventilator on propofol and midazolam drips Procedures None. A/P Assessment and Plan NEURO/Psych: Chronic alprazolam use - Post intubation placed on propofol at 10 mics grams per kilogram per minute/ mid as on 2 mg an hour for sedation while intubated --Goal of RA SS -2 - Daily sedation vacation --Alprazolam 0.25 mg every 8 hours when necessary RESP: Acute hypoxemic respiratory failure Healthcare associated pneumonia/aspiration Acute COPD exacerbation Mediastinal lymphadenopathy - Intubated and placed on mechanical ventilation, ACV 14/600/7/40 - Ventilator bundle -Albuterol/ipratropium aerosols every 4 hours scheduled - Pulmicort 0.5/2 twice a day - IV Solu-Medrol 60 mg every 12 - Broad-spectrum antibiotics with Zosyn and azithromycin and one dose of vancomycin - CT chest-extensive bibasilar consolidation indicating pneumonia secondary to aspiration and mediastinal adenopathy largest lymph node 1.9 cm nonspecific. CV: Sinus tachycardia resolved TAA, ascending 4.3 cm History of coronary artery disease - Normal saline IV 125 ml per hour - Continue home meds metoprolol and amiodarone if blood pressure is stable with holding parameters - 2-D echo to evaluate for bicuspid aortic valve, pending GI: Probable aspiration Abdominal distention and large ventral hernia rule out obstruction Small bowel ileus Jevity 1.5 goal 60 cc an hour pantoprazole 40 mg IV every 12 hours - CT abdomen and pelvis revealed small bowel ileus. - Consulted GI re possible aspiration with PEG feeding. Recommend converting G- tube to GJ tube with IR. Plan for Saturday. : History of prostate cancer, bladder outlet obstruction - Monitor renal function closely. Place Robison catheter. Dr. Sandoval following. Might need SP catheter ID: Severe sepsis, Proteus bacteremia UTI with Proteus - Off Rocephin, started Zosyn 4.5 g IV every 6 hours, continue azithromycin, 1 g IV vancomycin - F/u blood urine and sputum culture - Blood culture 4 out of 4 bottles and urine culture from 01/26/17 growing Proteus blood cultures 02/01 no growth today. Sputum culture 02/01 with GNR. HEME: Leukocytosis Normocytic anemia - Monitor CBC, CMP, coags ENDO: Hypokalemia/hypernatremia - Replace electrolytes per protocol. A.m. laboratories pending PROPH: - Bilateral lower extremity SCDs. Enoxaparin/pantoprazole LINES: - Utilize peripheral IVs, central line if needed Level III follow-up Bartolo Duke MD Feb 03, 2017 07:31
[2017-02-03] MEDS: CHLORHEXIDINE 0.12% (ORAL KIT) 15 ML CUP MT SCH ×2 (08:00→21:20)
[2017-02-03] MEDS: AZITHROMYCIN INJ 500 MG in SODIUM CHLOR 0.9% 250 ML INJ 250 ML IV SCH (08:00)
[2017-02-03] MEDS: METOPROLOL TARTRATE 25 MG TAB PO SCH ×2 (09:00→21:18)
[2017-02-03] MEDS: SODIUM CHLORIDE 0.9% FLUSH 10 ML FLUSH IV FLUSH SCH ×2 (09:00→21:20)
[2017-02-03] MEDS: TAMSULOSIN HCL 0.4 MG CAP PO SCH (09:00)
[2017-02-03] MEDS: POLYETHYLENE GLYCOL 17 GM PKG PO SCH (09:00)
[2017-02-03] MEDS: DOXAZOSIN MESYLATE 2 MG TAB G-TUBE SCH (09:00)
[2017-02-03] MEDS: methylPREDNISolone SOD SUCC 40 MG/1 ML VIAL IV PUSH SCH ×2 (09:00→21:19)
[2017-02-03] MEDS: LACTOBACILLUS ACIDOPHILUS TAB PO SCH ×2 (09:00→21:18)
[2017-02-03] MEDS: AMIODARONE 200 MG TAB G-TUBE SCH (10:00)
[2017-02-03] MEDS: ENOXAPARIN SODIUM 40 MG/0.4 ML SYRINGE SQ SCH (10:00)
[2017-02-03] MEDS: PANTOPRAZOLE SODIUM 40 MG VIAL IV PUSH SCH ×2 (10:00→21:19)
[2017-02-04] VITALS (19 sets, daily range): BP systolic 144–191; BP diastolic 56–82; PULSE 44–56; RESP 15–23; TEMP 96.7–97.9; O2SAT 99–100
[2017-02-04] MEDS: MIDAZOLAM 100 MG/NS 100 ML DRIP Premix IV SCH (00:47)
[2017-02-04] MEDS: HYOSCYAMINE 0.125 MG TAB G-TUBE SCH ×6 (00:47→20:11)
[2017-02-04] MEDS: SODIUM CHLOR 0.45% 1000 ML INJ 1,000 ML IV SCH ×3 (00:47→15:54)
[2017-02-04] MEDS: RESP: ALBUTEROL 2.5 MG/IPRATROPIUM 0.5 MG NEB (SCH) NEB ×3 (04:25→11:31)
[2017-02-04] MEDS: PIPERACIL-TAZO 4.5 GM PREMIX 100 ML IV SCH ×4 (04:46→20:23)
[2017-02-04] MEDS: PROPOFOL 1000 MG/100 ML INJ 100 ML IV SCH ×3 (04:56→22:27)
[2017-02-04] MEDS: ARTIFICIAL TEARS OPTH SOLN 15 ML BTL EACH EYE SCH ×3 (05:51→20:27)
[2017-02-04] MEDS: METOCLOPRAMIDE HCL 10 MG/2 ML VIAL IV PUSH SCH ×3 (05:51→20:25)
[2017-02-04] MEDS: RESP: BUDESONIDE 0.5 MG/2 ML NEB NEB SCH ×2 (08:01→21:47)
[2017-02-04] MEDS: TAMSULOSIN HCL 0.4 MG CAP PO SCH (08:16)
[2017-02-04] MEDS: DOXAZOSIN MESYLATE 2 MG TAB G-TUBE SCH (08:16)
[2017-02-04] MEDS: LACTOBACILLUS ACIDOPHILUS TAB PO SCH ×2 (08:16→20:34)
[2017-02-04] MEDS: AZITHROMYCIN INJ 500 MG in SODIUM CHLOR 0.9% 250 ML INJ 250 ML IV SCH (08:16)
[2017-02-04] MEDS: AMIODARONE 200 MG TAB G-TUBE SCH (08:17)
[2017-02-04] MEDS: METOPROLOL TARTRATE 25 MG TAB PO SCH ×2 (08:17→20:21)
[2017-02-04] MEDS: POLYETHYLENE GLYCOL 17 GM PKG PO SCH (08:17)
[2017-02-04] MEDS: methylPREDNISolone SOD SUCC 40 MG/1 ML VIAL IV PUSH SCH ×2 (08:17→20:17)
[2017-02-04] MEDS: CHLORHEXIDINE 0.12% (ORAL KIT) 15 ML CUP MT SCH ×2 (08:17→20:26)
[2017-02-04] MEDS: SODIUM CHLORIDE 0.9% FLUSH 10 ML FLUSH IV FLUSH SCH ×2 (08:17→20:11)
[2017-02-04] MEDS: ENOXAPARIN SODIUM 40 MG/0.4 ML SYRINGE SQ SCH (10:00)
[2017-02-04] MEDS: PANTOPRAZOLE SODIUM 40 MG VIAL IV PUSH SCH ×2 (10:03→20:23)
[2017-02-04] MEDS: hydrALAZINE HCL 20 MG/ML VIAL IV PRN ×3 (10:48→20:18)
--- NOTE | 2017-02-04 12:53 | PD.RAD ---
Post Procedure Progress Note Pre Procedure Diagnosis: (1) Respiratory distress (2) Right lower lobe pneumonia Post Procedure Diagnosis: (1) Respiratory distress (2) Right lower lobe pneumonia Procedure Date: Feb 04, 2017 Supervising Radiologist: Jaime Quinteros JR Proceduralist/Assist: Emir Rodriguez, RT(R), Soraida Monreal RT(R) Anesthesia: Other Plan of Activity Patient to Unit: Critical Care Patient Condition: Fair See PACS Report for procedural detail/treatment Feeding Tube Gastro/Jejunostomy Conversion Luxembourger: 22 Findings: Converted an endoscopically placed G tube to a transgastric GJ tube. The entry of the existing G tube is in the antrum. Anchoring balloon runs risk of gastric outlet obstruction. Will need to monitor closely for any signs of GOB. Tip of tube in prox jejunum. Plan Monitor closely for any signs of gastric outlet obstruction. Jr Aldair.,Jaime Gaston MD Feb 04, 2017 12:53
[2017-02-04] MEDS ORDERED: IOHEXOL 350 MG/ML 50 ML BTL (for RAD DIAG) G-TUBE ONE (13:10)
[2017-02-04 14:43] LABS: BICARBONATE 27.6 MEQ/L (21.0-32.0); POTASSIUM 3.6 MEQ/L (3.5-5.1)
--- NOTE | 2017-02-04 15:10 | HHI.CCPN ---
Subjective Remarks/Hospital Course 71-year-old male with past medical history of obstructive uropathy, prostate cancer, hypertension, history of cardiac arrest, mood disorder, chronic pain, GERD, COPD, CAD, mild dementia who was sent from SNF for confusion and fall. He was admitted to the hospitalist service on 01/26/17 with diagnosis of UTI. Urine culture grew Proteus and there was also 4/4 Proteus bacteremia. Patient was getting Rocephin treatment for the above. Noted to have increasing shortness of breath yesterday azithromycin added for bibasilar infiltrates by primary service. He has a history of prostate cancer 10 years ago, had urinary retention and had an indwelling Robison catheter until recently (removed at [facility]). Urology following here Dr. Sandoval. Neal Bella was called today 02/01/17 am for acute desaturation, oxygen saturation was 70%, and patient was placed on 100% nonrebreather. There was possibility of aspiration of tube feeds per bedside RN. Tube feed was held and patient was moved to the ICU. On my evaluation patient is tachypneic breathing 35-40/m and has bilateral wheezing. Was given 2 breathing treatments with DuoNeb without significant improvement. Patient is requiring frequent NT suctioning because of inability to clear secretions adequately. Also there is significant abdominal distention. I will proceed with endotracheal intubation and check CT scan of the abdomen pelvis and chest. I have also placed him on IV Solu-Medrol scheduled breathing treatments, and broaden antibiotics to Zosyn and single dose of vancomycin. Further recommendations based on imaging studies and workup Subjective 02/02: Tmax 99.6. CT chest revealed significant bilateral pneumonia likely aspiration induced. Plan for IR on Saturday to convert gastric tube to GJ tube. Robison reduced. Might need surgery catheter. Appears comfortable ventilator. Blood pressure is borderline. 02/03: Remains sedated, orally intubated on mechanical ventilation. Awaiting GJ tube by IR on Saturday. Had a large bowel movement last night. 02/04: Remains sedated, easily arousable, orally intubated on mechanical ventilation. Objective Vital Signs Date Time Temp Pulse Resp B/P (MAP) Pulse Ox O2 Delivery O2 Flow Rate FiO2 02/04/17 14:00 47 02/04/17 11:55 100 100 02/04/17 08:00 96.7 19 166/80 (108) 02/04/17 07:00 Mechanical Ventilator 02/01/17 08:41 15.00 Intake and Output 02/04/17 02/04/17 02/05/17 08:00 16:00 00:00 Intake Total 1660 ml 350 ml Output Total 700 ml Balance 960 ml 350 ml Result Diagram: 02/03/17 0410 02/04/17 1320 Imaging Last Impressions Chest X-Ray 02/02/17 0000 Signed Impressions: Service Date/Time: Thursday, February 02, 2017 04:09 - CONCLUSION: 1. Endotracheal tube tip in satisfactory position. Basilar airspace disease increased from February 01. Mark Wright MD Chest CT 02/01/17 0000 Signed Impressions: Service Date/Time: Wednesday, February 01, 2017 10:16 - CONCLUSION: 1. Extensive, consolidated, bilateral infiltrates in the lower lobes and effusions concerning for pneumonia. In the appropriate clinical setting, this would be concerning for aspiration. 2. ET tube in good position. 3. 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 4. Scattered adenopathy in the mediastinum and AP window nonspecific in appearance. Nahun Mills MD Abdomen/Pelvis CT 02/01/17 0000 Signed Impressions: Service Date/Time: Wednesday, February 01, 2017 10:16 - CONCLUSION: 1. Bibasilar infiltrates concerning for pneumonia. 2. Diffuse distention of the small bowel with both fluid and gas suggesting ileus. There is oral contrast which has passed through the small bowel and is present throughout the colon. 3. There is a Robison catheter within the bladder 4. There is a gastrostomy tube present. Nahun Mills MD Modified Barium Swallow 01/29/17 0000 Signed Impressions: Service Date/Time: Sunday, January 29, 2017 00:00 - CONCLUSION: Penetration and aspiration are seen. Asif Bradley MD Abdomen X-Ray 01/28/17 0000 Signed Impressions: Service Date/Time: Saturday, January 28, 2017 08:27 - CONCLUSION: The oral contrast material injected through the G-tube is present within the duodenum and proximal jejunum. No abnormal extravasation is identified. Asif Dawson MD Shoulder X-Ray 01/26/17 1122 Signed Impressions: Service Date/Time: Thursday, January 26, 2017 11:43 - CONCLUSION: Post traumatic deformity of the left humeral head characteristic of an old fracture. No findings suggestive of acute fracture or dislocation. Fidel Barrett MD Knee X-Ray 01/26/171121 Signed Impressions: Service Date/Time: Thursday, January 26, 2017 11:48 - CONCLUSION: 1. Osteoarthritic change greatest in the medial compartment. 2. No acute fracture or malalignment. 3. Small joint effusion. Behzad Dos Santos MD Head CT 01/26/171121 Signed Impressions: Service Date/Time: Thursday, January 26, 2017 11:54 - CONCLUSION: Left supraorbital soft tissue swelling. No evidence of acute infarct, hemorrhage, mass, edema or fracture. Fidel Barrett MD Cervical Spine CT 01/26/171121 Signed Impressions: Service Date/Time: Thursday, January 26, 2017 11:56 - CONCLUSION: 1. Mild degenerative anterolisthesis secondary to facet arthropathy as described. 2. No evidence of acute fracture or traumatic listhesis. 3. Advanced facet arthropathy. 4. Moderate severe degenerative disease with spondylosis at C5-6 and C6-7. 5. No acute soft tissue abnormality. Fidel Barrett MD Renal Ultrasound 01/26/17 0000 Signed Impressions: Service Date/Time: Thursday, January 26, 2017 14:22 - CONCLUSION: Bilateral extrarenal pelvis No evidence of hydronephrosis, suspicious masses or nephrolithiasis. Fidel Barrett MD Objective Remarks GENERAL: 71-year-old male, critically ill currently orotracheally intubated SKIN: Skin assessment warm/dry. Abrasion to his left shoulder and a skin tear to the left elbow, abrasion to his left knee. There is a stage II decubitus ulcer to his left buttock area. EYES: No scleral icterus. No injection or drainage. ENT: No nasal bleeding or discharge. Mucous membranes pink and moist. NECK: Trachea midline. + JVD. Supple. CARDIOVASCULAR: RRR. S1, S2 no S4. No murmur RESPIRATORY: Bilateral rhonchi right greater than left.. Basilar crackles GASTROINTESTINAL: Abdomen distended with large ventral hernia and PEG tube passing through ventral hernia. Hepatic and splenic margins not palpable. MUSCULOSKELETAL: No obvious deformities. No significant peripheral edema. Abrasion to the left knee, left shoulder. Skin tear to the left elbow. NEUROLOGICAL: Currently sedated on the ventilator on propofol and midazolam drips Procedures None. A/P Assessment and Plan NEURO/Psych: Chronic alprazolam use - Post intubation placed on propofol at 10 mics grams per kilogram per minute/ mid as on 2 mg an hour for sedation while intubated --Goal of RASS -2 - Daily sedation vacation --Alprazolam 0.25 mg every 8 hours when necessary RESP: Acute hypoxemic respiratory failure Healthcare associated pneumonia/aspiration Acute COPD exacerbation Mediastinal lymphadenopathy - Intubated and placed on mechanical ventilation, ACV 14/600/7/40 - Ventilator bundle -Albuterol/ipratropium aerosols every 4 hours scheduled - Pulmicort 0.5/2 twice a day - IV Solu-Medrol 60 mg every 12 - Broad-spectrum antibiotics with Zosyn and azithromycin and one dose of vancomycin - CT chest-extensive bibasilar consolidation indicating pneumonia secondary to aspiration and mediastinal adenopathy largest lymph node 1.9 cm nonspecific. CV: Sinus tachycardia resolved TAA, ascending 4.3 cm History of coronary artery disease - Normal saline IV decrease to 70ml per hour - Continue home meds metoprolol and amiodarone if blood pressure is stable with holding parameters - 2-D echo to evaluate for bicuspid aortic valve, pending GI: Probable aspiration Abdominal distention and large ventral hernia rule out obstruction Small bowel ileus Jevity 1.5 goal 60 cc an hour pantoprazole 40 mg IV every 12 hours - CT abdomen and pelvis revealed small bowel ileus. - Consulted GI re possible aspiration with PEG feeding. Recommended converting G-tube to GJ tube with IR-scheduled for 02/04 : History of prostate cancer, bladder outlet obstruction - Monitor renal function closely. Place Robison catheter. Dr. Sandoval following. Might need SP catheter ID: Severe sepsis, Proteus bacteremia UTI with Proteus - Off Rocephin, started Zosyn 4.5 g IV every 6 hours, continue azithromycin, 1 g IV vancomycin - F/u blood urine and sputum culture - Blood culture 4 out of 4 bottles and urine culture from 01/26/17 growing Proteus blood cultures 02/01 no growth today. Sputum culture 02/01 with GNR. HEME: Leukocytosis Normocytic anemia - Monitor CBC, CMP, coags ENDO: Hypokalemia/hypernatremia - Replace electrolytes per protocol. A.m. laboratories pending PROPH: - Bilateral lower extremity SCDs. Enoxaparin/pantoprazole LINES: - Utilize peripheral IVs, central line if needed Level III follow-up Bartolo Duke MD Feb 04, 2017 15:10
[2017-02-04] MEDS ORDERED: niCARdipine INJ 25 MG in SODIUM CHLOR 0.9% 250 ML INJ 250 ML IV PRN (15:15)
--- NOTE | 2017-02-04 15:22 | RADRPT ---
EXAM DATE/TIME: 02/04/2017 12:22 [place] COMPARISON: No previous studies available for comparison. INDICATIONS : Patient presents with ventral hernia and obstructive uropathy in need of gastrostomy tube conversion to gastrojejunal tube placement for nutrition. Has endoscopically placed gastrostomy tube. MEDICAL HISTORY : History of prostate cancer with urinary obstruction Hypertension Anxiety GERD History of dysphagia requiring PEG tube placement History of cardiac arrest s/p trach placement and removal COPD Osteoarthritis with chronic pain Coronary artery disease SURGICAL HISTORY : PEG tube placement Status post trach placement and removal Appendectomy Hernia surgery Surgery for perforated gastric ulcer Cataract surgery ENCOUNTER: Subsequent ACUITY: 2 weeks PAIN SCORE: Nonresponsive. LOCATION: N/A FLUORO TIME: 3.6 minutes IMAGE SERIES: 3 CONTRAST: 35 cc Omnipaque (iohexol) 350 DEVICE(S): 1.) 22 Fr Transgastric tube PROCEDURE: 1. Fluoroscopically guided gastrostomy to gastrojejunostomy conversion 2. Continuous EKG and oximetry monitoring. TECHNIQUE: Under sterile conditions and using aseptic technique a guidewire was passed through the previous hector rostomy tube and the wire was manipulated into the small bowel. The prescribed gastrojejunostomy tube was placed over the guidewire. The balloon was inflated with 10 mL of saline. Injection of positive contrast demonstrates good position of the gastric and jejunal sections of the tube. The tube enters the stomach fairly low within the antrum approaching the pylorus. Injection of contrast within the ga stric port does opacify the gastric lumen cephalad to the balloon as well as inferior to it. CONCLUSION: 1. Conversion of an existing gastrostomy tube to a transgastric GJ tube. Jaime Quinteros Jr., MD on February 04, 2017 at 15:18 Board Certified Radiologist. This report was verified electronically.
--- NOTE | 2017-02-04 17:24 | HHI.GIFU ---
Subjective Remarks Pt intubated, being assessed for new IV site by vascular access. He is awake, indicates no abd pain. Per RN no sign bleeding. s/p GJ conversion by IR, will start TF tomorrow. (Yisel Reed) Objective Vitals I&O Vital Signs Date Time Temp Pulse Resp B/P (MAP) Pulse Ox O2 Delivery O2 Flow Rate FiO2 02/04/17 16:07 100 40 02/04/17 16:00 96.7 44 23 164/77 (106) 100 02/04/17 16:00 44 02/04/17 14:00 47 02/04/17 11:55 100 100 02/04/17 11:32 100 40 02/04/17 10:00 55 02/04/17 08:03 100 40 02/04/17 08:00 50 02/04/17 08:00 96.7 46 19 166/80 (108) 100 02/04/17 07:00 98 Mechanical Ventilator 40 02/04/17 06:00 50 02/04/17 04:26 99 40 02/04/17 04:00 53 02/04/17 04:00 96.9 53 15 164/81 (108) 100 02/04/17 02:00 56 02/04/17 01:25 99 40 02/04/17 00:00 97.9 54 19 169/82 (111) 99 02/04/17 00:00 54 02/03/17 22:00 56 02/03/17 20:00 98.0 56 22 157/73 (101) 96 02/03/17 20:00 99 40 02/03/17 20:00 56 02/03/17 19:00 99 Mechanical Ventilator 40 I/O 02/03/17 02/03/17 02/03/17 02/04/17 02/04/17 02/04/17 06:59 14:59 22:59 06:59 14:59 22:59 Intake Total 1358 ml 2420 ml 1660 ml 350 ml Output Total 350 ml 400 ml 700 ml Balance 1008 ml 2020 ml 960 ml 350 ml Intake Oral 0 ml IV Total 641 ml 1628 ml 1365 ml 350 ml Tube Feeding 417 ml 792 ml 295 ml Packed Cells 250 ml Tube Irrigant 50 ml Output Urine Total 350 ml 400 ml 700 ml # Bowel Movements 0 0 1 Laboratory Laboratory Tests Test 02/04/17 13:20 Blood Urea Nitrogen 30 Creatinine 1.04 Random Glucose 177 Calcium Level 8.0 Sodium Level 149 Potassium Level 3.6 Chloride Level 113 Carbon Dioxide Level 27.6 Anion Gap 8 Estimat Glomerular Filtration Rate 71 Date/Time Source Procedure Growth Status 02/01/17 11:00 Blood Peripheral Aerobic Blood Culture - Preliminary NO GROWTH IN 3 DAYS Resulted 02/01/17 11:00 Blood Peripheral Anaerobic Blood Culture - Preliminary NO GROWTH IN 3 DAYS Resulted 02/01/17 09:15 Sputum Expectorated Sputum Gram Stain - Final Complete 02/01/17 09:15 Sputum Culture - Final Escherichia Coli Esbl Positive Enterobacter Cloacae Complete 02/01/17 11:35 Urine Catheterized Urine Urine Culture - Final NO GROWTH IN 48 HOURS. Complete Imaging Last Impressions Chest X-Ray 02/03/17 0600 Signed Impressions: Service Date/Time: Friday, February 03, 2017 04:27 - CONCLUSION: Stable appearance of the chest with bibasilar airspace disease and probable associated effusions, left greater than right. Rick Hancock MD Chest CT 02/01/17 0000 Signed Impressions: Service Date/Time: Wednesday, February 01, 2017 10:16 - CONCLUSION: 1. Extensive, consolidated, bilateral infiltrates in the lower lobes and effusions concerning for pneumonia. In the appropriate clinical setting, this would be concerning for aspiration. 2. ET tube in good position. 3. 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 4. Scattered adenopathy in the mediastinum and AP window nonspecific in appearance. Nahun Mills MD Abdomen/Pelvis CT 02/01/17 0000 Signed Impressions: Service Date/Time: Wednesday, February 01, 2017 10:16 - CONCLUSION: 1. Bibasilar infiltrates concerning for pneumonia. 2. Diffuse distention of the small bowel with both fluid and gas suggesting ileus. There is oral contrast which has passed through the small bowel and is present throughout the colon. 3. There is a Robison catheter within the bladder 4. There is a gastrostomy tube present. Nahun Mills MD Modified Barium Swallow 01/29/17 0000 Signed Impressions: Service Date/Time: Sunday, January 29, 2017 00:00 - CONCLUSION: Penetration and aspiration are seen. Asif Bradlye MD Abdomen X-Ray 01/28/17 0000 Signed Impressions: Service Date/Time: Saturday, January 28, 2017 08:27 - CONCLUSION: The oral contrast material injected through the G-tube is present within the duodenum and proximal jejunum. No abnormal extravasation is identified. Asif Dawson MD Shoulder X-Ray 01/26/17 1122 Signed Impressions: Service Date/Time: Thursday, January 26, 2017 11:43 - CONCLUSION: Post traumatic deformity of the left humeral head characteristic of an old fracture. No findings suggestive of acute fracture or dislocation. Fidel Barrett MD Knee X-Ray 01/26/17 1122 Signed Impressions: Service Date/Time: Thursday, January 26, 2017 11:48 - CONCLUSION: 1. Osteoarthritic change greatest in the medial compartment. 2. No acute fracture or malalignment. 3. Small joint effusion. Behzad Dos Santos MD Head CT 01/26/17 1122 Signed Impressions: Service Date/Time: Thursday, January 26, 2017 11:54 - CONCLUSION: Left supraorbital soft tissue swelling. No evidence of acute infarct, hemorrhage, mass, edema or fracture. Fidel Barrett MD Cervical Spine CT 01/26/17 1122 Signed Impressions: Service Date/Time: Thursday, January 26, 2017 11:56 - CONCLUSION: 1. Mild degenerative anterolisthesis secondary to facet arthropathy as described. 2. No evidence of acute fracture or traumatic listhesis. 3. Advanced facet arthropathy. 4. Moderate severe degenerative disease with spondylosis at C5-6 and C6-7. 5. No acute soft tissue abnormality. Fidel Barrett MD Renal Ultrasound 01/26/17 0000 Signed Impressions: Service Date/Time: Thursday, January 26, 2017 14:22 - CONCLUSION: Bilateral extrarenal pelvis No evidence of hydronephrosis, suspicious masses or nephrolithiasis. Fidel Barrett MD Physical Exam HEENT: Normocephalic; atraumatic CHEST: Course breath sounds, crackles in bases. OETT to vent. CARDIAC: RRR ABDOMEN: Soft, mildly distended, nontender; large ventral hernia. GJ site dressing d&i EXTREMITIES: No edema. [employer]: Lightly sedated on vent. Follows commands (Yisel Reed) Assessment and Plan Plan ASSESSMENT: - Dysphagia with Reflux, Suspected aspiration. He had a prolonged hospitalization earlier this year, at which time we evaluated him for possible peg tube placement. EGD, Unsuccessful PEG tube placement (09/05/16)---> deformed pylorus/antrum, nodular mucosa-multiple biopsies taken, esophagitis distal esophagus, transillumination seen in the hernia sac, unable to place peg endoscopically , retroflexed views revealed a hiatal hernia. He was evaluated by general surgery at that time, but they did not feel that they could place J tube surgically. He was given nutrition via an NGT and was eventually transferred to [facility] on 09/23/16. While at [facility], he had an EGD with PEG tube placement by Dr. Bailey on 10/19/16. He was discharged to the SNF prior to this hospitalization, where ST is following and he was getting Vital Stem and tolerating a puree diet with honey thickened liquids, although he was still requiring TF for poor po intake. He was tx to [facility] for respiratory distress, intubated and on ventilator. s/p IR convert PEG to G/J tube PPI with BID dosing. - Ileus. Abdomen/Pelvis CT (02/01/17)-----> 1. Bibasilar infiltrates concerning for pneumonia. 2. Diffuse distention of the small bowel with both fluid and gas suggesting ileus. There is oral contrast which has passed through the small bowel and is present throughout the colon. 3. There is a Robison catheter within the bladder 4. There is a gastrostomy tube present. cont Miralax. Cont. Reglan. - Anemia. Hgb 8.6 stable - Mild elevation of LFT. S/P CT. - Respiratory failure, Aspiration pna, COPD. vent per CCM - Large ventral hernia. - Sepsis, Proteus bacteremia/uti. Azithromycin, Vanco. - COPD, HTN, Hyperlipidemia, Hx Prostate Cancer. PLAN: - when TF resumes, Jevity 1.5 at 60cc/hr - Cont. PPI - Cont. Reglan - Add Miralax - Supportive care - Further recommendations to follow based on results of above - Pt seen and examined by and myself and this note is written on his behalf (Yisel Reed) Physician Comments Seen and examined, plan as above. Further recommendations to follow. (Cele Desai MD) Yisel Reed Feb 04, 2017 17:24 Cele Desai MD Feb 05, 2017 09:06
[2017-02-05] VITALS (20 sets, daily range): BP systolic 129–154; BP diastolic 67–77; PULSE 46–76; RESP 14–19; TEMP 97.5–99; O2SAT 96–100
[2017-02-05] MEDS: hydrALAZINE HCL 20 MG/ML VIAL IV PRN ×3 (01:33→22:35)
[2017-02-05] MEDS: HYOSCYAMINE 0.125 MG TAB G-TUBE SCH ×6 (04:00→20:00)
[2017-02-05] MEDS: ARTIFICIAL TEARS OPTH SOLN 15 ML BTL EACH EYE SCH ×3 (04:13→21:00)
[2017-02-05] MEDS: METOCLOPRAMIDE HCL 10 MG/2 ML VIAL IV PUSH SCH ×3 (04:13→20:58)
[2017-02-05 04:21] LABS: AUTOMATED NEUTROPHIL # 5.9 TH/MM3 (1.8-7.7); BASOPHIL % 0.1 % (0.0-2.0); HEMATOCRIT 29.4 % (39.0-51.0); LYMPH % 6.3 % (9.0-44.0); LYMPHOCYTE # 0.4 TH/MM3 (1.0-4.8); MEAN CELL VOLUME 91.5 FL (80.0-100.0); MEAN CORPUSCULAR HEMOGLOBIN 30.8 PG (27.0-34.0); MEAN CORPUSCULAR HGB CONC 33.7 % (32.0-36.0); MONO % 2.7 % (0.0-8.0); NEUT % 90.9 % (16.0-70.0); PLATELET COUNT 295 TH/MM3 (150-450); RED BLOOD COUNT 3.22 MIL/MM3 (4.50-5.90); RED CELL DISTRIBUTION WIDTH 16.5 % (11.6-17.2); WHITE BLOOD COUNT 6.4 TH/MM3 (4.0-11.0)
[2017-02-05 04:26] LABS: HEMO FLAGS AUTO DIFF
[2017-02-05] MEDS: PIPERACIL-TAZO 4.5 GM PREMIX 100 ML IV SCH ×2 (04:26→10:07)
[2017-02-05 04:49] LABS: ANION GAP 6 MEQ/L (5-15); BICARBONATE 30.3 MEQ/L (21.0-32.0); BLOOD UREA NITROGEN 30 MG/DL (7-18); CHLORIDE 112 MEQ/L (98-107); GLOMERULAR FILTRATION RATE 83 ML/MIN (>89); POTASSIUM 3.9 MEQ/L (3.5-5.1); SODIUM (NA) 148 MEQ/L (136-145)
[2017-02-05 04:50] LABS: ALT (GPT) 17 U/L (12-78); AST (GOT) 14 U/L (15-37)
[2017-02-05 04:53] LABS: ALKALINE PHOSPHATASE 119 U/L (45-117); TOTAL BILIRUBIN ADULT 0.3 MG/DL (0.2-1.0)
[2017-02-05] MEDS: PROPOFOL 1000 MG/100 ML INJ 100 ML IV SCH ×2 (05:21→13:08)
[2017-02-05 05:35] LABS: BANDS 4 % (0-6); MYELOCYTES 4 % (0-0); NEUTROPHIL # MANUAL DIFF 6.1 TH/MM3 (1.8-7.7); POLYS (SEG NEUTROPHILS) 87 % (16-70); PROMYELOCYTES 1 % (0-0); SCAN/DIFF FINAL DIFF MANUAL; WBC DIFF SAMPLE 100
[2017-02-05 05:36] LABS: PLATELET ESTIMATE SMEAR NORMAL (NORMAL); PLATELET MORPHOLOGY NORMAL (NORMAL)
[2017-02-05 05:37] LABS: ACANTHOCYTES OCC (NORMAL)
[2017-02-05] MEDS: AZITHROMYCIN INJ 500 MG in SODIUM CHLOR 0.9% 250 ML INJ 250 ML IV SCH (08:00)
[2017-02-05] MEDS: RESP: BUDESONIDE 0.5 MG/2 ML NEB NEB SCH ×2 (08:54→20:21)
[2017-02-05] MEDS: POLYETHYLENE GLYCOL 17 GM PKG PO SCH (09:00)
[2017-02-05] MEDS: AMIODARONE 200 MG TAB G-TUBE SCH (09:00)
[2017-02-05] MEDS: METOPROLOL TARTRATE 25 MG TAB PO SCH ×2 (09:00→21:00)
[2017-02-05] MEDS: methylPREDNISolone SOD SUCC 40 MG/1 ML VIAL IV PUSH SCH ×2 (09:00→20:58)
[2017-02-05] MEDS: TAMSULOSIN HCL 0.4 MG CAP PO SCH (09:00)
[2017-02-05] MEDS: LACTOBACILLUS ACIDOPHILUS TAB PO SCH ×2 (09:00→21:00)
[2017-02-05] MEDS: SODIUM CHLORIDE 0.9% FLUSH 10 ML FLUSH IV FLUSH SCH ×2 (09:00→20:59)
[2017-02-05] MEDS: PANTOPRAZOLE SODIUM 40 MG VIAL IV PUSH SCH ×2 (10:00→20:58)
[2017-02-05] MEDS: CHLORHEXIDINE 0.12% (ORAL KIT) 15 ML CUP MT SCH ×2 (10:06→21:20)
[2017-02-05] MEDS: ENOXAPARIN SODIUM 40 MG/0.4 ML SYRINGE SQ SCH (10:07)
--- NOTE | 2017-02-05 11:35 | HHI.GIFU ---
Subjective Remarks Intubated on vent. TF not yet resumed (Yisel Reed) Objective Vitals I&O Vital Signs Date Time Temp Pulse Resp B/P (MAP) Pulse Ox O2 Delivery O2 Flow Rate FiO2 02/05/17 10:35 99 40 02/05/17 08:00 49 02/05/17 07:43 100 40 02/05/17 07:00 98 Mechanical Ventilator 40 02/05/17 06:00 47 02/05/17 04:00 54 02/05/17 04:00 97.6 54 15 129/68 (88) 99 02/05/17 03:49 97 40 02/05/17 02:00 58 02/05/17 00:54 99 40 02/05/17 00:00 97.5 50 14 154/77 (102) 100 02/05/17 00:00 50 02/04/17 22:00 50 02/04/17 21:52 100 40 02/04/17 20:30 55 02/04/17 20:30 144/67 (92) 02/04/17 20:00 97.5 44 16 191/56 (101) 100 02/04/17 20:00 44 02/04/17 19:00 98 Mechanical Ventilator 40 02/04/17 18:00 50 02/04/17 16:07 100 40 02/04/17 16:00 96.7 44 23 164/77 (106) 100 02/04/17 16:00 44 02/04/17 14:00 47 02/04/17 11:55 100 100 I/O 02/04/17 02/04/17 02/04/17 02/05/17 02/05/17 02/05/17 07:00 15:00 23:00 07:00 15:00 23:00 Intake Total 1660 ml 350 ml 1590 ml 262 ml Output Total 700 ml 1375 ml 1550 ml Balance 960 ml 350 ml 215 ml -1288 ml IV Total 1365 ml 350 ml 1590 ml 202 ml Tube Feeding 295 ml 0 ml Tube Irrigant 60 ml Output Urine Total 700 ml 1075 ml 1250 ml Stool Total 300 ml 300 ml # Bowel Movements 1 Laboratory Laboratory Tests Test 02/04/17 13:20 02/05/17 04:00 Blood Urea Nitrogen 30 30 Creatinine 1.04 0.90 Random Glucose 177 144 Calcium Level 8.0 8.2 Sodium Level 149 148 Potassium Level 3.6 3.9 Chloride Level 113 112 Carbon Dioxide Level 27.6 30.3 Anion Gap 8 6 Estimat Glomerular Filtration Rate 71 83 White Blood Count 6.4 Red Blood Count 3.22 Hemoglobin 9.9 Hematocrit 29.4 Mean Corpuscular Volume 91.5 Mean Corpuscular Hemoglobin 30.8 Mean Corpuscular Hemoglobin Concent 33.7 Red Cell Distribution Width 16.5 Platelet Count 295 Mean Platelet Volume 8.7 Neutrophils (%) (Auto) 90.9 Lymphocytes (%) (Auto) 6.3 Monocytes (%) (Auto) 2.7 Eosinophils (%) (Auto) 0.0 Basophils (%) (Auto) 0.1 Neutrophils # (Auto) 5.9 Lymphocytes # (Auto) 0.4 Monocytes # (Auto) 0.2 Eosinophils # (Auto) 0.0 Basophils # (Auto) 0.0 CBC Comment AUTO DIFF Differential Total Cells Counted 100 Neutrophils % (Manual) 87 Band Neutrophils % 4 Lymphocytes % 2 Monocytes % 2 Neutrophils # (Manual) 6.1 Myelocytes 4 Promyelocytes 1 Differential Comment FINAL DIFF MANUAL Platelet Estimate NORMAL Platelet Morphology Comment NORMAL Acanthocytes OCC Red Cell Morphology Comment Total Protein 6.0 Albumin 2.2 Alkaline Phosphatase 119 Aspartate Amino Transf (AST/SGOT) 14 Alanine Aminotransferase (ALT/SGPT) 17 Total Bilirubin 0.3 Date/Time Source Procedure Growth Status 02/01/17 11:00 Blood Peripheral Aerobic Blood Culture - Preliminary NO GROWTH IN 4 DAYS Resulted 02/01/17 11:00 Blood Peripheral Anaerobic Blood Culture - Preliminary NO GROWTH IN 4 DAYS Resulted 02/01/17 09:15 Sputum Expectorated Sputum Gram Stain - Final Complete 02/01/17 09:15 Sputum Culture - Final Escherichia Coli Esbl Positive Enterobacter Cloacae Complete 02/01/17 11:35 Urine Catheterized Urine Urine Culture - Final NO GROWTH IN 48 HOURS. Complete Physical Exam HEENT: Normocephalic; atraumatic CHEST: Course breath sounds, crackles in bases. OETT to vent. CARDIAC: RRR ABDOMEN: Soft, mildly distended, nontender; large ventral hernia. GJ site dressing d&i EXTREMITIES: No edema. [employer]: Lightly sedated on vent. Follows commands (Yisel Reed) Assessment and Plan Plan ASSESSMENT: - Dysphagia with Reflux, Suspected aspiration. He had a prolonged hospitalization earlier this year, at which time we evaluated him for possible peg tube placement. EGD, Unsuccessful PEG tube placement (09/05/16)---> deformed pylorus/antrum, nodular mucosa-multiple biopsies taken, esophagitis distal esophagus, transillumination seen in the hernia sac, unable to place peg endoscopically , retroflexed views revealed a hiatal hernia. He was evaluated by general surgery at that time, but they did not feel that they could place J tube surgically. He was given nutrition via an NGT and was eventually transferred to [facility] on 09/23/16. While at [facility], he had an EGD with PEG tube placement by Dr. Bailey on 10/19/16. He was discharged to the SNF prior to this hospitalization, where ST is following and he was getting Vital Stem and tolerating a puree diet with honey thickened liquids, although he was still requiring TF for poor po intake. He was tx to [facility] for respiratory distress, intubated and on ventilator. s/p IR convert PEG to G/J tube PPI with BID dosing. - Ileus. Abdomen/Pelvis CT (02/01/17)-----> 1. Bibasilar infiltrates concerning for pneumonia. 2. Diffuse distention of the small bowel with both fluid and gas suggesting ileus. There is oral contrast which has passed through the small bowel and is present throughout the colon. 3. There is a Robison catheter within the bladder 4. There is a gastrostomy tube present. cont Miralax. Cont. Reglan. - Anemia. Hgb 8.6 stable - Mild elevation of LFT. S/P CT. - Respiratory failure, Aspiration pna, COPD. vent per CCM - Large ventral hernia. - Sepsis, Proteus bacteremia/uti. Azithromycin, Vanco. - COPD, HTN, Hyperlipidemia, Hx Prostate Cancer. PLAN: - OK to resume TF, Jevity 1.5 at 60cc/hr - Cont. PPI - Cont. Reglan - Add Miralax - Supportive care - Further recommendations to follow based on results of above - Pt seen and examined by and myself and this note is written on his behalf (Yisel Reed) Physician Comments Seen and examined plan as above. (Cele Desai MD) Yisel Reed Feb 05, 2017 11:35 Cele Desai MD Feb 05, 2017 16:36
--- NOTE | 2017-02-05 11:45 | HHI.CCPN ---
Subjective Remarks/Hospital Course 71-year-old male with past medical history of obstructive uropathy, prostate cancer, hypertension, history of cardiac arrest, mood disorder, chronic pain, GERD, COPD, CAD, mild dementia who was sent from SNF for confusion and fall. He was admitted to the hospitalist service on 01/26/17 with diagnosis of UTI. Urine culture grew Proteus and there was also 4/4 Proteus bacteremia. Patient was getting Rocephin treatment for the above. Noted to have increasing shortness of breath yesterday azithromycin added for bibasilar infiltrates by primary service. He has a history of prostate cancer 10 years ago, had urinary retention and had an indwelling Robison catheter until recently (removed at [facility]). Urology following here Dr. Sandoval. Neal Bella was called today 02/01/17 am for acute desaturation, oxygen saturation was 70%, and patient was placed on 100% nonrebreather. There was possibility of aspiration of tube feeds per bedside RN. Tube feed was held and patient was moved to the ICU. On my evaluation patient is tachypneic breathing 35-40/m and has bilateral wheezing. Was given 2 breathing treatments with DuoNeb without significant improvement. Patient is requiring frequent NT suctioning because of inability to clear secretions adequately. Also there is significant abdominal distention. I will proceed with endotracheal intubation and check CT scan of the abdomen pelvis and chest. I have also placed him on IV Solu-Medrol scheduled breathing treatments, and broaden antibiotics to Zosyn and single dose of vancomycin. Further recommendations based on imaging studies and workup Subjective 02/02: Tmax 99.6. CT chest revealed significant bilateral pneumonia likely aspiration induced. Plan for IR on Saturday to convert gastric tube to GJ tube. Robison reduced. Might need surgery catheter. Appears comfortable ventilator. Blood pressure is borderline. 02/03: Remains sedated, orally intubated on mechanical ventilation. Awaiting GJ tube by IR on Saturday. Had a large bowel movement last night. 02/04: Remains sedated, easily arousable, orally intubated on mechanical ventilation. 02/05: Remains sedated, easily arousable, orally intubated on mechanical ventilation. Underwent GJ tube placement yesterday by interventional radiology. Objective Vital Signs Date Time Temp Pulse Resp B/P (MAP) Pulse Ox O2 Delivery O2 Flow Rate FiO2 02/05/17 10:35 99 40 02/05/17 08:00 49 02/05/17 07:00 Mechanical Ventilator 02/05/17 04:00 97.6 15 129/68 (88) 02/01/17 08:41 15.00 Intake and Output 02/05/17 02/05/17 02/06/17 08:00 16:00 00:00 Intake Total 262 ml Output Total 1550 ml Balance -1288 ml Result Diagram: 02/05/17 0400 02/05/17 0400 Imaging Last Impressions Chest X-Ray 02/02/17 0000 Signed Impressions: Service Date/Time: Thursday, February 02, 2017 04:09 - CONCLUSION: 1. Endotracheal tube tip in satisfactory position. Basilar airspace disease increased from February 01. Mark Wright MD Chest CT 02/01/17 0000 Signed Impressions: Service Date/Time: Wednesday, February 01, 2017 10:16 - CONCLUSION: 1. Extensive, consolidated, bilateral infiltrates in the lower lobes and effusions concerning for pneumonia. In the appropriate clinical setting, this would be concerning for aspiration. 2. ET tube in good position. 3. 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 4. Scattered adenopathy in the mediastinum and AP window nonspecific in appearance. Nahun Mills MD Abdomen/Pelvis CT 02/01/17 0000 Signed Impressions: Service Date/Time: Wednesday, February 01, 2017 10:16 - CONCLUSION: 1. Bibasilar infiltrates concerning for pneumonia. 2. Diffuse distention of the small bowel with both fluid and gas suggesting ileus. There is oral contrast which has passed through the small bowel and is present throughout the colon. 3. There is a Robison catheter within the bladder 4. There is a gastrostomy tube present. Nahun Mills MD Modified Barium Swallow 01/29/17 0000 Signed Impressions: Service Date/Time: Sunday, January 29, 2017 00:00 - CONCLUSION: Penetration and aspiration are seen. Asif Bradley MD Abdomen X-Ray 01/28/17 0000 Signed Impressions: Service Date/Time: Saturday, January 28, 2017 08:27 - CONCLUSION: The oral contrast material injected through the G-tube is present within the duodenum and proximal jejunum. No abnormal extravasation is identified. Asif Dawson MD Shoulder X-Ray 01/26/17 1122 Signed Impressions: Service Date/Time: Thursday, January 26, 2017 11:43 - CONCLUSION: Post traumatic deformity of the left humeral head characteristic of an old fracture. No findings suggestive of acute fracture or dislocation. Fidel Barrett MD Knee X-Ray 01/26/17 1122 Signed Impressions: Service Date/Time: Thursday, January 26, 2017 11:48 - CONCLUSION: 1. Osteoarthritic change greatest in the medial compartment. 2. No acute fracture or malalignment. 3. Small joint effusion. Behzad Dos Santos MD Head CT 01/26/17 112 Signed Impressions: Service Date/Time: Thursday, January 26, 2017 11:54 - CONCLUSION: Left supraorbital soft tissue swelling. No evidence of acute infarct, hemorrhage, mass, edema or fracture. Fidel Barrett MD Cervical Spine CT 01/26/17 112 Signed Impressions: Service Date/Time: Thursday, January 26, 2017 11:56 - CONCLUSION: 1. Mild degenerative anterolisthesis secondary to facet arthropathy as described. 2. No evidence of acute fracture or traumatic listhesis. 3. Advanced facet arthropathy. 4. Moderate severe degenerative disease with spondylosis at C5-6 and C6-7. 5. No acute soft tissue abnormality. Fidel Barrett MD Renal Ultrasound 01/26/17 0000 Signed Impressions: Service Date/Time: Thursday, January 26, 2017 14:22 - CONCLUSION: Bilateral extrarenal pelvis No evidence of hydronephrosis, suspicious masses or nephrolithiasis. Fidel Barrett MD Objective Remarks GENERAL: 71-year-old male, currently orotracheally intubated SKIN: Skin assessment warm/dry. Abrasion to his left shoulder and a skin tear to the left elbow, abrasion to his left knee. There is a stage II decubitus ulcer to his left buttock area. EYES: No scleral icterus. No injection or drainage. ENT: No nasal bleeding or discharge. Mucous membranes pink and moist. NECK: Trachea midline. + JVD. Supple. CARDIOVASCULAR: RRR. S1, S2 no S4. No murmur RESPIRATORY: Bilateral rhonchi right greater than left.. Basilar crackles GASTROINTESTINAL: Abdomen distended with large ventral hernia and PEG tube passing through ventral hernia. Hepatic and splenic margins not palpable. MUSCULOSKELETAL: No obvious deformities. No significant peripheral edema. Abrasion to the left knee, left shoulder. Skin tear to the left elbow. NEUROLOGICAL: Currently sedated on the ventilator on propofol and midazolam drips Procedures None. A/P Assessment and Plan NEURO/Psych: Chronic alprazolam use - Post intubation placed on propofol at 10 mics grams per kilogram per minute/ mid as on 2 mg an hour for sedation while intubated --Goal of RASS -2 - Daily sedation vacation --Alprazolam 0.25 mg every 8 hours when necessary RESP: Acute hypoxemic respiratory failure Healthcare associated pneumonia/aspiration Acute COPD exacerbation Mediastinal lymphadenopathy - Intubated and placed on mechanical ventilation, ACV 14/600/7/40 - Ventilator bundle. Daily C Pap trials to decide extubation. -Albuterol/ipratropium aerosols every 4 hours scheduled - Pulmicort 0.5/2 twice a day - IV Solu-Medrol 60 mg every 12 - Broad-spectrum antibiotics with Zosyn and azithromycin and one dose of vancomycin - CT chest-extensive bibasilar consolidation indicating pneumonia secondary to aspiration and mediastinal adenopathy largest lymph node 1.9 cm nonspecific. CV: Sinus tachycardia resolved TAA, ascending 4.3 cm History of coronary artery disease - Normal saline 70ml per hour - Continue home meds metoprolol and amiodarone if blood pressure is stable with holding parameters - 2-D echo to evaluate for bicuspid aortic valve, pending GI: Probable aspiration Abdominal distention and large ventral hernia rule out obstruction Small bowel ileus Jevity 1.5 goal 60 cc an hour pantoprazole 40 mg IV every 12 hours - CT abdomen and pelvis revealed small bowel ileus. - Consulted GI re possible aspiration with PEG feeding. Recommended converting G-tube to GJ tube with IR-scheduled for 02/04 : History of prostate cancer, bladder outlet obstruction - Monitor renal function closely. Place Robison catheter. Dr. Sandoval following. Might need SP catheter ID: Severe sepsis, Proteus bacteremia UTI with Proteus - Off Rocephin, On Zosyn 4.5 g IV every 6 hours, continue azithromycin, 1 g IV vancomycin - F/u blood urine and sputum culture - Blood culture 4 out of 4 bottles and urine culture from 01/26/17 growing Proteus blood cultures 02/01 no growth. Sputum culture 02/01 with ESBL E coli. ID consult requested HEME: Leukocytosis Normocytic anemia - Monitor CBC, CMP, coags ENDO: Hypokalemia/hypernatremia - Replace electrolytes per protocol. PROPH: - Bilateral lower extremity SCDs. Enoxaparin/pantoprazole LINES: - Utilize peripheral IVs, central line if needed Level III follow-up Bartolo Duke MD Feb 05, 2017 11:45
--- NOTE | 2017-02-05 11:59 | PD.ID.CON ---
History of Present Illness Service ID Consult Requested By dr Duke Reason for Consult ESBL in sputum , pt on vent Primary Care Physician Unknown Diagnoses: History of Present Illness pt is on vent unable to provide history history obtained thru t he chart 71-year-old male with multiple medical problems was sent from SNF for confusion and fall. He was admitted to the hospitalist service on 01/26/17 with diagnosis of bacteremic UTI. 2/2 Rx'd with Rocephin About 5 days ago pt was noted to have increasing shortness of breath Azithromycin was added to her Rx A Halicat was called on 02/01/17 am for acute respiratory distress, and patient was placed on 100% nonrebreather. ? of aspiration of tube feeds Pt was intubated and placed on mech ventilation CT chest revealed significant bilateral pneumonia Pt remains sedated, orally intubated on mechanical ventilation. Her sputum growing ESBL + organism and Enterobacter,both org sensitive to imipenem Pt was switched to Pip-Tazo yday Review of Systems ROS Limitations: Intubated Past Family Social History Allergies: Coded Allergies: No Known Allergies (Unverified , 11/10/16) Past Medical History obstructive uropathy, prostate cancer, hypertension, history of cardiac arrest , mood disorder, chronic pain, GERD, COPD, CAD, mild dementia Past Surgical History PEG tube placement Status post trach placement and removal Appendectomy Hernia surgery Surgery for perforated gastric ulcer Cataract surgery Active Ordered Medications Medications where reviewed in EMR Antibiotics Include: azithro Pip tazo Family History uanble to obtain Social History quit Tobacco 1 yr ago No ETOH. No Illicit Drugs. resides in nursing h[facility] Physical Exam Vital Signs Vital Signs Date Time Temp Pulse Resp B/P (MAP) Pulse Ox O2 Delivery O2 Flow Rate FiO2 02/05/17 10:35 99 40 02/05/17 08:00 49 02/05/17 07:43 100 40 02/05/17 07:00 98 Mechanical Ventilator 40 02/05/17 06:00 47 02/05/17 04:00 54 02/05/17 04:00 97.6 54 15 129/68 (88) 99 02/05/17 03:49 97 40 02/05/17 02:00 58 02/05/17 00:54 99 40 02/05/17 00:00 97.5 50 14 154/77 (102) 100 02/05/17 00:00 50 02/04/17 22:00 50 8/21/17 21:52 100 40 02/04/17 20:30 55 02/04/17 20:30 144/67 (92) 02/04/17 20:00 97.5 44 16 191/56 (101) 100 02/04/17 20:00 44 02/04/17 19:00 98 Mechanical Ventilator 40 02/04/17 18:00 50 02/04/17 16:07 100 40 02/04/17 16:00 96.7 44 23 164/77 (106) 100 02/04/17 16:00 44 02/04/17 14:00 47 02/04/17 11:55 100 100 Physical Exam CONSTITUTIONAL/GENERAL: This is an adequately nourished patient, in no apparent distress. Intubated, on [facility] vent TUBES/LINES/DRAINS: SKIN: No jaundice, rashes, or lesions. . Skin temperature appropriate. Not diaphoretic. HEAD: Atraumatic. Normocephalic. EYES: Pupils equal and round and reactive. Extraocular motions intact. No scleral icterus. No injection or drainage. Fundi not examined. ENT: Hearing grossly normal. Nose without bleeding or purulent drainage. Throat without visible erythema, exudates, masses, or lesions. NECK: Trachea midline. Supple, nontender. CARDIOVASCULAR: Regular rate and rhythm without murmurs, gallops, or rubs. No JVD. Peripheral pulses symmetric. RESPIRATORY/CHEST: Symmetric, unlabored respirations. Clear to auscultation. Breath sounds equal bilaterally. No wheezes, rales, or rhonchi. GASTROINTESTINAL: Abdomen soft, mildly tender, moderately distended. No hepato- splenomegaly, or palpable masses. No guarding. Bowel sounds present. PEG in place - site OK Incisional herniaa R side Dignishild in place with liquid brown stool GENITOURINARY: Without palpable bladder distension. Robison catheter in place with clear yellow urine MUSCULOSKELETAL: Extremities without clubbing, cyanosis, or edema. No joint tenderness or effusion noted. No calf tenderness. No mottling or clubbing. LYMPHATICS: No palpable cervical or supraclavicular adenopathy. NEUROLOGICAL: Awake and alert. . Follows commands. Moves all extremities. PSYCHIATRIC:Anxious, want s the tube out Laboratory Laboratory Tests Test 02/04/17 13:20 02/05/17 04:00 Blood Urea Nitrogen 30 30 Creatinine 1.04 0.90 Random Glucose 177 144 Calcium Level 8.0 8.2 Sodium Level 149 148 Potassium Level 3.6 3.9 Chloride Level 113 112 Carbon Dioxide Level 27.6 30.3 Anion Gap 8 6 Estimat Glomerular Filtration Rate 71 83 White Blood Count 6.4 Red Blood Count 3.22 Hemoglobin 9.9 Hematocrit 29.4 Mean Corpuscular Volume 91.5 Mean Corpuscular Hemoglobin 30.8 Mean Corpuscular Hemoglobin Concent 33.7 Red Cell Distribution Width 16.5 Platelet Count 295 Mean Platelet Volume 8.7 Neutrophils (%) (Auto) 90.9 Lymphocytes (%) (Auto) 6.3 Monocytes (%) (Auto) 2.7 Eosinophils (%) (Auto) 0.0 Basophils (%) (Auto) 0.1 Neutrophils # (Auto) 5.9 Lymphocytes # (Auto) 0.4 Monocytes # (Auto) 0.2 Eosinophils # (Auto) 0.0 Basophils # (Auto) 0.0 CBC Comment AUTO DIFF Differential Total Cells Counted 100 Neutrophils % (Manual) 87 Band Neutrophils % 4 Lymphocytes % 2 Monocytes % 2 Neutrophils # (Manual) 6.1 Myelocytes 4 Promyelocytes 1 Differential Comment FINAL DIFF MANUAL Platelet Estimate NORMAL Platelet Morphology Comment NORMAL Acanthocytes OCC Red Cell Morphology Comment Total Protein 6.0 Albumin 2.2 Alkaline Phosphatase 119 Aspartate Amino Transf (AST/SGOT) 14 Alanine Aminotransferase (ALT/SGPT) 17 Total Bilirubin 0.3 Date/Time Source Procedure Growth Status 02/01/17 11:00 Blood Peripheral Aerobic Blood Culture - Preliminary NO GROWTH IN 4 DAYS Resulted 02/01/17 11:00 Blood Peripheral Anaerobic Blood Culture - Preliminary NO GROWTH IN 4 DAYS Resulted 02/01/17 09:15 Sputum Expectorated Sputum Gram Stain - Final Complete 02/01/17 09:15 Sputum Culture - Final Escherichia Coli Esbl Positive Enterobacter Cloacae Complete 02/01/17 11:35 Urine Catheterized Urine Urine Culture - Final NO GROWTH IN 48 HOURS. Complete Result Diagram: 02/05/170 02/05/17 0400 Imaging Last Impressions Chest X-Ray 02/03/17 0600 Signed Impressions: Service Date/Time: Friday, February 03, 2017 04:27 - CONCLUSION: Stable appearance of the chest with bibasilar airspace disease and probable associated effusions, left greater than right. Rick Hancock MD Chest CT 02/01/17 0000 Signed Impressions: Service Date/Time: Wednesday, February 01, 2017 10:16 - CONCLUSION: 1. Extensive, consolidated, bilateral infiltrates in the lower lobes and effusions concerning for pneumonia. In the appropriate clinical setting, this would be concerning for aspiration. 2. ET tube in good position. 3. 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 4. Scattered adenopathy in the mediastinum and AP window nonspecific in appearance. Nahun Mills MD Abdomen/Pelvis CT 02/01/17 0000 Signed Impressions: Service Date/Time: Wednesday, February 01, 2017 10:16 - CONCLUSION: 1. Bibasilar infiltrates concerning for pneumonia. 2. Diffuse distention of the small bowel with both fluid and gas suggesting ileus. There is oral contrast which has passed through the small bowel and is present throughout the colon. 3. There is a Robison catheter within the bladder 4. There is a gastrostomy tube present. Nahun Mills MD Modified Barium Swallow 01/29/17 0000 Signed Impressions: Service Date/Time: Sunday, January 29, 2017 00:00 - CONCLUSION: Penetration and aspiration are seen. Asif Bradley MD Abdomen X-Ray 01/28/17 0000 Signed Impressions: Service Date/Time: Saturday, January 28, 2017 08:27 - CONCLUSION: The oral contrast material injected through the G-tube is present within the duodenum and proximal jejunum. No abnormal extravasation is identified. Asif Dawson MD Shoulder X-Ray 01/26/17 1122 Signed Impressions: Service Date/Time: Thursday, January 26, 2017 11:43 - CONCLUSION: Post traumatic deformity of the left humeral head characteristic of an old fracture. No findings suggestive of acute fracture or dislocation. Fidel Barrett MD Knee X-Ray 01/26/17 1122 Signed Impressions: Service Date/Time: Thursday, January 26, 2017 11:48 - CONCLUSION: 1. Osteoarthritic change greatest in the medial compartment. 2. No acute fracture or malalignment. 3. Small joint effusion. Behzad Dos Santos MD Head CT 01/26/17 1122 Signed Impressions: Service Date/Time: Thursday, January 26, 2017 11:54 - CONCLUSION: Left supraorbital soft tissue swelling. No evidence of acute infarct, hemorrhage, mass, edema or fracture. Fidel Barrett MD Cervical Spine CT 01/26/17 1122 Signed Impressions: Service Date/Time: Thursday, January 26, 2017 11:56 - CONCLUSION: 1. Mild degenerative anterolisthesis secondary to facet arthropathy as described. 2. No evidence of acute fracture or traumatic listhesis. 3. Advanced facet arthropathy. 4. Moderate severe degenerative disease with spondylosis at C5-6 and C6-7. 5. No acute soft tissue abnormality. Fidel Barrett MD Renal Ultrasound 01/26/17 0000 Signed Impressions: Service Date/Time: Thursday, January 26, 2017 14:22 - CONCLUSION: Bilateral extrarenal pelvis No evidence of hydronephrosis, suspicious masses or nephrolithiasis. Fidel Barrett MD Assessment and Plan Assessment and Plan aspiration PNA, b/l 2/2 ESBL Kleb pneumo, Enterobacter Acute VDRF Bactermic UTI in the setting s of obstructive uropathy Abx associated diarrhea rhoda trent start Meropenem chk stool for C.diff Eloisa Vogel MD Feb 05, 2017 11:59
[2017-02-05] MEDS ORDERED: ASP: Documented ESBL, MDR A baumannii or P. aeruginosa PRN (12:00)
[2017-02-05] MEDS ORDERED: MISCELLANEOUS PHARMACY INFORMATION XX PRN (12:00)
[2017-02-05] MEDS: DOXAZOSIN MESYLATE 2 MG TAB G-TUBE SCH (12:00)
[2017-02-05] MEDS: MEROPENEM INJ 2,000 MG in SODIUM CHLORIDE 0.9% INJ 100 ML IV SCH ×2 (13:00→20:59)
[2017-02-05] MEDS: SODIUM CHLOR 0.45% 1000 ML INJ 1,000 ML IV SCH (13:07)
[2017-02-05] MEDS ORDERED: MIDAZOLAM 100 MG/NS 100 ML DRIP Premix IV PRN (15:00)
[2017-02-05 15:25] LABS: C. DIFF EPI 027 PRESUMPTIVE NEGATIVE (NEGATIVE)
--- NOTE | 2017-02-05 16:42 | HHI.PR ---
Addendum to Inpatient Note Additional Information C.diff + will stat oral Eloisa Sawyer MD Feb 05, 2017 16:42
[2017-02-05] MEDS: VANCOMYCIN 500 MG VIAL (FOR ORAL USE ONLY) PO SCH (20:57)
[2017-02-06] VITALS (14 sets, daily range): BP systolic 144–174; BP diastolic 67–99; PULSE 57–96; RESP 16–25; TEMP 97.7–99.2; O2SAT 95–99
[2017-02-06] MEDS: HYOSCYAMINE 0.125 MG TAB G-TUBE SCH ×7 (00:37→23:41)
[2017-02-06] MEDS: VANCOMYCIN 500 MG VIAL (FOR ORAL USE ONLY) PO SCH ×5 (00:37→23:41)
[2017-02-06] MEDS: hydrALAZINE HCL 20 MG/ML VIAL IV PRN (02:25)
[2017-02-06] MEDS: MEROPENEM INJ 2,000 MG in SODIUM CHLORIDE 0.9% INJ 100 ML IV SCH ×3 (04:53→20:54)
[2017-02-06] MEDS: ARTIFICIAL TEARS OPTH SOLN 15 ML BTL EACH EYE SCH ×3 (04:53→21:30)
[2017-02-06] MEDS: METOCLOPRAMIDE HCL 10 MG/2 ML VIAL IV PUSH SCH ×3 (04:53→21:30)
[2017-02-06] MEDS: RESP: BUDESONIDE 0.5 MG/2 ML NEB NEB SCH ×2 (07:33→20:27)
[2017-02-06] MEDS: CHLORHEXIDINE 0.12% (ORAL KIT) 15 ML CUP MT SCH ×2 (08:00→20:00)
[2017-02-06] MEDS: SODIUM CHLOR 0.45% 1000 ML INJ 1,000 ML IV SCH (08:33)
[2017-02-06] MEDS: AMIODARONE 200 MG TAB G-TUBE SCH (08:35)
[2017-02-06] MEDS: LACTOBACILLUS ACIDOPHILUS TAB PO SCH ×2 (08:35→20:52)
[2017-02-06] MEDS: oxyCODONE/ACETAMINOPHEN 10 MG/325 MG TAB PO PRN ×2 (08:36→13:19)
[2017-02-06] MEDS: methylPREDNISolone SOD SUCC 40 MG/1 ML VIAL IV PUSH SCH ×2 (08:37→20:53)
[2017-02-06] MEDS: SODIUM CHLORIDE 0.9% FLUSH 10 ML FLUSH IV FLUSH SCH ×2 (09:00→20:53)
[2017-02-06] MEDS: PANTOPRAZOLE SODIUM 40 MG VIAL IV PUSH SCH ×2 (09:57→20:53)
[2017-02-06] MEDS: TAMSULOSIN HCL 0.4 MG CAP PO SCH (09:57)
[2017-02-06] MEDS: ENOXAPARIN SODIUM 40 MG/0.4 ML SYRINGE SQ SCH (09:57)
[2017-02-06] MEDS: METOPROLOL TARTRATE 25 MG TAB PO SCH ×2 (09:58→21:31)
[2017-02-06] MEDS: DOXAZOSIN MESYLATE 2 MG TAB G-TUBE SCH (09:58)
[2017-02-06] MEDS: POLYETHYLENE GLYCOL 17 GM PKG PO SCH (09:58)
--- NOTE | 2017-02-06 09:58 | HHI.GIFU ---
Subjective Remarks Resting in bed. Extubated. Tolerating TF at 20cc/hr to J tube. No n/v. No abdominal pain. (+) BM. (Elizabeth Mercado) Objective Vitals I&O Vital Signs Date Time Temp Pulse Resp B/P (MAP) Pulse Ox O2 Delivery O2 Flow Rate FiO2 02/06/17 07:35 97 Nasal Cannula 4.00 02/06/17 06:00 62 02/06/17 04:00 99.2 64 18 154/69 (97) 97 02/06/17 04:00 64 02/06/17 02:00 79 02/06/17 00:00 99.2 96 20 156/91 (112) 95 02/06/17 00:00 96 02/05/17 22:00 75 02/05/17 20:23 97 Nasal Cannula 4.00 02/05/17 20:00 56 02/05/17 20:00 99.0 56 19 152/67 (95) 96 02/05/17 19:00 96 Nasal Cannula 4.00 02/05/17 18:00 56 02/05/17 16:27 98 Nasal Cannula 4.00 02/05/17 16:20 98 Nasal Cannula 4 02/05/17 16:10 99 Nasal Cannula 4.00 02/05/17 16:00 66 02/05/17 16:00 98.4 76 14 150/69 (96) 99 02/05/17 14:00 46 02/05/17 14:00 99 Mechanical Ventilator 40 02/05/17 13:07 35 02/05/17 13:07 100 35 02/05/17 12:00 50 02/05/17 12:00 98.2 46 17 149/71 (97) 99 02/05/17 10:35 99 40 02/05/17 10:00 50 I/O 02/05/17 02/05/17 02/05/17 02/06/17 02/06/17 02/06/17 07:00 15:00 23:00 07:00 15:00 23:00 Intake Total 262 ml 1311 ml 460 ml 140 ml Output Total 1550 ml 1300 ml 1600 ml Balance -1288 ml 1311 ml -840 ml -1460 ml IV Total 202 ml 1311 ml 460 ml Tube Feeding 20 ml Tube Irrigant 60 ml 120 ml Output Urine Total 1250 ml 1000 ml 1400 ml Stool Total 300 ml 300 ml 200 ml Laboratory Laboratory Tests Test 02/05/17 12:06 Stool C. difficile Toxin (PCR) POSITIVE Stl C. difficile Toxin Epiderm 027 PRESUMPTIVE NEGATIVE Date/Time Source Procedure Growth Status 02/01/17 11:00 Blood Peripheral Aerobic Blood Culture - Preliminary NO GROWTH IN 4 DAYS Resulted 02/01/17 11:00 Blood Peripheral Anaerobic Blood Culture - Preliminary NO GROWTH IN 4 DAYS Resulted 02/01/17 09:15 Sputum Expectorated Sputum Gram Stain - Final Complete 02/01/17 09:15 Sputum Culture - Final Escherichia Coli Esbl Positive Enterobacter Cloacae Complete 02/01/17 11:35 Urine Catheterized Urine Urine Culture - Final NO GROWTH IN 48 HOURS. Complete Imaging Last Impressions Gastrostomy Tube Change 02/04/17 0000 Signed Impressions: Service Date/Time: Saturday, February 04, 2017 12:22 - CONCLUSION: 1. Conversion of an existing gastrostomy tube to a transgastric GJ tube. Jaime Quinteros Jr., MD Chest X-Ray 02/03/17 0600 Signed Impressions: Service Date/Time: Friday, February 03, 2017 04:27 - CONCLUSION: Stable appearance of the chest with bibasilar airspace disease and probable associated effusions, left greater than right. Rick Hancock MD Chest CT 02/01/17 0000 Signed Impressions: Service Date/Time: Wednesday, February 01, 2017 10:16 - CONCLUSION: 1. Extensive, consolidated, bilateral infiltrates in the lower lobes and effusions concerning for pneumonia. In the appropriate clinical setting, this would be concerning for aspiration. 2. ET tube in good position. 3. 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 4. Scattered adenopathy in the mediastinum and AP window nonspecific in appearance. Nahun Mills MD Abdomen/Pelvis CT 02/01/17 0000 Signed Impressions: Service Date/Time: Wednesday, February 01, 2017 10:16 - CONCLUSION: 1. Bibasilar infiltrates concerning for pneumonia. 2. Diffuse distention of the small bowel with both fluid and gas suggesting ileus. There is oral contrast which has passed through the small bowel and is present throughout the colon. 3. There is a Robison catheter within the bladder 4. There is a gastrostomy tube present. Nahun Mills MD Modified Barium Swallow 01/29/17 0000 Signed Impressions: Service Date/Time: Sunday, January 29, 2017 00:00 - CONCLUSION: Penetration and aspiration are seen. Asif Bradley MD Abdomen X-Ray 01/28/17 0000 Signed Impressions: Service Date/Time: Saturday, January 28, 2017 08:27 - CONCLUSION: The oral contrast material injected through the G-tube is present within the duodenum and proximal jejunum. No abnormal extravasation is identified. Asif Dawson MD Shoulder X-Ray 01/26/17 1122 Signed Impressions: Service Date/Time: Thursday, January 26, 2017 11:43 - CONCLUSION: Post traumatic deformity of the left humeral head characteristic of an old fracture. No findings suggestive of acute fracture or dislocation. Fidel Barrett MD Knee X-Ray 01/26/17 1122 Signed Impressions: Service Date/Time: Thursday, January 26, 2017 11:48 - CONCLUSION: 1. Osteoarthritic change greatest in the medial compartment. 2. No acute fracture or malalignment. 3. Small joint effusion. Behzad Dos Santos MD Head CT 01/26/17 1122 Signed Impressions: Service Date/Time: Thursday, January 26, 2017 11:54 - CONCLUSION: Left supraorbital soft tissue swelling. No evidence of acute infarct, hemorrhage, mass, edema or fracture. Fidel Barrett MD Cervical Spine CT 01/26/17 1122 Signed Impressions: Service Date/Time: Thursday, January 26, 2017 11:56 - CONCLUSION: 1. Mild degenerative anterolisthesis secondary to facet arthropathy as described. 2. No evidence of acute fracture or traumatic listhesis. 3. Advanced facet arthropathy. 4. Moderate severe degenerative disease with spondylosis at C5-6 and C6-7. 5. No acute soft tissue abnormality. Fidel Barrett MD Renal Ultrasound 01/26/17 0000 Signed Impressions: Service Date/Time: Thursday, January 26, 2017 14:22 - CONCLUSION: Bilateral extrarenal pelvis No evidence of hydronephrosis, suspicious masses or nephrolithiasis. Fidel Barrett MD Physical Exam HEENT: Normocephalic; atraumatic CHEST: Course breath sounds, crackles in bases. CARDIAC: RRR ABDOMEN: Soft, mildly distended, nontender; large ventral hernia. GJ site dressing d&i EXTREMITIES: Ble edema. [employer]: Lethargic, follows commands (Elizabeth Mercado) Assessment and Plan Plan ASSESSMENT: - Dysphagia with Reflux, Suspected aspiration. He had a prolonged hospitalization earlier this year, at which time we evaluated him for possible peg tube placement. EGD, Unsuccessful PEG tube placement (09/05/16)---> deformed pylorus/antrum, nodular mucosa-multiple biopsies taken, esophagitis distal esophagus, transillumination seen in the hernia sac, unable to place peg endoscopically , retroflexed views revealed a hiatal hernia. He was evaluated by general surgery at that time, but they did not feel that they could place J tube surgically. He was given nutrition via an NGT and was eventually transferred to [facility] on 09/23/16. While at [facility], he had an EGD with PEG tube placement by Dr. Bailey on 10/19/16. He was discharged to the SNF prior to this hospitalization, where ST is following and he was getting Vital Stem and tolerating a puree diet with honey thickened liquids, although he was still requiring TF for poor po intake. S/P Conversion of PEG to G/J tube by IR (02/04/17). Tolerating TF. PPI with BID dosing. - Ileus. Abdomen/Pelvis CT (02/01/17)-----> 1. Bibasilar infiltrates concerning for pneumonia. 2. Diffuse distention of the small bowel with both fluid and gas suggesting ileus. There is oral contrast which has passed through the small bowel and is present throughout the colon. 3. There is a Rboison catheter within the bladder 4. There is a gastrostomy tube present. IMPROVED. Abdomen soft, less distended, having bowel movements. Reglan. Will d/c miralax for diarrhea. - CDifficile diarrhea. EPID 027 negative. Oral vanco. Will d/c miralax for diarrhea. If continues, will d/c reglan - Anemia. Hgb 9.9/29.4. - Mild elevation of LFT. LFTs stable. - Respiratory failure, Aspiration pna, COPD. Meropenem. Solumedrol - Large ventral hernia. - Sepsis, Proteus bacteremia/uti. - COPD, HTN, Hyperlipidemia, Hx Prostate Cancer. PLAN: - Increase Jevity 1.5 at 60cc/hr - Cont. PPI - Cont. Reglan - D/C Miralax - If diarrhea persist, d/c reglan - Cont. Oral vancomycin - GI will sign off, please reconsult as needed - Pt seen and examined by and myself and this note is written on his behalf (Elizabeth Mercado) Physician Comments Seen and examined with Elizabeth. Please notify us if needed again. (Cele Desai MD) Elizabeth Mercado Feb 06, 2017 09:58 Cele Desai MD Feb 06, 2017 11:38
--- NOTE | 2017-02-06 13:23 | HHI.IDPN ---
Subjective Subjective Remarks doing better extubated on NC O2 cont to have liquid stoool, large amount C.diff + coabd pain no fever Antibiotics po vanco meropenem Allergies: Coded Allergies: No Known Allergies (Unverified , 11/10/16) Objective . Vital Signs Date Time Temp Pulse Resp B/P (MAP) Pulse Ox O2 Delivery O2 Flow Rate FiO2 02/06/17 12:00 67 02/06/17 10:00 63 02/06/17 08:00 98.2 57 19 148/68 (94) 98 02/06/17 08:00 57 02/06/17 07:35 97 Nasal Cannula 4.00 02/06/17 07:00 96 Nasal Cannula 4.00 02/06/17 06:00 62 02/06/17 04:00 99.2 64 18 154/69 (97) 97 02/06/17 04:00 64 02/06/17 02:00 79 02/06/17 00:00 99.2 96 20 156/91 (112) 95 02/06/17 00:00 96 02/05/17 22:00 75 02/05/17 20:23 97 Nasal Cannula 4.00 02/05/17 20:00 56 02/05/17 20:00 99.0 56 19 152/67 (95) 96 02/05/17 19:00 96 Nasal Cannula 4.00 02/05/17 18:00 56 02/05/17 16:27 98 Nasal Cannula 4.00 02/05/17 16:20 98 Nasal Cannula 4 02/05/17 16:10 99 Nasal Cannula 4.00 02/05/17 16:00 66 02/05/17 16:00 98.4 76 14 150/69 (96) 99 02/05/17 14:00 46 02/05/17 14:00 99 Mechanical Ventilator 40 . Laboratory Tests Test 02/05/17 04:00 White Blood Count 6.4 TH/MM3 Red Blood Count 3.22 MIL/MM3 Hemoglobin 9.9 GM/DL Hematocrit 29.4 % Mean Corpuscular Volume 91.5 FL Mean Corpuscular Hemoglobin 30.8 PG Mean Corpuscular Hemoglobin Concent 33.7 % Red Cell Distribution Width 16.5 % Platelet Count 295 TH/MM3 Mean Platelet Volume 8.7 FL Neutrophils (%) (Auto) 90.9 % Lymphocytes (%) (Auto) 6.3 % Monocytes (%) (Auto) 2.7 % Eosinophils (%) (Auto) 0.0 % Basophils (%) (Auto) 0.1 % Neutrophils # (Auto) 5.9 TH/MM3 Lymphocytes # (Auto) 0.4 TH/MM3 Monocytes # (Auto) 0.2 TH/MM3 Eosinophils # (Auto) 0.0 TH/MM3 Basophils # (Auto) 0.0 TH/MM3 CBC Comment AUTO DIFF Differential Total Cells Counted 100 Neutrophils % (Manual) 87 % Band Neutrophils % 4 % Lymphocytes % 2 % Monocytes % 2 % Neutrophils # (Manual) 6.1 TH/MM3 Myelocytes 4 % Promyelocytes 1 % Differential Comment FINAL DIFF MANUAL Platelet Estimate NORMAL Platelet Morphology Comment NORMAL Acanthocytes OCC Red Cell Morphology Comment Laboratory Tests Test 02/04/17 13:20 02/05/17 04:00 Blood Urea Nitrogen 30 MG/DL 30 MG/DL Creatinine 1.04 MG/DL 0.90 MG/DL Random Glucose 177 MG/DL 144 MG/DL Calcium Level 8.0 MG/DL 8.2 MG/DL Sodium Level 149 MEQ/L 148 MEQ/L Potassium Level 3.6 MEQ/L 3.9 MEQ/L Chloride Level 113 MEQ/L 112 MEQ/L Carbon Dioxide Level 27.6 MEQ/L 30.3 MEQ/L Anion Gap 8 MEQ/L 6 MEQ/L Estimat Glomerular Filtration Rate 71 ML/MIN 83 ML/MIN Total Protein 6.0 GM/DL Albumin 2.2 GM/DL Alkaline Phosphatase 119 U/L Aspartate Amino Transf (AST/SGOT) 14 U/L Alanine Aminotransferase (ALT/SGPT) 17 U/L Total Bilirubin 0.3 MG/DL Imaging Last Impressions Gastrostomy Tube Change 02/04/17 0000 Signed Impressions: Service Date/Time: Saturday, February 04, 2017 12:22 - CONCLUSION: 1. Conversion of an existing gastrostomy tube to a transgastric GJ tube. Jaime Quinteros Jr., MD Chest X-Ray 02/03/17 0600 Signed Impressions: Service Date/Time: Friday, February 03, 2017 04:27 - CONCLUSION: Stable appearance of the chest with bibasilar airspace disease and probable associated effusions, left greater than right. Rick Hancock MD Chest CT 02/01/17 0000 Signed Impressions: Service Date/Time: Wednesday, February 01, 2017 10:16 - CONCLUSION: 1. Extensive, consolidated, bilateral infiltrates in the lower lobes and effusions concerning for pneumonia. In the appropriate clinical setting, this would be concerning for aspiration. 2. ET tube in good position. 3. 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 4. Scattered adenopathy in the mediastinum and AP window nonspecific in appearance. Nahun Mills MD Abdomen/Pelvis CT 02/01/17 0000 Signed Impressions: Service Date/Time: Wednesday, February 01, 2017 10:16 - CONCLUSION: 1. Bibasilar infiltrates concerning for pneumonia. 2. Diffuse distention of the small bowel with both fluid and gas suggesting ileus. There is oral contrast which has passed through the small bowel and is present throughout the colon. 3. There is a Robison catheter within the bladder 4. There is a gastrostomy tube present. Nahun Mills MD Modified Barium Swallow 01/29/17 0000 Signed Impressions: Service Date/Time: Sunday, January 29, 2017 00:00 - CONCLUSION: Penetration and aspiration are seen. Asif Bradley MD Abdomen X-Ray 01/28/17 0000 Signed Impressions: Service Date/Time: Saturday, January 28, 2017 08:27 - CONCLUSION: The oral contrast material injected through the G-tube is present within the duodenum and proximal jejunum. No abnormal extravasation is identified. Asif Dawson MD Shoulder X-Ray 01/26/17 1122 Signed Impressions: Service Date/Time: Thursday, January 26, 2017 11:43 - CONCLUSION: Post traumatic deformity of the left humeral head characteristic of an old fracture. No findings suggestive of acute fracture or dislocation. Fidel Barrett MD Knee X-Ray 01/26/17 1122 Signed Impressions: Service Date/Time: Thursday, January 26, 2017 11:48 - CONCLUSION: 1. Osteoarthritic change greatest in the medial compartment. 2. No acute fracture or malalignment. 3. Small joint effusion. Behzad Dos Santos MD Head CT 01/26/17 1122 Signed Impressions: Service Date/Time: Thursday, January 26, 2017 11:54 - CONCLUSION: Left supraorbital soft tissue swelling. No evidence of acute infarct, hemorrhage, mass, edema or fracture. Fidel Barrett MD Cervical Spine CT 01/26/17 1122 Signed Impressions: Service Date/Time: Thursday, January 26, 2017 11:56 - CONCLUSION: 1. Mild degenerative anterolisthesis secondary to facet arthropathy as described. 2. No evidence of acute fracture or traumatic listhesis. 3. Advanced facet arthropathy. 4. Moderate severe degenerative disease with spondylosis at C5-6 and C6-7. 5. No acute soft tissue abnormality. Fidel Barrett MD Renal Ultrasound 01/26/17 0000 Signed Impressions: Service Date/Time: Thursday, January 26, 2017 14:22 - CONCLUSION: Bilateral extrarenal pelvis No evidence of hydronephrosis, suspicious masses or nephrolithiasis. Fidel Barrett MD Physical Exam CONSTITUTIONAL/GENERAL: This is an adequately nourished patient, in no apparent distress. Intubated, [facility] TUBES/LINES/DRAINS: SKIN: No jaundice, rashes, or lesions. . Skin temperature appropriate. Not diaphoretic. EYES: Pupils equal and round and reactive. Extraocular motions intact. No scleral icterus. No injection or drainage. Fundi not examined. CARDIOVASCULAR: Regular rate and rhythm without murmurs, gallops, or rubs. No JVD. Peripheral pulses symmetric. RESPIRATORY/CHEST: Symmetric, unlabored respirations. Clear to auscultation. Breath sounds equal bilaterally. No wheezes, rales, or rhonchi. GASTROINTESTINAL: Abdomen soft, mildly tender, moderately distended. No hepato- splenomegaly, or palpable masses. No guarding. Bowel sounds present. PEG in place - site OK Incisional herniaa R side Dignishild in place with liquid brown stool GENITOURINARY: Without palpable bladder distension. Robison catheter in place with clear yellow urine MUSCULOSKELETAL: Extremities without clubbing, cyanosis, or edema. NEUROLOGICAL: Awake and alert. . Follows commands. Moves all extremities. PSYCHIATRIC:calm and cooperative Assessment & Plan Remarks aspiration PNA, b/l 2/2 ESBL Kleb pneumo, Enterobacter Acute VDRF resolved; succesfully extubated Bactermic UTI in the setting s of obstructive uropathy Abx associated diarrhea C.diff cont Meropenem cont oral vancomycin Eloisa Vogel MD Feb 06, 2017 13:23
--- NOTE | 2017-02-06 18:34 | HHI.PR ---
Subjective Remarks Follow up for respiratory failure and multiple infections. Extubated yesterday , stable on nasal cannula. Patient is doing well today. The patient denies any chest pain, shortness of breath, nausea, vomiting, fevers, or chills. He has had some diarrhea. D/W RN, patient required Percocet twice today for pain. Patient denies any abdominal pain to me. Tube feeds are not yet at goal. D/ W Dr. Gonsalves. Objective Vitals Vital Signs Date Time Temp Pulse Resp B/P (MAP) Pulse Ox O2 Delivery O2 Flow Rate FiO2 02/06/17 18:00 62 02/06/17 16:00 98.1 66 16 144/67 (92) 96 02/06/17 16:00 66 02/06/17 14:00 59 02/06/17 12:00 67 02/06/17 12:00 98.4 68 25 174/82 (112) 98 02/06/17 10:00 63 02/06/17 08:00 98.2 57 19 148/68 (94) 98 02/06/17 08:00 57 02/06/17 07:35 97 Nasal Cannula 4.00 02/06/17 07:00 96 Nasal Cannula 4.00 02/06/17 06:00 62 02/06/17 04:00 99.2 64 18 154/69 (97) 97 02/06/17 04:00 64 02/06/17 02:00 79 02/06/17 00:00 99.2 96 20 156/91 (112) 95 02/06/17 00:00 96 02/05/17 22:00 75 02/05/17 20:23 97 Nasal Cannula 4.00 02/05/17 20:00 56 02/05/17 20:00 99.0 56 19 152/67 (95) 96 02/05/17 19:00 96 Nasal Cannula 4.00 I/O 02/05/17 02/05/17 02/05/17 02/06/17 02/06/17 02/06/17 06:59 14:59 22:59 06:59 14:59 22:59 Intake Total 262 ml 1311 ml 460 ml 140 ml 2170 ml Output Total 1550 ml 1300 ml 1600 ml 1200 ml Balance -1288 ml 1311 ml -840 ml -1460 ml 970 ml IV Total 202 ml 1311 ml 460 ml 1463 ml Tube Feeding 20 ml 607 ml Tube Irrigant 60 ml 120 ml 100 ml Output Urine Total 1250 ml 1000 ml 1400 ml 1050 ml Stool Total 300 ml 300 ml 200 ml 150 ml Result Diagram: 02/05/17 0400 02/05/17 0400 Imaging Last Impressions Gastrostomy Tube Change 02/04/17 0000 Signed Impressions: Service Date/Time: Saturday, February 04, 2017 12:22 - CONCLUSION: 1. Conversion of an existing gastrostomy tube to a transgastric GJ tube. Jaime Quinteros Jr., MD Chest X-Ray 02/03/17 0600 Signed Impressions: Service Date/Time: Friday, February 03, 2017 04:27 - CONCLUSION: Stable appearance of the chest with bibasilar airspace disease and probable associated effusions, left greater than right. Rick Hancock MD Chest CT 02/01/17 0000 Signed Impressions: Service Date/Time: Wednesday, February 01, 2017 10:16 - CONCLUSION: 1. Extensive, consolidated, bilateral infiltrates in the lower lobes and effusions concerning for pneumonia. In the appropriate clinical setting, this would be concerning for aspiration. 2. ET tube in good position. 3. 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 4. Scattered adenopathy in the mediastinum and AP window nonspecific in appearance. Nahun Mills MD Abdomen/Pelvis CT 02/01/17 0000 Signed Impressions: Service Date/Time: Wednesday, February 01, 2017 10:16 - CONCLUSION: 1. Bibasilar infiltrates concerning for pneumonia. 2. Diffuse distention of the small bowel with both fluid and gas suggesting ileus. There is oral contrast which has passed through the small bowel and is present throughout the colon. 3. There is a Robison catheter within the bladder 4. There is a gastrostomy tube present. Nahun Mills MD Modified Barium Swallow 01/29/17 0000 Signed Impressions: Service Date/Time: Sunday, January 29, 2017 00:00 - CONCLUSION: Penetration and aspiration are seen. Asif Bradley MD Abdomen X-Ray 01/28/17 0000 Signed Impressions: Service Date/Time: Saturday, January 28, 2017 08:27 - CONCLUSION: The oral contrast material injected through the G-tube is present within the duodenum and proximal jejunum. No abnormal extravasation is identified. Asif Dawson MD Shoulder X-Ray 01/26/17 1122 Signed Impressions: Service Date/Time: Thursday, January 26, 2017 11:43 - CONCLUSION: Post traumatic deformity of the left humeral head characteristic of an old fracture. No findings suggestive of acute fracture or dislocation. Fidel Barrett MD Knee X-Ray 01/26/17 1122 Signed Impressions: Service Date/Time: Thursday, January 26, 2017 11:48 - CONCLUSION: 1. Osteoarthritic change greatest in the medial compartment. 2. No acute fracture or malalignment. 3. Small joint effusion. Behzad Dos Santos MD Head CT 01/26/17 1122 Signed Impressions: Service Date/Time: Thursday, January 26, 2017 11:54 - CONCLUSION: Left supraorbital soft tissue swelling. No evidence of acute infarct, hemorrhage, mass, edema or fracture. Fidel Barrett MD Cervical Spine CT 01/26/17 1122 Signed Impressions: Service Date/Time: Thursday, January 26, 2017 11:56 - CONCLUSION: 1. Mild degenerative anterolisthesis secondary to facet arthropathy as described. 2. No evidence of acute fracture or traumatic listhesis. 3. Advanced facet arthropathy. 4. Moderate severe degenerative disease with spondylosis at C5-6 and C6-7. 5. No acute soft tissue abnormality. Fidel Barrett MD Renal Ultrasound 01/26/17 0000 Signed Impressions: Service Date/Time: Thursday, January 26, 2017 14:22 - CONCLUSION: Bilateral extrarenal pelvis No evidence of hydronephrosis, suspicious masses or nephrolithiasis. Fidel Barrett MD Objective Remarks GENERAL: Well-developed well-nourished. In no acute distress. SKIN: Warm and dry. No lesions noted. HEENT: Normocephalic. Pupils equal and round. Mucous membranes pink and moist. CARDIOVASCULAR: Regular rate and rhythm. No murmur appreciated. RESPIRATORY: No accessory muscle use. Clear to auscultation. Mild wheezing in the left base. Pain crackles in the right base. GASTROINTESTINAL: Abdomen soft, non-tender, nondistended. Bowel sounds x4. PEG tube in place. MUSCULOSKELETAL: No obvious deformities. No clubbing or cyanosis. Trace lower extremity edema. NEUROLOGICAL: Awake and alert.Moves upper and lower extremities spontaneously. Normal speech. PSYCHIATRIC: Appropriate mood and affect; insight and judgment fair. Procedures Intubation 02/01/2017 Echo 02/02/2017 CONCLUSIONS Normal left ventricular size. Wall thickness is measured at the upper limits of normal. The left ventricular systolic function is low normal with an estimated ejection fraction in the range of 50- 55%. No regional wall motion abnormalities are present. Severe mitral annular calcification. Calcification of both mitral valve leaflets. The aortic valve is not well visualized. Cannot rule out a bicuspid aortic valve or trileaflet valve with partially fused commissure. Aortic valve sclerosis is present. Mild thickening of the aortic valve leaflets. Mild thickening of the tricuspid valve leaflets. There is trace tricuspid valve regurgitation. The estimated pulmonary arterial pressure is 37 mmHg. A/P Assessment and Plan Mr. Soriano is a 71-year-old male with past medical history of obstructive uropathy, prostate cancer, hypertension, history of cardiac arrest, mood disorder, chronic pain, GERD, COPD, CAD, mild dementia who was sent from SNF for confusion and fall. He was admitted to the hospitalist service on 01/26/17 with diagnosis of UTI. Urine culture grew Proteus and there was also 4/4 Proteus bacteremia. Patient was getting Rocephin treatment for the above. Noted to have increasing shortness of breath yesterday azithromycin added for bibasilar infiltrates. He has a history of prostate cancer 10 years ago, had urinary retention and had an indwelling Robison catheter until recently (removed at [facility]). Urology following here Dr. Sandoval. A rapid response (Halicat) was called on 02/01/2017 due to acute hypoxic respiratory failure. Patient was on tube feed and aspiration was suspected. Patient was admitted to ICU for closer monitoring. He required intubation on 02/01/2017. Patient was started on Zosyn and was also given single dose of Vancomycin. Patient underwent GJ tube placement on 02/04/2017 by IR. ID switched abx to meropenem and also started on oral vancomycin due to positive C. Diff colitis. Patient was extubated on 2016 and subsequently patient's care was transferred back to the hospitalist service. - Acute respiratory failure hypoxic - Probable aspiration pneumonia - Probable acute COPD exacerbation - Extubated on 02/05/2017. Currently patient is on Budesonide neb treatments. Add DuoNeb Q4hrs PRN - Continue supplemental O2 to keep O2 sat > 90%. - Continue Solu-medrol 40mg IV Q12hrs. - CT chest --> extensive bibasilar consolidation indicating pneumonia secondary to aspiration and mediastinal adenopathy largest lymph node 1.9 cm nonspecific. - Continue Meropenem 2g Q8hrs. Sputum cx from 02/01/2017 grew ESBL E. Coli and Enterobacter. - UTI with Proteus - Bacteremia with Proteus - C. Diff colitis - Blood cx from 01/26/2017 grew Proteus. No growth on blood cultures from 01/28, 02/01/2017. - Patient received Ceftriaxone. - ID following. Patient is currently on PO Vancomycin for C. Diff colitis. - Hypernatremia - Sodium 150 --> 148. Continue 1/2 NS @60cc/hour. However, this might not help much with hypernatremia. - Will repeat BMP in the AM. If hypernatremia is not improved, consider switching to D5W @84cc/hour. - Will add free water flush with 200cc Q6hrs. - Urinary retention - Dr. Sandoval following. Patient is currently on Doxazosin 2mg Qday and Tamsulosin 0.4mg Qday. - Sinus tachycardia - Hypertension - Continue metoprolol 25mg BID. - If BP is mildly elevated, consider switching beta violeta to Carvedilol. - Dysphagia - Continue tube feed, goal 60cc/hour (Jevity 1.5). - Previous speech therapy attempt to do oral feeding failed. He aspiration during modified barium swallow study as well. Full code. Lovenox 40mg Q24hrs, Protonix 40mg IV Q12hrs. Discharge Planning Currently stable for transfer to the floor. Jordan Moss Feb 06, 2017 18:34 Isiah Gonsalves DO Feb 06, 2017 23:40
[2017-02-07] VITALS (11 sets, daily range): BP systolic 144–162; BP diastolic 70–85; PULSE 52–74; RESP 12–18; TEMP 97.9–98.6; O2SAT 94–100
[2017-02-07] MEDS: oxyCODONE/ACETAMINOPHEN 10 MG/325 MG TAB PO PRN ×3 (01:00→14:17)
[2017-02-07] MEDS: SODIUM CHLOR 0.45% 1000 ML INJ 1,000 ML IV SCH ×2 (01:13→15:31)
[2017-02-07] MEDS: RESP: ALBUTEROL 2.5 MG/IPRATROPIUM 0.5 MG NEB (PRN) NEB ×2 (03:24→09:11)
[2017-02-07] MEDS: HYOSCYAMINE 0.125 MG TAB G-TUBE SCH ×5 (03:59→22:10)
[2017-02-07 04:29] LABS: AUTOMATED NEUTROPHIL # 6.6 TH/MM3 (1.8-7.7); BASOPHIL % 0.1 % (0.0-2.0); EOSINOPHIL % 0.1 % (0.0-4.0); HEMATOCRIT 29.1 % (39.0-51.0); LYMPH % 4.4 % (9.0-44.0); LYMPHOCYTE # 0.3 TH/MM3 (1.0-4.8); MEAN CELL VOLUME 92.6 FL (80.0-100.0); MEAN CORPUSCULAR HEMOGLOBIN 30.2 PG (27.0-34.0); MEAN CORPUSCULAR HGB CONC 32.6 % (32.0-36.0); MONO % 3.7 % (0.0-8.0); NEUT % 91.7 % (16.0-70.0); PLATELET COUNT 274 TH/MM3 (150-450); RED BLOOD COUNT 3.14 MIL/MM3 (4.50-5.90); RED CELL DISTRIBUTION WIDTH 15.6 % (11.6-17.2); WHITE BLOOD COUNT 7.2 TH/MM3 (4.0-11.0)
[2017-02-07 04:37] LABS: HEMO FLAGS AUTO DIFF
[2017-02-07 04:56] LABS: ANION GAP 6 MEQ/L (5-15); AST (GOT) 14 U/L (15-37); BICARBONATE 31.4 MEQ/L (21.0-32.0); BLOOD UREA NITROGEN 23 MG/DL (7-18); CHLORIDE 106 MEQ/L (98-107); GLOMERULAR FILTRATION RATE 106 ML/MIN (>89); POTASSIUM 3.2 MEQ/L (3.5-5.1); SODIUM (NA) 143 MEQ/L (136-145)
[2017-02-07 04:57] LABS: ALT (GPT) 16 U/L (12-78)
[2017-02-07 04:59] LABS: ALKALINE PHOSPHATASE 120 U/L (45-117); TOTAL BILIRUBIN ADULT 0.3 MG/DL (0.2-1.0)
[2017-02-07] MEDS: MEROPENEM INJ 2,000 MG in SODIUM CHLORIDE 0.9% INJ 100 ML IV SCH ×3 (05:25→22:11)
[2017-02-07] MEDS: METOCLOPRAMIDE HCL 10 MG/2 ML VIAL IV PUSH SCH ×3 (05:29→22:10)
[2017-02-07] MEDS: VANCOMYCIN 500 MG VIAL (FOR ORAL USE ONLY) PO SCH ×3 (05:29→18:42)
[2017-02-07] MEDS: ARTIFICIAL TEARS OPTH SOLN 15 ML BTL EACH EYE SCH ×3 (05:29→22:00)
[2017-02-07 06:12] LABS: METAMYELOCYTES 2 % (0-1); MYELOCYTES 2 % (0-0); NEUTROPHIL # MANUAL DIFF 6.7 TH/MM3 (1.8-7.7); PLATELET ESTIMATE SMEAR NORMAL (NORMAL); PLATELET MORPHOLOGY NORMAL (NORMAL); POLYS (SEG NEUTROPHILS) 87 % (16-70); PROMYELOCYTES 2 % (0-0); SCAN/DIFF FINAL DIFF MANUAL; WBC DIFF SAMPLE 100
[2017-02-07] MEDS: POTASSIUM CHLOR 20 MEQ PREMIX 100 ML IV PRN ×4 (06:45→14:47)
[2017-02-07] MEDS: CHLORHEXIDINE 0.12% (ORAL KIT) 15 ML CUP MT SCH ×2 (08:00→20:00)
[2017-02-07] MEDS: RESP: BUDESONIDE 0.5 MG/2 ML NEB NEB SCH ×2 (09:11→20:20)
[2017-02-07] MEDS: AMIODARONE 200 MG TAB G-TUBE SCH (09:20)
[2017-02-07] MEDS: METOPROLOL TARTRATE 25 MG TAB PO SCH ×2 (09:20→21:00)
[2017-02-07] MEDS: LACTOBACILLUS ACIDOPHILUS TAB PO SCH ×2 (09:20→22:10)
[2017-02-07] MEDS: methylPREDNISolone SOD SUCC 40 MG/1 ML VIAL IV PUSH SCH ×2 (09:21→22:11)
[2017-02-07] MEDS: SODIUM CHLORIDE 0.9% FLUSH 10 ML FLUSH IV FLUSH SCH ×2 (09:21→21:00)
[2017-02-07] MEDS: PANTOPRAZOLE SODIUM 40 MG VIAL IV PUSH SCH (09:21)
[2017-02-07] MEDS: ENOXAPARIN SODIUM 40 MG/0.4 ML SYRINGE SQ SCH (09:22)
[2017-02-07] MEDS: TAMSULOSIN HCL 0.4 MG CAP PO SCH (09:25)
[2017-02-07] MEDS: DOXAZOSIN MESYLATE 2 MG TAB G-TUBE SCH (10:17)
--- NOTE | 2017-02-07 10:51 | HHI.PR ---
Subjective Patient symptoms today Pt seen and examined. Extubated. Feeling better. Robison with clear urine with some sediment. Objective Vital Signs Vital Signs Date Time Temp Pulse Resp B/P (MAP) Pulse Ox O2 Delivery O2 Flow Rate FiO2 02/07/17 09:17 100 Nasal Cannula 4.00 02/07/17 06:00 52 02/07/17 04:00 63 02/07/17 04:00 98.4 63 12 149/71 (97) 94 02/07/17 02:00 74 02/07/17 02:00 20 02/07/17 00:00 64 02/07/17 00:00 97.9 64 18 162/85 (110) 97 02/06/17 22:00 68 02/06/17 20:27 98 Nasal Cannula 3.00 02/06/17 20:00 97.7 68 17 149/99 (116) 99 02/06/17 20:00 68 02/06/17 19:00 97 Nasal Cannula 4.00 02/06/17 18:00 62 02/06/17 16:00 98.1 66 16 144/67 (92) 96 02/06/17 16:00 66 02/06/17 14:00 59 02/06/17 12:00 67 02/06/17 12:00 98.4 68 25 174/82 (112) 98 Intake & Output 02/07/17 02/07/17 06:59 18:59 Intake Total 1643 ml Output Total 1400 ml Balance 243 ml IV Total 824 ml Tube Feeding 419 ml Tube Irrigant 400 ml Output Urine Total 1400 ml # Bowel Movements 0 Result Diagram: 02/07/17 04102/07/17410 Objective Remarks Abd:soft,nt,nd Robison: urine clear 01/30 Abd:soft,nt,nd Robison: urine clear 01/31 Abd:soft,nt,nd Robison removed at bedside 02/01 Abd:soft,nt,nd Robison reinserted for 750cc; urine clear 02/07 Abd:soft,nt,nd Robison: clear with some sediment Medications and IVs Current Medications Medications (Trade) Dose Ordered Sig/Jeferson Route Start Time Stop Time Status Last Admin (NS Flush) 2 ml UNSCH PRN IV FLUSH 01/26/17 13:45 (NS Flush) 2 ml BID IV FLUSH 01/26/17 21:00 02/07/17 09:21 (Zofran Inj) 4 mg Q6H PRN IVP 01/26/17 13:45 02/01/17 02:55 (Narcan Inj) 0.4 mg UNSCH PRN IV 01/26/17 13:45 (Milk Of Magnesia Liq) 30 ml Q12H PRN PO 01/26/17 13:45 (Senokot) 17.2 mg Q12H PRN PO 01/26/17 13:45 (Dulcolax Supp) 10 mg DAILY PRN RECTAL 01/26/17 13:45 (Lactulose Liq) 30 ml DAILY PRN PO 01/26/17 13:45 (Pulmicort Respule Neb) 0.5 mg Q12HR NEB NEB 01/26/17 20:00 02/07/17 09:11 (Lopressor) 25 mg BID PO 01/26/17 21:00 02/07/17 09:20 (Prevacid Odt) 15 mg DAILY NG 01/27/17 09:00 Future Hold 01/31/17 08:54 (Lactinex) 1 tab Q12HR PO 01/26/17 21:00 02/07/17 09:20 (Xanax) 0.25 mg Q8H PRN G-TUBE 01/26/17 14:15 01/31/17 21:20 (Cordarone) 200 mg DAILY G-TUBE 01/27/17 09:00 02/07/17 09:20 (Cardura) 2 mg DAILY G-TUBE 01/27/17 09:00 02/07/17 10:17 (Levsin) 0.125 mg Q4H G-TUBE 01/26/17 16:00 02/07/17 09:20 (Percocet 10-325 Mg) 1 tab Q4H PRN PO 01/26/17 14:15 02/07/17 10:18 (Tylenol) 650 mg Q4H PRN PO 01/26/17 18:45 01/28/17 23:29 (Flomax) 0.4 mg DAILY PO 01/27/17 10:00 02/07/17 09:25 (Pill Splitter) 1 ea UNSCH PRN OTHER 01/30/17 22:00 (SoluMEDROL INJ) 40 mg Q12HR IV PUSH 02/01/17 21:00 02/07/17 09:21 Potassium Chloride 100 ml @ 50 mls/hr Q2H PRN IV 02/01/17 09:15 02/03/17 05:32 Potassium Chloride 100 ml @ 50 mls/hr Q2H PRN IV 02/01/17 09:15 02/07/17 09:19 (K-Lyte Cl Eff) 50 meq UNSCH PRN PO 02/01/17 09:15 Potassium Chloride 100 ml @ 25 mls/hr UNSCH PRN IV 02/01/17 09:15 02/02/17 17:55 Potassium Chloride 100 ml @ 50 mls/hr Q2H PRN IV 02/01/17 09:15 Magnesium Sulfate 4 gm/Sodium Chloride 100 ml @ 50 mls/hr UNSCH PRN IV 02/01/17 09:15 (Mag-Ox) 800 mg UNSCH PRN PO 02/01/17 09:15 Magnesium Sulfate 2 gm/Sodium Chloride 100 ml @ 50 mls/hr UNSCH PRN IV 02/01/17 09:15 02/02/17 17:55 (K-Phos) 2,000 mg Q4H PRN PO 02/01/17 09:15 Sodium Phosphate 30 mmol/Sodium Chloride 250 ml @ 42 mls/hr UNSCH PRN IV 02/01/17 09:15 (K-Phos) 2,000 mg UNSCH PRN PO/TUBE 02/01/17 09:15 Potassium Phosphate 30 mmol/ Sodium Chloride 260 ml @ 42 mls/hr UNSCH PRN IV 02/01/17 09:15 (Peridex 0.12% Liq) 15 ml BID@08,20 MT 02/01/17 20:00 02/06/17 08:00 Propofol 100 ml @ 0 mls/hr TITRATE IV 02/01/17 09:30 02/05/17 13:08 (Lovenox Inj) 40 mg Q24H SQ 02/01/17 10:00 02/07/17 09:22 (Reglan Inj) 10 mg Q8HR IV PUSH 02/01/17 15:00 02/07/17 05:29 (Protonix Inj) 40 mg Q12H IV PUSH 02/01/17 22:00 02/07/17 09:21 (Tears Naturale Opth Soln) 1 drop Q8HR EACH EYE 02/02/17 14:00 02/07/17 05:29 Sodium Chloride 1,000 ml @ 60 mls/hr [id number] IV 02/02/17 18:00 02/07/17 01:13 (Apresoline Inj) 20 mg Q2H PRN IV 02/04/17 10:45 02/05/17 22:35 Nicardipine HCl 25 mg/Sodium Chloride 260 ml @ 52 mls/hr TITRATE PRN IV 02/04/17 15:15 Meropenem 2000 mg/ Sodium Chloride 100 ml @ 200 mls/hr Q8H IV 02/05/17 13:00 02/07/17 05:25 Midazolam HCl 100 ml @ 2 mls/hr TITRATE PRN IV 02/05/17 15:00 (VANCOMYCIN for oral use only) 500 mg Q6HR PO 02/05/17 19:00 02/07/17 05:29 (Duoneb Neb) 1 ampule Q4HR NEB PRN NEB 02/07/17 00:00 02/07/17 09:11 Assessment and Plan Assessment and Plan 71 y.o male with CaP and symptoms of outlet obstruction. Continue on Flomax and rehabilitation. Void trial prior to discharge. 01/30 71 y.o male with CaP and symptoms of outlet obstruction. Continue on Flomax and rehabilitation. Void trial in AM 01/31 71 y.o male with CaP and symptoms of outlet obstruction. Continue on Flomax and rehabilitation. Void trial today 02/01 71 y.o male with CaP and symptoms of outlet obstruction with aspiration requiring intubation Continue Robison drainage for now May need to have SP tube placed in future 02/07 71 y.o male with CaP and symptoms of outlet obstruction with aspiration requiring intubation Continue Robison drainage for now May need to have SP tube placed in future Kavon Sandoval DO Feb 07, 2017 10:51
--- NOTE | 2017-02-07 11:14 | HHI.PR ---
Subjective Remarks no shortness of breath. no pain. Objective Vitals Vital Signs Date Time Temp Pulse Resp B/P (MAP) Pulse Ox O2 Delivery O2 Flow Rate FiO2 02/07/17 09:17 100 Nasal Cannula 4.00 02/07/17 06:00 52 02/07/17 04:00 63 02/07/17 04:00 98.4 63 12 149/71 (97) 94 02/07/17 02:00 74 02/07/17 02:00 20 02/07/17 00:00 64 02/07/17 00:00 97.9 64 18 162/85 (110) 97 02/06/17 22:00 68 02/06/17 20:27 98 Nasal Cannula 3.00 02/06/17 20:00 97.7 68 17 149/99 (116) 99 02/06/17 20:00 68 02/06/17 19:00 97 Nasal Cannula 4.00 02/06/17 18:00 62 02/06/17 16:00 98.1 66 16 144/67 (92) 96 02/06/17 16:00 66 02/06/17 14:00 59 02/06/17 12:00 67 02/06/17 12:00 98.4 68 25 174/82 (112) 98 I/O 02/06/17 02/06/17 02/06/17 02/07/17 02/07/17 02/07/17 06:59 14:59 22:59 06:59 14:59 22:59 Intake Total 140 ml 2170 ml 1643 ml Output Total 1600 ml 1200 ml 1400 ml Balance -1460 ml 970 ml 243 ml IV Total 1463 ml 824 ml Tube Feeding 20 ml 607 ml 419 ml Tube Irrigant 120 ml 100 ml 400 ml Output Urine Total 1400 ml 1050 ml 1400 ml Stool Total 200 ml 150 ml # Bowel Movements 0 Result Diagram: 02/07/17 0411 02/07/17410 Other Results Microbiology Date/Time Source Procedure Growth Status 02/01/17 11:00 Blood Peripheral Aerobic Blood Culture - Final NO GROWTH IN 5 DAYS Complete 02/01/17 11:00 Blood Peripheral Anaerobic Blood Culture - Final NO GROWTH IN 5 DAYS Complete 02/01/17 09:15 Sputum Expectorated Sputum Gram Stain - Final Complete 02/01/17 09:15 Sputum Culture - Final Escherichia Coli Esbl Positive Enterobacter Cloacae Complete 02/01/17 11:35 Urine Catheterized Urine Urine Culture - Final NO GROWTH IN 48 HOURS. Complete Objective Remarks GENERAL: This is a well-nourished, well-developed patient, in no apparent distress. CARDIOVASCULAR: regular rate and rhythmn RESPIRATORY: diminished breath sounds on the bases GASTROINTESTINAL: Abdomen soft, non-tender, nondistended. Normal active bowel sounds MUSCULOSKELETAL: Extremities without clubbing, cyanosis, or edema. NEURO: Alert & Oriented x2 to person Moves all ext x4 but with generalized weakness Procedures Intubation 02/01/2017 Echo 02/02/2017 CONCLUSIONS Normal left ventricular size. Wall thickness is measured at the upper limits of normal. The left ventricular systolic function is low normal with an estimated ejection fraction in the range of 50- 55%. No regional wall motion abnormalities are present. Severe mitral annular calcification. Calcification of both mitral valve leaflets. The aortic valve is not well visualized. Cannot rule out a bicuspid aortic valve or trileaflet valve with partially fused commissure. Aortic valve sclerosis is present. Mild thickening of the aortic valve leaflets. Mild thickening of the tricuspid valve leaflets. There is trace tricuspid valve regurgitation. The estimated pulmonary arterial pressure is 37 mmHg. A/P Assessment and Plan Mr. Soriano is a 71-year-old male with past medical history of obstructive uropathy, prostate cancer, hypertension, history of cardiac arrest, mood disorder, chronic pain, GERD, COPD, CAD, mild dementia who was sent from [facility] for confusion and fall. He was admitted to the hospitalist service on 01/26/17 with diagnosis of UTI. Urine culture grew Proteus and there was also 4/4 Proteus bacteremia. Patient was getting Rocephin treatment for the above. Noted to have increasing shortness of breath and later azithromycin added for bibasilar infiltrates. He has a history of prostate cancer 10 years ago, had urinary retention and had an indwelling Robison catheter until recently (removed at [facility]). Urology following here Dr. Sandoval. A rapid response (Halicat) was called on 02/01/2017 due to acute hypoxic respiratory failure. Patient was on tube feed and aspiration was suspected. Patient was admitted to ICU for closer monitoring. He required intubation on 02/01/2017. Patient was started on Zosyn and was also given single dose of Vancomycin. Patient underwent GJ tube placement on 02/04/2017 by IR. ID switched abx to meropenem and also started on oral vancomycin due to positive C. Diff colitis. Patient was extubated on 2016 and subsequently patient's care was transferred back to the hospitalist service. - Acute respiratory failure hypoxia - not resolved and on NC - Probable aspiration pneumonia - Probable acute COPD exacerbation - Extubated on 02/05/2017. Currently patient is on Budesonide neb treatments. Add DuoNeb Q4hrs PRN - Continue supplemental O2 to keep O2 sat > 90%. , Currently on 4 L and will continue to wean as tolerated - Continue Solu-medrol 40mg IV Q12hrs. - CT chest --> extensive bibasilar consolidation indicating pneumonia secondary to aspiration and mediastinal adenopathy largest lymph node 1.9 cm nonspecific. - Continue Meropenem 2g IV Q8hrs. Sputum culture from 02/01/2017 grew ESBL E. Coli and Enterobacter. - UTI with Proteus status post treatment - Bacteremia with Proteus - C. Diff colitis - isolation - Blood cx from 01/26/2017 grew Proteus. No growth on blood cultures from 01/28, 02/01/2017. - Patient received Ceftriaxone. - ID following. Patient is currently on PO Vancomycin for C. Diff colitis. - Hypernatremia resolved with free water flushes 200 CC every 6 hours, 148 now to 143; Hypokalemia- replete - Urinary retention - Dr. Sandoval following. Patient is currently on Doxazosin 2mg Qday and Tamsulosin 0.4mg Qday. Monitor Output - Hypertension, labile - Continue metoprolol 25mg BID. - Considering adding lisinopril if continues to be labile, vasotec IV prn. - Dysphagia - Continue tube feed, goal 60cc/hour (Jevity 1.5). GJ tube placed - Previous speech therapy attempt to do oral feeding failed. He aspiration during modified barium swallow study as well. Keep nothing by mouth. Full code. Lovenox 40mg Q24hrs, Protonix 40mg IV Q12hrs switch to prevacid. Zayra Quinn MD Feb 07, 2017 11:14
[2017-02-08] VITALS (9 sets, daily range): BP systolic 139–173; BP diastolic 71–85; PULSE 54–65; RESP 11–22; TEMP 96.6–98.7; O2SAT 94–100
[2017-02-08] MEDS: VANCOMYCIN 500 MG VIAL (FOR ORAL USE ONLY) PO SCH ×4 (00:42→16:51)
[2017-02-08] MEDS: oxyCODONE/ACETAMINOPHEN 10 MG/325 MG TAB PO PRN ×5 (02:11→21:22)
[2017-02-08] MEDS: HYOSCYAMINE 0.125 MG TAB G-TUBE SCH ×6 (04:00→20:00)
[2017-02-08] MEDS: MEROPENEM INJ 2,000 MG in SODIUM CHLORIDE 0.9% INJ 100 ML IV SCH ×3 (04:47→21:21)
[2017-02-08] MEDS: ARTIFICIAL TEARS OPTH SOLN 15 ML BTL EACH EYE SCH ×3 (06:00→20:59)
[2017-02-08] MEDS: METOCLOPRAMIDE HCL 10 MG/2 ML VIAL IV PUSH SCH ×3 (06:00→20:57)
[2017-02-08] MEDS: CHLORHEXIDINE 0.12% (ORAL KIT) 15 ML CUP MT SCH ×2 (08:00→20:00)
[2017-02-08] MEDS: RESP: BUDESONIDE 0.5 MG/2 ML NEB NEB SCH ×2 (08:27→20:00)
[2017-02-08] MEDS: RESP: ALBUTEROL 2.5 MG/IPRATROPIUM 0.5 MG NEB (PRN) NEB (08:28)
[2017-02-08] MEDS: DOXAZOSIN MESYLATE 2 MG TAB G-TUBE SCH (10:11)
[2017-02-08] MEDS: LANSOPRAZOLE SOLUTAB 15 MG TAB NG SCH (10:11)
[2017-02-08] MEDS: ENOXAPARIN SODIUM 40 MG/0.4 ML SYRINGE SQ SCH (10:12)
[2017-02-08] MEDS: methylPREDNISolone SOD SUCC 40 MG/1 ML VIAL IV PUSH SCH ×2 (10:12→20:57)
[2017-02-08] MEDS: SODIUM CHLORIDE 0.9% FLUSH 10 ML FLUSH IV FLUSH SCH ×2 (10:12→20:58)
[2017-02-08] MEDS: LACTOBACILLUS ACIDOPHILUS TAB PO SCH ×2 (10:12→20:57)
[2017-02-08] MEDS: TAMSULOSIN HCL 0.4 MG CAP PO SCH (10:13)
[2017-02-08] MEDS: AMIODARONE 200 MG TAB G-TUBE SCH (10:13)
[2017-02-08] MEDS: METOPROLOL TARTRATE 25 MG TAB PO SCH ×2 (10:14→20:57)
[2017-02-08] MEDS: SODIUM CHLOR 0.45% 1000 ML INJ 1,000 ML IV SCH ×2 (10:14→21:20)
--- NOTE | 2017-02-08 12:53 | HHI.PR ---
Subjective Remarks Getting stronger; getting up and working with physical therapy. Breathing better Objective Vitals Vital Signs Date Time Temp Pulse Resp B/P (MAP) Pulse Ox O2 Delivery O2 Flow Rate FiO2 02/08/17 08:32 100 Simple Mask 7.00 02/08/17 06:38 15 02/08/17 04:00 98.7 64 18 173/84 (113) 99 02/08/17 04:00 64 02/08/17 00:00 98.2 58 17 170/79 (109) 98 02/08/17 00:00 58 02/07/17 20:21 100 Nasal Cannula 4.00 02/07/17 20:00 98.5 56 14 150/70 (96) 100 02/07/17 20:00 56 02/07/17 19:00 100 Nasal Cannula 4.00 02/07/17 18:00 60 02/07/17 16:00 62 02/07/17 16:00 98.6 62 16 144/74 (97) 98 I/O 02/07/17 02/07/17 02/07/17 02/08/17 02/08/17 02/08/17 06:59 14:59 22:59 06:59 14:59 22:59 Intake Total 1643 ml 370 ml 1848 ml 1965 ml Output Total 1400 ml 1875 ml 2000 ml Balance 243 ml 370 ml -27 ml -35 ml IV Total 824 ml 1222 ml 911 ml Tube Feeding 419 ml 476 ml 654 ml Tube Irrigant 400 ml Other 370 ml 150 ml 400 ml Output Urine Total 1400 ml 1425 ml 1800 ml Stool Total 450 ml 200 ml # Bowel Movements 0 Result Diagram: 02/07/17 0411 02/07/17 2126 Other Results Microbiology Date/Time Source Procedure Growth Status 02/01/17 11:00 Blood Peripheral Aerobic Blood Culture - Final NO GROWTH IN 5 DAYS Complete 02/01/17 11:00 Blood Peripheral Anaerobic Blood Culture - Final NO GROWTH IN 5 DAYS Complete 02/01/17 09:15 Sputum Expectorated Sputum Gram Stain - Final Complete 02/01/17 09:15 Sputum Culture - Final Escherichia Coli Esbl Positive Enterobacter Cloacae Complete 02/01/17 11:35 Urine Catheterized Urine Urine Culture - Final NO GROWTH IN 48 HOURS. Complete Objective Remarks GENERAL: This is a well-nourished, well-developed patient, in no apparent distress. CARDIOVASCULAR: regular rate and rhythmn RESPIRATORY: diminished breath sounds on the bases GASTROINTESTINAL: Abdomen soft, non-tender, nondistended. Normal active bowel sounds MUSCULOSKELETAL: Extremities without clubbing, cyanosis, or edema. NEURO: Alert & Oriented x2 to person Moves all ext x4 but with generalized weakness Procedures Intubation 02/01/2017 Echo 02/02/2017 CONCLUSIONS Normal left ventricular size. Wall thickness is measured at the upper limits of normal. The left ventricular systolic function is low normal with an estimated ejection fraction in the range of 50- 55%. No regional wall motion abnormalities are present. Severe mitral annular calcification. Calcification of both mitral valve leaflets. The aortic valve is not well visualized. Cannot rule out a bicuspid aortic valve or trileaflet valve with partially fused commissure. Aortic valve sclerosis is present. Mild thickening of the aortic valve leaflets. Mild thickening of the tricuspid valve leaflets. There is trace tricuspid valve regurgitation. The estimated pulmonary arterial pressure is 37 mmHg. A/P Assessment and Plan Mr. Soriano is a 71-year-old male with past medical history of obstructive uropathy, prostate cancer, hypertension, history of cardiac arrest, mood disorder, chronic pain, GERD, COPD, CAD, mild dementia who was [facility] from [facility]. He was admitted to the hospitalist service on 01/26/17 with diagnosis of UTI. Urine culture grew Proteus and there was also Proteus bacteremia. Patient was getting Rocephin treatment for the above. Noted to have increasing shortness of breath and later azithromycin added for bibasilar infiltrates. He has a history of prostate cancer 10 years ago, had urinary retention and had an indwelling Robison catheter until recently (removed at [facility]). Urology following here Dr. Sandoval. A rapid response (Halicat) was called on 02/01 due to acute hypoxic respiratory failure. Patient was on tube feed and aspiration was suspected. Patient was admitted to ICU for closer monitoring. He required intubation on 02/01/2017. Patient was started on Zosyn and was also given single dose of Vancomycin. Patient underwent GJ tube placement on 2016 by IR. ID switched abx to meropenem and also started on oral vancomycin due to positive C. Diff colitis. Patient was extubated on 02/05/2017 and subsequently patient's care was transferred back to the hospitalist service. - Acute respiratory failure hypoxia - now resolved and on NC - Probable aspiration pneumonia - Probable acute COPD exacerbation - Extubated on 02/05/2017. Currently patient is on Budesonide neb treatments. Add DuoNeb Q4hrs PRN - Continue supplemental O2 to keep O2 sat > 90%. , Currently on 4 L and will continue to wean as tolerated. - Continue Solu-medrol 40mg IV Q12hrs. - CT chest --> extensive bibasilar consolidation indicating pneumonia secondary to aspiration and mediastinal adenopathy largest lymph node 1.9 cm nonspecific. - Continue Meropenem 2g IV Q8hrs. Sputum culture from 02/01/2017 grew ESBL E. Coli and Enterobacter. - UTI with Proteus status post treatment - Bacteremia with Proteus - C. Diff colitis - isolation - Blood cx from 01/26/2017 grew Proteus. No growth on blood cultures from 01/28, 02/01/2017. - Patient received Ceftriaxone. - ID following. Patient is currently on PO Vancomycin for C. Diff colitis. - Hypernatremia resolved with free water flushes 200 CC every 6 hours, 148 now to 143; Hypokalemia- replete - Urinary retention - Dr. Sandoval following. Patient is currently on Doxazosin 2mg Qday and Tamsulosin 0.4mg Qday. Monitor Output currently with Orbison catheter; Dr. Sandoval decide when trial of voiding with a Robison removal can be done. - Hypertension, labile - Continue metoprolol 25mg BID. - Add lisinopril today due to labile blood pressure, vasotec IV prn. - Dysphagia - Continue tube feed, goal 60cc/hour (Jevity 1.5). GJ tube placed - Previous speech therapy attempt to do oral feeding failed. He aspiration during modified barium swallow study as well. Keep nothing by mouth. Full code. Lovenox 40mg Q24hrs, Protonix 40mg IV Q12hrs switch to prevacid. Discussed with daughter at bedside who reports that patient had a history of gout, will will restart low-dose allopurinol today. At this time I don't believe daily NSAIDs for patient is appropriate, I discussed the risk of peptic ulcer and nephro toxin effects of being on chronic NSAIDs. Discharge Planning Transfers the floor, will need placement. Zayra Quinn MD Feb 08, 2017 12:53
[2017-02-08] MEDS: LISINOPRIL 10 MG TAB G-TUBE SCH (13:39)
[2017-02-08] MEDS: ALPRAZolam 0.25 MG TAB G-TUBE PRN (21:22)
[2017-02-09] VITALS (8 sets, daily range): BP systolic 138–146; BP diastolic 69–78; PULSE 55–67; RESP 18–20; TEMP 96.4–97.6; O2SAT 93–97
[2017-02-09] MEDS: VANCOMYCIN 500 MG VIAL (FOR ORAL USE ONLY) PO SCH ×5 (00:04→23:23)
[2017-02-09] MEDS: oxyCODONE/ACETAMINOPHEN 10 MG/325 MG TAB PO PRN ×4 (05:53→21:14)
[2017-02-09] MEDS: MEROPENEM INJ 2,000 MG in SODIUM CHLORIDE 0.9% INJ 100 ML IV SCH ×3 (05:58→21:15)
[2017-02-09] MEDS: HYOSCYAMINE 0.125 MG TAB G-TUBE SCH ×7 (05:59→23:23)
[2017-02-09] MEDS: METOCLOPRAMIDE HCL 10 MG/2 ML VIAL IV PUSH SCH ×3 (06:01→21:15)
[2017-02-09] MEDS: ARTIFICIAL TEARS OPTH SOLN 15 ML BTL EACH EYE SCH ×3 (06:02→21:15)
[2017-02-09] MEDS: CHLORHEXIDINE 0.12% (ORAL KIT) 15 ML CUP MT SCH ×2 (08:00→20:00)
[2017-02-09] MEDS: SODIUM CHLORIDE 0.9% FLUSH 10 ML FLUSH IV FLUSH SCH ×2 (09:00→21:00)
[2017-02-09] MEDS: ALLOPURINOL 100 MG TAB G-TUBE SCH (09:06)
[2017-02-09] MEDS: LACTOBACILLUS ACIDOPHILUS TAB PO SCH ×2 (09:06→21:14)
[2017-02-09] MEDS: ENOXAPARIN SODIUM 40 MG/0.4 ML SYRINGE SQ SCH (09:06)
[2017-02-09] MEDS: AMIODARONE 200 MG TAB G-TUBE SCH (09:06)
[2017-02-09] MEDS: DOXAZOSIN MESYLATE 2 MG TAB G-TUBE SCH (09:07)
[2017-02-09] MEDS: TAMSULOSIN HCL 0.4 MG CAP PO SCH (09:07)
[2017-02-09] MEDS: LANSOPRAZOLE SOLUTAB 15 MG TAB NG SCH (09:12)
[2017-02-09] MEDS: methylPREDNISolone SOD SUCC 40 MG/1 ML VIAL IV PUSH SCH (09:12)
[2017-02-09] MEDS: METOPROLOL TARTRATE 25 MG TAB PO SCH ×2 (09:13→21:15)
[2017-02-09] MEDS: LISINOPRIL 10 MG TAB G-TUBE SCH (09:14)
[2017-02-09] MEDS: RESP: BUDESONIDE 0.5 MG/2 ML NEB NEB SCH ×2 (09:21→20:28)
--- NOTE | 2017-02-09 12:01 | HHI.PR ---
Subjective Remarks Follow-up for multiple medical conditions listed in the assessment and plan Patient stated that he has his ups and downs in terms of strength. He stated he was feeling very well yesterday but feels a little weaker today. He denies diarrhea. Denies any pain. Patient asking to eat something. Otherwise he remains afebrile. Denies any shortness of breathing or cough. Objective Vitals Vital Signs Date Time Temp Pulse Resp B/P (MAP) Pulse Ox O2 Delivery O2 Flow Rate FiO2 02/09/17 09:26 97 Nasal Cannula 2.00 02/09/17 09:15 Nasal Cannula 2.00 02/09/17 08:00 96.9 67 19 138/73 (94) 95 02/09/17 04:00 143/73 (96) 02/09/17 00:00 96.4 55 20 145/73 (97) 96 02/08/17 20:00 96.7 58 20 151/72 (98) 95 02/08/17 18:10 94 Nasal Cannula 2.00 02/08/17 18:00 96.6 65 17 139/71 (93) 94 02/08/17 16:00 97.8 64 19 140/85 (103) 95 02/08/17 16:00 64 02/08/17 14:00 65 02/08/17 12:00 97.9 54 11 149/81 (103) 97 02/08/17 12:00 54 I/O 02/08/17 02/08/17 02/08/17 02/09/17 02/09/17 02/09/17 06:59 14:59 22:59 06:59 14:59 22:59 Intake Total 1965 ml 200 ml 2046 ml 1071 ml 0 ml Output Total 2000 ml 825 ml 1025.0 ml 2000 ml Balance -35 ml -625 ml 1021.0 ml -929 ml 0 ml Intake Oral 0 ml IV Total 911 ml 1004 ml 650 ml Tube Feeding 654 ml 802 ml 421 ml Other 400 ml 200 ml 240 ml Output Urine Total 1800 ml 825 ml 925 ml 2000 ml Stool Total 200 ml 100 ml Tube Feeding Residual Discard 0 ml # Bowel Movements 1 Result Diagram: 02/07/17 0411 02/07/172125 Objective Remarks GENERAL: This is a well-nourished, well-developed patient, in no apparent distress. CARDIOVASCULAR: regular rate and rhythmn RESPIRATORY: diminished breath sounds on the bases GASTROINTESTINAL: Abdomen soft, non-tender, nondistended. Normal active bowel sounds MUSCULOSKELETAL: Extremities without clubbing, cyanosis, or edema. NEURO: Alert & Oriented x2 to person Moves all ext x4 but with generalized weakness Procedures Intubation 02/01/2017 Echo 02/02/2017 CONCLUSIONS Normal left ventricular size. Wall thickness is measured at the upper limits of normal. The left ventricular systolic function is low normal with an estimated ejection fraction in the range of 50- 55%. No regional wall motion abnormalities are present. Severe mitral annular calcification. Calcification of both mitral valve leaflets. The aortic valve is not well visualized. Cannot rule out a bicuspid aortic valve or trileaflet valve with partially fused commissure. Aortic valve sclerosis is present. Mild thickening of the aortic valve leaflets. Mild thickening of the tricuspid valve leaflets. There is trace tricuspid valve regurgitation. The estimated pulmonary arterial pressure is 37 mmHg. Medications and IVs Current Medications Acetaminophen (Tylenol Supp) 650 mg ONCE ONCE RECTAL Last administered on 01/26 12:06; Start 01/26/17 at 11:30; Stop 01/26/17 at 11:31; Status DC Sodium Chloride 1,000 ml @ 1,000 mls/hr Q1H ONCE IV Last administered on 12:03; Start 01/26/17 at 11:22; Stop 01/26/17 at 12:21; Status DC Sodium Chloride 1,000 ml @ 1,000 mls/hr Q1H ONCE IV Last administered on 12:03; Start 01/26/17 at 11:22; Stop 01/26/17 at 12:21; Status DC Sodium Chloride 100 ml @ 1,000 mls/hr Q6M ONCE IV Last administered on 13:06; Start 01/26/17 at 11:22; Stop 01/26/17 at 11:27; Status DC Piperacillin Sod/ Tazobactam Sod 100 ml @ 200 mls/hr ONCE STAT IV Last administered on 01/26/17 14:17; Start 01/26/17 at 13:14; Stop 01/26/17 at 13:44 ; Status DC Piperacillin Sod/ Tazobactam Sod 50 ml @ 100 mls/hr Q8H IV Last administered on 01/28/17 21:26; Start 01/26/17 at 22:00; Stop 01/28/17 at 23:31; Status DC Sodium Chloride 1,000 ml @ 100 mls/hr Q10H IV Last administered on 01/31/17 21:06; Start 01/26/17 at 14:00; Stop 02/01/17 at 00:05; Status DC Sodium Chloride (NS Flush) 2 ml UNSCH PRN IV FLUSH FLUSH AFTER USING IV ACCESS ; Start 01/26/17 at 13:45 Sodium Chloride (NS Flush) 2 ml BID IV FLUSH Last administered on 02/08/17 10: 12; Start 01/26/17 at 21:00 Ondansetron HCl (Zofran Inj) 4 mg Q6H PRN IVP NAUSEA OR VOMITING Last administered on 02/01/17 02:55; Start 01/26/17 at 13:45 Naloxone HCl (Narcan Inj) 0.4 mg UNSCH PRN IV SEE LABEL COMMENTS; Start at 13:45 Senna/Docusate Sodium (Sharita-Colace) 1 tab BID PO ; Start 01/26/17 at 21:00; Stop 01/26/17 at 21:00; Status DC Magnesium Hydroxide (Milk Of Magnesia Liq) 30 ml Q12H PRN PO MILD - MODERATE CONSTIPATION; Start 01/26/17 at 13:45 Sennosides (Senokot) 17.2 mg Q12H PRN PO MODERATE - SEVERE CONSTIPATION; Start 01/26/17 at 13:45 Bisacodyl (Dulcolax Supp) 10 mg DAILY PRN RECTAL SEVERE CONSITIPATION; Start at 13:45 Lactulose (Lactulose Liq) 30 ml DAILY PRN PO SEVERE CONSITIPATION; Start at 13:45 Budesonide (Pulmicort Respule Neb) 0.5 mg Q12HR NEB NEB Last administered on 09:21; Start 01/26/17 at 20:00 Metoprolol Tartrate (Lopressor) 25 mg BID PO Last administered on 02/09/17 09: 13; Start 01/26/17 at 21:00 Morphine Sulfate (Morphine Inj) 6 mg ONCE ONCE IV PUSH Last administered on 14:30; Start 01/26/17 at 14:15; Stop 01/26/17 at 14:16; Status DC Lansoprazole (Prevacid Odt) 15 mg DAILY NG Last administered on 02/09/17 09:12 ; Start 01/27/17 at 09:00; Status Future hold Lactobacillus Acidophilus (Lactinex) 1 tab Q12HR PO Last administered on 09:06; Start 01/26/17 at 21:00 Alprazolam (Xanax) 0.25 mg Q8H PRN G-TUBE ANXIETY Last administered on 21:22; Start 01/26/17 at 14:15 Amiodarone HCl (Cordarone) 200 mg DAILY G-TUBE Last administered on 02/09/17 09:06; Start 01/27/17 at 09:00 Doxazosin Mesylate (Cardura) 2 mg DAILY G-TUBE Last administered on 02/09/17 09:07; Start 01/27/17 at 09:00 Hyoscyamine Sulfate (Levsin) 0.125 mg Q4H G-TUBE Last administered on 09:08; Start 01/26/17 at 16:00 Albuterol/ Ipratropium (Duoneb Neb) 1 ampule Q4HR WHILE AWAKE NEB INH Last administered on 01/29/17 19:31; Start 01/26/17 at 16:00; Stop 01/30/17 at 16:00 ; Status DC Oxycodone/ Acetaminophen (Percocet 10-325 Mg) 1 tab Q4H PRN PO PAIN SCALE 1 TO 10 Last administered on 02/09/17 05:53; Start 01/26/17 at 14:15 Acetaminophen (Tylenol 650 Mg/ 20 ml Liq) 650 mg ONCE ONCE G-TUBE Last administered on 01/26/17 17:23; Start 01/26/17 at 17:15; Stop 01/26/17 at 17:17 ; Status DC Acetaminophen (Tylenol) 650 mg Q4H PRN PO HEADACHE OR TEMP > 101 F Last administered on 01/28/17 23:29; Start 01/26/17 at 18:45 Sodium Chloride 1,000 ml @ 999 mls/hr BOLUS ONCE IV Last administered on 01/27 00:18; Start 01/27/17 at 00:15; Stop 01/27/17 at 01:15; Status DC Tamsulosin HCl (Flomax) 0.4 mg DAILY PO Last administered on 02/09/17 09:07; Start 01/27/17 at 10:00 Ceftriaxone Sodium 2000 mg/ Sodium Chloride 100 ml @ 200 mls/hr Q24H IV Last administered on 01/31/17 08:55; Start 01/29/17 at 08:00; Stop 02/01/17 at 09:04 ; Status DC Potassium Chloride (KCl Powder) 20 meq Q12HR PEG Last administered on 09:00; Start 01/30/17 at 21:00; Stop 01/31/17 at 09:01; Status DC Miscellaneous (Pill Splitter) 1 ea UNSCH PRN OTHER SEE LABEL COMMENTS; Start at 22:00 Albuterol/ Ipratropium (Duoneb Neb) 1 ampule Q4HR NEB NEB Last administered on 02/04/17 11:31; Start 01/31/17 at 16:00; Stop 02/04/17 at 16:00; Status DC Azithromycin 500 mg/Sodium Chloride 250 ml @ 250 mls/hr Q24H IV Last administered on 02/05/17 08:00; Start 02/01/17 at 08:00; Stop 02/05/17 at 12:01 ; Status DC Furosemide (Lasix Inj) 20 mg BID@,18 IV PUSH Last administered on 02/01/17 08:11; Start 02/01/17 at 09:00; Stop 02/01/17 at 09:05; Status DC Furosemide (Lasix Inj) 20 mg ONCE ONCE IV PUSH Last administered on 02/01/17 03:54; Start 02/01/17 at 04:00; Stop 02/01/17 at 04:01; Status DC Furosemide (Lasix Inj) 20 mg ONCE ONCE IV PUSH ; Start 02/01/17 at 08:30; Stop 02/01/17 at 08:31; Status UNV Methylprednisolone Sodium Succinate (SoluMEDROL INJ) 125 mg ONCE ONCE IV PUSH Last administered on 02/01/17 09:54; Start 02/01/17 at 10:00; Stop 02/01/17 at 10:01; Status DC Methylprednisolone Sodium Succinate (SoluMEDROL INJ) 40 mg Q12HR IV PUSH Last administered on 02/09/17 09:12; Start 02/01/17 at 21:00 Potassium Chloride 100 ml @ 50 mls/hr Q2H PRN IV For Potassium 2.8 - 3.2 mEq/ L Last administered on 02/03/17 05:32; Start 02/01/17 at 09:15; Stop 02/09/17 at 09:02; Status DC Potassium Chloride 100 ml @ 50 mls/hr Q2H PRN IV For Potassium 2.8 - 3.2 mEq/ L Last administered on 02/07/17 14:47; Start 02/01/17 at 09:15; Stop 02/09/17 at 09:02; Status DC Potassium Bicarb/ Potassium Chloride (K-Lyte Cl Eff) 50 meq UNSCH PRN PO For Potassium 3.3 - 3.5 mEq/L; Start 02/01/17 at 09:15; Stop 02/09/17 at 09:02; Status DC Potassium Chloride 100 ml @ 25 mls/hr UNSCH PRN IV For Potassium 3.3 - 3.5 mEq /L Last administered on 02/02/17 17:55; Start 02/01/17 at 09:15; Stop 02/09/17 at 09:02; Status DC Potassium Chloride 100 ml @ 50 mls/hr Q2H PRN IV For Potassium 3.3 - 3.5 mEq/L ; Start 02/01/17 at 09:15; Stop 02/09/17 at 09:02; Status DC Magnesium Sulfate 4 gm/Sodium Chloride 100 ml @ 50 mls/hr UNSCH PRN IV For Magnesium 0.9 - 1.1 mg/dL; Start 02/01/17 at 09:15; Stop 02/09/17 at 09:02; Status DC Magnesium Oxide (Mag-Ox) 800 mg UNSCH PRN PO For Magnesium 1.2 - 1.6 mg/dL; Start 02/01/17 at 09:15; Stop 02/09/17 at 09:02; Status DC Magnesium Sulfate 2 gm/Sodium Chloride 100 ml @ 50 mls/hr UNSCH PRN IV For Magnesium 1.2 - 1.6 mg/dL Last administered on 02/02/17 17:55; Start 02/01/17 at 09:15; Stop 02/09/17 at 09:02; Status DC Potassium Phosphate (K-Phos) 2,000 mg Q4H PRN PO For Phosphorus < 2.5 mg/dL; Start 02/01/17 at 09:15; Stop 02/09/17 at 09:02; Status DC Sodium Phosphate 30 mmol/Sodium Chloride 250 ml @ 42 mls/hr UNSCH PRN IV For Phosphorus < 2.5 mg/dL; Start 02/01/17 at 09:15; Stop 02/09/17 at 09:02; Status DC Potassium Phosphate (K-Phos) 2,000 mg UNSCH PRN PO/TUBE SEE LABEL COMMENTS; Start 02/01/17 at 09:15; Stop 02/09/17 at 09:02; Status DC Potassium Phosphate 30 mmol/ Sodium Chloride 260 ml @ 42 mls/hr UNSCH PRN IV SEE LABEL COMMENTS; Start 02/01/17 at 09:15; Stop 02/09/17 at 09:02; Status DC Piperacillin Sod/ Tazobactam Sod 100 ml @ 200 mls/hr Q6H IV Last administered on 02/05/17 10:07; Start 02/01/17 at 10:00; Stop 02/05/17 at 12:01; Status DC Vancomycin HCl 1000 mg/Sodium Chloride 250 ml @ 250 mls/hr CPAS IV ; Start 02/01/17 at 09:15; Stop 02/04/17 at 09:14; Status DC Etomidate (Amidate Inj) 20 mg ONCE ONCE IV PUSH Last administered on 09:55; Start 02/01/17 at 09:45; Stop 02/01/17 at 09:46; Status DC Succinylcholine Chloride (Quelicin Inj) 80 mg ONCE ONCE IV PUSH Last administered on 02/01/17 09:54; Start 02/01/17 at 10:00; Stop 02/01/17 at 10:01 ; Status DC Sodium Chloride 1,000 ml @ 999 mls/hr BOLUS ONCE IV Last administered on 02/01 11:07; Start 02/01/17 at 09:30; Stop 02/01/17 at 10:30; Status DC Chlorhexidine Gluconate (Peridex 0.12% Liq) 15 ml BID@08,20 MT Last administered on 02/06/17 08:00; Start 02/01/17 at 20:00 Propofol 100 ml @ 0 mls/hr TITRATE IV Last administered on 02/05/17 13:08; Start 02/01/17 at 09:30; Stop 02/07/17 at 11:18; Status DC Sodium Chloride 1,000 ml @ 999 mls/hr BOLUS ONCE IV Last administered on 02/01 11:07; Start 02/01/17 at 09:45; Stop 02/01/17 at 10:45; Status DC Sodium Chloride 1,000 ml @ 125 mls/hr Q8H IV Last administered on 02/02/17 00 :10; Start 02/01/17 at 09:45; Stop 02/02/17 at 17:52; Status DC Pantoprazole Sodium (Protonix Inj) 40 mg Q24H IV PUSH Last administered on 02/01 11:27; Start 02/01/17 at 10:00; Stop 02/01/17 at 15:12; Status DC Enoxaparin Sodium (Lovenox Inj) 40 mg Q24H SQ Last administered on 02/09/17 09 :06; Start 02/01/17 at 10:00 Midazolam HCl (Versed Inj) 5 mg ONCE ONCE IV Last administered on 02/01/17 14 :04; Start 02/01/17 at 12:15; Stop 02/01/17 at 12:18; Status DC Midazolam HCl 100 ml @ 0 mls/hr TITRATE IV Last administered on 02/04/17 00:47 ; Start 02/01/17 at 12:15; Stop 02/05/17 at 14:55; Status DC Metoclopramide HCl (Reglan Inj) 10 mg Q8HR IV PUSH Last administered on 06:01; Start 02/01/17 at 15:00 Pantoprazole Sodium (Protonix Inj) 40 mg Q12H IV PUSH Last administered on 02/07 09:21; Start 02/01/17 at 22:00; Stop 02/07/17 at 11:18; Status DC Artificial Tears (Tears Naturale Opth Soln) 1 drop Q8HR EACH EYE Last administered on 02/09/17 06:02; Start 02/02/17 at 14:00 Polyethylene Glycol (Miralax) 17 gm DAILY PO Last administered on 02/06/17 09: 58; Start 02/02/17 at 18:00; Stop 02/06/17 at 09:59; Status DC Sodium Chloride 1,000 ml @ 60 mls/hr [id number] IV Last administered on 21:20; Start 02/02/17 at 18:00 Hydralazine HCl (Apresoline Inj) 20 mg Q2H PRN IV SBP > 160 Last administered on 02/05/17 22:35; Start 02/04/17 at 10:45 Iohexol (Omnipaque 350 Inj) 35 ml STK-MED ONCE G-TUBE Last administered on 02/04 12:36; Start 02/04/17 at 13:10; Stop 02/04/17 at 13:11; Status DC Nicardipine HCl 25 mg/Sodium Chloride 260 ml @ 52 mls/hr TITRATE PRN IV Blood pressure management; Start 02/04/17 at 15:15; Stop 02/07/17 at 12:03; Status DC Miscellaneous Medication (ASP Crit: Doc ESBL, MDR A baumannii or P aer) 1 UNSCH X1 PRN .XX PHARMACY DOCUMENTATION; Start 02/05/17 at 12:00; Stop 02/06/17 at 11 :59; Status DC Miscellaneous Medication ([facility] Information) 1 UNSCH X1 PRN XX PHARMACY DOCUMENTATION; Start 02/05/17 at 12:00; Stop 02/06/17 at 11:59; Status DC Meropenem 2000 mg/ Sodium Chloride 100 ml @ 200 mls/hr Q8H IV Last administered on 02/09/17 05:58; Start 02/05/17 at 13:00 Midazolam HCl 100 ml @ 2 mls/hr TITRATE PRN IV SEDATION; Start 02/05/17 at 15: 00; Stop 02/07/17 at 11:18; Status DC Vancomycin HCl (VANCOMYCIN for oral use only) 500 mg Q6HR PO Last administered on 02/09/17 06:01; Start 02/05/17 at 19:00 Albuterol/ Ipratropium (Duoneb Neb) 1 ampule Q4HR NEB PRN NEB dyspnea Last administered on 02/08/17 08:28; Start 02/07/17 at 00:00 Lisinopril (Prinivil) 10 mg DAILY G-TUBE Last administered on 02/09/17 09:14; Start 02/08/17 at 10:45 Allopurinol (Zyloprim) 100 mg DAILY G-TUBE Last administered on 02/09/17 09:06 ; Start 02/09/17 at 09:00 A/P Assessment and Plan Mr. Soriano is a 71-year-old male with past medical history of obstructive uropathy, prostate cancer, hypertension, history of cardiac arrest, mood disorder, chronic pain, GERD, COPD, CAD, mild dementia who was sent from SNF for confusion and fall and found to have UTI Acute respiratory failure hypoxia most likely secondary to aspiration pneumonia and COPD exacerbation - now resolved and on NC Aspiration pneumonia Acute COPD exacerbation - Extubated on 02/05/2017. Currently patient is on Budesonide neb treatments. Add DuoNeb Q4hrs PRN. Improving. - Continue supplemental O2 to keep O2 sat > 90%. , Currently on 4 L and will continue to wean as tolerated. -Will wean patient off Solu-Medrol. Last dose is changed was on 02/01/2017. Will put him on prednisone 20 mg by mouth twice a day. - CT chest --> extensive bibasilar consolidation indicating pneumonia secondary to aspiration and mediastinal adenopathy largest lymph node 1.9 cm nonspecific. - Continue Meropenem 2g IV Q8hrs. Sputum culture from 02/01/2017 grew ESBL E. Coli and Enterobacter. Infectious disease managing antibiotics. - UTI with Proteus status post treatment - Bacteremia with Proteus - C. Diff colitis - isolation - Blood cx from 01/26/2017 grew Proteus. No growth on blood cultures from 01/28, 02/01/2017. - Patient received Ceftriaxone. - ID following. Patient is currently on PO Vancomycin for C. Diff colitis. - Hypernatremia resolved with free water flushes 200 CC every 6 hours, 148 now to 143; DC normal saline most likely possibly worsening his hypernatremia. On recommend water flushes. Hypokalemia- replete - Urinary retention - Dr. Sandoval following. Patient is currently on Doxazosin 2mg Qday and Tamsulosin 0.4mg Qday. Monitor Output currently with Robison catheter; Dr. Sandoval decide when trial of voiding with a Robison removal can be done. - Hypertension, labile - Continue metoprolol 25mg BID. - Continue lisinopril. - Dysphagia - Continue tube feed, goal 60cc/hour (Jevity 1.5). GJ tube placed - Previous speech therapy attempt to do oral feeding failed. He aspiration during modified barium swallow study as well. Keep nothing by mouth. Full code. Lovenox 40mg Q24hrs, Protonix 40mg IV Q12hrs switch to prevacid. Cassy Arora MD Feb 09, 2017 12:00
[2017-02-09] MEDS: RESP: ALBUTEROL 2.5 MG/IPRATROPIUM 0.5 MG NEB (PRN) NEB (20:28)
[2017-02-09] MEDS: ALPRAZolam 0.25 MG TAB G-TUBE PRN (21:14)
[2017-02-09] MEDS: predniSONE 20 MG TAB PO SCH (21:14)
[2017-02-10] VITALS: BP 155/74; PULSE 51; RESP 18; TEMP 96.7; O2SAT 96
[2017-02-10 05:20] LABS: HEMATOCRIT 29.7 % (39.0-51.0); MEAN CELL VOLUME 92.8 FL (80.0-100.0); MEAN CORPUSCULAR HEMOGLOBIN 31.4 PG (27.0-34.0); MEAN CORPUSCULAR HGB CONC 33.8 % (32.0-36.0); PLATELET COUNT 223 TH/MM3 (150-450); RED CELL DISTRIBUTION WIDTH 15.6 % (11.6-17.2); REVIEW FLAG FINAL
[2017-02-10 05:48] LABS: POTASSIUM 3.9 MEQ/L (3.5-5.1)
[2017-02-10 05:49] LABS: BICARBONATE 30.8 MEQ/L (21.0-32.0)
[2017-02-10] MEDS: METOCLOPRAMIDE HCL 10 MG/2 ML VIAL IV PUSH SCH ×3 (06:18→20:40)
[2017-02-10] MEDS: VANCOMYCIN 500 MG VIAL (FOR ORAL USE ONLY) PO SCH ×3 (06:18→16:58)
[2017-02-10] MEDS: ARTIFICIAL TEARS OPTH SOLN 15 ML BTL EACH EYE SCH ×3 (06:18→20:42)
[2017-02-10] MEDS: MEROPENEM INJ 2,000 MG in SODIUM CHLORIDE 0.9% INJ 100 ML IV SCH ×3 (06:18→20:36)
[2017-02-10] MEDS: HYOSCYAMINE 0.125 MG TAB G-TUBE SCH ×5 (06:18→20:40)
[2017-02-10] MEDS: oxyCODONE/ACETAMINOPHEN 10 MG/325 MG TAB PO PRN ×4 (06:19→20:40)
[2017-02-10 06:42] LABS: CALCIUM-PROTEIN CORRECTED 8.2 MG/DL (8.5-10.1)
[2017-02-10 08:00] VITALS: BP 143/67; PULSE 58; RESP 19; TEMP 97; O2SAT 96
[2017-02-10] MEDS: CHLORHEXIDINE 0.12% (ORAL KIT) 15 ML CUP MT SCH ×2 (08:00→20:00)
[2017-02-10] MEDS: DOXAZOSIN MESYLATE 2 MG TAB G-TUBE SCH (08:47)
[2017-02-10] MEDS: predniSONE 20 MG TAB PO SCH ×2 (08:47→20:36)
[2017-02-10] MEDS: LISINOPRIL 10 MG TAB G-TUBE SCH (08:47)
[2017-02-10] MEDS: ALLOPURINOL 100 MG TAB G-TUBE SCH (08:47)
[2017-02-10] MEDS: AMIODARONE 200 MG TAB G-TUBE SCH (08:47)
[2017-02-10] MEDS: TAMSULOSIN HCL 0.4 MG CAP PO SCH (08:47)
[2017-02-10] MEDS: METOPROLOL TARTRATE 25 MG TAB PO SCH ×2 (08:47→20:39)
[2017-02-10] MEDS: LACTOBACILLUS ACIDOPHILUS TAB PO SCH ×2 (08:47→20:36)
[2017-02-10] MEDS: LANSOPRAZOLE SOLUTAB 15 MG TAB NG SCH (08:47)
[2017-02-10] MEDS: SODIUM CHLORIDE 0.9% FLUSH 10 ML FLUSH IV FLUSH SCH ×2 (08:48→20:42)
[2017-02-10] MEDS: ENOXAPARIN SODIUM 40 MG/0.4 ML SYRINGE SQ SCH (10:44)
--- NOTE | 2017-02-10 11:19 | HHI.PR ---
Subjective Remarks Follow-up for infection Patient complaining of possible wax in his right ear. He stated that he feels like his clock. Patient also stated that he has nasal and chest congestion and requesting Mucinex. Patient also asking about restarting allopurinol. Patient is on allopurinol. Otherwise he denies any shortness of breathing or had any other complaints. The patient's nurse. Objective Vitals Vital Signs Date Time Temp Pulse Resp B/P (MAP) Pulse Ox O2 Delivery O2 Flow Rate FiO2 02/10/17 08:00 97.0 58 19 143/67 (92) 96 02/10/17 00:00 96.7 51 18 155/74 (101) 96 02/09/17 20:28 94 Nasal Cannula 2.00 02/09/17 20:00 96.6 66 18 141/73 (95) 93 02/09/17 16:00 97.6 62 19 143/69 (93) 95 02/09/17 12:00 96.9 56 19 146/78 (100) 95 I/O 02/09/17 02/09/17 02/09/17 02/10/17 02/10/17 02/10/17 07:00 15:00 23:00 07:00 15:00 23:00 Intake Total 1071 ml 100 ml 1546 ml 593 ml 0 ml Output Total 2000 ml 3100 ml 2750 ml Balance -929 ml 100 ml -1554 ml -2157 ml 0 ml Intake Oral 0 ml 0 ml 0 ml 0 ml IV Total 650 ml 100 ml 1546 ml 100 ml Tube Feeding 421 ml 493 ml Output Urine Total 2000 ml 2700 ml 2100 ml Stool Total 400 ml 650 ml Result Diagram: 02/10/17 0400 02/10/17 0400 Objective Remarks GENERAL: This is a well-nourished, well-developed patient, in no apparent distress. HEENT: Right ear there is soft wax that is obstructing the view of his middle ear. Left ear is clear. CARDIOVASCULAR: regular rate and rhythmn RESPIRATORY: diminished breath sounds on the bases and bilateral anterior rhonchi. No wheezing noted. GASTROINTESTINAL: Abdomen soft, non-tender, nondistended. Normal active bowel sounds MUSCULOSKELETAL: Extremities without clubbing, cyanosis, or edema. NEURO: Alert & Oriented x2 to person Moves all ext x4 but with generalized weakness Procedures Intubation 02/01/2017 Echo 02/02/2017 CONCLUSIONS Normal left ventricular size. Wall thickness is measured at the upper limits of normal. The left ventricular systolic function is low normal with an estimated ejection fraction in the range of 50- 55%. No regional wall motion abnormalities are present. Severe mitral annular calcification. Calcification of both mitral valve leaflets. The aortic valve is not well visualized. Cannot rule out a bicuspid aortic valve or trileaflet valve with partially fused commissure. Aortic valve sclerosis is present. Mild thickening of the aortic valve leaflets. Mild thickening of the tricuspid valve leaflets. There is trace tricuspid valve regurgitation. The estimated pulmonary arterial pressure is 37 mmHg. Medications and IVs Current Medications Acetaminophen (Tylenol Supp) 650 mg ONCE ONCE RECTAL Last administered on 01/26 12:06; Start 01/26/17 at 11:30; Stop 01/26/17 at 11:31; Status DC Sodium Chloride 1,000 ml @ 1,000 mls/hr Q1H ONCE IV Last administered on 12:03; Start 01/26/17 at 11:22; Stop 01/26/17 at 12:21; Status DC Sodium Chloride 1,000 ml @ 1,000 mls/hr Q1H ONCE IV Last administered on 12:03; Start 01/26/17 at 11:22; Stop 01/26/17 at 12:21; Status DC Sodium Chloride 100 ml @ 1,000 mls/hr Q6M ONCE IV Last administered on 13:06; Start 01/26/17 at 11:22; Stop 01/26/17 at 11:27; Status DC Piperacillin Sod/ Tazobactam Sod 100 ml @ 200 mls/hr ONCE STAT IV Last administered on 01/26/17 14:17; Start 01/26/17 at 13:14; Stop 01/26/17 at 13:44 ; Status DC Piperacillin Sod/ Tazobactam Sod 50 ml @ 100 mls/hr Q8H IV Last administered on 01/28/17 21:26; Start 01/26/17 at 22:00; Stop 01/28/17 at 23:31; Status DC Sodium Chloride 1,000 ml @ 100 mls/hr Q10H IV Last administered on 01/31/17 21:06; Start 01/26/17 at 14:00; Stop 02/01/17 at 00:05; Status DC Sodium Chloride (NS Flush) 2 ml UNSCH PRN IV FLUSH FLUSH AFTER USING IV ACCESS ; Start 01/26/17 at 13:45 Sodium Chloride (NS Flush) 2 ml BID IV FLUSH Last administered on 02/10/17 08: 48; Start 01/26/17 at 21:00 Ondansetron HCl (Zofran Inj) 4 mg Q6H PRN IVP NAUSEA OR VOMITING Last administered on 02/01/17 02:55; Start 01/26/17 at 13:45 Naloxone HCl (Narcan Inj) 0.4 mg UNSCH PRN IV SEE LABEL COMMENTS; Start at 13:45 Senna/Docusate Sodium (Sharita-Colace) 1 tab BID PO ; Start 01/26/17 at 21:00; Stop 01/26/17 at 21:00; Status DC Magnesium Hydroxide (Milk Of Magnesia Liq) 30 ml Q12H PRN PO MILD - MODERATE CONSTIPATION; Start 01/26/17 at 13:45 Sennosides (Senokot) 17.2 mg Q12H PRN PO MODERATE - SEVERE CONSTIPATION; Start 01/26/17 at 13:45 Bisacodyl (Dulcolax Supp) 10 mg DAILY PRN RECTAL SEVERE CONSITIPATION; Start at 13:45 Lactulose (Lactulose Liq) 30 ml DAILY PRN PO SEVERE CONSITIPATION; Start at 13:45 Budesonide (Pulmicort Respule Neb) 0.5 mg Q12HR NEB NEB Last administered on 20:28; Start 01/26/17 at 20:00 Metoprolol Tartrate (Lopressor) 25 mg BID PO Last administered on 02/10/17 08: 47; Start 01/26/17 at 21:00 Morphine Sulfate (Morphine Inj) 6 mg ONCE ONCE IV PUSH Last administered on 14:30; Start 01/26/17 at 14:15; Stop 01/26/17 at 14:16; Status DC Lansoprazole (Prevacid Odt) 15 mg DAILY NG Last administered on 02/10/17 08:47 ; Start 01/27/17 at 09:00; Status Future hold Lactobacillus Acidophilus (Lactinex) 1 tab Q12HR PO Last administered on 08:47; Start 01/26/17 at 21:00 Alprazolam (Xanax) 0.25 mg Q8H PRN G-TUBE ANXIETY Last administered on 21:14; Start 01/26/17 at 14:15 Amiodarone HCl (Cordarone) 200 mg DAILY G-TUBE Last administered on 02/10/17 08:47; Start 01/27/17 at 09:00 Doxazosin Mesylate (Cardura) 2 mg DAILY G-TUBE Last administered on 02/10/17 08:47; Start 01/27/17 at 09:00 Hyoscyamine Sulfate (Levsin) 0.125 mg Q4H G-TUBE Last administered on 08:48; Start 01/26/17 at 16:00 Albuterol/ Ipratropium (Duoneb Neb) 1 ampule Q4HR WHILE AWAKE NEB INH Last administered on 01/29/17 19:31; Start 01/26/17 at 16:00; Stop 01/30/17 at 16:00 ; Status DC Oxycodone/ Acetaminophen (Percocet 10-325 Mg) 1 tab Q4H PRN PO PAIN SCALE 1 TO 10 Last administered on 02/10/17 10:44; Start 01/26/17 at 14:15 Acetaminophen (Tylenol 650 Mg/ 20 ml Liq) 650 mg ONCE ONCE G-TUBE Last administered on 01/26/17 17:23; Start 01/26/17 at 17:15; Stop 01/26/17 at 17:17 ; Status DC Acetaminophen (Tylenol) 650 mg Q4H PRN PO HEADACHE OR TEMP > 101 F Last administered on 01/28/17 23:29; Start 01/26/17 at 18:45 Sodium Chloride 1,000 ml @ 999 mls/hr BOLUS ONCE IV Last administered on 01/27 00:18; Start 01/27/17 at 00:15; Stop 01/27/17 at 01:15; Status DC Tamsulosin HCl (Flomax) 0.4 mg DAILY PO Last administered on 02/10/17 08:47; Start 01/27/17 at 10:00 Ceftriaxone Sodium 2000 mg/ Sodium Chloride 100 ml @ 200 mls/hr Q24H IV Last administered on 01/31/17 08:55; Start 01/29/17 at 08:00; Stop 02/01/17 at 09:04 ; Status DC Potassium Chloride (KCl Powder) 20 meq Q12HR PEG Last administered on 09:00; Start 01/30/17 at 21:00; Stop 01/31/17 at 09:01; Status DC Miscellaneous (Pill Splitter) 1 ea UNSCH PRN OTHER SEE LABEL COMMENTS; Start at 22:00 Albuterol/ Ipratropium (Duoneb Neb) 1 ampule Q4HR NEB NEB Last administered on 02/04/17 11:31; Start 01/31/17 at 16:00; Stop 02/04/17 at 16:00; Status DC Azithromycin 500 mg/Sodium Chloride 250 ml @ 250 mls/hr Q24H IV Last administered on 02/05/17 08:00; Start 02/01/17 at 08:00; Stop 02/05/17 at 12:01 ; Status DC Furosemide (Lasix Inj) 20 mg BID@09,18 IV PUSH Last administered on 02/01/17 08:11; Start 02/01/17 at 09:00; Stop 02/01/17 at 09:05; Status DC Furosemide (Lasix Inj) 20 mg ONCE ONCE IV PUSH Last administered on 02/01/17 03:54; Start 02/01/17 at 04:00; Stop 02/01/17 at 04:01; Status DC Furosemide (Lasix Inj) 20 mg ONCE ONCE IV PUSH ; Start 02/01/17 at 08:30; Stop 02/01/17 at 08:31; Status UNV Methylprednisolone Sodium Succinate (SoluMEDROL INJ) 125 mg ONCE ONCE IV PUSH Last administered on 02/01/17 09:54; Start 02/01/17 at 10:00; Stop 02/01/17 at 10:01; Status DC Methylprednisolone Sodium Succinate (SoluMEDROL INJ) 40 mg Q12HR IV PUSH Last administered on 02/09/17 09:12; Start 02/01/17 at 21:00; Stop 02/09/17 at 12:03 ; Status DC Potassium Chloride 100 ml @ 50 mls/hr Q2H PRN IV For Potassium 2.8 - 3.2 mEq/ L Last administered on 02/03/17 05:32; Start 02/01/17 at 09:15; Stop 02/09/17 at 09:02; Status DC Potassium Chloride 100 ml @ 50 mls/hr Q2H PRN IV For Potassium 2.8 - 3.2 mEq/ L Last administered on 02/07/17 14:47; Start 02/01/17 at 09:15; Stop 02/09/17 at 09:02; Status DC Potassium Bicarb/ Potassium Chloride (K-Lyte Cl Eff) 50 meq UNSCH PRN PO For Potassium 3.3 - 3.5 mEq/L; Start 02/01/17 at 09:15; Stop 02/09/17 at 09:02; Status DC Potassium Chloride 100 ml @ 25 mls/hr UNSCH PRN IV For Potassium 3.3 - 3.5 mEq /L Last administered on 02/02/17 17:55; Start 02/01/17 at 09:15; Stop 02/09/17 at 09:02; Status DC Potassium Chloride 100 ml @ 50 mls/hr Q2H PRN IV For Potassium 3.3 - 3.5 mEq/L ; Start 02/01/17 at 09:15; Stop 02/09/17 at 09:02; Status DC Magnesium Sulfate 4 gm/Sodium Chloride 100 ml @ 50 mls/hr UNSCH PRN IV For Magnesium 0.9 - 1.1 mg/dL; Start 02/01/17 at 09:15; Stop 02/09/17 at 09:02; Status DC Magnesium Oxide (Mag-Ox) 800 mg UNSCH PRN PO For Magnesium 1.2 - 1.6 mg/dL; Start 02/01/17 at 09:15; Stop 02/09/17 at 09:02; Status DC Magnesium Sulfate 2 gm/Sodium Chloride 100 ml @ 50 mls/hr UNSCH PRN IV For Magnesium 1.2 - 1.6 mg/dL Last administered on 02/02/17 17:55; Start 02/01/17 at 09:15; Stop 02/09/17 at 09:02; Status DC Potassium Phosphate (K-Phos) 2,000 mg Q4H PRN PO For Phosphorus < 2.5 mg/dL; Start 02/01/17 at 09:15; Stop 02/09/17 at 09:02; Status DC Sodium Phosphate 30 mmol/Sodium Chloride 250 ml @ 42 mls/hr UNSCH PRN IV For Phosphorus < 2.5 mg/dL; Start 02/01/17 at 09:15; Stop 02/09/17 at 09:02; Status DC Potassium Phosphate (K-Phos) 2,000 mg UNSCH PRN PO/TUBE SEE LABEL COMMENTS; Start 02/01/17 at 09:15; Stop 02/09/17 at 09:02; Status DC Potassium Phosphate 30 mmol/ Sodium Chloride 260 ml @ 42 mls/hr UNSCH PRN IV SEE LABEL COMMENTS; Start 02/01/17 at 09:15; Stop 02/09/17 at 09:02; Status DC Piperacillin Sod/ Tazobactam Sod 100 ml @ 200 mls/hr Q6H IV Last administered on 02/05/17 10:07; Start 02/01/17 at 10:00; Stop 02/05/17 at 12:01; Status DC Vancomycin HCl 1000 mg/Sodium Chloride 250 ml @ 250 mls/hr VOICE COACH IV ; Start 02/01/17 at 09:15; Stop 02/04/17 at 09:14; Status DC Etomidate (Amidate Inj) 20 mg ONCE ONCE IV PUSH Last administered on 09:55; Start 02/01/17 at 09:45; Stop 02/01/17 at 09:46; Status DC Succinylcholine Chloride (Quelicin Inj) 80 mg ONCE ONCE IV PUSH Last administered on 02/01/17 09:54; Start 02/01/17 at 10:00; Stop 02/01/17 at 10:01 ; Status DC Sodium Chloride 1,000 ml @ 999 mls/hr BOLUS ONCE IV Last administered on 02/01 11:07; Start 02/01/17 at 09:30; Stop 02/01/17 at 10:30; Status DC Chlorhexidine Gluconate (Peridex 0.12% Liq) 15 ml BID@08,20 MT Last administered on 02/06/17 08:00; Start 02/01/17 at 20:00 Propofol 100 ml @ 0 mls/hr TITRATE IV Last administered on 02/05/17 13:08; Start 02/01/17 at 09:30; Stop 02/07/17 at 11:18; Status DC Sodium Chloride 1,000 ml @ 999 mls/hr BOLUS ONCE IV Last administered on 02/01 11:07; Start 02/01/17 at 09:45; Stop 02/01/17 at 10:45; Status DC Sodium Chloride 1,000 ml @ 125 mls/hr Q8H IV Last administered on 02/02/17 00 :10; Start 02/01/17 at 09:45; Stop 02/02/17 at 17:52; Status DC Pantoprazole Sodium (Protonix Inj) 40 mg Q24H IV PUSH Last administered on 02/01 11:27; Start 02/01/17 at 10:00; Stop 02/01/17 at 15:12; Status DC Enoxaparin Sodium (Lovenox Inj) 40 mg Q24H SQ Last administered on 02/10/17 10 :44; Start 02/01/17 at 10:00 Midazolam HCl (Versed Inj) 5 mg ONCE ONCE IV Last administered on 02/01/17 14 :04; Start 02/01/17 at 12:15; Stop 02/01/17 at 12:18; Status DC Midazolam HCl 100 ml @ 0 mls/hr TITRATE IV Last administered on 02/04/17 00:47 ; Start 02/01/17 at 12:15; Stop 02/05/17 at 14:55; Status DC Metoclopramide HCl (Reglan Inj) 10 mg Q8HR IV PUSH Last administered on 06:18; Start 02/01/17 at 15:00 Pantoprazole Sodium (Protonix Inj) 40 mg Q12H IV PUSH Last administered on 02/07 09:21; Start 02/01/17 at 22:00; Stop 02/07/17 at 11:18; Status DC Artificial Tears (Tears Naturale Opth Soln) 1 drop Q8HR EACH EYE Last administered on 02/10/17 06:18; Start 02/02/17 at 14:00 Polyethylene Glycol (Miralax) 17 gm DAILY PO Last administered on 02/06/17 09: 58; Start 02/02/17 at 18:00; Stop 02/06/17 at 09:59; Status DC Sodium Chloride 1,000 ml @ 60 mls/hr [id number] IV Last administered on 21:20; Start 02/02/17 at 18:00; Stop 02/09/17 at 12:03; Status DC Hydralazine HCl (Apresoline Inj) 20 mg Q2H PRN IV SBP > 160 Last administered on 02/05/17 22:35; Start 02/04/17 at 10:45 Iohexol (Omnipaque 350 Inj) 35 ml STK-MED ONCE G-TUBE Last administered on 02/04 12:36; Start 02/04/17 at 13:10; Stop 02/04/17 at 13:11; Status DC Nicardipine HCl 25 mg/Sodium Chloride 260 ml @ 52 mls/hr TITRATE PRN IV Blood pressure management; Start 02/04/17 at 15:15; Stop 02/07/17 at 12:03; Status DC Miscellaneous Medication (ASP Crit: Doc ESBL, MDR A baumannii or P aer) 1 UNSCH X1 PRN .XX PHARMACY DOCUMENTATION; Start 02/05/17 at 12:00; Stop 02/06/17 at 11 :59; Status DC Miscellaneous Medication ([facility]) 1 UNSCH X1 PRN XX PHARMACY DOCUMENTATION; Start 02/05/17 at 12:00; Stop 02/06/17 at 11:59; Status DC Meropenem 2000 mg/ Sodium Chloride 100 ml @ 200 mls/hr Q8H IV Last administered on 02/10/17 06:18; Start 02/05/17 at 13:00 Midazolam HCl 100 ml @ 2 mls/hr TITRATE PRN IV SEDATION; Start 02/05/17 at 15: 00; Stop 02/07/17 at 11:18; Status DC Vancomycin HCl (VANCOMYCIN for oral use only) 500 mg Q6HR PO Last administered on 02/10/17 06:18; Start 02/05/17 at 19:00 Albuterol/ Ipratropium (Duoneb Neb) 1 ampule Q4HR NEB PRN NEB dyspnea Last administered on 02/09/17 20:28; Start 02/07/17 at 00:00 Lisinopril (Prinivil) 10 mg DAILY G-TUBE Last administered on 02/10/17 08:47; Start 02/08/17 at 10:45; Stop 02/10/17 at 10:35; Status DC Allopurinol (Zyloprim) 100 mg DAILY G-TUBE Last administered on 02/10/17 08:47 ; Start 02/09/17 at 09:00 Prednisone (Deltasone) 20 mg BID PO Last administered on 02/10/17 08:47; Start 02/09/17 at 21:00 Lisinopril (Prinivil) 20 mg DAILY G-TUBE ; Start 02/11/17 at 09:00 Carbamide Peroxide (Debrox 6.5% Otic) 5 drop Q12HR RIGHT EAR ; Start 02/10/17 at 11:15; Status UNV Fluticasone Propionate (Flonase Venkata Spr) 1 spray BID NASAL ; Start 02/10/17 at 11:15; Status UNV Loratadine (Claritin) 10 mg DAILY PO ; Start 02/10/17 at 11:15; Status UNV A/P Assessment and Plan Mr. Soriano is a 71-year-old male with past medical history of obstructive uropathy, prostate cancer, hypertension, history of cardiac arrest, mood disorder, chronic pain, GERD, COPD, CAD, mild dementia who was sent from SNF for confusion and fall and found to have UTI Acute respiratory failure hypoxia most likely secondary to aspiration pneumonia and COPD exacerbation - now resolved and on NC Aspiration pneumonia Acute COPD exacerbation - Extubated on 02/05/2017. Currently patient is on Budesonide neb treatments. Add DuoNeb Q4hrs PRN. Improving. - Continue supplemental O2 to keep O2 sat > 90%. , Currently on 4 L and will continue to wean as tolerated. -Continue with prednisone 20 mg by mouth twice a day. - CT chest --> extensive bibasilar consolidation indicating pneumonia secondary to aspiration and mediastinal adenopathy largest lymph node 1.9 cm nonspecific. - Continue Meropenem 2g IV Q8hrs. Sputum culture from 02/01/2017 grew ESBL E. Coli and Enterobacter. Infectious disease managing antibiotics. - UTI with Proteus status post treatment - Bacteremia with Proteus - C. Diff colitis - isolation - Blood cx from 01/26/2017 grew Proteus. No growth on blood cultures from 01/28, 02/01/2017. - Patient received Ceftriaxone. - ID following. Patient is currently on PO Vancomycin for C. Diff colitis. - Hypernatremia resolved with free water flushes 200 CC every 6 hours, 148 now to 143; DC normal saline most likely possibly worsening his hypernatremia. On recommend water flushes. Hypokalemia- replete - Urinary retention - Dr. Sandoval following. Patient is currently on Doxazosin 2mg Qday and Tamsulosin 0.4mg Qday. Monitor Output currently with Robison catheter; Dr. Sandoval decide when trial of voiding with a Robison removal can be done. - Hypertension, labile - Continue metoprolol 25mg BID. - Continues to be uncontrolled. Increase lisinopril to 20 mg daily. Continue to adjust accordingly. - Dysphagia - Continue tube feed, goal 60cc/hour (Jevity 1.5). GJ tube placed - Previous speech therapy attempt to do oral feeding failed. He aspiration during modified barium swallow study as well. Keep nothing by mouth. Right ear wax -Will order debrok Left earache -Most likely secondary to sinus congestion. Will start Flonase and saline spray. Full code. Lovenox 40mg Q24hrs, Protonix 40mg IV Q12hrs switch to prevacid. Cassy Arora MD Feb 10, 2017 11:19
[2017-02-10 12:00] VITALS: BP 156/70; PULSE 59; RESP 19; TEMP 96.9; O2SAT 96
[2017-02-10] MEDS: LORATADINE 10 MG TAB PO SCH (12:36)
[2017-02-10] MEDS: CARBAMIDE PEROXIDE 6.5% OTIC SOLN 15 ML BTL RIGHT EAR SCH ×2 (15:41→20:42)
[2017-02-10] MEDS: FLUTICASONE PROPIONATE 50 MCG/ACT 16 GM NASAL SPRAY NASAL SCH ×2 (15:41→20:42)
[2017-02-10 16:00] VITALS: BP 162/78; PULSE 63; RESP 19; TEMP 97.7; O2SAT 95
[2017-02-10] MEDS: RESP: BUDESONIDE 0.5 MG/2 ML NEB NEB SCH (19:40)
[2017-02-10 19:43] VITALS: O2SAT 98
[2017-02-10 20:00] VITALS: BP 151/72; PULSE 61; RESP 18; TEMP 96; O2SAT 97
[2017-02-10] MEDS: ALPRAZolam 0.25 MG TAB G-TUBE PRN (20:40)
[2017-02-11] VITALS (7 sets, daily range): BP systolic 133–161; BP diastolic 70–80; PULSE 52–78; RESP 17–20; TEMP 95.4–97.8; O2SAT 93–99
[2017-02-11] MEDS: HYOSCYAMINE 0.125 MG TAB G-TUBE SCH ×6 (00:53→20:19)
[2017-02-11] MEDS: VANCOMYCIN 500 MG VIAL (FOR ORAL USE ONLY) PO SCH ×4 (00:53→17:32)
[2017-02-11] MEDS: MEROPENEM INJ 2,000 MG in SODIUM CHLORIDE 0.9% INJ 100 ML IV SCH ×3 (05:19→20:19)
[2017-02-11] MEDS: METOCLOPRAMIDE HCL 10 MG/2 ML VIAL IV PUSH SCH ×3 (05:20→20:20)
[2017-02-11] MEDS: ARTIFICIAL TEARS OPTH SOLN 15 ML BTL EACH EYE SCH ×3 (05:21→20:19)
[2017-02-11] MEDS: oxyCODONE/ACETAMINOPHEN 10 MG/325 MG TAB PO PRN ×4 (05:39→20:19)
[2017-02-11] MEDS: RESP: BUDESONIDE 0.5 MG/2 ML NEB NEB SCH ×2 (07:52→19:30)
[2017-02-11] MEDS: CHLORHEXIDINE 0.12% (ORAL KIT) 15 ML CUP MT SCH ×2 (08:00→20:00)
[2017-02-11] MEDS: DOXAZOSIN MESYLATE 2 MG TAB G-TUBE SCH (09:45)
[2017-02-11] MEDS: predniSONE 20 MG TAB PO SCH ×2 (09:46→20:19)
[2017-02-11] MEDS: LACTOBACILLUS ACIDOPHILUS TAB PO SCH ×2 (09:46→20:19)
[2017-02-11] MEDS: METOPROLOL TARTRATE 25 MG TAB PO SCH ×2 (09:47→20:19)
[2017-02-11] MEDS: LANSOPRAZOLE SOLUTAB 15 MG TAB NG SCH (09:48)
[2017-02-11] MEDS: ALLOPURINOL 100 MG TAB G-TUBE SCH (09:48)
[2017-02-11] MEDS: AMIODARONE 200 MG TAB G-TUBE SCH (09:48)
[2017-02-11] MEDS: LORATADINE 10 MG TAB PO SCH (09:48)
[2017-02-11] MEDS: ALPRAZolam 0.25 MG TAB G-TUBE PRN ×2 (09:49→17:38)
[2017-02-11] MEDS: TAMSULOSIN HCL 0.4 MG CAP PO SCH (09:50)
[2017-02-11] MEDS: LISINOPRIL 10 MG TAB G-TUBE SCH (09:50)
[2017-02-11] MEDS: FLUTICASONE PROPIONATE 50 MCG/ACT 16 GM NASAL SPRAY NASAL SCH ×2 (09:54→20:19)
[2017-02-11] MEDS: CARBAMIDE PEROXIDE 6.5% OTIC SOLN 15 ML BTL RIGHT EAR SCH ×2 (09:54→20:27)
[2017-02-11] MEDS: ENOXAPARIN SODIUM 40 MG/0.4 ML SYRINGE SQ SCH (09:54)
[2017-02-11] MEDS: SODIUM CHLORIDE 0.9% FLUSH 10 ML FLUSH IV FLUSH SCH ×2 (09:55→20:27)
--- NOTE | 2017-02-11 10:58 | HHI.PR ---
Subjective Remarks Follow-up for infection in the ear pain. Patient stated that ear pain improved that treatment regimen is helping. He complains about being weak. Patient also asking to be some food and to be reevaluated by speech therapist. Otherwise he has no other complaints. Objective Vitals Vital Signs Date Time Temp Pulse Resp B/P (MAP) Pulse Ox O2 Delivery O2 Flow Rate FiO2 02/11/17 08:00 97.8 61 18 141/73 (95) 97 02/11/17 07:53 97 Nasal Cannula 2.00 02/11/17 00:00 95.4 52 17 161/80 (107) 97 02/10/17 20:00 96.0 61 18 151/72 (98) 97 02/10/17 19:43 98 Nasal Cannula 2.00 02/10/17 17:23 Nasal Cannula 2.00 02/10/17 16:00 97.7 63 19 162/78 (106) 95 02/10/17 12:00 96.9 59 19 156/70 (98) 96 I/O 02/10/17 02/10/17 02/10/17 02/11/17 02/11/17 02/11/17 07:00 15:00 23:00 07:00 15:00 23:00 Intake Total 593 ml 100 ml 925 ml 925 ml Output Total 2750 ml 2500 ml 3200 ml Balance -2157 ml 100 ml -1575 ml -2275 ml Intake Oral 0 ml 0 ml 0 ml 0 ml IV Total 100 ml 100 ml 100 ml 100 ml Tube Feeding 493 ml 825 ml 825 ml Output Urine Total 2100 ml 2300 ml 3200 ml Stool Total 650 ml 200 ml Result Diagram: 02/10/17 0400 02/10/17 0400 Objective Remarks GENERAL: This is a well-nourished, well-developed patient, in no apparent distress. CARDIOVASCULAR: regular rate and rhythmn RESPIRATORY: diminished breath sounds on the bases and bilateral anterior rhonchi. No wheezing noted. GASTROINTESTINAL: Abdomen soft, non-tender, nondistended. Normal active bowel sounds MUSCULOSKELETAL: Extremities without clubbing, cyanosis, or edema. NEURO: Alert & Oriented x2 to person Moves all ext x4 but with generalized weakness Procedures Intubation 02/01/2017 Echo 02/02/2017 CONCLUSIONS Normal left ventricular size. Wall thickness is measured at the upper limits of normal. The left ventricular systolic function is low normal with an estimated ejection fraction in the range of 50- 55%. No regional wall motion abnormalities are present. Severe mitral annular calcification. Calcification of both mitral valve leaflets. The aortic valve is not well visualized. Cannot rule out a bicuspid aortic valve or trileaflet valve with partially fused commissure. Aortic valve sclerosis is present. Mild thickening of the aortic valve leaflets. Mild thickening of the tricuspid valve leaflets. There is trace tricuspid valve regurgitation. The estimated pulmonary arterial pressure is 37 mmHg. Medications and IVs Current Medications Acetaminophen (Tylenol Supp) 650 mg ONCE ONCE RECTAL Last administered on 01/26 12:06; Start 01/26/17 at 11:30; Stop 01/26/17 at 11:31; Status DC Sodium Chloride 1,000 ml @ 1,000 mls/hr Q1H ONCE IV Last administered on 12:03; Start 01/26/17 at 11:22; Stop 01/26/17 at 12:21; Status DC Sodium Chloride 1,000 ml @ 1,000 mls/hr Q1H ONCE IV Last administered on 12:03; Start 01/26/17 at 11:22; Stop 01/26/17 at 12:21; Status DC Sodium Chloride 100 ml @ 1,000 mls/hr Q6M ONCE IV Last administered on 13:06; Start 01/26/17 at 11:22; Stop 01/26/17 at 11:27; Status DC Piperacillin Sod/ Tazobactam Sod 100 ml @ 200 mls/hr ONCE STAT IV Last administered on 01/26/17 14:17; Start 01/26/17 at 13:14; Stop 01/26/17 at 13:44 ; Status DC Piperacillin Sod/ Tazobactam Sod 50 ml @ 100 mls/hr Q8H IV Last administered on 01/28/17 21:26; Start 01/26/17 at 22:00; Stop 01/28/17 at 23:31; Status DC Sodium Chloride 1,000 ml @ 100 mls/hr Q10H IV Last administered on 01/31/17 21:06; Start 01/26/17 at 14:00; Stop 02/01/17 at 00:05; Status DC Sodium Chloride (NS Flush) 2 ml UNSCH PRN IV FLUSH FLUSH AFTER USING IV ACCESS ; Start 01/26/17 at 13:45 Sodium Chloride (NS Flush) 2 ml BID IV FLUSH Last administered on 02/11/17 09: 55; Start 01/26/17 at 21:00 Ondansetron HCl (Zofran Inj) 4 mg Q6H PRN IVP NAUSEA OR VOMITING Last administered on 02/01/17 02:55; Start 01/26/17 at 13:45 Naloxone HCl (Narcan Inj) 0.4 mg UNSCH PRN IV SEE LABEL COMMENTS; Start at 13:45 Senna/Docusate Sodium (Sharita-Colace) 1 tab BID PO ; Start 01/26/17 at 21:00; Stop 01/26/17 at 21:00; Status DC Magnesium Hydroxide (Milk Of Magnesia Liq) 30 ml Q12H PRN PO MILD - MODERATE CONSTIPATION; Start 01/26/17 at 13:45 Sennosides (Senokot) 17.2 mg Q12H PRN PO MODERATE - SEVERE CONSTIPATION; Start 01/26/17 at 13:45 Bisacodyl (Dulcolax Supp) 10 mg DAILY PRN RECTAL SEVERE CONSITIPATION; Start at 13:45 Lactulose (Lactulose Liq) 30 ml DAILY PRN PO SEVERE CONSITIPATION; Start at 13:45 Budesonide (Pulmicort Respule Neb) 0.5 mg Q12HR NEB NEB Last administered on 07:52; Start 01/26/17 at 20:00 Metoprolol Tartrate (Lopressor) 25 mg BID PO Last administered on 02/11/17 09: 47; Start 01/26/17 at 21:00 Morphine Sulfate (Morphine Inj) 6 mg ONCE ONCE IV PUSH Last administered on 14:30; Start 01/26/17 at 14:15; Stop 01/26/17 at 14:16; Status DC Lansoprazole (Prevacid Odt) 15 mg DAILY NG Last administered on 02/11/17 09:48 ; Start 01/27/17 at 09:00; Status Future hold Lactobacillus Acidophilus (Lactinex) 1 tab Q12HR PO Last administered on 09:46; Start 01/26/17 at 21:00 Alprazolam (Xanax) 0.25 mg Q8H PRN G-TUBE ANXIETY Last administered on 09:49; Start 01/26/17 at 14:15 Amiodarone HCl (Cordarone) 200 mg DAILY G-TUBE Last administered on 02/11/17 09:48; Start 01/27/17 at 09:00 Doxazosin Mesylate (Cardura) 2 mg DAILY G-TUBE Last administered on 02/11/17 09:45; Start 01/27/17 at 09:00 Hyoscyamine Sulfate (Levsin) 0.125 mg Q4H G-TUBE Last administered on 09:47; Start 01/26/17 at 16:00 Albuterol/ Ipratropium (Duoneb Neb) 1 ampule Q4HR WHILE AWAKE NEB INH Last administered on 01/29/17 19:31; Start 01/26/17 at 16:00; Stop 01/30/17 at 16:00 ; Status DC Oxycodone/ Acetaminophen (Percocet 10-325 Mg) 1 tab Q4H PRN PO PAIN SCALE 1 TO 10 Last administered on 02/11/17 09:59; Start 01/26/17 at 14:15 Acetaminophen (Tylenol 650 Mg/ 20 ml Liq) 650 mg ONCE ONCE G-TUBE Last administered on 01/26/17 17:23; Start 01/26/17 at 17:15; Stop 01/26/17 at 17:17 ; Status DC Acetaminophen (Tylenol) 650 mg Q4H PRN PO HEADACHE OR TEMP > 101 F Last administered on 01/28/17 23:29; Start 01/26/17 at 18:45 Sodium Chloride 1,000 ml @ 999 mls/hr BOLUS ONCE IV Last administered on 01/27 00:18; Start 01/27/17 at 00:15; Stop 01/27/17 at 01:15; Status DC Tamsulosin HCl (Flomax) 0.4 mg DAILY PO Last administered on 02/11/17 09:50; Start 01/27/17 at 10:00 Ceftriaxone Sodium 2000 mg/ Sodium Chloride 100 ml @ 200 mls/hr Q24H IV Last administered on 01/31/17 08:55; Start 01/29/17 at 08:00; Stop 02/01/17 at 09:04 ; Status DC Potassium Chloride (KCl Powder) 20 meq Q12HR PEG Last administered on 09:00; Start 01/30/17 at 21:00; Stop 01/31/17 at 09:01; Status DC Miscellaneous (Pill Splitter) 1 ea UNSCH PRN OTHER SEE LABEL COMMENTS; Start at 22:00 Albuterol/ Ipratropium (Duoneb Neb) 1 ampule Q4HR NEB NEB Last administered on 02/04/17 11:31; Start 01/31/17 at 16:00; Stop 02/04/17 at 16:00; Status DC Azithromycin 500 mg/Sodium Chloride 250 ml @ 250 mls/hr Q24H IV Last administered on 02/05/17 08:00; Start 02/01/17 at 08:00; Stop 02/05/17 at 12:01 ; Status DC Furosemide (Lasix Inj) 20 mg BID@09,18 IV PUSH Last administered on 02/01/17 08:11; Start 02/01/17 at 09:00; Stop 02/01/17 at 09:05; Status DC Furosemide (Lasix Inj) 20 mg ONCE ONCE IV PUSH Last administered on 02/01/17 03:54; Start 02/01/17 at 04:00; Stop 02/01/17 at 04:01; Status DC Furosemide (Lasix Inj) 20 mg ONCE ONCE IV PUSH ; Start 02/01/17 at 08:30; Stop 02/01/17 at 08:31; Status UNV Methylprednisolone Sodium Succinate (SoluMEDROL INJ) 125 mg ONCE ONCE IV PUSH Last administered on 02/01/17 09:54; Start 02/01/17 at 10:00; Stop 02/01/17 at 10:01; Status DC Methylprednisolone Sodium Succinate (SoluMEDROL INJ) 40 mg Q12HR IV PUSH Last administered on 02/09/17 09:12; Start 02/01/17 at 21:00; Stop 02/09/17 at 12:03 ; Status DC Potassium Chloride 100 ml @ 50 mls/hr Q2H PRN IV For Potassium 2.8 - 3.2 mEq/ L Last administered on 02/03/17 05:32; Start 02/01/17 at 09:15; Stop 02/09/17 at 09:02; Status DC Potassium Chloride 100 ml @ 50 mls/hr Q2H PRN IV For Potassium 2.8 - 3.2 mEq/ L Last administered on 02/07/17 14:47; Start 02/01/17 at 09:15; Stop 02/09/17 at 09:02; Status DC Potassium Bicarb/ Potassium Chloride (K-Lyte Cl Eff) 50 meq UNSCH PRN PO For Potassium 3.3 - 3.5 mEq/L; Start 02/01/17 at 09:15; Stop 02/09/17 at 09:02; Status DC Potassium Chloride 100 ml @ 25 mls/hr UNSCH PRN IV For Potassium 3.3 - 3.5 mEq /L Last administered on 02/02/17 17:55; Start 02/01/17 at 09:15; Stop 02/09/17 at 09:02; Status DC Potassium Chloride 100 ml @ 50 mls/hr Q2H PRN IV For Potassium 3.3 - 3.5 mEq/L ; Start 02/01/17 at 09:15; Stop 02/09/17 at 09:02; Status DC Magnesium Sulfate 4 gm/Sodium Chloride 100 ml @ 50 mls/hr UNSCH PRN IV For Magnesium 0.9 - 1.1 mg/dL; Start 02/01/17 at 09:15; Stop 02/09/17 at 09:02; Status DC Magnesium Oxide (Mag-Ox) 800 mg UNSCH PRN PO For Magnesium 1.2 - 1.6 mg/dL; Start 02/01/17 at 09:15; Stop 02/09/17 at 09:02; Status DC Magnesium Sulfate 2 gm/Sodium Chloride 100 ml @ 50 mls/hr UNSCH PRN IV For Magnesium 1.2 - 1.6 mg/dL Last administered on 02/02/17 17:55; Start 02/01/17 at 09:15; Stop 02/09/17 at 09:02; Status DC Potassium Phosphate (K-Phos) 2,000 mg Q4H PRN PO For Phosphorus < 2.5 mg/dL; Start 02/01/17 at 09:15; Stop 02/09/17 at 09:02; Status DC Sodium Phosphate 30 mmol/Sodium Chloride 250 ml @ 42 mls/hr UNSCH PRN IV For Phosphorus < 2.5 mg/dL; Start 02/01/17 at 09:15; Stop 02/09/17 at 09:02; Status DC Potassium Phosphate (K-Phos) 2,000 mg UNSCH PRN PO/TUBE SEE LABEL COMMENTS; Start 02/01/17 at 09:15; Stop 02/09/17 at 09:02; Status DC Potassium Phosphate 30 mmol/ Sodium Chloride 260 ml @ 42 mls/hr UNSCH PRN IV SEE LABEL COMMENTS; Start 02/01/17 at 09:15; Stop 02/09/17 at 09:02; Status DC Piperacillin Sod/ Tazobactam Sod 100 ml @ 200 mls/hr Q6H IV Last administered on 02/05/17 10:07; Start 02/01/17 at 10:00; Stop 02/05/17 at 12:01; Status DC Vancomycin HCl 1000 mg/Sodium Chloride 250 ml @ 250 mls/hr CORN HUSKER IV ; Start 02/01/17 at 09:15; Stop 02/04/17 at 09:14; Status DC Etomidate (Amidate Inj) 20 mg ONCE ONCE IV PUSH Last administered on 09:55; Start 02/01/17 at 09:45; Stop 02/01/17 at 09:46; Status DC Succinylcholine Chloride (Quelicin Inj) 80 mg ONCE ONCE IV PUSH Last administered on 02/01/17 09:54; Start 02/01/17 at 10:00; Stop 02/01/17 at 10:01 ; Status DC Sodium Chloride 1,000 ml @ 999 mls/hr BOLUS ONCE IV Last administered on 02/01 11:07; Start 02/01/17 at 09:30; Stop 02/01/17 at 10:30; Status DC Chlorhexidine Gluconate (Peridex 0.12% Liq) 15 ml BID@08,20 MT Last administered on 02/06/17 08:00; Start 02/01/17 at 20:00 Propofol 100 ml @ 0 mls/hr TITRATE IV Last administered on 02/05/17 13:08; Start 02/01/17 at 09:30; Stop 02/07/17 at 11:18; Status DC Sodium Chloride 1,000 ml @ 999 mls/hr BOLUS ONCE IV Last administered on 02/01 11:07; Start 02/01/17 at 09:45; Stop 02/01/17 at 10:45; Status DC Sodium Chloride 1,000 ml @ 125 mls/hr Q8H IV Last administered on 02/02/17 00 :10; Start 02/01/17 at 09:45; Stop 02/02/17 at 17:52; Status DC Pantoprazole Sodium (Protonix Inj) 40 mg Q24H IV PUSH Last administered on 02/01 11:27; Start 02/01/17 at 10:00; Stop 02/01/17 at 15:12; Status DC Enoxaparin Sodium (Lovenox Inj) 40 mg Q24H SQ Last administered on 02/11/17 09 :54; Start 02/01/17 at 10:00 Midazolam HCl (Versed Inj) 5 mg ONCE ONCE IV Last administered on 02/01/17 14 :04; Start 02/01/17 at 12:15; Stop 02/01/17 at 12:18; Status DC Midazolam HCl 100 ml @ 0 mls/hr TITRATE IV Last administered on 02/04/17 00:47 ; Start 02/01/17 at 12:15; Stop 02/05/17 at 14:55; Status DC Metoclopramide HCl (Reglan Inj) 10 mg Q8HR IV PUSH Last administered on 05:20; Start 02/01/17 at 15:00 Pantoprazole Sodium (Protonix Inj) 40 mg Q12H IV PUSH Last administered on 02/07 09:21; Start 02/01/17 at 22:00; Stop 02/07/17 at 11:18; Status DC Artificial Tears (Tears Naturale Opth Soln) 1 drop Q8HR EACH EYE Last administered on 02/11/17 09:54; Start 02/02/17 at 14:00 Polyethylene Glycol (Miralax) 17 gm DAILY PO Last administered on 02/06/17 09: 58; Start 02/02/17 at 18:00; Stop 02/06/17 at 09:59; Status DC Sodium Chloride 1,000 ml @ 60 mls/hr [id number] IV Last administered on 21:20; Start 02/02/17 at 18:00; Stop 02/09/17 at 12:03; Status DC Hydralazine HCl (Apresoline Inj) 20 mg Q2H PRN IV SBP > 160 Last administered on 02/05/17 22:35; Start 02/04/17 at 10:45 Iohexol (Omnipaque 350 Inj) 35 ml STK-MED ONCE G-TUBE Last administered on 02/04 12:36; Start 02/04/17 at 13:10; Stop 02/04/17 at 13:11; Status DC Nicardipine HCl 25 mg/Sodium Chloride 260 ml @ 52 mls/hr TITRATE PRN IV Blood pressure management; Start 02/04/17 at 15:15; Stop 02/07/17 at 12:03; Status DC Miscellaneous Medication (ASP Crit: Doc ESBL, MDR A baumannii or P aer) 1 UNSCH X1 PRN .XX PHARMACY DOCUMENTATION; Start 02/05/17 at 12:00; Stop 02/06/17 at 11 :59; Status DC Miscellaneous Medication ([facility] Pharm[facility] Information) 1 UNSCH X1 PRN XX PHARMACY DOCUMENTATION; Start 02/05/17 at 12:00; Stop 02/06/17 at 11:59; Status DC Meropenem 2000 mg/ Sodium Chloride 100 ml @ 200 mls/hr Q8H IV Last administered on 02/11/17 05:19; Start 02/05/17 at 13:00 Midazolam HCl 100 ml @ 2 mls/hr TITRATE PRN IV SEDATION; Start 02/05/17 at 15: 00; Stop 02/07/17 at 11:18; Status DC Vancomycin HCl (VANCOMYCIN for oral use only) 500 mg Q6HR PO Last administered on 02/11/17 05:20; Start 02/05/17 at 19:00 Albuterol/ Ipratropium (Duoneb Neb) 1 ampule Q4HR NEB PRN NEB dyspnea Last administered on 02/09/17 20:28; Start 02/07/17 at 00:00 Lisinopril (Prinivil) 10 mg DAILY G-TUBE Last administered on 02/10/17 08:47; Start 02/08/17 at 10:45; Stop 02/10/17 at 10:35; Status DC Allopurinol (Zyloprim) 100 mg DAILY G-TUBE Last administered on 02/11/17 09:48 ; Start 02/09/17 at 09:00 Prednisone (Deltasone) 20 mg BID PO Last administered on 02/11/17 09:46; Start 02/09/17 at 21:00 Lisinopril (Prinivil) 20 mg DAILY G-TUBE Last administered on 02/11/17 09:50; Start 02/11/17 at 09:00 Carbamide Peroxide (Debrox 6.5% Otic) 5 drop Q12HR RIGHT EAR Last administered on 02/11/17 09:54; Start 02/10/17 at 12:00 Fluticasone Propionate (Flonase Venkata Spr) 1 spray BID NASAL Last administered on 02/11/17 09:54; Start 02/10/17 at 12:00 Loratadine (Claritin) 10 mg DAILY PO Last administered on 02/11/17 09:48; Start 02/10/17 at 12:00 A/P Assessment and Plan Mr. Soriano is a 71-year-old male with past medical history of obstructive uropathy, prostate cancer, hypertension, history of cardiac arrest, mood disorder, chronic pain, GERD, COPD, CAD, mild dementia who was sent from SNF for confusion and fall and found to have UTI Acute respiratory failure hypoxia most likely secondary to aspiration pneumonia and COPD exacerbation - now resolved and on NC Aspiration pneumonia Acute COPD exacerbation - Extubated on 02/05/2017. Currently patient is on Budesonide neb treatments. Add DuoNeb Q4hrs PRN. Improving. - Continue supplemental O2 to keep O2 sat > 90%. , Currently on 4 L and will continue to wean as tolerated. -Continue with prednisone 20 mg by mouth twice a day. - CT chest --> extensive bibasilar consolidation indicating pneumonia secondary to aspiration and mediastinal adenopathy largest lymph node 1.9 cm nonspecific. - Continue Meropenem 2g IV Q8hrs. Sputum culture from 02/01/2017 grew ESBL E. Coli and Enterobacter. Infectious disease managing antibiotics. - UTI with Proteus status post treatment - Bacteremia with Proteus - C. Diff colitis - isolation - Blood cx from 01/26/2017 grew Proteus. No growth on blood cultures from 01/28, 02/01/2017. - Patient received Ceftriaxone. - ID following. Patient is currently on PO Vancomycin for C. Diff colitis. - Hypernatremia resolved with free water flushes 200 CC every 6 hours, 148 now to 143; DC normal saline most likely possibly worsening his hypernatremia. On recommend water flushes. Hypokalemia- replete - Urinary retention - Dr. Sandoval following. Patient is currently on Doxazosin 2mg Qday and Tamsulosin 0.4mg Qday. Monitor Output currently with Robison catheter; Dr. Sandoval decide when trial of voiding with a Robison removal can be done. - Hypertension, labile - Continue metoprolol 25mg BID. - Continues to be uncontrolled but improved. Continue lisinopril. - Dysphagia - Continue tube feed, goal 60cc/hour (Jevity 1.5). GJ tube placed - Previous speech therapy attempt to do oral feeding failed. He aspiration during modified barium swallow study as well. Keep nothing by mouth. -Will consult speech therapist again for reevaluation since patient wants to be reevaluated. Right ear wax -Continue with Debrox. Left earache -Most likely secondary to sinus congestion. Improved with Flonase and saline solution along with Claritin. Full code. Lovenox 40mg Q24hrs, Protonix 40mg IV Q12hrs switch to prevacid. Cassy Arora MD Feb 11, 2017 10:58
--- NOTE | 2017-02-11 23:06 | HHI.IDPN ---
Subjective Subjective Remarks ID - delayed entry : pt was seen earlier today around 1700 doing OK on NC O2 cont to have liquid stoool, large amount no abd pain no fever Antibiotics po vanco meropenem Allergies: Coded Allergies: No Known Allergies (Unverified , 11/10/16) Objective . Vital Signs Date Time Temp Pulse Resp B/P (MAP) Pulse Ox O2 Delivery O2 Flow Rate FiO2 02/11/17 20:00 96.3 56 20 142/70 (94) 99 02/11/17 19:31 95 Nasal Cannula 2.00 02/11/17 16:00 97.2 58 18 133/75 (94) 97 02/11/17 12:00 96.3 78 20 136/71 (92) 93 02/11/17 09:50 Nasal Cannula 2.00 Humidified 02/11/17 08:00 97.8 61 18 141/73 (95) 97 02/11/17 07:53 97 Nasal Cannula 2.00 02/11/17 00:00 95.4 52 17 161/80 (107) 97 02/11/17 02/11/17 02/12/17 15:00 23:00 07:00 Intake Total 100 ml 883 ml Output Total 2900 ml Balance 100 ml -2017 ml IV Total 100 ml Tube Feeding 763 ml Tube Irrigant 120 ml Output Urine Total 2900 ml # Bowel Movements 25 . Laboratory Tests Test 02/10/17 04:00 White Blood Count 5.0 TH/MM3 Red Blood Count 3.20 MIL/MM3 Hemoglobin 10.0 GM/DL Hematocrit 29.7 % Mean Corpuscular Volume 92.8 FL Mean Corpuscular Hemoglobin 31.4 PG Mean Corpuscular Hemoglobin Concent 33.8 % Red Cell Distribution Width 15.6 % Platelet Count 223 TH/MM3 Mean Platelet Volume 9.4 FL Laboratory Tests Test 02/10/17 04:00 Blood Urea Nitrogen 18 MG/DL Creatinine 0.49 MG/DL Random Glucose 181 MG/DL Total Protein 5.0 GM/DL Calcium Level 7.1 MG/DL Sodium Level 138 MEQ/L Potassium Level 3.9 MEQ/L Chloride Level 100 MEQ/L Carbon Dioxide Level 30.8 MEQ/L Anion Gap 7 MEQ/L Estimat Glomerular Filtration Rate 168 ML/MIN Protein Corrected Calcium 8.2 MG/DL Imaging Last Impressions Gastrostomy Tube Change 02/04/17 0000 Signed Impressions: Service Date/Time: Saturday, February 04, 2017 12:22 - CONCLUSION: 1. Conversion of an existing gastrostomy tube to a transgastric GJ tube. Jaime Quinteros Jr., MD Chest X-Ray 02/03/17 0600 Signed Impressions: Service Date/Time: Friday, February 03, 2017 04:27 - CONCLUSION: Stable appearance of the chest with bibasilar airspace disease and probable associated effusions, left greater than right. Rick Hancock MD Chest CT 02/01/17 0000 Signed Impressions: Service Date/Time: Wednesday, February 01, 2017 10:16 - CONCLUSION: 1. Extensive, consolidated, bilateral infiltrates in the lower lobes and effusions concerning for pneumonia. In the appropriate clinical setting, this would be concerning for aspiration. 2. ET tube in good position. 3. 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 4. Scattered adenopathy in the mediastinum and AP window nonspecific in appearance. Nahun Mills MD Abdomen/Pelvis CT 02/01/17 0000 Signed Impressions: Service Date/Time: Wednesday, February 01, 2017 10:16 - CONCLUSION: 1. Bibasilar infiltrates concerning for pneumonia. 2. Diffuse distention of the small bowel with both fluid and gas suggesting ileus. There is oral contrast which has passed through the small bowel and is present throughout the colon. 3. There is a Robison catheter within the bladder 4. There is a gastrostomy tube present. Nahun Mills MD Modified Barium Swallow 01/29/17 0000 Signed Impressions: Service Date/Time: Sunday, January 29, 2017 00:00 - CONCLUSION: Penetration and aspiration are seen. Asif Bradley MD Abdomen X-Ray 01/28/17 0000 Signed Impressions: Service Date/Time: Saturday, January 28, 2017 08:27 - CONCLUSION: The oral contrast material injected through the G-tube is present within the duodenum and proximal jejunum. No abnormal extravasation is identified. Asif Dawson MD Shoulder X-Ray 01/26/17 1122 Signed Impressions: Service Date/Time: Thursday, January 26, 2017 11:43 - CONCLUSION: Post traumatic deformity of the left humeral head characteristic of an old fracture. No findings suggestive of acute fracture or dislocation. Fidel Barrett MD Knee X-Ray 01/26/17 1122 Signed Impressions: Service Date/Time: Thursday, January 26, 2017 11:48 - CONCLUSION: 1. Osteoarthritic change greatest in the medial compartment. 2. No acute fracture or malalignment. 3. Small joint effusion. Behzad Dos Santos MD Head CT 01/26/17 1122 Signed Impressions: Service Date/Time: Thursday, January 26, 2017 11:54 - CONCLUSION: Left supraorbital soft tissue swelling. No evidence of acute infarct, hemorrhage, mass, edema or fracture. Fidel Barrett MD Cervical Spine CT 01/26/17 1122 Signed Impressions: Service Date/Time: Thursday, January 26, 2017 11:56 - CONCLUSION: 1. Mild degenerative anterolisthesis secondary to facet arthropathy as described. 2. No evidence of acute fracture or traumatic listhesis. 3. Advanced facet arthropathy. 4. Moderate severe degenerative disease with spondylosis at C5-6 and C6-7. 5. No acute soft tissue abnormality. Fidel Barrett MD Renal Ultrasound 01/26/17 0000 Signed Impressions: Service Date/Time: Thursday, January 26, 2017 14:22 - CONCLUSION: Bilateral extrarenal pelvis No evidence of hydronephrosis, suspicious masses or nephrolithiasis. Fidel Barrett MD Physical Exam CONSTITUTIONAL/GENERAL: This is an adequately nourished patient, in no apparent distress TUBES/LINES/DRAINS: SKIN: No jaundice, rashes, or lesions. . Skin temperature appropriate. Not diaphoretic. EYES: Pupils equal and round and reactive. Extraocular motions intact. No scleral icterus. No injection or drainage. Fundi not examined. CARDIOVASCULAR: Regular rate and rhythm without murmurs, gallops, or rubs. No JVD. Peripheral pulses symmetric. RESPIRATORY/CHEST: Symmetric, unlabored respirations. Clear to auscultation. Breath sounds equal bilaterally. No wheezes, rales, or rhonchi. GASTROINTESTINAL: Abdomen soft, mildly tender, moderately distended. No hepato- splenomegaly, or palpable masses. No guarding. Bowel sounds present. PEG in place - site OK Incisional herniaa R side Dignishild in place with liquid brown stool GENITOURINARY: Without palpable bladder distension. Robison catheter in place with clear yellow urine MUSCULOSKELETAL: Extremities without clubbing, cyanosis, or edema. NEUROLOGICAL: Awake and alert. . Follows commands. Moves all extremities. Normal speech PSYCHIATRIC:calm and cooperative Assessment & Plan Remarks aspiration PNA, b/l 2/2 ESBL Kleb pneumo, Enterobacter Acute VDRF resolved; succesfully extubated Bactermic UTI in the setting s of obstructive uropathy, Proteus C.diff , 1 st episode cont Meropenem x 2 weeks cont oral vancomycin x 2 weeks monitor clinically Eloisa Vogel MD Feb 11, 2017 23:06
[2017-02-12] VITALS (7 sets, daily range): BP systolic 111–150; BP diastolic 68–84; PULSE 53–102; RESP 18–20; TEMP 95.6–97.4; O2SAT 93–97
[2017-02-12] MEDS: HYOSCYAMINE 0.125 MG TAB G-TUBE SCH ×6 (00:52→21:11)
[2017-02-12] MEDS: VANCOMYCIN 500 MG VIAL (FOR ORAL USE ONLY) PO SCH ×4 (00:53→17:31)
[2017-02-12] MEDS: ALPRAZolam 0.25 MG TAB G-TUBE PRN ×3 (02:01→17:31)
[2017-02-12] MEDS: oxyCODONE/ACETAMINOPHEN 10 MG/325 MG TAB PO PRN ×6 (02:01→21:20)
[2017-02-12] MEDS: METOCLOPRAMIDE HCL 10 MG/2 ML VIAL IV PUSH SCH ×3 (05:39→21:12)
[2017-02-12] MEDS: MEROPENEM INJ 2,000 MG in SODIUM CHLORIDE 0.9% INJ 100 ML IV SCH ×3 (05:41→21:11)
[2017-02-12] MEDS: ARTIFICIAL TEARS OPTH SOLN 15 ML BTL EACH EYE SCH ×3 (05:43→21:12)
[2017-02-12] MEDS: CHLORHEXIDINE 0.12% (ORAL KIT) 15 ML CUP MT SCH ×2 (08:00→20:00)
[2017-02-12] MEDS: FLUTICASONE PROPIONATE 50 MCG/ACT 16 GM NASAL SPRAY NASAL SCH ×2 (09:00→21:00)
[2017-02-12] MEDS: CARBAMIDE PEROXIDE 6.5% OTIC SOLN 15 ML BTL RIGHT EAR SCH ×2 (09:00→21:12)
[2017-02-12] MEDS: RESP: BUDESONIDE 0.5 MG/2 ML NEB NEB SCH (09:01)
[2017-02-12] MEDS: SODIUM CHLORIDE 0.9% FLUSH 10 ML FLUSH IV FLUSH SCH ×2 (09:22→21:12)
[2017-02-12] MEDS: TAMSULOSIN HCL 0.4 MG CAP PO SCH (09:25)
[2017-02-12] MEDS: LORATADINE 10 MG TAB PO SCH (09:26)
[2017-02-12] MEDS: predniSONE 20 MG TAB PO SCH ×2 (09:26→21:10)
[2017-02-12] MEDS: AMIODARONE 200 MG TAB G-TUBE SCH (09:27)
[2017-02-12] MEDS: ALLOPURINOL 100 MG TAB G-TUBE SCH (09:28)
[2017-02-12] MEDS: LACTOBACILLUS ACIDOPHILUS TAB PO SCH ×2 (09:28→21:10)
[2017-02-12] MEDS: DOXAZOSIN MESYLATE 2 MG TAB G-TUBE SCH (09:29)
[2017-02-12] MEDS: LISINOPRIL 10 MG TAB G-TUBE SCH (09:30)
[2017-02-12] MEDS: METOPROLOL TARTRATE 25 MG TAB PO SCH ×2 (09:31→21:10)
[2017-02-12] MEDS: LANSOPRAZOLE SOLUTAB 15 MG TAB NG SCH (09:57)
[2017-02-12] MEDS: ENOXAPARIN SODIUM 40 MG/0.4 ML SYRINGE SQ SCH (09:57)
--- NOTE | 2017-02-12 11:58 | HHI.PR ---
Subjective Remarks Flow for infection Patient stated that he had 3 watery bowel movements. Otherwise he stated that he is feeling better. He said that he got out of bed yesterday. Denied any earaches. Remains afebrile. Objective Vitals Vital Signs Date Time Temp Pulse Resp B/P (MAP) Pulse Ox O2 Delivery O2 Flow Rate FiO2 02/12/17 09:03 95 Nasal Cannula 2.00 02/12/17 08:00 97.4 59 18 128/78 (95) 97 02/12/17 03:01 20 02/12/17 00:00 97.0 55 18 142/68 (92) 96 02/11/17 20:00 96.3 56 20 142/70 (94) 99 02/11/17 19:31 95 Nasal Cannula 2.00 02/11/17 16:00 97.2 58 18 133/75 (94) 97 02/11/17 12:00 96.3 78 20 136/71 (92) 93 I/O 02/11/17 02/11/17 02/11/17 02/12/17 02/12/17 02/12/17 07:00 15:00 23:00 07:00 15:00 23:00 Intake Total 925 ml 100 ml 883 ml 1055 ml Output Total 3200 ml 2900 ml 1000 ml Balance -2275 ml 100 ml -2017 ml -1000 ml 1055 ml Intake Oral 0 ml IV Total 100 ml 100 ml Tube Feeding 825 ml 763 ml 655 ml Tube Irrigant 120 ml 400 ml Output Urine Total 3200 ml 2900 ml 1000 ml # Bowel Movements 25 Result Diagram: 02/10/17 0400 02/10/17 0400 Objective Remarks GENERAL: This is a well-nourished, well-developed patient, in no apparent distress. CARDIOVASCULAR: regular rate and rhythmn RESPIRATORY: diminished breath sounds on the bases and bilateral anterior rhonchi. No wheezing noted. GASTROINTESTINAL: Abdomen soft, non-tender, nondistended. Normal active bowel sounds MUSCULOSKELETAL: Extremities without clubbing, cyanosis, or edema. NEURO: Alert & Oriented x2 to person Moves all ext x4 but with generalized weakness Procedures Intubation 02/01/2017 Echo 02/02/2017 CONCLUSIONS Normal left ventricular size. Wall thickness is measured at the upper limits of normal. The left ventricular systolic function is low normal with an estimated ejection fraction in the range of 50- 55%. No regional wall motion abnormalities are present. Severe mitral annular calcification. Calcification of both mitral valve leaflets. The aortic valve is not well visualized. Cannot rule out a bicuspid aortic valve or trileaflet valve with partially fused commissure. Aortic valve sclerosis is present. Mild thickening of the aortic valve leaflets. Mild thickening of the tricuspid valve leaflets. There is trace tricuspid valve regurgitation. The estimated pulmonary arterial pressure is 37 mmHg. Medications and IVs Current Medications Acetaminophen (Tylenol Supp) 650 mg ONCE ONCE RECTAL Last administered on 01/26 12:06; Start 01/26/17 at 11:30; Stop 01/26/17 at 11:31; Status DC Sodium Chloride 1,000 ml @ 1,000 mls/hr Q1H ONCE IV Last administered on 12:03; Start 01/26/17 at 11:22; Stop 01/26/17 at 12:21; Status DC Sodium Chloride 1,000 ml @ 1,000 mls/hr Q1H ONCE IV Last administered on 12:03; Start 01/26/17 at 11:22; Stop 01/26/17 at 12:21; Status DC Sodium Chloride 100 ml @ 1,000 mls/hr Q6M ONCE IV Last administered on 13:06; Start 01/26/17 at 11:22; Stop 01/26/17 at 11:27; Status DC Piperacillin Sod/ Tazobactam Sod 100 ml @ 200 mls/hr ONCE STAT IV Last administered on 01/26/17 14:17; Start 01/26/17 at 13:14; Stop 01/26/17 at 13:44 ; Status DC Piperacillin Sod/ Tazobactam Sod 50 ml @ 100 mls/hr Q8H IV Last administered on 01/28/17 21:26; Start 01/26/17 at 22:00; Stop 01/28/17 at 23:31; Status DC Sodium Chloride 1,000 ml @ 100 mls/hr Q10H IV Last administered on 01/31/17 21:06; Start 01/26/17 at 14:00; Stop 02/01/17 at 00:05; Status DC Sodium Chloride (NS Flush) 2 ml UNSCH PRN IV FLUSH FLUSH AFTER USING IV ACCESS ; Start 01/26/17 at 13:45 Sodium Chloride (NS Flush) 2 ml BID IV FLUSH Last administered on 02/12/17 09: 22; Start 01/26/17 at 21:00 Ondansetron HCl (Zofran Inj) 4 mg Q6H PRN IVP NAUSEA OR VOMITING Last administered on 02/01/17 02:55; Start 01/26/17 at 13:45 Naloxone HCl (Narcan Inj) 0.4 mg UNSCH PRN IV SEE LABEL COMMENTS; Start at 13:45 Senna/Docusate Sodium (Sharita-Colace) 1 tab BID PO ; Start 01/26/17 at 21:00; Stop 01/26/17 at 21:00; Status DC Magnesium Hydroxide (Milk Of Magnesia Liq) 30 ml Q12H PRN PO MILD - MODERATE CONSTIPATION; Start 01/26/17 at 13:45 Sennosides (Senokot) 17.2 mg Q12H PRN PO MODERATE - SEVERE CONSTIPATION; Start 01/26/17 at 13:45 Bisacodyl (Dulcolax Supp) 10 mg DAILY PRN RECTAL SEVERE CONSITIPATION; Start at 13:45 Lactulose (Lactulose Liq) 30 ml DAILY PRN PO SEVERE CONSITIPATION; Start at 13:45 Budesonide (Pulmicort Respule Neb) 0.5 mg Q12HR NEB NEB Last administered on 09:01; Start 01/26/17 at 20:00 Metoprolol Tartrate (Lopressor) 25 mg BID PO Last administered on 02/12/17 09: 31; Start 01/26/17 at 21:00 Morphine Sulfate (Morphine Inj) 6 mg ONCE ONCE IV PUSH Last administered on 14:30; Start 01/26/17 at 14:15; Stop 01/26/17 at 14:16; Status DC Lansoprazole (Prevacid Odt) 15 mg DAILY NG Last administered on 02/12/17 09:57 ; Start 01/27/17 at 09:00; Status Future hold Lactobacillus Acidophilus (Lactinex) 1 tab Q12HR PO Last administered on 09:28; Start 01/26/17 at 21:00 Alprazolam (Xanax) 0.25 mg Q8H PRN G-TUBE ANXIETY Last administered on 09:32; Start 01/26/17 at 14:15 Amiodarone HCl (Cordarone) 200 mg DAILY G-TUBE Last administered on 02/12/17 09:27; Start 01/27/17 at 09:00 Doxazosin Mesylate (Cardura) 2 mg DAILY G-TUBE Last administered on 02/12/17 09:29; Start 01/27/17 at 09:00 Hyoscyamine Sulfate (Levsin) 0.125 mg Q4H G-TUBE Last administered on 09:29; Start 01/26/17 at 16:00 Albuterol/ Ipratropium (Duoneb Neb) 1 ampule Q4HR WHILE AWAKE NEB INH Last administered on 01/29/17 19:31; Start 01/26/17 at 16:00; Stop 01/30/17 at 16:00 ; Status DC Oxycodone/ Acetaminophen (Percocet 10-325 Mg) 1 tab Q4H PRN PO PAIN SCALE 1 TO 10 Last administered on 02/12/17 09:32; Start 01/26/17 at 14:15 Acetaminophen (Tylenol 650 Mg/ 20 ml Liq) 650 mg ONCE ONCE G-TUBE Last administered on 01/26/17 17:23; Start 01/26/17 at 17:15; Stop 01/26/17 at 17:17 ; Status DC Acetaminophen (Tylenol) 650 mg Q4H PRN PO HEADACHE OR TEMP > 101 F Last administered on 01/28/17 23:29; Start 01/26/17 at 18:45 Sodium Chloride 1,000 ml @ 999 mls/hr BOLUS ONCE IV Last administered on 01/27 00:18; Start 01/27/17 at 00:15; Stop 01/27/17 at 01:15; Status DC Tamsulosin HCl (Flomax) 0.4 mg DAILY PO Last administered on 02/12/17 09:25; Start 01/27/17 at 10:00 Ceftriaxone Sodium 2000 mg/ Sodium Chloride 100 ml @ 200 mls/hr Q24H IV Last administered on 01/31/17 08:55; Start 01/29/17 at 08:00; Stop 02/01/17 at 09:04 ; Status DC Potassium Chloride (KCl Powder) 20 meq Q12HR PEG Last administered on 09:00; Start 01/30/17 at 21:00; Stop 01/31/17 at 09:01; Status DC Miscellaneous (Pill Splitter) 1 ea UNSCH PRN OTHER SEE LABEL COMMENTS; Start at 22:00 Albuterol/ Ipratropium (Duoneb Neb) 1 ampule Q4HR NEB NEB Last administered on 02/04/17 11:31; Start 01/31/17 at 16:00; Stop 02/04/17 at 16:00; Status DC Azithromycin 500 mg/Sodium Chloride 250 ml @ 250 mls/hr Q24H IV Last administered on 02/05/17 08:00; Start 02/01/17 at 08:00; Stop 02/05/17 at 12:01 ; Status DC Furosemide (Lasix Inj) 20 mg BID@09,18 IV PUSH Last administered on 02/01/17 08:11; Start 02/01/17 at 09:00; Stop 02/01/17 at 09:05; Status DC Furosemide (Lasix Inj) 20 mg ONCE ONCE IV PUSH Last administered on 02/01/17 03:54; Start 02/01/17 at 04:00; Stop 02/01/17 at 04:01; Status DC Furosemide (Lasix Inj) 20 mg ONCE ONCE IV PUSH ; Start 02/01/17 at 08:30; Stop 02/01/17 at 08:31; Status UNV Methylprednisolone Sodium Succinate (SoluMEDROL INJ) 125 mg ONCE ONCE IV PUSH Last administered on 02/01/17 09:54; Start 02/01/17 at 10:00; Stop 02/01/17 at 10:01; Status DC Methylprednisolone Sodium Succinate (SoluMEDROL INJ) 40 mg Q12HR IV PUSH Last administered on 02/09/17 09:12; Start 02/01/17 at 21:00; Stop 02/09/17 at 12:03 ; Status DC Potassium Chloride 100 ml @ 50 mls/hr Q2H PRN IV For Potassium 2.8 - 3.2 mEq/ L Last administered on 02/03/17 05:32; Start 02/01/17 at 09:15; Stop 02/09/17 at 09:02; Status DC Potassium Chloride 100 ml @ 50 mls/hr Q2H PRN IV For Potassium 2.8 - 3.2 mEq/ L Last administered on 02/07/17 14:47; Start 02/01/17 at 09:15; Stop 02/09/17 at 09:02; Status DC Potassium Bicarb/ Potassium Chloride (K-Lyte Cl Eff) 50 meq UNSCH PRN PO For Potassium 3.3 - 3.5 mEq/L; Start 02/01/17 at 09:15; Stop 02/09/17 at 09:02; Status DC Potassium Chloride 100 ml @ 25 mls/hr UNSCH PRN IV For Potassium 3.3 - 3.5 mEq /L Last administered on 02/02/17 17:55; Start 02/01/17 at 09:15; Stop 02/09/17 at 09:02; Status DC Potassium Chloride 100 ml @ 50 mls/hr Q2H PRN IV For Potassium 3.3 - 3.5 mEq/L ; Start 02/01/17 at 09:15; Stop 02/09/17 at 09:02; Status DC Magnesium Sulfate 4 gm/Sodium Chloride 100 ml @ 50 mls/hr UNSCH PRN IV For Magnesium 0.9 - 1.1 mg/dL; Start 02/01/17 at 09:15; Stop 02/09/17 at 09:02; Status DC Magnesium Oxide (Mag-Ox) 800 mg UNSCH PRN PO For Magnesium 1.2 - 1.6 mg/dL; Start 02/01/17 at 09:15; Stop 02/09/17 at 09:02; Status DC Magnesium Sulfate 2 gm/Sodium Chloride 100 ml @ 50 mls/hr UNSCH PRN IV For Magnesium 1.2 - 1.6 mg/dL Last administered on 02/02/17 17:55; Start 02/01/17 at 09:15; Stop 02/09/17 at 09:02; Status DC Potassium Phosphate (K-Phos) 2,000 mg Q4H PRN PO For Phosphorus < 2.5 mg/dL; Start 02/01/17 at 09:15; Stop 02/09/17 at 09:02; Status DC Sodium Phosphate 30 mmol/Sodium Chloride 250 ml @ 42 mls/hr UNSCH PRN IV For Phosphorus < 2.5 mg/dL; Start 02/01/17 at 09:15; Stop 02/09/17 at 09:02; Status DC Potassium Phosphate (K-Phos) 2,000 mg UNSCH PRN PO/TUBE SEE LABEL COMMENTS; Start 02/01/17 at 09:15; Stop 02/09/17 at 09:02; Status DC Potassium Phosphate 30 mmol/ Sodium Chloride 260 ml @ 42 mls/hr UNSCH PRN IV SEE LABEL COMMENTS; Start 02/01/17 at 09:15; Stop 02/09/17 at 09:02; Status DC Piperacillin Sod/ Tazobactam Sod 100 ml @ 200 mls/hr Q6H IV Last administered on 02/05/17 10:07; Start 02/01/17 at 10:00; Stop 02/05/17 at 12:01; Status DC Vancomycin HCl 1000 mg/Sodium Chloride 250 ml @ 250 mls/hr FOUNDRY SUPERVISOR IV ; Start 02/01/17 at 09:15; Stop 02/04/17 at 09:14; Status DC Etomidate (Amidate Inj) 20 mg ONCE ONCE IV PUSH Last administered on 09:55; Start 02/01/17 at 09:45; Stop 02/01/17 at 09:46; Status DC Succinylcholine Chloride (Quelicin Inj) 80 mg ONCE ONCE IV PUSH Last administered on 02/01/17 09:54; Start 02/01/17 at 10:00; Stop 02/01/17 at 10:01 ; Status DC Sodium Chloride 1,000 ml @ 999 mls/hr BOLUS ONCE IV Last administered on 02/01 11:07; Start 02/01/17 at 09:30; Stop 02/01/17 at 10:30; Status DC Chlorhexidine Gluconate (Peridex 0.12% Liq) 15 ml BID@08,20 MT Last administered on 02/06/17 08:00; Start 02/01/17 at 20:00 Propofol 100 ml @ 0 mls/hr TITRATE IV Last administered on 02/05/17 13:08; Start 02/01/17 at 09:30; Stop 02/07/17 at 11:18; Status DC Sodium Chloride 1,000 ml @ 999 mls/hr BOLUS ONCE IV Last administered on 02/01 11:07; Start 02/01/17 at 09:45; Stop 02/01/17 at 10:45; Status DC Sodium Chloride 1,000 ml @ 125 mls/hr Q8H IV Last administered on 02/02/17 00 :10; Start 02/01/17 at 09:45; Stop 02/02/17 at 17:52; Status DC Pantoprazole Sodium (Protonix Inj) 40 mg Q24H IV PUSH Last administered on 02/01 11:27; Start 02/01/17 at 10:00; Stop 02/01/17 at 15:12; Status DC Enoxaparin Sodium (Lovenox Inj) 40 mg Q24H SQ Last administered on 02/12/17 09 :57; Start 02/01/17 at 10:00 Midazolam HCl (Versed Inj) 5 mg ONCE ONCE IV Last administered on 02/01/17 14 :04; Start 02/01/17 at 12:15; Stop 02/01/17 at 12:18; Status DC Midazolam HCl 100 ml @ 0 mls/hr TITRATE IV Last administered on 02/04/17 00:47 ; Start 02/01/17 at 12:15; Stop 02/05/17 at 14:55; Status DC Metoclopramide HCl (Reglan Inj) 10 mg Q8HR IV PUSH Last administered on 05:39; Start 02/01/17 at 15:00 Pantoprazole Sodium (Protonix Inj) 40 mg Q12H IV PUSH Last administered on 02/07 09:21; Start 02/01/17 at 22:00; Stop 02/07/17 at 11:18; Status DC Artificial Tears (Tears Naturale Opth Soln) 1 drop Q8HR EACH EYE Last administered on 02/11/17 20:19; Start 02/02/17 at 14:00 Polyethylene Glycol (Miralax) 17 gm DAILY PO Last administered on 02/06/17 09: 58; Start 02/02/17 at 18:00; Stop 02/06/17 at 09:59; Status DC Sodium Chloride 1,000 ml @ 60 mls/hr [id number] IV Last administered on 21:20; Start 02/02/17 at 18:00; Stop 02/09/17 at 12:03; Status DC Hydralazine HCl (Apresoline Inj) 20 mg Q2H PRN IV SBP > 160 Last administered on 02/05/17 22:35; Start 02/04/17 at 10:45 Iohexol (Omnipaque 350 Inj) 35 ml STK-MED ONCE G-TUBE Last administered on 02/04 12:36; Start 02/04/17 at 13:10; Stop 02/04/17 at 13:11; Status DC Nicardipine HCl 25 mg/Sodium Chloride 260 ml @ 52 mls/hr TITRATE PRN IV Blood pressure management; Start 02/04/17 at 15:15; Stop 02/07/17 at 12:03; Status DC Miscellaneous Medication (ASP Crit: Doc ESBL, MDR A baumannii or P aer) 1 UNSCH X1 PRN .XX PHARMACY DOCUMENTATION; Start 02/05/17 at 12:00; Stop 02/06/17 at 11 :59; Status DC Miscellaneous Medication ([facility]) 1 UNSCH X1 PRN XX PHARMACY DOCUMENTATION; Start 02/05/17 at 12:00; Stop 02/06/17 at 11:59; Status DC Meropenem 2000 mg/ Sodium Chloride 100 ml @ 200 mls/hr Q8H IV Last administered on 02/12/17 05:41; Start 02/05/17 at 13:00 Midazolam HCl 100 ml @ 2 mls/hr TITRATE PRN IV SEDATION; Start 02/05/17 at 15: 00; Stop 02/07/17 at 11:18; Status DC Vancomycin HCl (VANCOMYCIN for oral use only) 500 mg Q6HR PO Last administered on 02/12/17 05:39; Start 02/05/17 at 19:00 Albuterol/ Ipratropium (Duoneb Neb) 1 ampule Q4HR NEB PRN NEB dyspnea Last administered on 02/09/17 20:28; Start 02/07/17 at 00:00 Lisinopril (Prinivil) 10 mg DAILY G-TUBE Last administered on 02/10/17 08:47; Start 02/08/17 at 10:45; Stop 02/10/17 at 10:35; Status DC Allopurinol (Zyloprim) 100 mg DAILY G-TUBE Last administered on 02/12/17 09:28 ; Start 02/09/17 at 09:00 Prednisone (Deltasone) 20 mg BID PO Last administered on 02/12/17 09:26; Start 02/09/17 at 21:00 Lisinopril (Prinivil) 20 mg DAILY G-TUBE Last administered on 02/12/17 09:30; Start 02/11/17 at 09:00 Carbamide Peroxide (Debrox 6.5% Otic) 5 drop Q12HR RIGHT EAR Last administered on 02/12/17 09:00; Start 02/10/17 at 12:00 Fluticasone Propionate (Flonase Venkata Spr) 1 spray BID NASAL Last administered on 02/12/17 09:00; Start 02/10/17 at 12:00 Loratadine (Claritin) 10 mg DAILY PO Last administered on 02/12/17 09:26; Start 02/10/17 at 12:00 A/P Assessment and Plan Mr. Soriano is a 71-year-old male with past medical history of obstructive uropathy, prostate cancer, hypertension, history of cardiac arrest, mood disorder, chronic pain, GERD, COPD, CAD, mild dementia who was sent from SNF for confusion and fall and found to have UTI Acute respiratory failure hypoxia most likely secondary to aspiration pneumonia and COPD exacerbation - now resolved and on NC Aspiration pneumonia Acute COPD exacerbation - Extubated on 02/05/2017. Currently patient is on Budesonide neb treatments. Add DuoNeb Q4hrs PRN. Improving. - Continue supplemental O2 to keep O2 sat > 90%. , Currently on 4 L and will continue to wean as tolerated. -Continue with prednisone 20 mg by mouth twice a day. - CT chest --> extensive bibasilar consolidation indicating pneumonia secondary to aspiration and mediastinal adenopathy largest lymph node 1.9 cm nonspecific. - Continue Meropenem 2g IV Q8hrs for 2 weeks. Sputum culture from 02/01/2017 grew ESBL E. Coli and Enterobacter. Infectious disease managing antibiotics. - UTI with Proteus status post treatment - Bacteremia with Proteus - C. Diff colitis - isolation - Blood cx from 01/26/2017 grew Proteus. No growth on blood cultures from 01/28, 02/01/2017. - Patient received Ceftriaxone. - ID following. Patient is currently on PO Vancomycin for C. Diff colitis for 2 weeks. - Hypernatremia resolved with free water flushes 200 CC every 6 hours, 148 now to 143; DC normal saline most likely possibly worsening his hypernatremia. On recommend water flushes. Hypokalemia- replete - Urinary retention - Dr. Sandoval following. Patient is currently on Doxazosin 2mg Qday and Tamsulosin 0.4mg Qday. Monitor Output currently with Robison catheter; Dr. Sandoval decide when trial of voiding with a Robison removal can be done. - Hypertension, labile - Continue metoprolol 25mg BID. - Continues to be uncontrolled but improved. Continue lisinopril. - Dysphagia - Continue tube feed, goal 60cc/hour (Jevity 1.5). GJ tube placed - Previous speech therapy attempt to do oral feeding failed. He aspiration during modified barium swallow study as well. Keep nothing by mouth. -Will consult speech therapist again for reevaluation since patient wants to be reevaluated. Right ear wax -Continue with Debrox. Left earache -Most likely secondary to sinus congestion. Improved with Flonase and saline solution along with Claritin. Full code. Lovenox 40mg Q24hrs, Protonix 40mg IV Q12hrs switch to prevacid. Discharge Planning Pending acceptance to [facility] Cassy Arora MD Feb 12, 2017 11:58
[2017-02-12] MEDS: RESP: ALBUTEROL 2.5 MG/IPRATROPIUM 0.5 MG NEB (PRN) NEB (20:20)
[2017-02-13] VITALS (7 sets, daily range): BP systolic 119–154; BP diastolic 74–89; PULSE 66–84; RESP 17–18; TEMP 96.2–97.7; O2SAT 90–100
[2017-02-13] MEDS: HYOSCYAMINE 0.125 MG TAB G-TUBE SCH ×6 (00:23→21:51)
[2017-02-13] MEDS: VANCOMYCIN 500 MG VIAL (FOR ORAL USE ONLY) PO SCH ×4 (00:23→17:01)
[2017-02-13] MEDS: oxyCODONE/ACETAMINOPHEN 10 MG/325 MG TAB PO PRN ×5 (01:26→18:24)
[2017-02-13] MEDS: ALPRAZolam 0.25 MG TAB G-TUBE PRN ×3 (01:26→17:13)
[2017-02-13] MEDS: ARTIFICIAL TEARS OPTH SOLN 15 ML BTL EACH EYE SCH ×3 (05:27→21:52)
[2017-02-13] MEDS: MEROPENEM INJ 2,000 MG in SODIUM CHLORIDE 0.9% INJ 100 ML IV SCH ×2 (05:27→13:07)
[2017-02-13] MEDS: METOCLOPRAMIDE HCL 10 MG/2 ML VIAL IV PUSH SCH ×3 (05:28→21:52)
[2017-02-13] MEDS: CHLORHEXIDINE 0.12% (ORAL KIT) 15 ML CUP MT SCH ×2 (08:00→20:00)
[2017-02-13] MEDS: RESP: BUDESONIDE 0.5 MG/2 ML NEB NEB SCH ×2 (08:39→19:36)
[2017-02-13] MEDS: FLUTICASONE PROPIONATE 50 MCG/ACT 16 GM NASAL SPRAY NASAL SCH ×2 (09:00→21:00)
[2017-02-13] MEDS: CARBAMIDE PEROXIDE 6.5% OTIC SOLN 15 ML BTL RIGHT EAR SCH ×2 (09:00→21:00)
[2017-02-13] MEDS: ENOXAPARIN SODIUM 40 MG/0.4 ML SYRINGE SQ SCH (09:53)
[2017-02-13] MEDS: SODIUM CHLORIDE 0.9% FLUSH 10 ML FLUSH IV FLUSH SCH ×2 (09:54→21:52)
[2017-02-13] MEDS: LANSOPRAZOLE SOLUTAB 15 MG TAB NG SCH (09:55)
[2017-02-13] MEDS: DOXAZOSIN MESYLATE 2 MG TAB G-TUBE SCH (09:55)
[2017-02-13] MEDS: LISINOPRIL 10 MG TAB G-TUBE SCH (09:55)
[2017-02-13] MEDS: TAMSULOSIN HCL 0.4 MG CAP PO SCH (09:56)
[2017-02-13] MEDS: AMIODARONE 200 MG TAB G-TUBE SCH (09:56)
[2017-02-13] MEDS: predniSONE 20 MG TAB PO SCH ×2 (09:56→21:51)
[2017-02-13] MEDS: LORATADINE 10 MG TAB PO SCH (09:56)
[2017-02-13] MEDS: ALLOPURINOL 100 MG TAB G-TUBE SCH (09:56)
[2017-02-13] MEDS: METOPROLOL TARTRATE 25 MG TAB PO SCH ×2 (09:56→21:51)
[2017-02-13] MEDS: LACTOBACILLUS ACIDOPHILUS TAB PO SCH ×2 (09:56→21:51)
[2017-02-13] MEDS ORDERED: PERC10TA27 PO (10:34)
[2017-02-13] MEDS ORDERED: ALPR.25 G-TUBE (10:34)
--- NOTE | 2017-02-13 11:31 | HHI.PR ---
Subjective Remarks Follow-up for multiple complaints with assessment and plan Patient stated he feels a lot better. Denied any shortness of breathing or cough. He remains afebrile. Patient still frustrated that he is not able to eat anything. He is asking if he can at least have a tootsie roll pop. Dealt with speech therapist and patient's nurse. Objective Vitals Vital Signs Date Time Temp Pulse Resp B/P (MAP) Pulse Ox O2 Delivery O2 Flow Rate FiO2 02/13/17 08:40 95 Nasal Cannula 3.00 02/13/17 08:00 96.8 77 17 152/80 (104) 90 02/13/17 00:00 96.2 84 18 134/75 (94) 95 02/12/17 20:22 93 Nasal Cannula 2.00 02/12/17 20:00 95.6 85 20 132/76 (94) 96 02/12/17 19:15 Nasal Cannula 2.00 02/12/17 16:00 97.2 102 20 111/73 (86) 93 02/12/17 12:00 96.1 53 18 150/84 (106) 94 I/O 02/12/17 02/12/17 02/12/17 02/13/17 02/13/17 02/13/17 06:59 14:59 22:59 06:59 14:59 22:59 Intake Total 1155 ml 1313 ml Output Total 1000 ml 2200 ml 1200 ml 1800 ml Balance -1000 ml -1045 ml 113 ml -1800 ml IV Total 100 ml Tube Feeding 655 ml 1193 ml Tube Irrigant 400 ml 120 ml Output Urine Total 1000 ml 2200 ml 1200 ml 1800 ml # Bowel Movements 2 2 Result Diagram: 02/10/17 0400 02/10/17 0400 Objective Remarks GENERAL: This is a well-nourished, well-developed patient, in no apparent distress. CARDIOVASCULAR: regular rate and rhythmn RESPIRATORY: diminished breath sounds on the bases and bilateral anterior rhonchi. No wheezing noted. GASTROINTESTINAL: Abdomen soft, non-tender, nondistended. Normal active bowel sounds MUSCULOSKELETAL: Extremities without clubbing, cyanosis, or edema. NEURO: Alert & Oriented x2 to person Moves all ext x4 but with generalized weakness Procedures Intubation 02/01/2017 Echo 02/02/2017 CONCLUSIONS Normal left ventricular size. Wall thickness is measured at the upper limits of normal. The left ventricular systolic function is low normal with an estimated ejection fraction in the range of 50- 55%. No regional wall motion abnormalities are present. Severe mitral annular calcification. Calcification of both mitral valve leaflets. The aortic valve is not well visualized. Cannot rule out a bicuspid aortic valve or trileaflet valve with partially fused commissure. Aortic valve sclerosis is present. Mild thickening of the aortic valve leaflets. Mild thickening of the tricuspid valve leaflets. There is trace tricuspid valve regurgitation. The estimated pulmonary arterial pressure is 37 mmHg. Medications and IVs Current Medications Acetaminophen (Tylenol Supp) 650 mg ONCE ONCE RECTAL Last administered on 01/26 12:06; Start 01/26/17 at 11:30; Stop 01/26/17 at 11:31; Status DC Sodium Chloride 1,000 ml @ 1,000 mls/hr Q1H ONCE IV Last administered on 12:03; Start 01/26/17 at 11:22; Stop 01/26/17 at 12:21; Status DC Sodium Chloride 1,000 ml @ 1,000 mls/hr Q1H ONCE IV Last administered on 12:03; Start 01/26/17 at 11:22; Stop 01/26/17 at 12:21; Status DC Sodium Chloride 100 ml @ 1,000 mls/hr Q6M ONCE IV Last administered on 13:06; Start 01/26/17 at 11:22; Stop 01/26/17 at 11:27; Status DC Piperacillin Sod/ Tazobactam Sod 100 ml @ 200 mls/hr ONCE STAT IV Last administered on 01/26/17 14:17; Start 01/26/17 at 13:14; Stop 01/26/17 at 13:44 ; Status DC Piperacillin Sod/ Tazobactam Sod 50 ml @ 100 mls/hr Q8H IV Last administered on 01/28/17 21:26; Start 01/26/17 at 22:00; Stop 01/28/17 at 23:31; Status DC Sodium Chloride 1,000 ml @ 100 mls/hr Q10H IV Last administered on 01/31/17 21:06; Start 01/26/17 at 14:00; Stop 02/01/17 at 00:05; Status DC Sodium Chloride (NS Flush) 2 ml UNSCH PRN IV FLUSH FLUSH AFTER USING IV ACCESS ; Start 01/26/17 at 13:45 Sodium Chloride (NS Flush) 2 ml BID IV FLUSH Last administered on 02/13/17 09: 54; Start 01/26/17 at 21:00 Ondansetron HCl (Zofran Inj) 4 mg Q6H PRN IVP NAUSEA OR VOMITING Last administered on 02/01/17 02:55; Start 01/26/17 at 13:45 Naloxone HCl (Narcan Inj) 0.4 mg UNSCH PRN IV SEE LABEL COMMENTS; Start at 13:45 Senna/Docusate Sodium (Sharita-Colace) 1 tab BID PO ; Start 01/26/17 at 21:00; Stop 01/26/17 at 21:00; Status DC Magnesium Hydroxide (Milk Of Magnesia Liq) 30 ml Q12H PRN PO MILD - MODERATE CONSTIPATION; Start 01/26/17 at 13:45 Sennosides (Senokot) 17.2 mg Q12H PRN PO MODERATE - SEVERE CONSTIPATION; Start 01/26/17 at 13:45 Bisacodyl (Dulcolax Supp) 10 mg DAILY PRN RECTAL SEVERE CONSITIPATION; Start at 13:45 Lactulose (Lactulose Liq) 30 ml DAILY PRN PO SEVERE CONSITIPATION; Start at 13:45 Budesonide (Pulmicort Respule Neb) 0.5 mg Q12HR NEB NEB Last administered on 08:39; Start 01/26/17 at 20:00 Metoprolol Tartrate (Lopressor) 25 mg BID PO Last administered on 02/13/17 09: 56; Start 01/26/17 at 21:00 Morphine Sulfate (Morphine Inj) 6 mg ONCE ONCE IV PUSH Last administered on 14:30; Start 01/26/17 at 14:15; Stop 01/26/17 at 14:16; Status DC Lansoprazole (Prevacid Odt) 15 mg DAILY NG Last administered on 02/13/17 09:55 ; Start 01/27/17 at 09:00; Status Future hold Lactobacillus Acidophilus (Lactinex) 1 tab Q12HR PO Last administered on 09:56; Start 01/26/17 at 21:00 Alprazolam (Xanax) 0.25 mg Q8H PRN G-TUBE ANXIETY Last administered on 09:56; Start 01/26/17 at 14:15 Amiodarone HCl (Cordarone) 200 mg DAILY G-TUBE Last administered on 02/13/17 09:56; Start 01/27/17 at 09:00 Doxazosin Mesylate (Cardura) 2 mg DAILY G-TUBE Last administered on 02/13/17 09:55; Start 01/27/17 at 09:00 Hyoscyamine Sulfate (Levsin) 0.125 mg Q4H G-TUBE Last administered on 09:56; Start 01/26/17 at 16:00 Albuterol/ Ipratropium (Duoneb Neb) 1 ampule Q4HR WHILE AWAKE NEB INH Last administered on 01/29/17 19:31; Start 01/26/17 at 16:00; Stop 01/30/17 at 16:00 ; Status DC Oxycodone/ Acetaminophen (Percocet 10-325 Mg) 1 tab Q4H PRN PO PAIN SCALE 1 TO 10 Last administered on 02/13/17 09:55; Start 01/26/17 at 14:15 Acetaminophen (Tylenol 650 Mg/ 20 ml Liq) 650 mg ONCE ONCE G-TUBE Last administered on 01/26/17 17:23; Start 01/26/17 at 17:15; Stop 01/26/17 at 17:17 ; Status DC Acetaminophen (Tylenol) 650 mg Q4H PRN PO HEADACHE OR TEMP > 101 F Last administered on 01/28/17 23:29; Start 01/26/17 at 18:45 Sodium Chloride 1,000 ml @ 999 mls/hr BOLUS ONCE IV Last administered on 01/27 00:18; Start 01/27/17 at 00:15; Stop 01/27/17 at 01:15; Status DC Tamsulosin HCl (Flomax) 0.4 mg DAILY PO Last administered on 02/13/17 09:56; Start 01/27/17 at 10:00 Ceftriaxone Sodium 2000 mg/ Sodium Chloride 100 ml @ 200 mls/hr Q24H IV Last administered on 01/31/17 08:55; Start 01/29/17 at 08:00; Stop 02/01/17 at 09:04 ; Status DC Potassium Chloride (KCl Powder) 20 meq Q12HR PEG Last administered on 09:00; Start 01/30/17 at 21:00; Stop 01/31/17 at 09:01; Status DC Miscellaneous (Pill Splitter) 1 ea UNSCH PRN OTHER SEE LABEL COMMENTS; Start at 22:00 Albuterol/ Ipratropium (Duoneb Neb) 1 ampule Q4HR NEB NEB Last administered on 02/04/17 11:31; Start 01/31/17 at 16:00; Stop 02/04/17 at 16:00; Status DC Azithromycin 500 mg/Sodium Chloride 250 ml @ 250 mls/hr Q24H IV Last administered on 02/05/17 08:00; Start 02/01/17 at 08:00; Stop 02/05/17 at 12:01 ; Status DC Furosemide (Lasix Inj) 20 mg BID@09,18 IV PUSH Last administered on 02/01/17 08:11; Start 02/01/17 at 09:00; Stop 02/01/17 at 09:05; Status DC Furosemide (Lasix Inj) 20 mg ONCE ONCE IV PUSH Last administered on 02/01/17 03:54; Start 02/01/17 at 04:00; Stop 02/01/17 at 04:01; Status DC Furosemide (Lasix Inj) 20 mg ONCE ONCE IV PUSH ; Start 02/01/17 at 08:30; Stop 02/01/17 at 08:31; Status UNV Methylprednisolone Sodium Succinate (SoluMEDROL INJ) 125 mg ONCE ONCE IV PUSH Last administered on 02/01/17 09:54; Start 02/01/17 at 10:00; Stop 02/01/17 at 10:01; Status DC Methylprednisolone Sodium Succinate (SoluMEDROL INJ) 40 mg Q12HR IV PUSH Last administered on 02/09/17 09:12; Start 02/01/17 at 21:00; Stop 02/09/17 at 12:03 ; Status DC Potassium Chloride 100 ml @ 50 mls/hr Q2H PRN IV For Potassium 2.8 - 3.2 mEq/ L Last administered on 02/03/17 05:32; Start 02/01/17 at 09:15; Stop 02/09/17 at 09:02; Status DC Potassium Chloride 100 ml @ 50 mls/hr Q2H PRN IV For Potassium 2.8 - 3.2 mEq/ L Last administered on 02/07/17 14:47; Start 02/01/17 at 09:15; Stop 02/09/17 at 09:02; Status DC Potassium Bicarb/ Potassium Chloride (K-Lyte Cl Eff) 50 meq UNSCH PRN PO For Potassium 3.3 - 3.5 mEq/L; Start 02/01/17 at 09:15; Stop 02/09/17 at 09:02; Status DC Potassium Chloride 100 ml @ 25 mls/hr UNSCH PRN IV For Potassium 3.3 - 3.5 mEq /L Last administered on 02/02/17 17:55; Start 02/01/17 at 09:15; Stop 02/09/17 at 09:02; Status DC Potassium Chloride 100 ml @ 50 mls/hr Q2H PRN IV For Potassium 3.3 - 3.5 mEq/L ; Start 02/01/17 at 09:15; Stop 02/09/17 at 09:02; Status DC Magnesium Sulfate 4 gm/Sodium Chloride 100 ml @ 50 mls/hr UNSCH PRN IV For Magnesium 0.9 - 1.1 mg/dL; Start 02/01/17 at 09:15; Stop 02/09/17 at 09:02; Status DC Magnesium Oxide (Mag-Ox) 800 mg UNSCH PRN PO For Magnesium 1.2 - 1.6 mg/dL; Start 02/01/17 at 09:15; Stop 02/09/17 at 09:02; Status DC Magnesium Sulfate 2 gm/Sodium Chloride 100 ml @ 50 mls/hr UNSCH PRN IV For Magnesium 1.2 - 1.6 mg/dL Last administered on 02/02/17 17:55; Start 02/01/17 at 09:15; Stop 02/09/17 at 09:02; Status DC Potassium Phosphate (K-Phos) 2,000 mg Q4H PRN PO For Phosphorus < 2.5 mg/dL; Start 02/01/17 at 09:15; Stop 02/09/17 at 09:02; Status DC Sodium Phosphate 30 mmol/Sodium Chloride 250 ml @ 42 mls/hr UNSCH PRN IV For Phosphorus < 2.5 mg/dL; Start 02/01/17 at 09:15; Stop 02/09/17 at 09:02; Status DC Potassium Phosphate (K-Phos) 2,000 mg UNSCH PRN PO/TUBE SEE LABEL COMMENTS; Start 02/01/17 at 09:15; Stop 02/09/17 at 09:02; Status DC Potassium Phosphate 30 mmol/ Sodium Chloride 260 ml @ 42 mls/hr UNSCH PRN IV SEE LABEL COMMENTS; Start 02/01/17 at 09:15; Stop 02/09/17 at 09:02; Status DC Piperacillin Sod/ Tazobactam Sod 100 ml @ 200 mls/hr Q6H IV Last administered on 02/05/17 10:07; Start 02/01/17 at 10:00; Stop 02/05/17 at 12:01; Status DC Vancomycin HCl 1000 mg/Sodium Chloride 250 ml @ 250 mls/hr ASSURANCE ENGINEER IV ; Start 02/01/17 at 09:15; Stop 02/04/17 at 09:14; Status DC Etomidate (Amidate Inj) 20 mg ONCE ONCE IV PUSH Last administered on 09:55; Start 02/01/17 at 09:45; Stop 02/01/17 at 09:46; Status DC Succinylcholine Chloride (Quelicin Inj) 80 mg ONCE ONCE IV PUSH Last administered on 02/01/17 09:54; Start 02/01/17 at 10:00; Stop 02/01/17 at 10:01 ; Status DC Sodium Chloride 1,000 ml @ 999 mls/hr BOLUS ONCE IV Last administered on 02/01 11:07; Start 02/01/17 at 09:30; Stop 02/01/17 at 10:30; Status DC Chlorhexidine Gluconate (Peridex 0.12% Liq) 15 ml BID@08,20 MT Last administered on 02/06/17 08:00; Start 02/01/17 at 20:00 Propofol 100 ml @ 0 mls/hr TITRATE IV Last administered on 02/05/17 13:08; Start 02/01/17 at 09:30; Stop 02/07/17 at 11:18; Status DC Sodium Chloride 1,000 ml @ 999 mls/hr BOLUS ONCE IV Last administered on 02/01 11:07; Start 02/01/17 at 09:45; Stop 02/01/17 at 10:45; Status DC Sodium Chloride 1,000 ml @ 125 mls/hr Q8H IV Last administered on 02/02/17 00 :10; Start 02/01/17 at 09:45; Stop 02/02/17 at 17:52; Status DC Pantoprazole Sodium (Protonix Inj) 40 mg Q24H IV PUSH Last administered on 02/01 11:27; Start 02/01/17 at 10:00; Stop 02/01/17 at 15:12; Status DC Enoxaparin Sodium (Lovenox Inj) 40 mg Q24H SQ Last administered on 02/13/17 09 :53; Start 02/01/17 at 10:00 Midazolam HCl (Versed Inj) 5 mg ONCE ONCE IV Last administered on 02/01/17 14 :04; Start 02/01/17 at 12:15; Stop 02/01/17 at 12:18; Status DC Midazolam HCl 100 ml @ 0 mls/hr TITRATE IV Last administered on 02/04/17 00:47 ; Start 02/01/17 at 12:15; Stop 02/05/17 at 14:55; Status DC Metoclopramide HCl (Reglan Inj) 10 mg Q8HR IV PUSH Last administered on 05:28; Start 02/01/17 at 15:00 Pantoprazole Sodium (Protonix Inj) 40 mg Q12H IV PUSH Last administered on 02/07 09:21; Start 02/01/17 at 22:00; Stop 02/07/17 at 11:18; Status DC Artificial Tears (Tears Naturale Opth Soln) 1 drop Q8HR EACH EYE Last administered on 02/12/17 13:51; Start 02/02/17 at 14:00 Polyethylene Glycol (Miralax) 17 gm DAILY PO Last administered on 02/06/17 09: 58; Start 02/02/17 at 18:00; Stop 02/06/17 at 09:59; Status DC Sodium Chloride 1,000 ml @ 60 mls/hr [id number] IV Last administered on 21:20; Start 02/02/17 at 18:00; Stop 02/09/17 at 12:03; Status DC Hydralazine HCl (Apresoline Inj) 20 mg Q2H PRN IV SBP > 160 Last administered on 02/05/17 22:35; Start 02/04/17 at 10:45 Iohexol (Omnipaque 350 Inj) 35 ml STK-MED ONCE G-TUBE Last administered on 02/04 12:36; Start 02/04/17 at 13:10; Stop 02/04/17 at 13:11; Status DC Nicardipine HCl 25 mg/Sodium Chloride 260 ml @ 52 mls/hr TITRATE PRN IV Blood pressure management; Start 02/04/17 at 15:15; Stop 02/07/17 at 12:03; Status DC Miscellaneous Medication (ASP Crit: Doc ESBL, MDR A baumannii or P aer) 1 UNSCH X1 PRN .XX PHARMACY DOCUMENTATION; Start 02/05/17 at 12:00; Stop 02/06/17 at 11 :59; Status DC Miscellaneous Medication ([facility] [place], [place] Pharmacy Information) 1 UNSCH X1 PRN XX PHARMACY DOCUMENTATION; Start 02/05/17 at 12:00; Stop 02/06/17 at 11:59; Status DC Meropenem 2000 mg/ Sodium Chloride 100 ml @ 200 mls/hr Q8H IV Last administered on 02/13/17 05:27; Start 02/05/17 at 13:00 Midazolam HCl 100 ml @ 2 mls/hr TITRATE PRN IV SEDATION; Start 02/05/17 at 15: 00; Stop 02/07/17 at 11:18; Status DC Vancomycin HCl (VANCOMYCIN for oral use only) 500 mg Q6HR PO Last administered on 02/13/17 05:28; Start 02/05/17 at 19:00 Albuterol/ Ipratropium (Duoneb Neb) 1 ampule Q4HR NEB PRN NEB dyspnea Last administered on 02/12/17 20:20; Start 02/07/17 at 00:00 Lisinopril (Prinivil) 10 mg DAILY G-TUBE Last administered on 02/10/17 08:47; Start 02/08/17 at 10:45; Stop 02/10/17 at 10:35; Status DC Allopurinol (Zyloprim) 100 mg DAILY G-TUBE Last administered on 02/13/17 09:56 ; Start 02/09/17 at 09:00 Prednisone (Deltasone) 20 mg BID PO Last administered on 02/13/17 09:56; Start 02/09/17 at 21:00 Lisinopril (Prinivil) 20 mg DAILY G-TUBE Last administered on 02/13/17 09:55; Start 02/11/17 at 09:00 Carbamide Peroxide (Debrox 6.5% Otic) 5 drop Q12HR RIGHT EAR Last administered on 02/13/17 09:00; Start 02/10/17 at 12:00 Fluticasone Propionate (Flonase Venkata Spr) 1 spray BID NASAL Last administered on 02/13/17 09:00; Start 02/10/17 at 12:00 Loratadine (Claritin) 10 mg DAILY PO Last administered on 02/13/17 09:56; Start 02/10/17 at 12:00 A/P Assessment and Plan Mr. Soriano is a 71-year-old male with past medical history of obstructive uropathy, prostate cancer, hypertension, history of cardiac arrest, mood disorder, chronic pain, GERD, COPD, CAD, mild dementia who was sent from SNF for confusion and fall and found to have UTI Acute respiratory failure hypoxia most likely secondary to aspiration pneumonia and COPD exacerbation - now resolved and on NC Aspiration pneumonia Acute COPD exacerbation - Extubated on 02/05/2017. Currently patient is on Budesonide neb treatments. Add DuoNeb Q4hrs PRN. Improving. - Continue supplemental O2 to keep O2 sat > 90%. , Currently on 4 L and will continue to wean as tolerated. -Continue with prednisone 20 mg by mouth twice a day. - CT chest --> extensive bibasilar consolidation indicating pneumonia secondary to aspiration and mediastinal adenopathy largest lymph node 1.9 cm nonspecific. - Continue Meropenem 2g IV Q8hrs for 2 weeks. Sputum culture from 02/01/2017 grew ESBL E. Coli and Enterobacter. Infectious disease managing antibiotics. - UTI with Proteus status post treatment - Bacteremia with Proteus - C. Diff colitis - isolation - Blood cx from 01/26/2017 grew Proteus. No growth on blood cultures from 01/28, 02/01/2017. - Patient received Ceftriaxone. - ID following. Patient is currently on PO Vancomycin for C. Diff colitis for 2 weeks. - Hypernatremia resolved with free water flushes 200 CC every 6 hours, 148 now to 143; DC normal saline most likely possibly worsening his hypernatremia. On recommend water flushes. Hypokalemia- replete - Urinary retention - Dr. Sandoval following. Patient is currently on Doxazosin 2mg Qday and Tamsulosin 0.4mg Qday. Monitor Output currently with Robison catheter; Dr. Sandoval decide when trial of voiding with a Robison removal can be done. - Hypertension, labile - Continue metoprolol 25mg BID. - Continues to be uncontrolled but improved. Continue lisinopril. - Dysphagia - Continue tube feed, goal 60cc/hour (Jevity 1.5). GJ tube placed - Previous speech therapy attempt to do oral feeding failed. He aspiration during modified barium swallow study as well. Keep nothing by mouth. -Per speech therapist patient will need to be nothing by mouth. Right ear wax -Continue with Debrox. Left earache -Most likely secondary to sinus congestion. Improved with Flonase and saline solution along with Claritin. Full code. Lovenox 40mg Q24hrs, Protonix 40mg IV Q12hrs switch to prevacid. Discharge Planning Pending acceptance to SNF. Dealt with case management Cassy Fitzpatrick MD Feb 13, 2017 11:31
[2017-02-13 12:47] LABS: HEMATOCRIT 31.6 % (39.0-51.0); MEAN CELL VOLUME 93.7 FL (80.0-100.0); MEAN CORPUSCULAR HEMOGLOBIN 30.3 PG (27.0-34.0); MEAN CORPUSCULAR HGB CONC 32.4 % (32.0-36.0); PLATELET COUNT 228 TH/MM3 (150-450); RED BLOOD COUNT 3.38 MIL/MM3 (4.50-5.90); RED CELL DISTRIBUTION WIDTH 16.5 % (11.6-17.2); REVIEW FLAG FINAL; WHITE BLOOD COUNT 19.1 TH/MM3 (4.0-11.0)
[2017-02-13 13:17] LABS: BICARBONATE 33.4 MEQ/L (21.0-32.0); POTASSIUM 4.6 MEQ/L (3.5-5.1)
--- NOTE | 2017-02-13 14:24 | HHI.IDPN ---
Subjective Subjective Remarks co diarrhea On NC O2 afebrile Antibiotics po vanco meropenem Allergies: Coded Allergies: No Known Allergies (Unverified , 11/10/16) Objective . Vital Signs Date Time Temp Pulse Resp B/P (MAP) Pulse Ox O2 Delivery O2 Flow Rate FiO2 02/13/17 08:40 95 Nasal Cannula 3.00 02/13/17 08:00 96.8 77 17 152/80 (104) 90 02/13/17 00:00 96.2 84 18 134/75 (94) 95 02/12/17 20:22 93 Nasal Cannula 2.00 02/12/17 20:00 95.6 85 20 132/76 (94) 96 02/12/17 19:15 Nasal Cannula 2.00 02/12/17 16:00 97.2 102 20 111/73 (86) 93 . Laboratory Tests Test 02/13/17 12:27 White Blood Count 19.1 TH/MM3 Red Blood Count 3.38 MIL/MM3 Hemoglobin 10.2 GM/DL Hematocrit 31.6 % Mean Corpuscular Volume 93.7 FL Mean Corpuscular Hemoglobin 30.3 PG Mean Corpuscular Hemoglobin Concent 32.4 % Red Cell Distribution Width 16.5 % Platelet Count 228 TH/MM3 Mean Platelet Volume 8.6 FL Laboratory Tests Test 02/13/17 12:27 Blood Urea Nitrogen 15 MG/DL Creatinine 0.65 MG/DL Random Glucose 143 MG/DL Calcium Level 7.7 MG/DL Sodium Level 139 MEQ/L Potassium Level 4.6 MEQ/L Chloride Level 100 MEQ/L Carbon Dioxide Level 33.4 MEQ/L Anion Gap 6 MEQ/L Estimat Glomerular Filtration Rate 121 ML/MIN Imaging Last Impressions Gastrostomy Tube Change 02/04/17 0000 Signed Impressions: Service Date/Time: Saturday, February 04, 2017 12:22 - CONCLUSION: 1. Conversion of an existing gastrostomy tube to a transgastric GJ tube. Jaime Quinteros Jr., MD Chest X-Ray 02/03/17 0600 Signed Impressions: Service Date/Time: Friday, February 03, 2017 04:27 - CONCLUSION: Stable appearance of the chest with bibasilar airspace disease and probable associated effusions, left greater than right. Rick Hancock MD Chest CT 02/01/17 0000 Signed Impressions: Service Date/Time: Wednesday, February 01, 2017 10:16 - CONCLUSION: 1. Extensive, consolidated, bilateral infiltrates in the lower lobes and effusions concerning for pneumonia. In the appropriate clinical setting, this would be concerning for aspiration. 2. ET tube in good position. 3. 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 4. Scattered adenopathy in the mediastinum and AP window nonspecific in appearance. Nahun Mills MD Abdomen/Pelvis CT 02/01/17 0000 Signed Impressions: Service Date/Time: Wednesday, February 01, 2017 10:16 - CONCLUSION: 1. Bibasilar infiltrates concerning for pneumonia. 2. Diffuse distention of the small bowel with both fluid and gas suggesting ileus. There is oral contrast which has passed through the small bowel and is present throughout the colon. 3. There is a Robison catheter within the bladder 4. There is a gastrostomy tube present. Nahun Mills MD Modified Barium Swallow 01/29/17 0000 Signed Impressions: Service Date/Time: Sunday, January 29, 2017 00:00 - CONCLUSION: Penetration and aspiration are seen. Asif Bradley MD Abdomen X-Ray 01/28/17 0000 Signed Impressions: Service Date/Time: Saturday, January 28, 2017 08:27 - CONCLUSION: The oral contrast material injected through the G-tube is present within the duodenum and proximal jejunum. No abnormal extravasation is identified. Asif Dawson MD Shoulder X-Ray 01/26/17 1122 Signed Impressions: Service Date/Time: Thursday, January 26, 2017 11:43 - CONCLUSION: Post traumatic deformity of the left humeral head characteristic of an old fracture. No findings suggestive of acute fracture or dislocation. Fidel Barrett MD Knee X-Ray 01/26/17 1122 Signed Impressions: Service Date/Time: Thursday, January 26, 2017 11:48 - CONCLUSION: 1. Osteoarthritic change greatest in the medial compartment. 2. No acute fracture or malalignment. 3. Small joint effusion. Behzad Dos Santos MD Head CT 01/26/17 1122 Signed Impressions: Service Date/Time: Thursday, January 26, 2017 11:54 - CONCLUSION: Left supraorbital soft tissue swelling. No evidence of acute infarct, hemorrhage, mass, edema or fracture. Fidel Barrett MD Cervical Spine CT 01/26/17 1122 Signed Impressions: Service Date/Time: Thursday, January 26, 2017 11:56 - CONCLUSION: 1. Mild degenerative anterolisthesis secondary to facet arthropathy as described. 2. No evidence of acute fracture or traumatic listhesis. 3. Advanced facet arthropathy. 4. Moderate severe degenerative disease with spondylosis at C5-6 and C6-7. 5. No acute soft tissue abnormality. Fidel Barrett MD Renal Ultrasound 01/26/17 0000 Signed Impressions: Service Date/Time: Thursday, January 26, 2017 14:22 - CONCLUSION: Bilateral extrarenal pelvis No evidence of hydronephrosis, suspicious masses or nephrolithiasis. Fidel Barrett MD Physical Exam CONSTITUTIONAL/GENERAL: This is an adequately nourished patient, in no apparent distress TUBES/LINES/DRAINS: SKIN: No jaundice, rashes, or lesions. . Skin temperature appropriate. Not diaphoretic. EYES: Pupils equal and round and reactive. Extraocular motions intact. No scleral icterus. No injection or drainage. Fundi not examined. CARDIOVASCULAR: Regular rate and rhythm without murmurs, gallops, or rubs. No JVD. Peripheral pulses symmetric. RESPIRATORY/CHEST: Symmetric, unlabored respirations. Clear to auscultation. Breath sounds equal bilaterally. No wheezes, rales, or rhonchi. GASTROINTESTINAL: Abdomen soft, mildly tender, moderately distended. No hepato- splenomegaly, or palpable masses. No guarding. Bowel sounds present. PEG in place - site OK Incisional herniaa R side , non tender fully reducible incontinent of liquid brown stool GENITOURINARY: Without palpable bladder distension. Robison catheter in place with clear yellow urine MUSCULOSKELETAL: Extremities without clubbing, cyanosis, or edema. NEUROLOGICAL: Awake and alert. . Follows commands. Moves all extremities. Normal speech PSYCHIATRIC:calm and cooperative Assessment & Plan Remarks aspiration PNA, b/l 2/2 ESBL Kleb pneumo, Enterobacter, completed 7+ days of effective abx - clnically free of PNA symptoms: no fever, no cough Acute VDRF resolved; resolved Bactermic UTI in the setting s of obstructive uropathy, Proteus , completed 14+ days of abx C.diff , 1 st episode dc Meropenem cont oral vancomycin x 2 weeks from today monitor clinically OK to dc to SNF dw case mngr Eloisa Vogel MD Feb 13, 2017 14:24
[2017-02-13] MEDS ORDERED: VANC125C3 PO (14:36)
[2017-02-14] VITALS: BP 133/73; PULSE 65; RESP 18; TEMP 97.8; O2SAT 91
[2017-02-14] MEDS: oxyCODONE/ACETAMINOPHEN 10 MG/325 MG TAB PO PRN ×4 (01:25→16:10)
[2017-02-14] MEDS: ALPRAZolam 0.25 MG TAB G-TUBE PRN ×2 (01:25→16:14)
[2017-02-14] MEDS: VANCOMYCIN 500 MG VIAL (FOR ORAL USE ONLY) PO SCH ×4 (01:26→17:59)
[2017-02-14] MEDS: HYOSCYAMINE 0.125 MG TAB G-TUBE SCH ×5 (01:26→16:10)
[2017-02-14] MEDS: ARTIFICIAL TEARS OPTH SOLN 15 ML BTL EACH EYE SCH ×2 (06:00→14:00)
[2017-02-14] MEDS: METOCLOPRAMIDE HCL 10 MG/2 ML VIAL IV PUSH SCH ×2 (06:10→14:01)
[2017-02-14] MEDS: CHLORHEXIDINE 0.12% (ORAL KIT) 15 ML CUP MT SCH (07:31)
[2017-02-14 07:36] VITALS: O2SAT 97
[2017-02-14] MEDS: RESP: BUDESONIDE 0.5 MG/2 ML NEB NEB SCH (07:36)
[2017-02-14 08:00] VITALS: BP 117/59; PULSE 58; RESP 16; TEMP 96.9; O2SAT 98
[2017-02-14] MEDS: LISINOPRIL 10 MG TAB G-TUBE SCH (08:12)
[2017-02-14] MEDS: AMIODARONE 200 MG TAB G-TUBE SCH (08:12)
[2017-02-14] MEDS: DOXAZOSIN MESYLATE 2 MG TAB G-TUBE SCH (08:13)
[2017-02-14] MEDS: LANSOPRAZOLE SOLUTAB 15 MG TAB NG SCH (08:13)
[2017-02-14] MEDS: ENOXAPARIN SODIUM 40 MG/0.4 ML SYRINGE SQ SCH (08:13)
[2017-02-14] MEDS: METOPROLOL TARTRATE 25 MG TAB PO SCH (08:13)
[2017-02-14] MEDS: LACTOBACILLUS ACIDOPHILUS TAB PO SCH (08:13)
[2017-02-14] MEDS: LORATADINE 10 MG TAB PO SCH (08:13)
[2017-02-14] MEDS: ALLOPURINOL 100 MG TAB G-TUBE SCH (08:13)
[2017-02-14] MEDS: TAMSULOSIN HCL 0.4 MG CAP PO SCH (08:13)
[2017-02-14] MEDS: predniSONE 20 MG TAB PO SCH (08:13)
[2017-02-14] MEDS: SODIUM CHLORIDE 0.9% FLUSH 10 ML FLUSH IV FLUSH SCH (08:13)
[2017-02-14] MEDS: FLUTICASONE PROPIONATE 50 MCG/ACT 16 GM NASAL SPRAY NASAL SCH (08:14)
[2017-02-14] MEDS: CARBAMIDE PEROXIDE 6.5% OTIC SOLN 15 ML BTL RIGHT EAR SCH (08:14)
--- NOTE | 2017-02-14 11:31 | HHI.PR ---
Subjective Remarks f/u for infection and placement patient continue c/o not being able to eat. He feels like he is not getting enough to transfer requesting certain types of food to go through his tube feeds. His daughter is at the bedside. Otherwise he has no other complaints. Denies any pain. Patient is afebrile. Objective Vitals Vital Signs Date Time Temp Pulse Resp B/P (MAP) Pulse Ox O2 Delivery O2 Flow Rate FiO2 02/14/17 08:00 96.9 58 16 117/59 (78) 98 02/14/17 07:36 97 Nasal Cannula 3.00 02/14/17 00:00 97.8 65 18 133/73 (93) 91 02/13/17 20:00 97.3 81 18 132/74 (93) 91 02/13/17 19:36 92 Nasal Cannula 3.00 02/13/17 19:24 18 02/13/17 16:00 97.1 79 17 121/75 (90) 97 02/13/17 12:00 97.7 66 18 119/74 (89) 95 I/O 02/13/17 02/13/17 02/13/17 02/14/17 02/14/17 02/14/17 07:00 15:00 23:00 07:00 15:00 23:00 Intake Total 100 ml 787 ml 845 ml Output Total 1800 ml 2050 ml 1850 ml Balance -1800 ml 100 ml -1263 ml -1005 ml Intake Oral 0 ml IV Total 100 ml Tube Feeding 667 ml 645 ml Tube Irrigant 120 ml 200 ml Output Urine Total 1800 ml 2050 ml 1850 ml # Bowel Movements 2 1 Result Diagram: 02/13/17 1227 02/13/17 1227 Objective Remarks GENERAL: This is a well-nourished, well-developed patient, in no apparent distress. CARDIOVASCULAR: regular rate and rhythm RESPIRATORY: diminished breath sounds on the bases and bilateral anterior rhonchi. No wheezing noted. GASTROINTESTINAL: Abdomen soft, non-tender, nondistended. Normal active bowel sounds MUSCULOSKELETAL: Extremities without clubbing, cyanosis, or edema. NEURO: Alert & Oriented x2 to person Moves all ext x4 but with generalized weakness Procedures Intubation 02/01/2017 Echo 02/02/2017 CONCLUSIONS Normal left ventricular size. Wall thickness is measured at the upper limits of normal. The left ventricular systolic function is low normal with an estimated ejection fraction in the range of 50- 55%. No regional wall motion abnormalities are present. Severe mitral annular calcification. Calcification of both mitral valve leaflets. The aortic valve is not well visualized. Cannot rule out a bicuspid aortic valve or trileaflet valve with partially fused commissure. Aortic valve sclerosis is present. Mild thickening of the aortic valve leaflets. Mild thickening of the tricuspid valve leaflets. There is trace tricuspid valve regurgitation. The estimated pulmonary arterial pressure is 37 mmHg. Medications and IVs Current Medications Acetaminophen (Tylenol Supp) 650 mg ONCE ONCE RECTAL Last administered on 01/26 12:06; Start 01/26/17 at 11:30; Stop 01/26/17 at 11:31; Status DC Sodium Chloride 1,000 ml @ 1,000 mls/hr Q1H ONCE IV Last administered on 12:03; Start 01/26/17 at 11:22; Stop 01/26/17 at 12:21; Status DC Sodium Chloride 1,000 ml @ 1,000 mls/hr Q1H ONCE IV Last administered on 12:03; Start 01/26/17 at 11:22; Stop 01/26/17 at 12:21; Status DC Sodium Chloride 100 ml @ 1,000 mls/hr Q6M ONCE IV Last administered on 13:06; Start 01/26/17 at 11:22; Stop 01/26/17 at 11:27; Status DC Piperacillin Sod/ Tazobactam Sod 100 ml @ 200 mls/hr ONCE STAT IV Last administered on 01/26/17 14:17; Start 01/26/17 at 13:14; Stop 01/26/17 at 13:44 ; Status DC Piperacillin Sod/ Tazobactam Sod 50 ml @ 100 mls/hr Q8H IV Last administered on 01/28/17 21:26; Start 01/26/17 at 22:00; Stop 01/28/17 at 23:31; Status DC Sodium Chloride 1,000 ml @ 100 mls/hr Q10H IV Last administered on 01/31/17 21:06; Start 01/26/17 at 14:00; Stop 02/01/17 at 00:05; Status DC Sodium Chloride (NS Flush) 2 ml UNSCH PRN IV FLUSH FLUSH AFTER USING IV ACCESS ; Start 01/26/17 at 13:45 Sodium Chloride (NS Flush) 2 ml BID IV FLUSH Last administered on 02/14/17 08: 13; Start 01/26/17 at 21:00 Ondansetron HCl (Zofran Inj) 4 mg Q6H PRN IVP NAUSEA OR VOMITING Last administered on 02/01/17 02:55; Start 01/26/17 at 13:45 Naloxone HCl (Narcan Inj) 0.4 mg UNSCH PRN IV SEE LABEL COMMENTS; Start at 13:45 Senna/Docusate Sodium (Sharita-Colace) 1 tab BID PO ; Start 01/26/17 at 21:00; Stop 01/26/17 at 21:00; Status DC Magnesium Hydroxide (Milk Of Magnesia Liq) 30 ml Q12H PRN PO MILD - MODERATE CONSTIPATION; Start 01/26/17 at 13:45 Sennosides (Senokot) 17.2 mg Q12H PRN PO MODERATE - SEVERE CONSTIPATION; Start 01/26/17 at 13:45 Bisacodyl (Dulcolax Supp) 10 mg DAILY PRN RECTAL SEVERE CONSITIPATION; Start at 13:45 Lactulose (Lactulose Liq) 30 ml DAILY PRN PO SEVERE CONSITIPATION; Start at 13:45 Budesonide (Pulmicort Respule Neb) 0.5 mg Q12HR NEB NEB Last administered on 07:36; Start 01/26/17 at 20:00 Metoprolol Tartrate (Lopressor) 25 mg BID PO Last administered on 02/14/17 08: 13; Start 01/26/17 at 21:00 Morphine Sulfate (Morphine Inj) 6 mg ONCE ONCE IV PUSH Last administered on 14:30; Start 01/26/17 at 14:15; Stop 01/26/17 at 14:16; Status DC Lansoprazole (Prevacid Odt) 15 mg DAILY NG Last administered on 02/14/17 08:13 ; Start 01/27/17 at 09:00; Status Future hold Lactobacillus Acidophilus (Lactinex) 1 tab Q12HR PO Last administered on 08:13; Start 01/26/17 at 21:00 Alprazolam (Xanax) 0.25 mg Q8H PRN G-TUBE ANXIETY Last administered on 01:25; Start 01/26/17 at 14:15 Amiodarone HCl (Cordarone) 200 mg DAILY G-TUBE Last administered on 02/14/17 08:12; Start 01/27/17 at 09:00 Doxazosin Mesylate (Cardura) 2 mg DAILY G-TUBE Last administered on 02/14/17 08:13; Start 01/27/17 at 09:00 Hyoscyamine Sulfate (Levsin) 0.125 mg Q4H G-TUBE Last administered on 06:10; Start 01/26/17 at 16:00 Albuterol/ Ipratropium (Duoneb Neb) 1 ampule Q4HR WHILE AWAKE NEB INH Last administered on 01/29/17 19:31; Start 01/26/17 at 16:00; Stop 01/30/17 at 16:00 ; Status DC Oxycodone/ Acetaminophen (Percocet 10-325 Mg) 1 tab Q4H PRN PO PAIN SCALE 1 TO 10 Last administered on 02/14/17 06:10; Start 01/26/17 at 14:15 Acetaminophen (Tylenol 650 Mg/ 20 ml Liq) 650 mg ONCE ONCE G-TUBE Last administered on 01/26/17 17:23; Start 01/26/17 at 17:15; Stop 01/26/17 at 17:17 ; Status DC Acetaminophen (Tylenol) 650 mg Q4H PRN PO HEADACHE OR TEMP > 101 F Last administered on 01/28/17 23:29; Start 01/26/17 at 18:45 Sodium Chloride 1,000 ml @ 999 mls/hr BOLUS ONCE IV Last administered on 01/27 00:18; Start 01/27/17 at 00:15; Stop 01/27/17 at 01:15; Status DC Tamsulosin HCl (Flomax) 0.4 mg DAILY PO Last administered on 02/14/17 08:13; Start 01/27/17 at 10:00 Ceftriaxone Sodium 2000 mg/ Sodium Chloride 100 ml @ 200 mls/hr Q24H IV Last administered on 01/31/17 08:55; Start 01/29/17 at 08:00; Stop 02/01/17 at 09:04 ; Status DC Potassium Chloride (KCl Powder) 20 meq Q12HR PEG Last administered on 09:00; Start 01/30/17 at 21:00; Stop 01/31/17 at 09:01; Status DC Miscellaneous (Pill Splitter) 1 ea UNSCH PRN OTHER SEE LABEL COMMENTS; Start at 22:00 Albuterol/ Ipratropium (Duoneb Neb) 1 ampule Q4HR NEB NEB Last administered on 02/04/17 11:31; Start 01/31/17 at 16:00; Stop 02/04/17 at 16:00; Status DC Azithromycin 500 mg/Sodium Chloride 250 ml @ 250 mls/hr Q24H IV Last administered on 02/05/17 08:00; Start 02/01/17 at 08:00; Stop 02/05/17 at 12:01 ; Status DC Furosemide (Lasix Inj) 20 mg BID@09,18 IV PUSH Last administered on 02/01/17 08:11; Start 02/01/17 at 09:00; Stop 02/01/17 at 09:05; Status DC Furosemide (Lasix Inj) 20 mg ONCE ONCE IV PUSH Last administered on 02/01/17 03:54; Start 02/01/17 at 04:00; Stop 02/01/17 at 04:01; Status DC Furosemide (Lasix Inj) 20 mg ONCE ONCE IV PUSH ; Start 02/01/17 at 08:30; Stop 02/01/17 at 08:31; Status UNV Methylprednisolone Sodium Succinate (SoluMEDROL INJ) 125 mg ONCE ONCE IV PUSH Last administered on 02/01/17 09:54; Start 02/01/17 at 10:00; Stop 02/01/17 at 10:01; Status DC Methylprednisolone Sodium Succinate (SoluMEDROL INJ) 40 mg Q12HR IV PUSH Last administered on 02/09/17 09:12; Start 02/01/17 at 21:00; Stop 02/09/17 at 12:03 ; Status DC Potassium Chloride 100 ml @ 50 mls/hr Q2H PRN IV For Potassium 2.8 - 3.2 mEq/ L Last administered on 02/03/17 05:32; Start 02/01/17 at 09:15; Stop 02/09/17 at 09:02; Status DC Potassium Chloride 100 ml @ 50 mls/hr Q2H PRN IV For Potassium 2.8 - 3.2 mEq/ L Last administered on 02/07/17 14:47; Start 02/01/17 at 09:15; Stop 02/09/17 at 09:02; Status DC Potassium Bicarb/ Potassium Chloride (K-Lyte Cl Eff) 50 meq UNSCH PRN PO For Potassium 3.3 - 3.5 mEq/L; Start 02/01/17 at 09:15; Stop 02/09/17 at 09:02; Status DC Potassium Chloride 100 ml @ 25 mls/hr UNSCH PRN IV For Potassium 3.3 - 3.5 mEq /L Last administered on 02/02/17 17:55; Start 02/01/17 at 09:15; Stop 02/09/17 at 09:02; Status DC Potassium Chloride 100 ml @ 50 mls/hr Q2H PRN IV For Potassium 3.3 - 3.5 mEq/L ; Start 02/01/17 at 09:15; Stop 02/09/17 at 09:02; Status DC Magnesium Sulfate 4 gm/Sodium Chloride 100 ml @ 50 mls/hr UNSCH PRN IV For Magnesium 0.9 - 1.1 mg/dL; Start 02/01/17 at 09:15; Stop 02/09/17 at 09:02; Status DC Magnesium Oxide (Mag-Ox) 800 mg UNSCH PRN PO For Magnesium 1.2 - 1.6 mg/dL; Start 02/01/17 at 09:15; Stop 02/09/17 at 09:02; Status DC Magnesium Sulfate 2 gm/Sodium Chloride 100 ml @ 50 mls/hr UNSCH PRN IV For Magnesium 1.2 - 1.6 mg/dL Last administered on 02/02/17 17:55; Start 02/01/17 at 09:15; Stop 02/09/17 at 09:02; Status DC Potassium Phosphate (K-Phos) 2,000 mg Q4H PRN PO For Phosphorus < 2.5 mg/dL; Start 02/01/17 at 09:15; Stop 02/09/17 at 09:02; Status DC Sodium Phosphate 30 mmol/Sodium Chloride 250 ml @ 42 mls/hr UNSCH PRN IV For Phosphorus < 2.5 mg/dL; Start 02/01/17 at 09:15; Stop 02/09/17 at 09:02; Status DC Potassium Phosphate (K-Phos) 2,000 mg UNSCH PRN PO/TUBE SEE LABEL COMMENTS; Start 02/01/17 at 09:15; Stop 02/09/17 at 09:02; Status DC Potassium Phosphate 30 mmol/ Sodium Chloride 260 ml @ 42 mls/hr UNSCH PRN IV SEE LABEL COMMENTS; Start 02/01/17 at 09:15; Stop 02/09/17 at 09:02; Status DC Piperacillin Sod/ Tazobactam Sod 100 ml @ 200 mls/hr Q6H IV Last administered on 02/05/17 10:07; Start 02/01/17 at 10:00; Stop 02/05/17 at 12:01; Status DC Vancomycin HCl 1000 mg/Sodium Chloride 250 ml @ 250 mls/hr 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 ; Start 02/01/17 at 09:15; Stop 02/04/17 at 09:14; Status DC Etomidate (Amidate Inj) 20 mg ONCE ONCE IV PUSH Last administered on 09:55; Start 02/01/17 at 09:45; Stop 02/01/17 at 09:46; Status DC Succinylcholine Chloride (Quelicin Inj) 80 mg ONCE ONCE IV PUSH Last administered on 02/01/17 09:54; Start 02/01/17 at 10:00; Stop 02/01/17 at 10:01 ; Status DC Sodium Chloride 1,000 ml @ 999 mls/hr BOLUS ONCE IV Last administered on 02/01 11:07; Start 02/01/17 at 09:30; Stop 02/01/17 at 10:30; Status DC Chlorhexidine Gluconate (Peridex 0.12% Liq) 15 ml BID@08,20 MT Last administered on 02/06/17 08:00; Start 02/01/17 at 20:00 Propofol 100 ml @ 0 mls/hr TITRATE IV Last administered on 02/05/17 13:08; Start 02/01/17 at 09:30; Stop 02/07/17 at 11:18; Status DC Sodium Chloride 1,000 ml @ 999 mls/hr BOLUS ONCE IV Last administered on 02/01 11:07; Start 02/01/17 at 09:45; Stop 02/01/17 at 10:45; Status DC Sodium Chloride 1,000 ml @ 125 mls/hr Q8H IV Last administered on 02/02/17 00 :10; Start 02/01/17 at 09:45; Stop 02/02/17 at 17:52; Status DC Pantoprazole Sodium (Protonix Inj) 40 mg Q24H IV PUSH Last administered on 02/01 11:27; Start 02/01/17 at 10:00; Stop 02/01/17 at 15:12; Status DC Enoxaparin Sodium (Lovenox Inj) 40 mg Q24H SQ Last administered on 02/14/17 08 :13; Start 02/01/17 at 10:00 Midazolam HCl (Versed Inj) 5 mg ONCE ONCE IV Last administered on 02/01/17 14 :04; Start 02/01/17 at 12:15; Stop 02/01/17 at 12:18; Status DC Midazolam HCl 100 ml @ 0 mls/hr TITRATE IV Last administered on 02/04/17 00:47 ; Start 02/01/17 at 12:15; Stop 02/05/17 at 14:55; Status DC Metoclopramide HCl (Reglan Inj) 10 mg Q8HR IV PUSH Last administered on 06:10; Start 02/01/17 at 15:00 Pantoprazole Sodium (Protonix Inj) 40 mg Q12H IV PUSH Last administered on 02/07 09:21; Start 02/01/17 at 22:00; Stop 02/07/17 at 11:18; Status DC Artificial Tears (Tears Naturale Opth Soln) 1 drop Q8HR EACH EYE Last administered on 02/13/17 21:52; Start 02/02/17 at 14:00 Polyethylene Glycol (Miralax) 17 gm DAILY PO Last administered on 02/06/17 09: 58; Start 02/02/17 at 18:00; Stop 02/06/17 at 09:59; Status DC Sodium Chloride 1,000 ml @ 60 mls/hr [id number] IV Last administered on 21:20; Start 02/02/17 at 18:00; Stop 02/09/17 at 12:03; Status DC Hydralazine HCl (Apresoline Inj) 20 mg Q2H PRN IV SBP > 160 Last administered on 02/05/17 22:35; Start 02/04/17 at 10:45 Iohexol (Omnipaque 350 Inj) 35 ml STK-MED ONCE G-TUBE Last administered on 02/04 12:36; Start 02/04/17 at 13:10; Stop 02/04/17 at 13:11; Status DC Nicardipine HCl 25 mg/Sodium Chloride 260 ml @ 52 mls/hr TITRATE PRN IV Blood pressure management; Start 02/04/17 at 15:15; Stop 02/07/17 at 12:03; Status DC Miscellaneous Medication (ASP Crit: Doc ESBL, MDR A baumannii or P aer) 1 UNSCH X1 PRN .XX PHARMACY DOCUMENTATION; Start 02/05/17 at 12:00; Stop 02/06/17 at 11 :59; Status DC Miscellaneous Medication ([facility] Pharm[facility] Information) 1 UNSCH X1 PRN XX PHARMACY DOCUMENTATION; Start 02/05/17 at 12:00; Stop 02/06/17 at 11:59; Status DC Meropenem 2000 mg/ Sodium Chloride 100 ml @ 200 mls/hr Q8H IV Last administered on 02/13/17 13:07; Start 02/05/17 at 13:00; Stop 02/13/17 at 14:25 ; Status DC Midazolam HCl 100 ml @ 2 mls/hr TITRATE PRN IV SEDATION; Start 02/05/17 at 15: 00; Stop 02/07/17 at 11:18; Status DC Vancomycin HCl (VANCOMYCIN for oral use only) 500 mg Q6HR PO Last administered on 02/14/17 06:10; Start 02/05/17 at 19:00 Albuterol/ Ipratropium (Duoneb Neb) 1 ampule Q4HR NEB PRN NEB dyspnea Last administered on 02/12/17 20:20; Start 02/07/17 at 00:00 Lisinopril (Prinivil) 10 mg DAILY G-TUBE Last administered on 02/10/17 08:47; Start 02/08/17 at 10:45; Stop 02/10/17 at 10:35; Status DC Allopurinol (Zyloprim) 100 mg DAILY G-TUBE Last administered on 02/14/17 08:13 ; Start 02/09/17 at 09:00 Prednisone (Deltasone) 20 mg BID PO Last administered on 02/14/17 08:13; Start 02/09/17 at 21:00; Stop 02/14/17 at 09:46; Status DC Lisinopril (Prinivil) 20 mg DAILY G-TUBE Last administered on 02/14/17 08:12; Start 02/11/17 at 09:00 Carbamide Peroxide (Debrox 6.5% Otic) 5 drop Q12HR RIGHT EAR Last administered on 02/14/17 08:14; Start 02/10/17 at 12:00 Fluticasone Propionate (Flonase Venkata Spr) 1 spray BID NASAL Last administered on 02/14/17 08:14; Start 02/10/17 at 12:00 Loratadine (Claritin) 10 mg DAILY PO Last administered on 02/14/17 08:13; Start 02/10/17 at 12:00 Prednisone (Deltasone) 10 mg BID PO ; Start 02/14/17 at 21:00 A/P Assessment and Plan Mr. Soriano is a 71-year-old male with past medical history of obstructive uropathy, prostate cancer, hypertension, history of cardiac arrest, mood disorder, chronic pain, GERD, COPD, CAD, mild dementia who was sent from SNF for confusion and fall and found to have UTI Acute respiratory failure hypoxia most likely secondary to aspiration pneumonia and COPD exacerbation - now resolved and on NC Aspiration pneumonia Acute COPD exacerbation - Extubated on 02/05/2017. Currently patient is on Budesonide neb treatments. Add DuoNeb Q4hrs PRN. Improving. - Continue supplemental O2 to keep O2 sat > 90%. , Currently on 4 L and will continue to wean as tolerated. -Continue with prednisone 20 mg by mouth twice a day. - CT chest --> extensive bibasilar consolidation indicating pneumonia secondary to aspiration and mediastinal adenopathy largest lymph node 1.9 cm nonspecific. -Sputum culture from 02/01/2017 grew ESBL E. Coli and Enterobacter. Infectious disease managing antibiotics. - Meropenem 2g IV Q8hrs d/ron on 02/13. UTI with Proteus status post treatment Bacteremia with Proteus -C. Diff colitis - isolation - Blood cx from 01/26/2017 grew Proteus. No growth on blood cultures from 01/28, 02/01/2017. - Patient received Ceftriaxone. - ID following. Patient is currently on PO Vancomycin for C. Diff colitis per Dr. Vogel continue with vancomycin for 2 weeks from 02/13. Hypernatremia -resolved with free water flushes 200 CC every 6 hours, 148 now to 143. Hypokalemia - replete Urinary retention - Dr. Sandoval following. Patient is currently on Doxazosin 2mg Qday and Tamsulosin 0.4mg Qday. Monitor Output currently with Robison catheter; Dr. Sandoval decide when trial of voiding with a Robison removal can be done. -Hypertension, labile - Continue metoprolol 25mg BID. - Improved with lisinopril. - Dysphagia - Continue tube feed, goal 60cc/hour (Jevity 1.5). GJ tube placed - Previous speech therapy attempt to do oral feeding failed. He aspiration during modified barium swallow study as well. Keep nothing by mouth. -Per speech therapist patient will need to be nothing by mouth. -Will reconsult dietitian since patient wants to talk to dietitian requested with going to his tube feeds. Right ear wax -Continue with Debrox. Left earache -Most likely secondary to sinus congestion. Improved with Flonase and saline solution along with Claritin. Full code. Lovenox 40mg Q24hrs, Protonix 40mg IV Q12hrs switch to prevacid. Discharge Planning Pending acceptance to SNF. Patient has been refused by multiple facility so far. Cassy Arora MD Feb 14, 2017 11:31
[2017-02-14 12:00] VITALS: BP_SYST 119; BP_SYST 129; BP_DIAS 61; BP_DIAS 76; PULSE 63; PULSE 73; RESP 17; RESP 18; TEMP 97.5; TEMP 98.6; O2SAT 97; O2SAT 99
[2017-02-14] MEDS ORDERED: ENOX40P SQ (13:07)
[2017-02-14] MEDS ORDERED: POLY99.0 EACH EYE (13:07)
[2017-02-14] MEDS ORDERED: TAMS5CAP PO (13:07)
[2017-02-14] MEDS ORDERED: ALLO100 G-TUBE (13:07)
[2017-02-14] MEDS ORDERED: PRED10 PO (13:07)
[2017-02-14] MEDS ORDERED: CLAR10TA7 PO (13:07)
[2017-02-14] MEDS ORDERED: CARB6.5S5 RIGHT EAR (13:07)
[2017-02-14] MEDS ORDERED: LISI10TA3 G-TUBE (13:07)
[2017-02-14] MEDS ORDERED: FLUT50SP NASAL (13:07)
--- NOTE | 2017-02-14 13:10 | HHI.DS ---
Discharge Summary Admission Date Jan 26, 2017 at 14:16 Discharge Date: Feb 14, 2017 Admitting Diagnosis (1) Urinary tract infection ICD Code: N39.0 - Urinary tract infection, site not specified Status: Acute (2) Sepsis ICD Code: A41.9 - Sepsis, unspecified organism Status: Acute (3) Acute kidney injury ICD Code: N17.9 - Acute kidney failure, unspecified Status: Acute (4) Respiratory distress ICD Code: R06.00 - Respiratory distress Status: Acute (5) Right lower lobe pneumonia ICD Code: J18.1 - Lobar pneumonia, unspecified organism Status: Acute (6) Dysphagia ICD Code: R13.10 - Dysphagia, unspecified Diagnosis: Secondary Procedures Intubation 02/01/2017 Echo 02/02/2017 CONCLUSIONS Normal left ventricular size. Wall thickness is measured at the upper limits of normal. The left ventricular systolic function is low normal with an estimated ejection fraction in the range of 50- 55%. No regional wall motion abnormalities are present. Severe mitral annular calcification. Calcification of both mitral valve leaflets. The aortic valve is not well visualized. Cannot rule out a bicuspid aortic valve or trileaflet valve with partially fused commissure. Aortic valve sclerosis is present. Mild thickening of the aortic valve leaflets. Mild thickening of the tricuspid valve leaflets. There is trace tricuspid valve regurgitation. The estimated pulmonary arterial pressure is 37 mmHg. Brief History - From Admission 71-year-old male with past medical history of obstructive uropathy status post prostate cancer, HTN, history of cardiac arrest, mood disorder, only/chronic pain, GERD, COPD, CAD, mild dementia who was sent from SNF for confusion and fall. The patient's daughters at bedside who helps provide history. History is also obtained from the medical record. Apparently the patient has some mild dementia and forgetfulness. The patient is oriented to year, but not to date. Apparently the patient tried to get up today, slipped, fell, and hit his head. He denies any loss of consciousness. He denies any other trauma other than his head at this time. His daughter reports that he appears more confused today. The patient does have a history of prostate cancer 10 years ago and has been dealing with urinary retention and recent years. He had an indwelling Robison catheter until last Saturday, when the patient requested a void trial and the Robison was removed. He is in the process of going to see a urologist. No fever or chills are noted prior to today. The patient reports normal bowel movements. CBC/BMP: 02/13/17 1227 02/13/17 1227 Significant Findings Laboratory Tests Test 02/13/17 12:27 White Blood Count 19.1 TH/MM3 (4.0-11.0) Red Blood Count 3.38 MIL/MM3 (4.50-5.90) Hemoglobin 10.2 GM/DL (13.0-17.0) Hematocrit 31.6 % (39.0-51.0) Random Glucose 143 MG/DL (74-106) Calcium Level 7.7 MG/DL (8.5-10.1) Carbon Dioxide Level 33.4 MEQ/L (21.0-32.0) Imaging Last Impressions Gastrostomy Tube Change 02/04/17 0000 Signed Impressions: Service Date/Time: Saturday, February 04, 2017 12:22 - CONCLUSION: 1. Conversion of an existing gastrostomy tube to a transgastric GJ tube. Jaime Quinteros Jr., MD Chest X-Ray 02/03/17 0600 Signed Impressions: Service Date/Time: Friday, February 03, 2017 04:27 - CONCLUSION: Stable appearance of the chest with bibasilar airspace disease and probable associated effusions, left greater than right. Rick Hancock MD Chest CT 02/01/17 0000 Signed Impressions: Service Date/Time: Wednesday, February 01, 2017 10:16 - CONCLUSION: 1. Extensive, consolidated, bilateral infiltrates in the lower lobes and effusions concerning for pneumonia. In the appropriate clinical setting, this would be concerning for aspiration. 2. ET tube in good position. 3. 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 4. Scattered adenopathy in the mediastinum and AP window nonspecific in appearance. Nahun Mills MD Abdomen/Pelvis CT 02/01/17 0000 Signed Impressions: Service Date/Time: Wednesday, February 01, 2017 10:16 - CONCLUSION: 1. Bibasilar infiltrates concerning for pneumonia. 2. Diffuse distention of the small bowel with both fluid and gas suggesting ileus. There is oral contrast which has passed through the small bowel and is present throughout the colon. 3. There is a Robison catheter within the bladder 4. There is a gastrostomy tube present. Nahun Mills MD Modified Barium Swallow 01/29/17 0000 Signed Impressions: Service Date/Time: Sunday, January 29, 2017 00:00 - CONCLUSION: Penetration and aspiration are seen. Asif Bradley MD Abdomen X-Ray 01/28/17 0000 Signed Impressions: Service Date/Time: Saturday, January 28, 2017 08:27 - CONCLUSION: The oral contrast material injected through the G-tube is present within the duodenum and proximal jejunum. No abnormal extravasation is identified. Asif Dawson MD Shoulder X-Ray 01/26/17 112 Signed Impressions: Service Date/Time: Thursday, January 26, 2017 11:43 - CONCLUSION: Post traumatic deformity of the left humeral head characteristic of an old fracture. No findings suggestive of acute fracture or dislocation. Fidel Barrett MD Knee X-Ray 01/26/171121 Signed Impressions: Service Date/Time: Thursday, January 26, 2017 11:48 - CONCLUSION: 1. Osteoarthritic change greatest in the medial compartment. 2. No acute fracture or malalignment. 3. Small joint effusion. Behzad Dos Santos MD Head CT 01/26/17 112 Signed Impressions: Service Date/Time: Thursday, January 26, 2017 11:54 - CONCLUSION: Left supraorbital soft tissue swelling. No evidence of acute infarct, hemorrhage, mass, edema or fracture. Fidel Barrett MD Cervical Spine CT 01/26/17 112 Signed Impressions: Service Date/Time: Thursday, January 26, 2017 11:56 - CONCLUSION: 1. Mild degenerative anterolisthesis secondary to facet arthropathy as described. 2. No evidence of acute fracture or traumatic listhesis. 3. Advanced facet arthropathy. 4. Moderate severe degenerative disease with spondylosis at C5-6 and C6-7. 5. No acute soft tissue abnormality. Fidel Barrett MD Renal Ultrasound 01/26/17 0000 Signed Impressions: Service Date/Time: Thursday, January 26, 2017 14:22 - CONCLUSION: Bilateral extrarenal pelvis No evidence of hydronephrosis, suspicious masses or nephrolithiasis. Fidel Barrett MD PE at Discharge GENERAL: This is a well-nourished, well-developed patient, in no apparent distress. CARDIOVASCULAR: regular rate and rhythm RESPIRATORY: diminished breath sounds on the bases and bilateral anterior rhonchi. No wheezing noted. GASTROINTESTINAL: Abdomen soft, non-tender, nondistended. Normal active bowel sounds MUSCULOSKELETAL: Extremities without clubbing, cyanosis, or edema. NEURO: Alert & Oriented x2 to person Moves all ext x4 but with generalized weakness Pt update on day of discharge Please see progress note on the day of discharge for further information. Dealt with case management Ilda stated that patient has placement now. Hospital Course Mr. Soriano is a 71-year-old male with past medical history of obstructive uropathy, prostate cancer, hypertension, history of cardiac arrest, mood disorder, chronic pain, GERD, COPD, CAD, mild dementia who was sent from SNF for confusion and fall and found to have UTI Acute respiratory failure hypoxia most likely secondary to aspiration pneumonia and COPD exacerbation - now resolved and on NC Aspiration pneumonia Acute COPD exacerbation - Extubated on 02/05/2017. Patient was put on Budesonide neb treatments and DuoNeb Q4hrs PRN with improvement. He was also put on a steroid taper. - CT chest --> extensive bibasilar consolidation indicating pneumonia secondary to aspiration and mediastinal adenopathy largest lymph node 1.9 cm nonspecific. -Sputum culture from 02/01/2017 grew ESBL E. Coli and Enterobacter. Infectious disease managing antibiotics and he was put on meropenem.. - Meropenem 2g IV Q8hrs d/ron on 02/13. He completed his treatment or hospitalization. Leukocytosis -At the end of his hospital course CBC drawn which show leukocytosis which was due to prednisone use. There was no sign of active infection and clinically he was doing well. UTI with Proteus status post treatment Bacteremia with Proteus C. Diff colitis - Blood cx from 01/26/2017 grew Proteus. No growth on blood cultures from 01/28, 02/01/2017. - Patient received Ceftriaxone and later switched to meropenem. He completed a course of antibiotics or hospitalization. -In terms of his C. difficile he was put on PO Vancomycin. per Dr. Vogel continue with vancomycin for 2 weeks from 8/30. Hypernatremia -Secondary to dehydration. -resolved with free water flushes 200 CC every 6 hours, 148 now to 143. Hypokalemia - replete Urinary retention - Dr. Sandoval following. Patient is currently on Doxazosin 2mg Qday and Tamsulosin 0.4mg Qday. Monitor Output currently with Robison catheter; Dr. Sandoval decide when trial of voiding with a Robison removal can be done. -Hypertension, labile - Continue metoprolol 25mg BID. - He was later put on lisinopril with improvement in his blood pressure. - Dysphagia - Continue tube feed, goal 60cc/hour (Jevity 1.5). GJ tube placed - Previous speech therapy attempt to do oral feeding failed. He aspiration during modified barium swallow study as well. Keep nothing by mouth. -Per speech therapist patient will need to be nothing by mouth. Right ear wax -patient put on Debrox with improvement. Left earache -Most likely secondary to sinus congestion. Improved with Flonase and saline solution along with Claritin. Pt Condition on Discharge: Stable Discharge Disposition: Discharge to SNF Discharge Time: > 30 minutes Discharge Instructions DIET: Follow Instructions for: Nothing By Mouth, On Tube Feeding Additional Diet Instructions: Jevity 1.5 Ray @60 cc/hr and water flushes 600 cc Q6H Activities you can perform: Regular-No Restrictions Follow up Referrals: SNF/DETENTION/ - Daily New Medications: Vancomycin (Vancomycin) 125 Mg Cap 125 MG PO QID for Infection for 14 Days, CAP 0 Refills Allopurinol (Zyloprim) 100 Mg Tab 100 MG G-TUBE DAILY for gout, #30 TAB 0 Refills Carbamide Peroxide Otic Drops (Debrox Otic Drops) 6.5% Soln 5 DROP RIGHT EAR Q12HR for ear wax, #1 BOTTLE 0 Refills up to 4 days. Enoxaparin Inj (Lovenox Inj) 40 Mg/0.4 Ml Syr 40 MG SQ Q24H for dvt PROPHYLAXIS, #30 INJECTION due to inability to ambulate Fluticasone Nasal [place] (Fluticasone Nasal [place]) 50 Mcg/Act Naspr 1 SPRAY NASAL BID for nasal congestion, #1 BOTTLE 0 Refills 50 mcg/spray Lisinopril (Lisinopril) 10 Mg Tab 20 MG G-TUBE DAILY for hypertension, #30 TAB 0 Refills Loratadine (Claritin) 10 Mg Tablet 10 MG PO DAILY for allergic rhinitis, #30 MG 0 Refills Polyvinyl Alcohol Opth Drops (Artificial Tears Opth Drops) 1.4% Soln 1 DROP EACH EYE Q8HR for dry eyes, #1 BOTTLE 0 Refills Prednisone (Prednisone) 10 Mg Tab 10 MG PO BID for COPD exacerbation, #10 TAB 0 Refills take 10 mg tablets twice a day for 3 days then decrease to 5 mg tablets twice a day for 4 day Tamsulosin (Flomax) 0.4 Mg Cap 0.4 MG PO DAILY for BPH, #30 CAP 0 Refills Continued Medications: Acetaminophen (Tylenol) 325 Mg Tab 325 MG G-TUBE Q4H PRN for PAIN SCALE 1 TO 10, TAB 0 Refills Alprazolam (Xanax) 0.25 Mg Tab 0.25 MG G-TUBE Q8H PRN for ANXIETY, #10 TAB 0 Refills (This prescription has been renewed) Amiodarone (Amiodarone) 200 Mg Tab 200 MG G-TUBE DAILY for Regulate Heart Beat, #30 TAB 0 Refills Budesonide Neb (Budesonide Neb) 0.5 Mg/2 Ml Neb 0.5 MG NEB Q12HR NEB for Breathing Treatment, #60 NEBULE 0 Refills Chlorhexidine Gluconate (Mouth) Liq (Chlorhexidine Gluconate (Mouth) Liq) 0.12% Soln 15 ML SWISH-SPIT BID, #473 ML 0 Refills Doxazosin (Doxazosin) 2 Mg Tab 2 MG G-TUBE DAILY, #30 TAB 0 Refills Hyoscyamine (Hyoscyamine) 0.125 Mg Tab 0.125 MG G-TUBE Q4H for Gastrointestinal disorders, TAB 0 Refills Ipratropium-Albuterol Neb (Duoneb) 0.5-2.5 Mg/3 Ml Neb 1 NEBULE INH Q4HR NEB for SHORTNESS OF BREATH, #120 NEBULE 0 Refills Lactobacillus Combo No.10 (Probiotic) 1 Each Capsule G-TUBE BID Metoprolol Tartrate (Metoprolol Tartrate) 25 Mg Tab 25 MG PO BID, #60 TAB 0 Refills Omeprazole (Omeprazole) 20 Mg Cap G-TUBE BID Oxycodone-Acetaminophen (Percocet) 10-325 mg Tab 1 TAB PO Q4H PRN for PAIN, #20 TAB 0 Refills (This prescription has been renewed ) Discontinued Medications: Cadexomer Iodine Topical (Iodosorb Topical) 0.9% Gel 1 APPLIC TOPICAL 3XWEEK, #1 TUBE Cholestyramine (Cholestyramine) 4 Gm/Dose Powd 4 GM PO BID for Dyslipidemia, #1 CAN 0 Refills 1 level scoopful of powder contains 4 grams of cholestyramine. Dextrose (Dextrose 50%) 50 % Inj PRN for Per Hypoglycemic Protocol Dextrose-Sodium Chloride Inj (Dextrose 10%-NaCl 0.45% Inj) 10-0.45% 1000 Ml Bagp Glucagon (Rdna) Inj Kit (Glucagen Hypokit Inj Kit) 1 Mg Kit 1 MG IM ONCE PRN for Blood Sugar Management, #1 KIT 0 Refills Guaifenesin-Dextromethorphan Liq (Guaifenesin DM Liq) 10-100 Mg/5 Ml Liq 10 ML G-TUBE Q4H PRN for COUGH, #1 BOTTLE 0 Refills Heparin Inj (Heparin Inj) 10,000 Units/10 Ml Inj 5000 UNITS SQ Q12HR, #1 VIAL Loperamide HCl (Loperamide) 2 Mg Tablet 2 MG G-TUBE Q4HR PRN for DIARRHEA Meloxicam (Meloxicam) 7.5 Mg Tab 7.5 MG PO DAILY for Arthritis Pain, TAB 0 Refills Multiple Vitamins W/ Minerals (Thera M Plus) 1 Tab 1 TAB G-TUBE DAILY for Nutritional Supplement, TAB 0 Refills Nitroglycerin Topical (Nitro-Bid Topical) 2 % Oint 1 INCH CHEST Q6H PRN for CHEST PAIN, #1 TUBE 0 Refills Olanzapine (Olanzapine) 5 Mg Tab 5 MG G-TUBE DAILY, #30 TAB 0 Refills Oxycodone (Oxycodone) 10 Mg Tab 10 MG G-TUBE Q6H PRN for PAIN, #10 TAB 0 Refills Sodium Chloride Inj (Sodium Chloride Inj) 0.9 % Inj 100 ML IV Q12HR Cassy Arora MD Feb 14, 2017 13:10
--- NOTE | 2017-02-14 13:56 | PD.WCN.NOT ---
Wound Consult Description: Follow up of Sacral stage 4 pressure injury Communicated with: EDSON Sullivan [address] [place] [address] Recommendation: Please continue current treatment: cleanse wound to sacral area with wound cleanser or normal saline and apply Maxorb II (Calcium alginate dressing) packed in wound bed. Cover wound with adhesive foam dressing please change dressing every 2 days or PRN if saturated or dislodged. Please inquire about dignishield vs rectal bag Additional Information: Patient seen on [address] [place] [address] for follow up of pressure injury to sacral area. Bakari is laying on K4 pressure relieving mattress and was able to turn to L side for wound assessment with minimal assistance of technical proposal writer.peeled back adhesive foam dressing in place and alginate dressing in place to reveal stage 4 sacral wound. Wound presents with 100% pale red granulation tissue. Wound measurements are as follows: 5 cm x 3 cm x 0.5cm. Undermining is noted between 11 and 1 o'clock at ~1 cm.Periwound is unremarkable.Wound margins are well defined with epibole and unattached wound margins between 11 and 1 o' clock.Rectal bag is in place, patient has C diff. Applied new Maxorb II ( calcium alginate dressing) to wound bed loosely packed, before reapplying foam dressing back in place. Next dressing change is due to 02/15/2017. Patient may benefit from dignishield placement vs rectal bag. Rectal bag was coming loose.Wound care will continue to follow patient weekly until discharge. Neg Pressure Wound Therapy Wound Location Wound Location: Sacral stage 4 pressure injury Hortensia Seymour [facility] Feb 14, 2017 13:56
[2017-02-14 16:00] VITALS: BP 118/65; PULSE 58; RESP 15; TEMP 96.8; O2SAT 97
[2017-02-14] MEDS ORDERED: predniSONE 10 MG TAB PO SCH (21:00)
== END 2017-02-14 17:54 | DRG 870 ==
LOC: NEPC 10:50 → NEDA 14:16 → N07B 17:32 → N03B 02-01 08:32 → N07A 02-08 18:14
PROVIDERS: ADMIT Family Medicine; ATTEND Family Medicine
PROC: 0HQ1XZZ Repair Face Skin, External Approach (ICD-10-PCS; principal; 2017-01-26)
PROC: 5A1955Z Respiratory Ventilation, Greater than 96 Consecutive Hours (ICD-10-PCS; 2017-02-01)
PROC: 0BH17EZ Insertion of Endotracheal Airway into Trachea, Via Natural or Artificial Opening (ICD-10-PCS; 2017-02-01)
PROC: 30233N1 Transfusion of Nonautologous Red Blood Cells into Peripheral Vein, Percutaneous Approach (ICD-10-PCS; 2017-02-03)
PROC: 0DHA3UZ Insertion of Feeding Device into Jejunum, Percutaneous Approach (ICD-10-PCS; 2017-02-04)
DX: A41.89 Other specified sepsis (principal); J96.01 Acute respiratory failure with hypoxia; J44.0 Chronic obstructive pulmonary disease with (acute) lower respiratory infection; J69.0 Pneumonitis due to inhalation of food and vomit; G93.41 Metabolic encephalopathy; N17.9 Acute kidney failure, unspecified; Z99.11 Dependence on respirator [ventilator] status; L89.152 Pressure ulcer of sacral region, stage 2; A04.7 Enterocolitis due to Clostridium difficile; E87.0 Hyperosmolality and hypernatremia; J44.1 Chronic obstructive pulmonary disease with (acute) exacerbation; N39.0 Urinary tract infection, site not specified; B96.4 Proteus (mirabilis) (morganii) as the cause of diseases classified elsewhere; K56.7 Ileus, unspecified; J44.9 Chronic obstructive pulmonary disease, unspecified; R13.10 Dysphagia, unspecified; R65.20 Severe sepsis without septic shock; N13.9 Obstructive and reflux uropathy, unspecified; E87.5 Hyperkalemia; K21.0 Gastro-esophageal reflux disease with esophagitis; F41.9 Anxiety disorder, unspecified; G89.29 Other chronic pain; I10 Essential (primary) hypertension; F03.90 Unspecified dementia, unspecified severity, without behavioral disturbance, psychotic disturbance, mood disturbance, and anxiety; Z85.46 Personal history of malignant neoplasm of prostate; Z92.3 Personal history of irradiation; Z93.1 Gastrostomy status; D64.9 Anemia, unspecified; S01.112A Laceration without foreign body of left eyelid and periocular area, initial encounter; S51.012A Laceration without foreign body of left elbow, initial encounter; S40.212A Abrasion of left shoulder, initial encounter; S80.212A Abrasion, left knee, initial encounter; Y92.128 Other place in nursing home as the place of occurrence of the external cause; W06.XXXA Fall from bed, initial encounter; E86.0 Dehydration; E87.6 Hypokalemia; H92.02 Otalgia, left ear; H61.21 Impacted cerumen, right ear; K43.9 Ventral hernia without obstruction or gangrene; K21.9 Gastro-esophageal reflux disease without esophagitis; I25.10 Atherosclerotic heart disease of native coronary artery without angina pectoris; K44.9 Diaphragmatic hernia without obstruction or gangrene; R79.89 Other specified abnormal findings of blood chemistry
CPT/HCPCS: 12011; 31500; 36430; 36600; 49446; 70450; 71010; 71250; 72125; 73030; 73560; 74000; 74176; 74230; 76775; 76937; 80048; 80053; 81001; 82550; 82805; 83605; 83735; 84100; 84132; 84155; 84484; 85007; 85025; 85027; 85610; 85730; 86850; 86900; 86901; 86920; 87040; 87070; 87077; 87086; 87186; 87205; 87493; 93005; 93306; 94002; 94003; 94150; 94640; 94664; 96360; 96361; C1769; C1874; C1887; C1894; C9113; J0330; J0360; J0456; J0696; J1650; J1940; J2185; J2250; J2270; J2405; J2543; J2765; J2920; J2930; J3475; J3480; J7030; J7050; J7512; J7626; P9016; Q9967

== ENCOUNTER 2017-03-01 14:34 | Emergency (ER) | payer MEDICARE, OTHER ==
[~2017-03-01 14:34] MED LIST changes: +ALLO100 G-TUBE; +CARB6.5S5 RIGHT EAR; -CHOL4POW3 PO; +CLAR10TA7 PO; -DEXTR50%P; +ENOX40P SQ; +FLUT50SP NASAL; -GLUCINJ IM; -GUAISYP7 G-TUBE; -HEPAR10KP SQ; -LEVO750T3 PO; +LISI10TA3 G-TUBE; -LOPE2TAB21 G-TUBE; -NITR2OIN CHEST; -OLAN5TAB G-TUBE; -OXYC-395 G-TUBE; +PERC10TA27 PO; +POLY99.0 EACH EYE; +PRED10 PO; -SODI0.9I IV; +TAMS5CAP PO; -THERM G-TUBE; +VANC125C3 PO; -[UNRECOGNIZED DRUG - CODE]
[2017-03-01 14:54] VITALS: BP 104/57; PULSE 68; RESP 18; TEMP 98.5; O2SAT 96
--- NOTE | 2017-03-01 15:22 | PD ---
HPI Chief Complaint: [employer]ings [employer]ator Problem Time Seen by Provider: 15:12 Travel History International Travel<30 days: No Contact w/Intl Traveler<30days: No Traveled to known affect area: No History of Present Illness HPI This patient is sent from the long term because his feeding tube got clogged. He does not take anything by mouth. He has a GJ tube that was placed by radiology 3 weeks ago. He has chronic hernia in the central abdomen is not having any acute abdominal pain or vomiting or fever. He tells me that he couldn't get his medications are feeds because of the clogging. Symptoms severity is mild. No alleviating factors. Duration one day PFSH Past Medical History Arthritis: Yes Anxiety: Yes Cancer: Yes (PROSTATE) Cardiovascular Problems: Yes High Cholesterol: No Chemotherapy: Yes Chest Pain: No Congestive Heart Failure: Yes COPD: Yes Diabetes: No Diminished Hearing: No Endocrine: No Gastrointestinal Disorders: Yes Genitourinary: No Hiatal Hernia: Yes Hypertension: Yes Musculoskeletal: Yes Neurologic: Yes (DEMENTIA) Respiratory: Yes Radiation Therapy: Yes Thyroid Disease: No Past Surgical History Abdominal Surgery: Yes (PEG TUBE, HERNIA REPAIR) Pacemaker: No Other Surgery: Yes (trach) Social History Alcohol Use: No Tobacco Use: No Substance Use: No Allergies-Medications (Allergen,Severity, Reaction): Coded Allergies: No Known Allergies (Unverified , 11/10/16) Reported Meds & Prescriptions Reported Meds & Active Scripts Active Zyloprim (Allopurinol) 100 Mg Tab 100 Mg G-TUBE DAILY Artificial Tears Opth Drops (Polyvinyl Alcohol) 1.4% Soln 1 Drop EACH EYE Q8HR Fluticasone Nasal [place] 50 Mcg/Act Naspr 1 [place] NASAL BID 50 mcg/spray Debrox Otic Drops (Carbamide Peroxide Otic Drops) 6.5% Soln 5 Drop RIGHT EAR Q12HR up to 4 days. Lisinopril 10 Mg Tab 20 Mg G-TUBE DAILY Lovenox Inj (Enoxaparin Sodium) 40 Mg/0.4 Ml Syr 40 Mg SQ Q24H due to inability to ambulate Claritin (Loratadine) 10 Mg Tablet 10 Mg PO DAILY Vancomycin (Vancomycin HCl) 125 Mg Cap 125 Mg PO QID 14 Days Percocet (Oxycodone-Acetaminophen) 10-325 mg Tab 1 Tab PO Q4H PRN Xanax (Alprazolam) 0.25 Mg Tab 0.25 Mg G-TUBE Q8H PRN Reported Loperamide Liq (Loperamide HCl) 1 Mg/7.5 Ml Liq Probiotic (Lactobacillus Combo No.10) 1 Each Capsule G-TUBE BID Omeprazole 20 Mg Cap G-TUBE BID Metoprolol Tartrate 25 Mg Tab 25 Mg PO BID Duoneb (Ipratropium-Albuterol Neb) 0.5-2.5 Mg/3 Ml Neb 1 Nebule INH Q4HR NEB Hyoscyamine (Hyoscyamine Sulfate) 0.125 Mg Tab 0.125 Mg G-TUBE Q4H Doxazosin (Doxazosin Mesylate) 2 Mg Tab 2 Mg G-TUBE DAILY Chlorhexidine Gluconate (Mouth) Liq (Chlorhexidine Gluconate) 0.12% Soln 15 Ml SWISH-SPIT BID Budesonide Neb 0.5 Mg/2 Ml Neb 0.5 Mg NEB Q12HR NEB Amiodarone (Amiodarone HCl) 200 Mg Tab 200 Mg G-TUBE DAILY Tylenol (Acetaminophen) 325 Mg Tab 325 Mg G-TUBE Q4H PRN Review of Systems General / Constitutional: No: Fever Eyes: No: Visual changes HENT: No: Headaches Cardiovascular: No: Chest Pain or Discomfort Respiratory: No: Shortness of Breath Gastrointestinal: Positive: Dysphagia, No: Abdominal Pain Genitourinary: No: Dysuria Musculoskeletal: No: Pain Skin: No Rash Neurologic: No: Weakness Psychiatric: No: Depression Endocrine: No: Polydipsia Hematologic/Lymphatic: No: Easy Bruising Physical Exam Narrative GENERAL: Well-nourished, well-developed patient in no apparent distress. SKIN: Focused skin assessment reveals no rash and nodules. Skin is Warm and dry. HEAD: Atraumatic. Normocephalic. EYES: Pupils equal and round. No scleral icterus. No injection or drainage. ENT: No nasal bleeding or discharge. Mucous membranes pink and moist. NECK: Trachea midline. No JVD. CARDIOVASCULAR: Regular rate and rhythm. No murmur appreciated. RESPIRATORY: No accessory muscle use. Clear to auscultation. Breath sounds equal bilaterally. GASTROINTESTINAL: Abdomen soft, non-tender, nondistended. Hepatic and splenic margins not palpable. Has a feeding tube in position in the central abdomen. Has a well-defined hernia sac just underneath the feeding tube. It's readily reducible. No tenderness with palpation. MUSCULOSKELETAL: No obvious deformities. No clubbing. No cyanosis. No edema. NEUROLOGICAL: Awake and alert. No obvious cranial nerve deficits. Motor grossly within normal limits. Normal speech. PSYCHIATRIC: Appropriate mood and affect; insight and judgment normal. Data Data Last Documented VS Vital Signs Date Time Temp Pulse Resp B/P (MAP) Pulse Ox O2 Delivery O2 Flow Rate FiO2 03/01/17 15:03 16 03/01/17 14:54 98.5 68 104/57 (73) 96 Nasal Cannula 2.00 Orders Orders Fentanyl Inj (Fentanyl Inj) (03/01/17 16:56) Lorazepam Inj (Ativan Inj) (03/01/17 16:56) Diet Progression Instructions (03/01/17 17:19) Vital Signs (Adult) Q15MX2 (03/01/17 17:19) Wound Care (03/01/17 17:19) Wound Care (03/01/17 17:19) ^ Flush Tube (03/01/17 17:19) ^ Crush Medications (03/01/17 17:19) Notify Dr: Other (03/01/17 17:19) Notify Dr: Temperature (03/01/17 17:19) Change Of Gj-Tube (03/01/17 ) MDM Medical Decision Making Medical Screen Exam Complete: Yes Emergency Medical Condition: Yes Medical Record Reviewed: Yes Differential Diagnosis Clogged feeding tube, feeding tube malfunction, feeding tube malposition Narrative Course I have reviewed the patient's electronic medical record. Reviewed the radiology note from February 04, 2017 regarding his tube changed to a GJ tube Nursing staff are assessing the feeding tube ports at this time to determine if they flush or pull back. I discussed with radiologist Dr. Onel Mills. He took the patient into the specials area and under conscious sedation did a exchange of the GJ tube with a guidewire. Patient is now back in the emergency department with a fresh working tube and allowing the sedation to wear off. We will arrange transport back to the long term. Diagnosis Primary Impression: Feeding tube blocked Qualified Codes: T85.598A - Other mechanical complication of other gastrointestinal prosthetic devices, implants and grafts, initial encounter Additional Impression: Encounter for feeding tube placement Additional Instructions: The patient was advised to follow up with their physician and return if they worsen. Med/Other Pt SpecificInfo: Other Disposition: 03 DISCHARGE TO SNF Condition: Stable Dandre Graff MD Mar 01, 2017 15:22
[2017-03-01] MEDS ORDERED: LOPE1SUS (15:42)
[2017-03-01] MEDS ORDERED: LORazepam 2 MG/ML VIAL ONE (16:56)
--- NOTE | 2017-03-01 17:19 | PD.RAD ---
Post Procedure Progress Note Pre Procedure Diagnosis: (1) Feeding tube blocked Post Procedure Diagnosis: (1) Feeding tube blocked Procedure Date: Mar 01, 2017 Supervising Radiologist: Nahun Mills Estimated blood loss: None Anesthesia: Analgesia Plan of Activity Patient to Unit: Other Patient Condition: Poor Additional Comments: G/J tube exchanged for a new tube. Catheter verified to be in good position OK for use See PACS Report for procedural detail/treatment Nahun Mills MD Mar 01, 2017 17:19
--- NOTE | 2017-03-01 18:09 | RADRPT ---
EXAM DATE/TIME: 03/01/2017 16:27 [facility] COMPARISON: GASTROSTOMY TUBE CONVERSION TO GASTRO-JEJUNOSTOMY TUBE, February 04, 2017, 12:22. INDICATIONS : Patient with clogged GJ tube. MEDICAL HISTORY : 1. Hx of prostate cancer 2. HTN 3. Anxiety 4. GERD 5. COPD 6. Dysphagia 7. cardiac arrest 8. CAD SURGICAL HISTORY : 1. PEG tube 2. s/p trach placement and removal 3. appendectomy 4. perforated gastric ulcer surgery. ENCOUNTER: Initial ACUITY: 3 days PAIN SCORE: 2/10 LOCATION: tube site FLUORO TIME: 3.5 minutes IMAGE SERIES: 2 CONTRAST: 25 cc Omnipaque (iohexol) 350 MEDICATION(S): 1.) 1 mg lorazepam (Ativan) IV 2.) 100 mcg Fentanyl (Sublimaze) IV DEVICE(S): 1.) 22 Syriac Transgastric tube PROCEDURE : 1. Fluoroscopically guided gastrojejunostomy tube exchange. 2. Conscious sedation with continuous EKG and oximetry monitoring. The risks, benefits and alternatives to the procedure were explained and verbal and written consent w as obtained. The site was prepped in sterile fashion. Full sterile technique was used, including ca p, mask, sterile gloves and gown and a large sterile sheet. Hand hygiene and 2% chlorhexidine and/or betadine/alcohol prep was utilized per protocol for cutaneous antisepsis. The skin and subcutaneous tissues were infiltrated with local anesthetic solution. With fluoroscopic guidance a guidewire was passed through the previous gastrojejunostomy tube and a f resh tube was placed over the guidewire. The balloon was inflated with appropriate volume of saline. Injection of positive contrast demonstrates good position of the gastric and jejunal lumens of the tube. Conscious sedation was performed with the prescribed dosages and duration as above in the presence of an independent trained radiology nurse to assist in the monitoring of the patient. EKG and oximetry remained stable throughout the procedure. The patient tolerated the procedure well and there were n o complications. The patient was sent to post anesthesia recovery in stable condition. CONCLUSION: Uncomplicated gastrojejunostomy tube exchange as above. Nahun Mills MD on March 01, 2017 at 18:08 Board Certified Radiologist. This report was verified electronically.
== END 2017-03-01 20:37 ==
LOC: NEPE 14:34
DX: Z46.59 Encounter for fitting and adjustment of other gastrointestinal appliance and device (principal); I50.9 Heart failure, unspecified; I10 Essential (primary) hypertension
CPT/HCPCS: 49452; 96374; 96375; 99284; C1769; C1874; C1887; J2060; J3010

== ENCOUNTER 2017-03-06 13:48 | Emergency (ER) | payer MEDICARE, OTHER ==
[~2017-03-06] VITALS: Ht 175.3 cm; Wt 65.0 kg
[~2017-03-06 13:48] MED LIST changes: +LOPE1SUS; -PRED10 PO; -TAMS5CAP PO
[2017-03-06 14:05] VITALS: BP 100/61; PULSE 69; RESP 16; TEMP 97.6; O2SAT 97
--- NOTE | 2017-03-06 14:25 | PD ---
HPI Chief Complaint: [employer] Problem Time Seen by Provider: 14:08 Travel History International Travel<30 days: No Contact w/Intl Traveler<30days: No Traveled to known affect area: No History of Present Illness HPI The patient is a 72-year-old male presenting from the rehabilitation facility for evaluation of a clogged PEG tube. Patient has no complaints at this time, he reports that his tube is not clogged. PFSH Past Medical History Arthritis: Yes Anxiety: Yes Cancer: Yes (PROSTATE) Cardiovascular Problems: Yes High Cholesterol: No Chemotherapy: Yes Chest Pain: No Congestive Heart Failure: Yes COPD: Yes Coronary Artery Disease: Yes Diabetes: No Diminished Hearing: No Endocrine: No Gastrointestinal Disorders: Yes Genitourinary: No Hiatal Hernia: Yes Hypertension: Yes Implanted Vascular Access Dvce: No Musculoskeletal: Yes Neurologic: Yes (DEMENTIA) Respiratory: Yes Radiation Therapy: Yes Thyroid Disease: No Past Surgical History Abdominal Surgery: Yes (PEG TUBE, HERNIA REPAIR) Pacemaker: No Other Surgery: Yes (trach) Social History Alcohol Use: No Tobacco Use: No Substance Use: No Allergies-Medications (Allergen,Severity, Reaction): Coded Allergies: No Known Allergies (Unverified , 11/10/16) Reported Meds & Prescriptions Reported Meds & Active Scripts Active Zyloprim (Allopurinol) 100 Mg Tab 100 Mg G-TUBE DAILY Artificial Tears Opth Drops (Polyvinyl Alcohol) 1.4% Soln 1 Drop EACH EYE Q8HR Fluticasone Nasal [place] 50 Mcg/Act Naspr 1 [place] NASAL BID 50 mcg/spray Debrox Otic Drops (Carbamide Peroxide Otic Drops) 6.5% Soln 5 Drop RIGHT EAR Q12HR up to 4 days. Lisinopril 10 Mg Tab 20 Mg G-TUBE DAILY Lovenox Inj (Enoxaparin Sodium) 40 Mg/0.4 Ml Syr 40 Mg SQ Q24H due to inability to ambulate Claritin (Loratadine) 10 Mg Tablet 10 Mg PO DAILY Vancomycin (Vancomycin HCl) 125 Mg Cap 125 Mg PO QID 14 Days Percocet (Oxycodone-Acetaminophen) 10-325 mg Tab 1 Tab PO Q4H PRN Xanax (Alprazolam) 0.25 Mg Tab 0.25 Mg G-TUBE Q8H PRN Reported Loperamide Liq (Loperamide HCl) 1 Mg/7.5 Ml Liq Probiotic (Lactobacillus Combo No.10) 1 Each Capsule G-TUBE BID Omeprazole 20 Mg Cap G-TUBE BID Metoprolol Tartrate 25 Mg Tab 25 Mg PO BID Duoneb (Ipratropium-Albuterol Neb) 0.5-2.5 Mg/3 Ml Neb 1 Nebule INH Q4HR NEB Hyoscyamine (Hyoscyamine Sulfate) 0.125 Mg Tab 0.125 Mg G-TUBE Q4H Doxazosin (Doxazosin Mesylate) 2 Mg Tab 2 Mg G-TUBE DAILY Chlorhexidine Gluconate (Mouth) Liq (Chlorhexidine Gluconate) 0.12% Soln 15 Ml SWISH-SPIT BID Budesonide Neb 0.5 Mg/2 Ml Neb 0.5 Mg NEB Q12HR NEB Amiodarone (Amiodarone HCl) 200 Mg Tab 200 Mg G-TUBE DAILY Tylenol (Acetaminophen) 325 Mg Tab 325 Mg G-TUBE Q4H PRN Review of Systems Except as stated in HPI: all other systems reviewed are Neg Physical Exam Narrative GENERAL: Well-developed, well-nourished, alert elderly gentleman. Resting comfortably in no acute distress. SKIN: Warm and dry. HEAD: Normocephalic. EYES: No scleral icterus. No injection or drainage. NECK: Supple, trachea midline. No JVD or lymphadenopathy. CARDIOVASCULAR: Regular rate and rhythm without murmurs, gallops, or rubs. RESPIRATORY: Breath sounds equal bilaterally. No accessory muscle use. GASTROINTESTINAL: Abdomen soft, non-tender, nondistended. PEG tube to mid upper abdomen. Positive bowel sounds, no rebound, no guarding. MUSCULOSKELETAL: No cyanosis, or edema. BACK: Nontender without obvious deformity. No CVA tenderness. Data Data Last Documented VS Vital Signs Date Time Temp Pulse Resp B/P (MAP) Pulse Ox O2 Delivery O2 Flow Rate FiO2 03/06/17 14:17 69 17 97 Room Air 03/06/17 14:05 97.6 100/61 (74) [facility] Medical Decision Making Medical Screen Exam Complete: Yes Emergency Medical Condition: Yes Interpretation(s) Vital Signs Date Time Temp Pulse Resp B/P (MAP) Pulse Ox O2 Delivery O2 Flow Rate FiO2 03/06/17 14:17 69 17 97 Room Air 03/06/17 14:05 97.6 69 16 100/61 (74) 97 Differential Diagnosis Occluded feeding tube versus normal examination versus other Narrative Course Patient is a 72-year-old male sent to the emergency department for evaluation of an occluded feeding tube. Feeding tube was assessed, both ports flushed without difficulty. Patient's vital signs are stable. Patient will return to the rehabilitation facility after transportation has been arranged. Diagnosis Primary Impression: PEG tube malfunction Referrals: Primary Care Physician Patient Instructions: General Instructions, How to Use and Care for Your PEG Tube (ED) Additional Instructions: Both ports of feeding tube flushed without difficulty Flush feeding tube after each use Follow-up with primary doctor Return to emergency department for any new or worsening symptoms Med/Other Pt SpecificInfo: No Change to Meds Disposition: 03 DISCHARGE TO SNF Condition: Stable Arianna Brown Mar 06, 2017 14:25
[2017-03-06] MEDS ORDERED: PERC10TA27 G-TUBE (15:21)
[2017-03-06] MEDS ORDERED: VANC1CAP6 G-TUBE (15:21)
[2017-03-06] MEDS ORDERED: ASPI1TAB91 G-TUBE (15:21)
[2017-03-06] MEDS ORDERED: ALPR.25 G-TUBE (15:21)
== END 2017-03-06 15:55 ==
LOC: NEPD 13:48
DX: K94.23 Gastrostomy malfunction (principal)
CPT/HCPCS: 99284

== ENCOUNTER 2017-03-26 09:23 | Emergency (ER) | payer MEDICARE, OTHER ==
[~2017-03-26] VITALS: Ht 172.7 cm; Wt 56.0 kg
[~2017-03-26 09:23] MED LIST changes: +ASPI1TAB91 G-TUBE; -CARB6.5S5 RIGHT EAR; -ENOX40P SQ; -LOPE1SUS; +PERC10TA27 G-TUBE; -PERC10TA27 PO; -VANC125C3 PO; +VANC1CAP6 G-TUBE
[2017-03-26] MEDS ORDERED: IODIXANOL 320 MG/ML 50 ML VIAL (for RAD SPEC) PEG ONE (09:24)
[2017-03-26 09:42] VITALS: BP 106/57; PULSE 60; RESP 17; TEMP 97.9; O2SAT 96
--- NOTE | 2017-03-26 09:57 | PD ---
HPI Chief Complaint: GI Complaint Time Seen by Provider: 09:43 Travel History International Travel<30 days: No Contact w/Intl Traveler<30days: No Traveled to known affect area: No History of Present Illness HPI [facility] GJ feeding tube "fell out". Patient woke up this morning and the tube was in position. He says he reached across to get something and he noticed it was lying in the bed. He denies any abdominal pain or vomiting or bleeding from the area. Severity is mild. Patient is a complete nothing by mouth patient with high aspiration risk and only uses the tube for feeding. Therefore he will need a new one. Radiology placed his current tube March 01, 2017. This is the third visit in a month for feeding tube problems. No alleviating factors. Symptoms are exacerbated by either the patient's or the staff or boths poor care of this feeding tube. PFSH Past Medical History Arthritis: Yes Anxiety: Yes Cancer: Yes (PROSTATE) Cardiovascular Problems: Yes High Cholesterol: No Chemotherapy: Yes Chest Pain: No Congestive Heart Failure: Yes COPD: Yes Coronary Artery Disease: Yes Diabetes: No Diminished Hearing: No Endocrine: No Gastrointestinal Disorders: Yes Genitourinary: No Hiatal Hernia: Yes Hypertension: Yes Implanted Vascular Access Dvce: No Musculoskeletal: Yes Neurologic: Yes (DEMENTIA) Respiratory: Yes Radiation Therapy: Yes Thyroid Disease: No Past Surgical History Abdominal Surgery: Yes (PEG TUBE, HERNIA REPAIR) Pacemaker: No Other Surgery: Yes (trach) Social History Alcohol Use: No Tobacco Use: No Substance Use: No Allergies-Medications (Allergen,Severity, Reaction): Coded Allergies: No Known Allergies (Unverified , 03/26/17) Reported Meds & Prescriptions Reported Meds & Active Scripts Active Zyloprim (Allopurinol) 100 Mg Tab 100 Mg G-TUBE DAILY Artificial Tears Opth Drops (Polyvinyl Alcohol) 1.4% Soln 1 Drop EACH EYE Q8HR Fluticasone Nasal [place] 50 Mcg/Act Naspr 1 [place] NASAL BID 50 mcg/spray Lisinopril 10 Mg Tab 20 Mg G-TUBE DAILY Claritin (Loratadine) 10 Mg Tablet 10 Mg PO DAILY Reported Xanax (Alprazolam) 0.25 Mg Tab 0.25 Mg G-TUBE Q8H PRN Percocet (Oxycodone-Acetaminophen) 10-325 mg Tab 1 Tab G-TUBE Q4H Aspirin Adult Low Strength (Aspirin) 81 Mg Tabdr 81 Mg G-TUBE DAILY Vancocin (Vancomycin HCl) 125 Mg Cap 125 Mg G-TUBE QID 7 Days Probiotic (Lactobacillus Combo No.10) 1 Each Capsule 1 Cap G-TUBE BID Omeprazole 20 Mg Cap 20 Mg G-TUBE BID Metoprolol Tartrate 25 Mg Tab 25 Mg PO BID Duoneb (Ipratropium-Albuterol Neb) 0.5-2.5 Mg/3 Ml Neb 1 Nebule INH Q4HR NEB Hyoscyamine (Hyoscyamine Sulfate) 0.125 Mg Tab 0.125 Mg G-TUBE Q4H Doxazosin (Doxazosin Mesylate) 2 Mg Tab 2 Mg G-TUBE DAILY Chlorhexidine Gluconate (Mouth) Liq (Chlorhexidine Gluconate) 0.12% Soln 15 Ml SWISH-SPIT BID Budesonide Neb 0.5 Mg/2 Ml Neb 0.5 Mg NEB Q12HR NEB Amiodarone (Amiodarone HCl) 200 Mg Tab 200 Mg G-TUBE DAILY Tylenol (Acetaminophen) 325 Mg Tab 325 Mg G-TUBE Q4H PRN Review of Systems General / Constitutional: No: Fever Eyes: No: Visual changes HENT: No: Headaches Cardiovascular: No: Chest Pain or Discomfort Respiratory: No: Shortness of Breath Gastrointestinal: No: Abdominal Pain Genitourinary: No: Dysuria Musculoskeletal: No: Pain Skin: No Rash Neurologic: No: Weakness Psychiatric: No: Depression Endocrine: No: Polydipsia Hematologic/Lymphatic: No: Easy Bruising Physical Exam Narrative GENERAL: Thin elderly well-developed patient in no apparent distress. SKIN: Focused skin assessment reveals no rash and nodules. Skin is Warm and dry. HEAD: Atraumatic. Normocephalic. EYES: Pupils equal and round. No scleral icterus. No injection or drainage. ENT: No nasal bleeding or discharge. Mucous membranes pink and moist. NECK: Trachea midline. No JVD. CARDIOVASCULAR: Regular rate and rhythm. No murmur appreciated. RESPIRATORY: No accessory muscle use. Clear to auscultation. Breath sounds equal bilaterally. GASTROINTESTINAL: Abdomen soft, non-tender, nondistended. Hepatic and splenic margins not palpable. Has chronic easily reducible midabdominal hernia. There is an empty hole where his feeding tube was. No sign of infection or active bleeding. MUSCULOSKELETAL: No obvious deformities. No clubbing. No cyanosis. No edema. NEUROLOGICAL: Awake and alert. No obvious cranial nerve deficits. Motor grossly within normal limits. Normal speech. PSYCHIATRIC: Appropriate mood and affect; insight and judgment normal. Data Data Last Documented VS Vital Signs Date Time Temp Pulse Resp B/P (MAP) Pulse Ox O2 Delivery O2 Flow Rate FiO2 03/26/17 09:42 97.9 60 17 106/57 (73) 96 Orders Orders Invasive Rad Dept Consult (03/26/17 ) MDM Medical Decision Making Medical Screen Exam Complete: Yes Emergency Medical Condition: Yes Medical Record Reviewed: Yes Differential Diagnosis Dislodged feeding tube, tube malfunction Narrative Course I have reviewed the patient's electronic medical record. I saw this patient March 01, 2017 when his feeding tube was clogging got replaced by radiology I have Placed a consultation to radiology department for GJ tube replacement. After tube has been placed [facility] Diagnosis Primary Impression: Encounter for feeding tube placement Additional Impressions: Complication of feeding tube Dysphagia Qualified Codes: R13.10 - Dysphagia, unspecified Additional Instructions: [facility]up with [facility] Med/Other Pt SpecificInfo: Other Disposition: 03 DISCHARGE TO SNF Condition: Stable Dandre Graff MD Mar 26, 2017 09:57
[2017-03-26 11:38] VITALS: BP 119/57; PULSE 56; RESP 17; O2SAT 96
[2017-03-26] MEDS ORDERED: MIDAZOLAM HCL 2 MG/2 ML VIAL ONE (14:24)
--- NOTE | 2017-03-26 15:22 | PD.RAD ---
Post Procedure Progress Note Pre Procedure Diagnosis: (1) Encounter for feeding tube placement Post Procedure Diagnosis: (1) Encounter for feeding tube placement Procedure Date: Mar 26, 2017 Supervising Radiologist: Nahun Mills Estimated blood loss: None Anesthesia: Local Plan of Activity Patient to Unit: Other Patient Condition: Fair Additional Comments: Pt. was seen for a replacement of his 22 kiswahili G/J tube. The patient refused replacement of the G/J tube and stated he did not want to undergo replacement of his G/J tube. I was able to convince the patient to allow me to place an 18 Mongolian G tube through the existing tract at the bedside. The patient was advised of the risk of aspiration. G tube was placed without difficulty. Position confirmed with a KUB. Full dictated report to follow See PACS Report for procedural detail/treatment Nahun Mills MD Mar 26, 2017 15:22
--- NOTE | 2017-03-26 15:33 | RADRPT ---
EXAM DATE/TIME: 03/26/2017 00:00 [facility] COMPARISON: CHANGE OF GJ-TUBE CATHETER, March 01, 2017, 16:27. INDICATIONS : Patient with a history of dislogged GJ tube. MEDICAL HISTORY : prostate cancer HTN Anxiety GERD COPD Dysphagia Cardia arrest CAD SURGICAL HISTORY : PEG tube Trach placement and removal Appendectomy Perforated gastric ulcer surgery ENCOUNTER: Subsequent ACUITY: 1 day PAIN SCORE: 7/10 LOCATION: Abdomen CONTRAST: 20 cc Visipaque (iodixanol) MEDICATION(S): 1.) 50 mcg fentanyl (Sublimaze) IV DEVICE(S): 1.) 18 Fr gastrostomy tube TECH NOTE: see x-ray for g-tube placementSTACIE SULLIVAN MR#[id number] :47 Exam date/desc:March 26, 2017G ASTROSTOMY TUBE PLACEMENT PROCEDURE : 1. Gastrostomy tube placement through an existing tract. The patient arrived from the emergency department. Initially, the patient refused placement of any ty pe of feeding tube. The patient was advised with his history of previous tracheotomy and aspiration r esumption of a normal full diet was not an option. The patient continued to decline placement of a la rge bore G./J-tube. Eventually, the patient agreed to have a gastrostomy tube placed through the exis ting tract at bedside. The patient is to be evaluated by the rehabilitation swallow service in 2 days. The risks, benefits and alternatives to the procedure were explained and verbal and written consent w as obtained. The site was prepped in sterile fashion. Full sterile technique was used, including ca p, mask, sterile gloves and a large sterile sheet. Hand hygiene and 2% chlorhexidine and/or betadine /alcohol prep was utilized per protocol for cutaneous antisepsis. The patient was given 50 mcg of fentanyl. The patient was monitored by a nurse throughout the procedu re. Lidocaine jelly was advanced through the existing tract. This was allowed to dwell for approximately 10 minutes. An 18 Polish gastrostomy tube was advanced through the tract and into the stomach. The ba lloon was inflated with approximately 7 cc of sterile saline. A KUB is pending to confirm placement. CONCLUSION: Uncomplicated gastrostomy tube placement as above. Nahun Mills MD on March 26, 2017 at 15:26 Board Certified Radiologist. This report was verified electronically.
[2017-03-26 15:40] VITALS: BP 126/64; PULSE 73; RESP 12; O2SAT 96
--- NOTE | 2017-03-26 15:49 | RADRPT ---
EXAM DATE/TIME: 03/26/2017 15:11 [facility] COMPARISON: CT ABDOMEN & PELVIS W/O CONTRAST, February 01, 2017, 10:16. INDICATIONS : Confirm g tube placement. MEDICAL HISTORY : None. SURGICAL HISTORY : None. ENCOUNTER: Subsequent ACUITY: 2 days PAIN SCORE: 0/10 LOCATION: Bilateral abdomen FINDINGS: Contrast injected through the existing gastrostomy catheter opacifies the distal stomach and proximal duodenum. Nonspecific loops of minimally distended small bowel in the left upper quadrant. No gross free air or pneumatosis. Remainder of exam is unchanged. CONCLUSION: 1. Gastrostomy catheter appears to be in good position with contrast opacifying distal stomach and du odenum. 2. Nonspecific minimally distended air-filled loops of small bowel in the left upper quadrant. Mike Burk MD on March 26, 2017 at 15:46 Board Certified Radiologist. This report was verified electronically.
[2017-03-26 18:48] VITALS: BP 122/68
== END 2017-03-26 20:30 ==
LOC: NEPD 09:23
DX: Z43.1 Encounter for attention to gastrostomy (principal); R13.10 Dysphagia, unspecified
CPT/HCPCS: 49440; 74000; 99284; J2250; J3010; Q9967